=== PATIENT | male | born 1930 | race Caucasian/White ===

== ENCOUNTER 2018-12-05 09:44 | Day surgery (SDC) | payer OTHER, MEDICARE ==
--- NOTE | 2018-12-04 12:56 | RAD REPORT ---
EXAM DESCRIPTION: RAD - Chest Pa And Lat (2 Views) - 12/04/2018 12:46 pm CLINICAL HISTORY: Preop chest examination, pending right inguinal hernia repair COMPARISON: February 2015 chest exam TECHNIQUE: PA and lateral views of the chest were obtained. FINDINGS: The lungs are fibrotic as a baseline. Interstitial fibrotic pattern is progressive. No per ipheral mass or consolidation. Left costophrenic angle blunting changes are present believed to be pl eural scarring rather than effusion. Cardiomegaly is present increased slightly from comparison. No vascular engorgement or other findings for acute failure or volume overload. Trachea is midline. No pneumothorax. No acute bony finding n oted. No aortic abnormality. IMPRESSION: No focal infiltrate, mass or failure finding. Chronic interstitial lung pattern progressive from 2014. In the absence of acute respiratory symptoms this is favored to be progressive fibrosis rather than interstitial infiltrate.
[2018-12-04 13:13] LABS: Absolute Lymphocytes (CBC) 1.7 K/uL (0.7-4.9); Basophils % 0.3 % (0-1.3); Hematocrit 43.4 % (39.6-49.0); Lymphocytes % 6.7 % (15.3-44.8); MPV 8.2 fL (7.6-11.3); RBC Red Blood Cell Count 5.47 M/uL (4.33-5.43)
[2018-12-04 13:31] LABS: Potassium 4.3 mmol/L (3.5-5.1)
[2018-12-04 14:35] LABS: Anisocytosis 1+; Blood Morphology Comment NOTED (NOT SEEN); Platelet Estimate ADEQ; Platelets, Giant NOTED
--- NOTE | 2018-12-04 16:11 | EKG ---
Test Date: 2018-12-04 Test Time: 12:37:57 Bottled Beverage Inspector: KYLE MEASUREMENT RESULTS: Intervals: Rate: 68 UT: 216 QRSD: 114 QT: 474 QTc: 504 Council: P: 41 UT: 216 QRS: 56 T: 54 INTERPRETIVE STATEMENTS: Sinus rhythm with sinus arrhythmia with 1st degree AV block Incomplete left bundle branch block ST & T wave abnormality, consider lateral ischemia Prolonged QT Abnormal ECG No previous ECG available for comparison Electronically Signed On 12-04-18 16:09:23 CDT by Rene Stevens
--- OUTSIDE RECORDS SUMMARY | 2018-12-05 09:47 | XMS REPORT | Summary of Care ---
:1930 Author Organization [facility] Address [address] [place] [id number] Care Team Providers Name Role Phone Sonido Elizabeth DO Primary Care Provider Reason for Visit Reason Comments Follow-up 2mo Encounter Details Date Type Department Care Team Description 11/12/2018 Office Visit [facility] Mirtha Melgoza MD Coronary artery disease involving [place] coronary artery of [place] heart with angina pectoris (Primary Dx); Cardiology- [address] PAF (paroxysmal atrial fibrillation); [address] [place] [address] DRIVE (HFpEF) heart failure with preserved ejection fraction Drive, [address] [place] [phone] Allergies Active Allergy Reactions Severity Noted Date Comments Hasmukh Other - See comments 05/29/2015 sneezing Naproxen Shortness of Breath, High 06/09/2015 Diaphoresis, dyspnea, Palpitations sob Diaphoresis, dyspnea, sob Tramadol Unknown - See comments 06/09/2015 A-fib Other reaction(s): Other (See Comments) Diaphoresis, SOB, dyspnea Diaphoresis, SOB, dyspnea documented as of this encounter (statuses as of 11/12/2018) Medications Medication Sig Dispensed Refills Start Date End Date Status predniSONE 5 mg Take 5 mg by 0 Active tablet mouth daily. metoprolol tartrate Take 0.5 30 tablet 11 02/22/2018 Active 25 mg tablet tablets by mouth 2 (two) times daily. metOLazone 2.5 mg Take 1 tablet 20 tablet 3 05/01/2018 Active tablet by mouth weekly. Monday AM nitroglycerin 0.[address] 1 25 tablet 1 06/05/2018 Active sublingual tablet under tabletIndications: the tongue Coronary artery every 5 disease involving (five) [place] coronary minutes as artery of [place] needed for heart without angina Chest pain. pectoris potassium chloride Take 2 60 tablet 3 06/05/2018 Active SA (KLOR-CON M15) 15 tablets by mEq mouth daily. tabletIndications: Hypokalemia pantoprazole 20 mg Take 1 tablet 30 tablet 5 07/09/2018 Active EC tablet by mouth daily. furosemide 40 mg Take 1 tablet 60 tablet 3 09/05/2018 Active tabletIndications: by mouth (HFpEF) heart every morning failure with and evening. preserved ejection fraction allopurinol 100 mg Take 1 tablet 30 tablet 2 09/20/2018 Active tabletIndications: by mouth Other secondary daily. 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 Depression, unspecified depression type simvastatin 40 mg Take 1 tablet 30 tablet 11 10/22/2018 Active tablet by mouth at bedtime. clopidogrel 75 mg Take 1 tablet 30 tablet 11 10/22/2018 Active tablet by mouth daily. apixaban 2.5 mg Take 1 tablet 60 tablet 11 10/22/2018 Active tablet by mouth 2 (two) times daily. codeine-guaifenesin Take 10 mL by 4 oz 0 10/19/2018 11/12/2018 Discontinued 10-100 mg/5 mL mouth every 6 solutionIndications: (six) hours Cough as needed for Cough. documented as of this encounter (statuses as of 11/12/2018) Active Problems Problem Noted Date SOB (shortness of breath) 02/19/2018 Nausea & vomiting 02/18/2018 Acute on chronic diastolic congestive heart failure 02/12/2018 PAF (paroxysmal atrial fibrillation) 02/12/2018 Elevated troponin 02/10/2018 Coronary artery disease involving [place] coronary artery of [place] heart 01/20 with angina pectoris OBRIEN (dyspnea on exertion) 01/20/2018 (HFpEF) heart failure with preserved ejection fraction 01/20/2018 Elevated brain natriuretic peptide (BNP) level 01/20/2018 Atypical chest pain 01/18/2018 NSTEMI (non-ST elevated myocardial infarction) 10/11/2017 documented as of this encounter (statuses as of 11/12/2018) Immunizations Name Administration Dates Next Due Influenza Virus Vaccine 01/17/2018 Pneumococcal 13 Conjugate, PCV13 (Prevnar 13) 11/26/2014 Tdap 08/10/2013 documented as of this encounter Social History Tobacco Use Types Packs/Day Years Used Date Former Smoker Cigarettes Quit: 04/17/1970 Smokeless Tobacco: Former User Chew Quit: 04/17/1970 Comments: 20 pack years Alcohol Use Drinks/Week oz/Week Comments Yes a beer every 3-4 months Sex Assigned at Date Recorded Not on file Job Start Date Occupation Industry Not on file Not on file Not on file Travel History Travel Start Travel End No recent travel history available. documented as of this encounter Last Filed Vital Signs Vital Sign Reading Time Taken Comments Blood Pressure 102/57 11/12/2018 10:09 AM CDT Pulse 69 11/12/2018 10:09 AM CDT Temperature - - Respiratory Rate 20 11/12/2018 10:09 AM CDT Oxygen Saturation 94% 11/12/2018 10:09 AM CDT Inhaled Oxygen Concentration - - Weight 81.2 kg (179 lb) 11/12/2018 10:09 AM CDT Height 177.8 cm (5' 10") 11/12/2018 10:09 AM CDT Body Mass Index 25.68 11/12/2018 10:09 AM CDT documented in this encounter Progress Notes Mirtha Melgoza MD - 11/12/2018 1:40 PM CDT [facility] Cardiology Consult Note CHIEF COMPLAINT: Chief Complaint Patient presents with Follow-up 2mo History of Present Illness: Inderjit Tejeda is an 88 years old male patient presents to the office for f/u of HFpEF. Patient underwent invasive coronary angiogram for non-ST elevation RI and underwent stent placement in 10/2017. He was seen for bilateral leg swelling. He was started on lasix. Previous visit he was seen for worsening OBRIEN, orthopnea and leg edema. He was admitted to [facility] for volume overload. Diuresed well. Started on metolazone BIW. He went to [facility] ER in 07/2018 for cellulitis and leg edema. Lasix was increased to 60 mg BID. Leg edema has resolved. Since last visit he has been doing well. No edema. Lasix 40 BID. Metolazone weekly. Stable weight. No orthopnea. Able to walk 1 block. EKG--03/26/2018--Sinus trena, 50 bpm, LBBB PMH of Aflutter (on Eliquis, recently stopped amiodarone on 09/25) Moderate aortic stenosis CAD ([facility] 2014 without stents placed) Pulmonary eosinophilia MDS Previous Cardiac Studies: IMAGING - I personally reviewed, pertinent results as below: NSTEMI s/p Successful PCI mid calcified LAD with BENJI Echo 09/2017 Interpretation Summary A complete two-dimensional transthoracic echocardiogram was performed (2D, M- mode, Doppler and colorflow Doppler). The study was technically difficult. There is no comparison study available. -Left ventricular systolic function is normal. Ejection Fraction=55-60%. -Moderate valvular aortic stenosis. - Mild pulmonary hypertension PAST MEDICAL HISTORY Past Medical History: Diagnosis Date Aortic stenosis, mild CAD (coronary artery disease) CHF (congestive heart failure) Hypertension Paroxysmal A-fib Pulmonary eosinophilia Past Surgical History: Procedure Laterality Date STENT PLACEMENT (SHX) Family History Problem Relation Age of Onset RI (myocardial infarction) Father Prostate Cancer Brother Stroke Brother Bladder Cancer Brother Aneurysm Son SOCIAL HISTORY Social History Socioeconomic History Marital status: Spouse name: Not on file Number of children: 3 Years of education: Not on file Highest education level: Not on file Occupational History Not on file Social Needs Financial resource strain: Not on file Food insecurity: Worry: Not on file Inability: Not on file Transportation needs: Medical: Not on file Non-medical: Not on file Tobacco Use Smoking status: Former Smoker Types: Cigarettes Last attempt to quit: 04/17/1970 Years since quittin.6 Smokeless tobacco: Former User Types: Chew Quit date: 04/17/1970 Tobacco comment: 20 pack years Substance and Sexual Activity Alcohol use: Yes Comment: a beer every 3-4 months Drug use: No Sexual activity: Not on file Lifestyle Physical activity: Days per week: Not on file Minutes per session: Not on file Stress: Not on file Relationships Social connections: Talks on phone: Not on file Gets together: Not on file Attends druze service: Not on file Active member of club or organization: Not on file Attends meetings of clubs or organizations: Not on file Relationship status: Not on file Intimate partner violence: Fear of current or ex partner: Not on file Emotionally abused: Not on file Physically abused: Not on file Forced sexual activity: Not on file Other Topics Concern Not on file Social History Narrative Not on file ALLERGIES Allergies Allergen Reactions Naprosyn [Naproxen] Shortness of Breath and Palpitations Diaphoresis, dyspnea, sob Diaphoresis, dyspnea, sob [place] Other - See comments sneezing Tramadol Unknown - See comments A-fib Other reaction(s): Other (See Comments) Diaphoresis, SOB, dyspnea Diaphoresis, SOB, dyspnea MEDICATIONS Patient's Medications START taking these medications No medications on file CONTINUE taking these medications which have NOT CHANGED ALLOPURINOL 100 MG TABLET Take 1 tablet by mouth daily. APIXABAN 2.5 MG TABLET Take 1 tablet by mouth 2 (two) times daily. CLOPIDOGREL 75 MG TABLET Take 1 tablet by mouth daily. FUROSEMIDE 40 MG TABLET Take 1 tablet by mouth every morning and evening. METOLAZONE 2.5 MG TABLET Take 1 tablet by mouth weekly. Monday METOPROLOL TARTRATE 25 MG TABLET Take 0.5 tablets by mouth 2 (two) times daily. NITROGLYCERIN 0.[address] 1 tablet under the tongue every 5 (five) minutes as needed for Chest pain. PANTOPRAZOLE 20 MG EC TABLET Take 1 tablet by mouth daily. POTASSIUM CHLORIDE SA (KLOR-CON M15) 15 MEQ TABLET Take 2 tablets by mouth daily. PREDNISONE 5 MG TABLET Take 5 mg by mouth daily. SERTRALINE (ZOLOFT) 25 MG TABLET Take 1 tablet by mouth daily. SIMVASTATIN 40 MG TABLET Take 1 tablet by mouth at bedtime. START taking Modified Medications as Prescribed No medications on file STOP taking these medications CODEINE-GUAIFENESIN 10-100 MG/5 ML SOLUTION Take 10 mL by mouth every 6 (six ) hours as needed for Cough. There are no exam notes on file for this visit. I have reviewed the nursing notes obtained by my nurse and concur as detailed above. REVIEW OF SYSTEMS: Comprehensive 10-system review was conducted and were negative except for what' s noted in the HPI. The following systems were reviewed: Constitutional, cardiovascular, respiratory, gastrointestinal, genitourinary, musculoskeletal, neurologic, psychiatric, endocrinological, and hematological. PHYSICAL EXAMINATION: Vitals: 11/12/18 1009 BP: 102/57 BP Location: Left arm Patient Position: Sitting BP CUFF SIZE: Adult Large Pulse: 69 Resp: 20 SpO2: 94% Weight: 179 lb (81.2 kg) Height: 5' 10" (1.778 m) General: no apparent distress HEENT: normocephalic atraumatic Neck: supple, no lymphadenopathy, no bruits, no JVD Lungs: clear to auscultation bilaterally. No wheezes or rhonchi. No increased work of breathing. Cardio: Regular rate and rhythm, S1&S2 normal, no murmurs, rubs or gallops Abdomen: soft; non-tender; non-distended; normoactive bowel sounds. : not examined Rectal: not examined Extremities: no clubbing, cyanosis, - edema. Skin: no rashes, no visible lesions. Neuro: no gross focal deficits LABS - Reviewed pertinent labs as below: CBC BMP PT/INR WBC (10*3/L) Date Value 10/19/2018 26.37 (H) NA (mmol/L) Date Value 10/19/2018 139 No results found for: PT PLT (10*3/L) Date Value 10/19/2018 318 K (mmol/L) Date Value 10/19/2018 3.9 INR (no units) Date Value 08/12/2018 1.2 HGB (g/dL) Date Value 10/19/2018 13.6 BUN (mg/dL) Date Value 10/19/2018 57 (H) HCT (%) Date Value 10/19/2018 43.8 CREATININE (mg/dL) Date Value 10/19/2018 1.44 (H) LIPID PROFILE GLUCOSE (mg/dL) Date Value 10/19/2018 119 (H) CHOL (mg/dL) Date Value 06/25/2018 101 (L) TSH LDL CHOL (mg/dL) Date Value 06/25/2018 60 TSH (mIU/L) Date Value 10/10/2017 2.12 CARDIAC ENZYMES HDL (mg/dL) Date Value 06/25/2018 29 (L) No results found for: CK TRIG (mg/dL) Date Value 06/25/2018 61 LFTs No results found for: CKMB AST(SGOT) (U/L) Date Value 08/12/2018 29 TROPONIN I (ng/mL) Date Value 08/12/2018 0.072 (H) ALT(SGPT) (U/L) Date Value 08/12/2018 26 No results found for: BNP LDL CHOL (mg/dL) Date Value 06/25/2018 60 Recent Labs 08/12/18 1545 TROPNI 0.072* Recent Labs 06/25/18 1124 TRIG 61 ASSESSMENT/PLAN 1. Coronary artery disease involving [place] coronary artery of [place] heart with angina pectoris 2. PAF (paroxysmal atrial fibrillation) 3. (HFpEF) heart failure with preserved ejection fraction HFpEF--Current volume status is good. Will continue lasix at 40 mg BID and metolazone weekly. Off spironolactone. Will continue compression stockings. Discussed weight monitoring and lasix adjustment. BMP next visit. CAD--NSTEMI s/p PCI of mid LAD. No angina. On plavix/simvastatin. On metoprolol. Doing cardiac rehab. Off ASA since it has been 3 months since PCI and he is on Eliquis/plavix. LDL 60. PAfib--Currently in NSR. Will continue Eliquis. No bleeding. HTN--BP is normal now. PAD--GLENYS and duplex showed mild PAD. On medical therapy. No claudication. RTC 4 months Mirtha Melgoza MD, FAC, GI[employer]AR[employer] Wrestling Coach, Division of Cardiology [facility] documented in this encounter Plan of Treatment Date Type Specialty Care Team Description 03/12/2019 Office Visit Internal Medicine Sonido Elizabeth, [address] [place] [id number] 03/18/2019 Office Visit Cardiology Mirtha Melgoza MD [address] [place] [address] [place] [id number] Health Maintenance Due Date Last Done Comments Zoster Recombinant Vaccine (SHINGRIX) (1 of 2) 10/26/1981 Medicare Wellness Visit 10/26/1996 PNEUMOCOCCAL VACCINES 65+ (2 of 2 - PPSV23) 11/27/2015 11/26/2014 INFLUENZA VACCINE 12/16/2018 01/17/2018 DTaP,Tdap,and Td Vaccines (2 - Td) 08/11/2023 08/10/2013 documented as of this encounter Implants Implanted Type Area Company Accountant Device Identifier Shelf Expiration Model / Serial Date / Lot Stent documented as of this encounter Results Not on filedocumented in this encounter Visit Diagnoses Diagnosis Coronary artery disease involving [place] coronary artery of [place] heart with angina pectoris - Primary PAF (paroxysmal atrial fibrillation) Atrial fibrillation (HFpEF) heart failure with preserved ejection fraction documented in this encounter Insurance Payer Benefit Plan / Subscriber ID Effective Phone Address Type Group Dates MEDICARE MEDICARE PART xxxxxxxxxxx 1996-Pre [phone] [address] Medicare A & B sent [phone] JOSHUA DAVIS [phone] [facility] [id number] 2002-Pre [address] Medicare HEALTHCARE HEALTHCARE sent [id number] Supplement MEDICARE [place] SUPPLEMENT JOSHUA CASTRO [id number] (Home) [place] [address] documented as of this encounter Advance Directives Name Relationship Healthcare Agent Communication Relationship Kaity Tejeda Spouse [facility] [phone] agent (Home) [phone] Leny Calzada Child [facility] agent
--- OUTSIDE RECORDS SUMMARY | 2018-12-05 09:47 | XMS REPORT | Clinical Summary ---
:1930 Author Organization [facility] Address [address] [place] [address] Care Team Providers Name Role Phone Светлана Berrios MD Primary Care Provider Allergies Active Allergy Reactions Severity Noted Date Comments Hasmukh Other (See Comments) 11/10/2015 sneezing Naproxen Shortness Of Breath High 11/10/2015 Diaphoresis, dyspnea, sob Tramadol 11/10/2015 A-fib Medications Medication Sig Dispensed Refills Start Date End Date Status simvastatin (ZOCOR) Take 40 mg 0 10/17/2017 Active 40 MG tablet by mouth. hydroxyurea Take 1,000 0 Active (HYDREA) 500 mg mg by mouth capsule daily. aspirin 81 mg Chew 81 mg. 0 10/18/2017 Active chewable tablet clopidogrel Take 75 mg 0 10/18/2017 Active (PLAVIX) 75 mg by mouth. tablet nitroglycerin Place 0.4 mg 0 10/17/2017 Active (NITROSTAT) 0.4 MG under the SL tablet tongue. pantoprazole Take 40 mg 0 Active (PROTONIX) 20 MG EC by mouth. tablet predniSONE Take 5 mg by 0 Active (DELTASONE) 5 mg mouth. tablet apixaban (ELIQUIS) Take 5 mg by 0 Active 5 mg tablet mouth 2 (two) times a day. losartan (COZAAR) Take 1 90 tablet 0 03/23/2018 Active 25 MG tablet tablet (25 mg total) by mouth daily. losartan (COZAAR) Take 25 mg 0 10/18/2017 Discontinued 25 MG tablet by mouth. 8 (Reorder) Active Problems Problem Noted Date NSTEMI (non-ST elevated myocardial infarction) 10/11/2017 Atrial flutter by electrocardiography 07/05/2017 AVD (aortic valve disease) 09/27/2016 Nonrheumatic aortic valve stenosis 04/05/2016 Coronary artery disease involving [place] coronary artery of [place] heart 04/05 without angina pectoris Coronary arteriosclerosis 01/22/2016 Heart murmur 01/22/2016 Chest pain 01/22/2016 Essential hypertension 11/10/2015 Hyperlipidemia 11/10/2015 Pulmonary eosinophilia 11/10/2015 Encounters Date Type Specialty Care Team Description 03/23/2018 Telephone Cardiology Sanchez oGod MA Med Refill 02/07/2018 Telephone Internal Medicine Светлана Berrios MD 02/06/2018 Telephone Internal Medicine Светлана Berrios MD after 12/04/2017 Immunizations Name Administration Dates Next Due Pneumococcal Conjugate 13-Valent 11/26/2014 Tdap 08/10/2013 Family History Medical History Relation Name Comments Cancer Brother prostate Cancer Brother prostate/bladder Heart disease Father Heart attack No Known Problems Mother Coronary artery disease Other Relation Name Status Comments Brother Brother Father Mother Other Social History Tobacco Use Types Packs/Day Years Used Date Former Smoker Smokeless Tobacco: Former User Alcohol Use Drinks/Week oz/Week Comments Yes rare beer Sex Assigned at Date Recorded Not on file Job Start Date Occupation Industry Not on file Not on file Not on file Travel History Travel Start Travel End No recent travel history available. 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
--- OUTSIDE RECORDS SUMMARY | 2018-12-05 09:47 | XMS REPORT ---
:1930 Author [facility] Address [address] [place] [address] Dr. Combs [address] [place] [address] Care Team Providers Name Role Phone Unavailable Unavailable Unavailable Problems This patient has no known problems. Allergies, Adverse Reactions, Alerts This patient has no known allergies or adverse reactions. Medications This patient has no known medications.
--- OUTSIDE RECORDS SUMMARY | 2018-12-05 09:48 | XMS REPORT | Summary of Care ---
:[address] [facility] - [facility] Address [address] [place] [address] Care Team Providers Name Role Phone Sonido Elizabeth Primary Care Provider Reason for Visit Reason Comments Pre-op Clearance open repair of right inguinal hernia with mesh Encounter Details Date Type Department Care Team Description 11/21/[address] [facility] Mirtha Melgoza MD Pre-op Clearance (open Cardiology- [address] repair of right [address], DRIVE inguinal hernia with [address] mesh) [place] [phone] Allergies Active Allergy Reactions Severity Noted Date Comments Hasmukh Other - See comments 05/29/2015 sneezing Naproxen Shortness of Breath, High 06/09/2015 Diaphoresis, dyspnea, Palpitations sob Diaphoresis, dyspnea, sob Tramadol Unknown - See comments 06/09/2015 A-fib Other reaction(s): Other (See Comments) Diaphoresis, SOB, dyspnea Diaphoresis, SOB, dyspnea documented as of this encounter (statuses as of 11/21/2018) Medications Medication Sig Dispensed Refills Start Date End Date Status predniSONE 5 mg tablet Take 5 mg by 0 Active mouth daily. metoprolol tartrate 25 Take 0.5 tablets 30 tablet 11 02/22/2018 Active mg tablet by mouth 2 (two) times daily. metOLazone 2.5 mg Take 1 tablet by 20 tablet 3 05/01/2018 Active tablet mouth weekly. Monday AM nitroglycerin 0.[address] 1 tablet 25 tablet 1 06/05/2018 Active sublingual under the tongue tabletIndications: every 5 (five) Coronary artery disease minutes as needed involving [place] for Chest pain. coronary artery of [place] heart without angina pectoris potassium chloride SA Take 2 tablets by 60 tablet 3 06/05/2018 Active (KLOR-CON M15) 15 mEq mouth daily. tabletIndications: Hypokalemia pantoprazole 20 mg EC Take 1 tablet by 30 tablet 5 07/09/2018 Active tablet mouth daily. furosemide 40 mg Take 1 tablet by 60 tablet 3 09/05/2018 Active tabletIndications: mouth every (HFpEF) heart failure morning and with preserved ejection evening. fraction allopurinol 100 mg Take 1 tablet by 30 tablet 2 09/20/2018 Active tabletIndications: mouth daily. 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 Depression, unspecified depression type simvastatin 40 mg Take 1 tablet by 30 tablet 11 10/22/2018 Active tablet mouth at bedtime. clopidogrel 75 mg Take 1 tablet by 30 tablet 11 10/22/2018 Active tablet mouth daily. apixaban 2.5 mg tablet Take 1 tablet by 60 tablet 11 10/22/2018 Active mouth 2 (two) times daily. 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 OBRIEN (dyspnea on exertion) 01/20/2018 (HFpEF) heart failure with preserved ejection fraction 01/20/2018 Elevated brain natriuretic peptide (BNP) level 01/20/2018 Atypical chest pain 01/18/2018 NSTEMI (non-ST elevated myocardial infarction) 10/11/2017 documented as of this encounter (statuses as of 11/21/2018) Immunizations Name Administration Dates Next Due Influenza [...] of this encounter Last Filed Vital Signs Not on filedocumented in this encounter Plan of Treatment Date Type Specialty Care Team Description 03/12/2019 Office Visit Internal Medicine Sonido Elizabeth, [address] [place] [address]. [place] [phone] 03/18/2019 Office Visit Cardiology Mirtha Melgoza MD [address] [place] [address] [place] [address] 769285 Health Maintenance Due Date Last Done Comments Zoster Recombinant Vaccine (SHINGRIX) (1 of 2) 10/26/1981 Medicare Wellness Visit 10/26/1996 PNEUMOCOCCAL VACCINES 65+ (2 of 2 - PPSV23) 11/27/2015 11/26/2014 INFLUENZA VACCINE 12/16/2018 01/17/2018 DTaP,Tdap,and Td Vaccines (2 - Td) 08/11/2023 08/10/2013 documented as of this encounter Implants Implanted Type Area Roller Coaster Engineer Device Identifier Shelf Expiration Model / Serial Date / Lot Stent documented as of this encounter Results Not on filedocumented in this encounter Insurance Payer Benefit Plan / Subscriber ID Effective Phone Address Type Group Dates MEDICARE MEDICARE PART xxxxxxxxxxx 1996-Pre [phone] [address] Medicare A & B sent [id number] JOSHUA DAVIS [address] [facility] [id number] 2002-Pre [address] Medicare HEALTHCARE HEALTHCARE sent [id number] Supplement MEDICARE [place] SUPPLEMENT JOSHUA CASTRO [id number] documented as of this encounter Advance Directives Name Relationship Healthcare Agent Communication Relationship Kaity Tejeda Spouse First [facility] [phone] agent (Home) [phone] Leny Calzada Child Second formerly [facility] agent
--- OUTSIDE RECORDS SUMMARY | 2018-12-05 09:48 | XMS REPORT | Summary of Care ---
:1930 Author Organization [facility] Address [address] [place] [address] Care Team Providers Name Role Phone Sonido Elizabeth DO Primary Care Provider Reason for Visit Reason Comments Follow-up 2mo Encounter Details Date Type Department Care Team Description 11/12/2018 Office Visit [facility] Mirtha Melgoza MD Coronary artery disease involving [place] coronary artery of [place] heart with angina pectoris (Primary Dx); Cardiology- [address] PAF (paroxysmal atrial fibrillation); [address] [place] [address] DRIVE (HFpEF) heart failure with preserved ejection fraction Drive, [address] [place] [phone] Allergies Active Allergy Reactions Severity Noted Date [...] Coronary artery every 5 disease involving (five) [place] coronary minutes as artery of [place] needed for heart without angina Chest pain. 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 Patient underwent invasive coronary angiogram for non-ST elevation [place] and underwent stent placement in 10/2017. He was seen for bilateral leg swelling. He was started on lasix. Previous visit he was seen for worsening OBRIEN, orthopnea and leg edema. He was admitted to [facility] for volume overload. Diuresed well. Started on metolazone BIW. He went to [facility] ER in 07/2018 for cellulitis and leg edema. Lasix was increased to 60 mg BID. Leg edema has resolved. Since last visit he has been doing well. No edema. Lasix 40 BID. Metolazone weekly. Stable weight. No orthopnea. Able to walk 1 block. EKG--03/26/2018--Sinus trena, 50 bpm, LBBB PMH of Aflutter (on Eliquis, recently stopped amiodarone on 09/25) Moderate aortic stenosis CAD ([facility] 2014 without stents placed) Pulmonary eosinophilia MDS [...] Family History Problem Relation Age of Onset [place] (myocardial infarction) Father Prostate Cancer Brother Stroke [...] file Gets together: Not on file Attends anglican service: Not on file Active member of [...] 62 ASSESSMENT/PLAN 1. Coronary artery disease involving [place] coronary artery of [place] heart with angina pectoris 2. PAF (paroxysmal [...] 4 months Mirtha Melgoza MD, FAC, GIANCARLO Embedded Systems Developer, Division of Cardiology [facility] documented in this encounter Plan of Treatment Date Type Specialty Care Team Description 03/12/2019 Office Visit Internal Medicine Sonido Elizabeth, [address] [place] [phone] 03/18/2019 Office Visit Cardiology Mirtha Melgoza MD [address] [place] [address] [place] [address] Health Maintenance Due Date Last Done Comments Zoster Recombinant Vaccine (SHINGRIX) (1 of 2) 10/26/1981 Medicare Wellness Visit 10/26/1996 PNEUMOCOCCAL VACCINES 65+ (2 of 2 - PPSV23) 11/27/2015 11/26/2014 INFLUENZA VACCINE 12/16/2018 01/17/2018 DTaP,Tdap,and Td Vaccines (2 - Td) 08/11/2023 08/10/2013 documented as of this encounter Implants Implanted Type Area Terminal Gauger Supervisor Device Identifier Shelf Expiration Model / Serial Date / Lot Stent documented as of this encounter Results Not on filedocumented in this encounter Visit Diagnoses Diagnosis Coronary artery disease involving [place] coronary artery of [place] heart with angina pectoris - Primary PAF (paroxysmal atrial fibrillation) Atrial fibrillation (HFpEF) heart failure with preserved ejection fraction documented in this encounter Insurance Payer Benefit Plan / Subscriber ID Effective Phone Address Type Group Dates MEDICARE MEDICARE PART xxxxxxxxxxx 1996-Pre [phone] [address] Medicare A & B sent [id number] JOSHUA DAVIS [phone] [facility] [id number] 2002-Pre [address] Medicare HEALTHCARE HEALTHCARE sent [id number] Supplement MEDICARE [place] SUPPLEMENT JOSHUA CASTRO [id number] (Home) [place] [address] documented as of this encounter Advance Directives Name Relationship Healthcare Agent Communication Relationship Kaity Tejeda Spouse [facility] [phone] agent (Home) [phone] Leny Calzada Child [facility] agent
--- OUTSIDE RECORDS SUMMARY | 2018-12-05 09:48 | XMS REPORT | Summary of Care ---
:1930 Author Organization [facility] Address [address] [place] [address] Care Team Providers Name Role Phone Sonido Elizabeth DO Primary Care Provider Reason for Visit Reason Comments Follow-up 2mo Encounter Details Date Type Department Care Team Description 11/12/2018 Office Visit [facility] Mirtha Melgoza MD Coronary artery disease involving [place] coronary artery of [place] heart with angina pectoris (Primary Dx); Cardiology- [address] PAF (paroxysmal atrial fibrillation); [address] [place] [address] DRIVE (HFpEF) heart failure with preserved ejection fraction Drive, [address] [place] [phone] Allergies Active Allergy Reactions Severity Noted Date Comments Hasmukh Other - See comments 05/29/2015 sneezing Naproxen Shortness of Breath, High 06/09/2015 Diaphoresis, dyspnea, Palpitations sob Diaphoresis, dyspnea, sob Tramadol Unknown - See comments 06/09/2015 A-fib Other reaction(s): Other (See Comments) Diaphoresis, SOB, dyspnea Diaphoresis, SOB, dyspnea documented as of this encounter (statuses as of 11/25/2018) Medications Medication Sig Dispensed Refills Start Date [...] Coronary artery every 5 disease involving (five) [place] coronary minutes as artery of [place] needed for heart without angina Chest pain. 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 OBRIEN (dyspnea on exertion) 01/20/2018 (HFpEF) heart failure with preserved ejection fraction 01/20/2018 Elevated brain natriuretic peptide (BNP) level 01/20/2018 Atypical chest pain 01/18/2018 NSTEMI (non-ST elevated myocardial infarction) 10/11/2017 documented as of this encounter (statuses as of 11/25/2018) Immunizations Name Administration Dates Next Due Influenza [...] MD - 11/12/2018 1:40 PM CDT [facility] Cardiology Consult Note CHIEF COMPLAINT: Chief Complaint Patient presents with Follow-up 2mo History of Present Illness: Inderjit Tejeda is an 88 years old male patient presents to the office for f/u of HFpEF. Patient underwent invasive coronary angiogram for non-ST elevation [place] and underwent stent placement in 10/2017. He was seen for bilateral leg swelling. He was started on lasix. Previous visit he was seen for worsening OBRIEN, orthopnea and leg edema. He was admitted to [facility] for volume overload. Diuresed well. Started on metolazone BIW. He went to [facility] ER in 07/2018 for cellulitis and leg edema. Lasix was increased to 60 mg BID. Leg edema has resolved. Since last visit he has been doing well. No edema. Lasix 40 BID. Metolazone weekly. Stable weight. No orthopnea. Able to walk 1 block. EKG--03/26/2018--Sinus trena, 50 bpm, LBBB PMH of Aflutter (on Eliquis, recently stopped amiodarone on 09/25) Moderate aortic stenosis CAD ([facility] 2014 without stents placed) Pulmonary eosinophilia MDS [...] Family History Problem Relation Age of Onset [place] (myocardial infarction) Father Prostate Cancer Brother Stroke [...] file Gets together: Not on file Attends hoahaoism service: Not on file Active member of [...] 62 ASSESSMENT/PLAN 1. Coronary artery disease involving [place] coronary artery of [place] heart with angina pectoris 2. PAF (paroxysmal [...] medical therapy. No claudication. RTC 4 months Addendum---11/25/2018---Moderate cardiac risk. OK to hold Eliquis 2-3 days before surgery. OK to holdplavix 5 days before surgery. Restart these medications MOMO postop. Mirtha Melgoza MD, FACC, GIANCARLO Bank Consultant, Division of Cardiology [facility] documented in this encounter Plan of Treatment Date Type Specialty Care Team Description 03/12/2019 Office Visit Internal Medicine Sonido Elizabeth DO [address] [place] [address]. [place] [phone] 03/18/2019 Office Visit Cardiology Mirtha Melgoza MD [address] [place] [address] [address] [place] [address] [phone] Health Maintenance Due Date Last Done Comments Zoster Recombinant Vaccine (SHINGRIX) (1 of 2) 10/26/1981 Medicare Wellness Visit 10/26/1996 PNEUMOCOCCAL VACCINES 65+ (2 of 2 - PPSV23) 11/27/2015 11/26/2014 INFLUENZA VACCINE 12/16/2018 01/17/2018 DTaP,Tdap,and Td Vaccines (2 - Td) 08/11/2023 08/10/2013 documented as of this encounter Implants Implanted Type Area Correctional Officer Lieutenant Device Identifier Shelf Expiration Model / Serial Date / Lot Stent documented as of this encounter Results Not on filedocumented in this encounter Visit Diagnoses Diagnosis Coronary artery disease involving [place] coronary artery of [place] heart with angina pectoris - Primary PAF (paroxysmal atrial fibrillation) Atrial fibrillation (HFpEF) heart failure with preserved ejection fraction documented in this encounter Insurance Payer Benefit Plan / Subscriber ID Effective Phone Address Type Group Dates MEDICARE MEDICARE PART xxxxxxxxxxx 1996-Pre [phone] [address] Medicare A & B sent [id number] JOSHUA DAVIS [address] [facility] [id number] 2002-Pre [address] Medicare HEALTHCARE HEALTHCARE sent [id number] Supplement MEDICARE [place] SUPPLEMENT JOSHUA CASTRO [address] (Home) [place] [address] documented as of this encounter Advance Directives Name Relationship Healthcare Agent Communication Relationship Kaity Tejeda Spouse [facility] [phone] agent (Home) [phone] Leny Calzada Child [facility] agent
--- OUTSIDE RECORDS SUMMARY | 2018-12-05 09:49 | XMS REPORT | Summary of Care ---
:1930 Author Organization [facility] Address [address] [place] [address] Care Team Providers Name Role Phone Sonido Elizabeth Primary Care Provider Reason for Visit Reason Comments Pre-op Clearance open repair of right inguinal hernia with mesh Encounter Details Date Type Department Care Team Description 11/21/2018 Telephone [facility] Mirtha Melgoza MD Pre-op Clearance (open Cardiology- [address] repair of right [address], DRIVE inguinal hernia with [address] mesh) [place] [phone] Allergies Active Allergy Reactions Severity Noted Date Comments Hasmukh Other - See comments 05/29/2015 sneezing Naproxen Shortness of Breath, High 06/09/2015 Diaphoresis, dyspnea, Palpitations sob Diaphoresis, dyspnea, sob Tramadol Unknown - See comments 06/09/2015 A-fib Other reaction(s): Other (See Comments) Diaphoresis, SOB, dyspnea Diaphoresis, SOB, dyspnea documented as of this encounter (statuses as of 11/27/2018) Medications Medication Sig Dispensed Refills Start Date [...] Coronary artery disease minutes as needed involving [place] for Chest pain. 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 [place] [phone] 03/18/2019 Office Visit Cardiology Mirtha Melgoza MD [address] [place] [address] [place] [address] [phone] Health Maintenance Due Date Last Done Comments Zoster Recombinant Vaccine (SHINGRIX) (1 of 2) 10/26/1981 Medicare Wellness Visit 10/26/1996 PNEUMOCOCCAL VACCINES 65+ (2 of 2 - PPSV23) 11/27/2015 11/26/2014 INFLUENZA VACCINE 12/16/2018 01/17/2018 DTaP,Tdap,and Td Vaccines (2 - Td) 08/11/2023 08/10/2013 documented as of this encounter Implants Implanted Type Area Overhauler Helper Device Identifier Shelf Expiration Model / Serial Date / Lot Stent documented as of this encounter Results Not on filedocumented in this encounter Insurance Payer Benefit Plan / Subscriber ID Effective Phone Address Type Group Dates MEDICARE MEDICARE PART xxxxxxxxxxx 1996-Pre [phone] [address] Medicare A & B sent [id number] JOSHUA DAVIS [id number] [facility] [id number] 2002-Pre [address] Medicare HEALTHCARE HEALTHCARE sent [id number] Supplement MEDICARE [place] SUPPLEMENT JOSHUA CASTRO [id number] documented as of this encounter Advance Directives Name Relationship Healthcare Agent Communication Relationship Kaity Tejeda Spouse First [facility] [phone] agent (Home) [phone] Leny Calzada Child Second [facility] agent
--- OUTSIDE RECORDS SUMMARY | 2018-12-05 09:49 | XMS REPORT | Summary of Care ---
:1930 Author Organization [facility] Address [address] [place] [address] Care Team Providers Name Role Phone Sonido Elizabeth DO Primary Care Provider Encounter Details Date Type Department Care Team Description 11/29/2018 Patient Secure [facility] Internal Sonido Elizabeth DO [address] Primary Care [address] [place], [phone] [place] [address] [place] [phone] Allergies Active Allergy Reactions Severity Noted Date Comments Hasmukh Other - See comments 05/29/2015 sneezing Naproxen Shortness of Breath, High 06/09/2015 Diaphoresis, dyspnea, Palpitations sob Diaphoresis, dyspnea, sob Tramadol Unknown - See comments 06/09/2015 A-fib Other reaction(s): Other (See Comments) Diaphoresis, SOB, dyspnea Diaphoresis, SOB, dyspnea documented as of this encounter (statuses as of 12/03/2018) Medications Medication Sig Dispensed Refills Start Date [...] Coronary artery disease minutes as needed involving [place] for Chest pain. 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 [place] [phone] 03/18/2019 Office Visit Cardiology Mirtha Melgoza MD [address] [place] [address] [address] [place] [address] Health Maintenance Due Date Last Done Comments Zoster Recombinant Vaccine (SHINGRIX) (1 of 2) 10/26/1981 Medicare Wellness Visit 10/26/1996 PNEUMOCOCCAL VACCINES 65+ (2 of 2 - PPSV23) 11/27/2015 11/26/2014 INFLUENZA VACCINE (#1) 2018 01/17/2018 DTaP,Tdap,and Td Vaccines (2 - Td) 08/11/2023 08/10/2013 documented as of this encounter Implants Implanted Type Area Chalk Cutter Device Identifier Shelf Expiration Model / Serial Date / Lot Stent documented as of this encounter Results Not on filedocumented in this encounter Insurance Payer Benefit Plan / Subscriber ID Effective Phone Address Type Group Dates MEDICARE MEDICARE PART xxxxxxxxxxx 1996-Pre [phone] [address] Medicare A & B sent [id number] [place]HUA DAV[place] [phone] [facility] [id number] 2002-Pre [address] Medicare HEALTHCARE HEALTHCARE sent [id number] Supplement MEDICARE [place] SUPPLEMENT JOSHUA CASTRO [id number] documented as of this encounter Advance Directives Name Relationship Healthcare Agent Communication Relationship Kaity Tejeda Spouse [facility] [phone] agent (Home) [phone] Leny Calzada Child [facility] agent
[2018-12-05] MEDS ORDERED: Ringers Lactate 1,000 ML IV ONE ×2 (09:52→14:06)
[2018-12-05] MEDS ORDERED: CEFAZOLIN/SWI 1gm 1 GM/10 ML SYR ONE (10:51)
[2018-12-05] MEDS ORDERED: PROPOFOL 200 MG/20 ML VIAL IV ONE (11:08)
[2018-12-05] MEDS ORDERED: FENTANYL CITR 100 MCG/2 ML ONE (11:08)
[2018-12-05] MEDS ORDERED: LIDOCAINE 2% MPF 5 ML VIAL ONE (11:08)
[2018-12-05] MEDS ORDERED: EPHEDRINE SULF 50 MG/ML VIAL ONE (11:51)
[2018-12-05] MEDS ORDERED: ROCURONIUM 50 MG/5 ML VIAL IV ONE (11:54)
[2018-12-05] MEDS ORDERED: GLYCOPYRROLATE 0.2 MG/ML SYR ONE ×2 (12:18)
[2018-12-05] MEDS ORDERED: NEOSTIGMINE 1 MG/ML -10 ML VIAL ONE (12:18)
--- NOTE | 2018-12-05 12:29 | P.BOP ---
Preoperative diagnosis: tender right inguinal hernia Postoperative diagnosis: same Primary procedure: Open repair of right inguinal hernia with mesh Film Splicer: Janie Naylor (Corrine) Estimated blood loss: <10cc Specimen: hernia sac, lipoma of cord Findings: RI Anesthesia: General Complications: None Drain(s): Other (medium plug and sheet mesh) Transferred to: Recovery Room Condition: Good
[2018-12-05] MEDS ORDERED: CODEINE 30MG/APAP 300MG TAB ONE (14:06)
--- NOTE | 2018-12-05 22:47 | OP ---
Date of Procedure: 12/05/2018 Surgeon: Nas Arnett MD Radar Operator: Janie Naylor. Preoperative Diagnosis: Tender right inguinal hernia. Postoperative Diagnosis: Tender right inguinal hernia. Procedure: Open repair of right inguinal hernia with mesh. Estimated Blood Loss: Less than 10 cc. Findings: Right inguinal hernia. Specimens: Hernia sac and lipoma of the cord. Implants: Medium mesh plug and sheath. Indications: This is the case of a male who comes to us with a tender right inguinal hernia. The be nefits and risks of repair with the use of mesh were explained to the patient, which included but wer e not limited to infection, bleeding, damage to adjacent structures, anesthesia complication, recurre nce, chronic pain, chronic tenderness, RI, even . He also understands this may not relieve the symptoms. He might need more than 1 surgical intervention. He understood, signed a consent. Description Of Procedure: Patient was brought to the operating room, placed in supine position. Ane sthesia was done without complication. Abdominal area was prepped and draped in sterile fashion. A time-out was called. The incision was made in the right inguinal region. Incision was carried down to Tamara fascia, which was opened until we found external oblique aponeurosis and opened it in the d irection of the fibers to connect to the superficial inguinal ring. Ilioinguinal nerve and iliohypog astric nerve were protected behind external oblique aponeurosis. Jonelle was placed around the sperm atic cord. Lipoma of the cord and hernia sac were identified coming from the deep inguinal ring, iso lated from the spermatic cord structures. Hernia sac was opened. Omentum was reduced, suture ligate d with Prolene after twist, making sure the bowel was not involved. A mesh plug was placed in that a valeriy, secured in place with VersaTack, making sure we protected the vas deferens and the rest of the s permatic cord structures. After that, a mesh sheath was placed in the floor of the canal, securing t hat to the pubic tubercle, shelving edge of the inguinal ligament, transversalis fascia, and the tail was around the spermatic cord without strangulation. The area was irrigated. No bleeding. At that moment, I proceeded to place the ilioinguinal nerve and iliohypogastric nerve back into the inguinal canal. I reconstructed superficial inguinal ring and closed the external oblique aponeurosis withou t pinching the nerves. Tamara fascia was closed with 3-0 chromic and then the skin with lorena. Sp onge count and instrument count were correct. Patient tolerated the procedure well. Patient was sen t to Recovery in stable condition. CHIQUITA/CHELSEA Voice ID: [id number] Report ID: [id number]
--- NOTE | 2018-12-05 22:53 | DS ---
Date of Discharge: 12/05/2018 Diagnosis: Tender right inguinal hernia. Procedures: Open repair of tender right inguinal hernia with mesh. Disposition: Home. Activity: As tolerated. No heavy lifting. Followup: Follow up in my office in 1 week. Call for appointment at [phone]. Discharge Instructions: Keep the area dry for 48 hours, then may shower. Cold compress in the right inguinal region daily. CHIQUITA/CHELSEA Voice ID: [id number] Report ID: [id number]
== END 2018-12-05 14:58 | disposition home or self-care (01) ==
LOC: OR 09:44
PROVIDERS: ATTEND Surgery
PROC: 0YU50JZ Supplement Right Inguinal Region with Synthetic Substitute, Open Approach (ICD-10-PCS; principal; 2018-12-05 12:15)
DX: K40.90 Unilateral inguinal hernia, without obstruction or gangrene, not specified as recurrent (principal); I10 Essential (primary) hypertension; I25.10 Atherosclerotic heart disease of native coronary artery without angina pectoris; E78.00 Pure hypercholesterolemia, unspecified; Z79.01 Long term (current) use of anticoagulants; Z79.02 Long term (current) use of antithrombotics/antiplatelets; Z88.6 Allergy status to analgesic agent; Z95.5 Presence of coronary angioplasty implant and graft; Z82.49 Family history of ischemic heart disease and other diseases of the circulatory system; Z80.52 Family history of malignant neoplasm of bladder
CPT/HCPCS: 93005; 85025; 80048; 36415; 88302; 71046; 49505; J2704; J2710; J3010; J0690

== ENCOUNTER 2019-04-10 12:16 | Emergency (ER) | payer OTHER, MEDICARE ==
--- OUTSIDE RECORDS SUMMARY | 2019-04-10 12:18 | XMS REPORT ---
:1930 [facility] Organization [facility] Address [address] [place] [address] Dr. Rizzo[address] [place] [address] Care Team Providers Name Role Phone Unavailable Unavailable Unavailable Problems This patient has no known problems. Allergies, Adverse Reactions, Alerts This patient has no known allergies or adverse reactions. Medications This patient has no known medications.
--- OUTSIDE RECORDS SUMMARY | 2019-04-10 12:19 | XMS REPORT | Summary of Care ---
:1930 Author Organization [facility] Address [address] [place] [address] Care Team Providers Name Role Phone Sonido Elizabeth DO Primary Care Provider Encounter Details Date Type Department Care Team Description 12/06/2018 Patient Secure [facility] Internal Doctor Unassigned, [facility] [address] [place] [address] [address] , [place] [address] [place] [phone] Allergies Active Allergy Reactions Severity Noted Date Comments Hasmukh Other - See comments 05/29/2015 sneezing Naproxen Shortness of Breath, High 06/09/2015 Diaphoresis, dyspnea, Palpitations sob Diaphoresis, dyspnea, sob Tramadol Unknown - See comments 06/09/2015 A-fib Other reaction(s): Other (See Comments) Diaphoresis, SOB, dyspnea Diaphoresis, SOB, dyspnea documented as of this encounter (statuses as of 12/07/2018) Medications Medication Sig Dispensed Refills Start Date [...] Coronary artery disease minutes as needed involving [place] for Chest pain. 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 [place] [address] 03/18/2019 Office Visit Cardiology Mirtha Melgoza MD [address] [place] [address] [address] [place] [address] Health Maintenance Due Date Last Done Comments Zoster Recombinant Vaccine (SHINGRIX) (1 of 2) 10/26/1981 Medicare Wellness Visit 10/26/1996 PNEUMOCOCCAL VACCINES 65+ (2 of 2 - PPSV23) 11/27/2015 11/26/2014 INFLUENZA VACCINE (#1) 2018 01/17/2018 DTaP,Tdap,and Td Vaccines (2 - Td) 08/11/2023 08/10/2013 documented as of this encounter Implants Implanted Type Area Vapor Coater Device Identifier Shelf Expiration Model / Serial Date / Lot Stent documented as of this encounter Results Not on filedocumented in this encounter Insurance Payer Benefit Plan / Subscriber ID Effective Phone Address Type Group Dates MEDICARE MEDICARE PART xxxxxxxxxxx 1996-Pre [phone] [address] Medicare A & B sent [id number] J[place] [phone] [facility] [id number] 2002-Pre [address] Medicare HEALTHCARE HEALTHCARE sent [id number] Supplement MEDICARE [place] SUPPLEMENT J[place]HUA CASTRO [id number] documented as of this encounter Advance Directives Name Relationship Healthcare Agent Communication Relationship Kaity Tejeda Spouse First [facility] healthcare [phone] agent (Home) [phone] [facility] agent
--- OUTSIDE RECORDS SUMMARY | 2019-04-10 12:19 | XMS REPORT | Summary of Care ---
:1930 Author Organization [facility] Address [address] [place] [address] Care Team Providers Name Role Phone Sonido Elizabeth Primary Care Provider Reason for Visit Reason Comments Edema R foot Redness Auth/Cert Status Reason Specialty Diagnoses / Referred By Referred To Procedures Contact Contact Emergency Medicine Diagnoses [facility] [address] [place] [address] [place] [address] Encounter Details Date Type Department Care Team Description 12/12/2018 Emergency [facility]-Emergency Department David, K Lia, Urticaria (Primary Dx) [address] [facility] [address] [facility] [place] [address] [facility] [phone] [address] [place] [address] Allergies Active Allergy Reactions Severity Noted Date Comments Hasmukh Other - See comments 05/29/2015 sneezing Naproxen Shortness of Breath, High 06/09/2015 Diaphoresis, dyspnea, Palpitations sob Diaphoresis, dyspnea, sob Tramadol Unknown - See comments 06/09/2015 A-fib Other reaction(s): Other (See Comments) Diaphoresis, SOB, dyspnea Diaphoresis, SOB, dyspnea documented as of this encounter (statuses as of 12/12/2018) Medications Medication Sig Dispensed Refills Start Date [...] 5 (five) Coronary artery disease minutes as involving hughes needed for Chest coronary artery of pain. [place]hes heart without angina pectoris potassium chloride SA Take 2 tablets 60 tablet 3 06/05/2018 Active (KLOR-CON M15) 15 mEq by mouth daily. tabletIndications: Hypokalemia pantoprazole 20 mg [...] 10/22/2018 Active mouth 2 (two) times daily. hydrOXYzine (VISTARIL) Take 1 capsule 30 capsule 0 12/12/2018 Active 50 mg by mouth 3 capsuleIndications: (three) times Urticaria daily as needed for Itching. Hydrocortisone 2 % Apply to 1 Bottle 0 12/12/2018 Active LotnIndications: area(s) 2 (two) Urticaria times daily as needed for Itching. documented as of this encounter (statuses as of 12/12/2018) Active Problems Problem Noted Date SOB (shortness of breath) 02/19/2018 Nausea & vomiting 02/18/2018 Acute on chronic diastolic congestive heart failure 02/12/2018 PAF (paroxysmal atrial fibrillation) 02/12/2018 Elevated troponin 02/10/2018 Coronary artery disease involving hughes coronary artery of [place]hes heart 01/20 with angina pectoris OBRIEN (dyspnea on exertion) 01/20/2018 (HFpEF) heart failure with preserved ejection fraction 01/20/2018 Elevated brain natriuretic peptide (BNP) level 01/20/2018 Atypical chest pain 01/18/2018 NSTEMI (non-ST elevated myocardial infarction) 10/11/2017 documented as of this encounter (statuses as of 12/12/2018) Immunizations Name Administration Dates Next Due Influenza [...] Sign Reading Time Taken Comments Blood Pressure 109/56 12/12/2018 6:22 PM CDT Pulse 72 12/12/2018 6:22 PM CDT Temperature 35.9 C (96.7 F) 12/12/2018 6:22 PM CDT Respiratory Rate 18 12/12/2018 6:22 PM CDT Oxygen Saturation 95% 12/12/2018 6:22 PM CDT Inhaled Oxygen Concentration - - Weight 83.9 kg (185 lb) 12/12/2018 6:22 PM CDT Height 180.3 cm (5' 11") 12/12/2018 6:22 PM CDT Body Mass Index 25.8 12/12/2018 6:22 PM CDT documented in this encounter Discharge Instructions AttachmentsThe following attachments cannot be sent through Care Everywhere.Hives (Urticaria) Understanding (Thai)documented in this encounter Plan of Treatment Date Type Specialty Care Team Description 03/12/2019 Office Visit Internal Medicine Sonido Elizabeth [address] [place] [address] 03/18/2019 Office Visit Cardiology Mirtha Melgoza MD [address] [place] [address] [address] [place] [address] Health Maintenance Due Date Last Done Comments Zoster Recombinant Vaccine (SHINGRIX) (1 of 2) 10/26/1981 Medicare Wellness Visit 10/26/1996 PNEUMOCOCCAL VACCINES 65+ (2 of 2 - PPSV23) 11/27/2015 11/26/2014 INFLUENZA VACCINE (#1) 2018 01/17/2018 DTaP,Tdap,and Td Vaccines (2 - Td) 08/11/2023 08/10/2013 documented as of this encounter Implants Implanted Type Area Appeals Analyst Device Identifier Shelf Expiration Model / Serial Date / Lot Stent documented as of this encounter Procedures Procedure Name Priority Date/Time Associated Diagnosis Comments CONSENT/REFUSAL FOR Routine 12/12/2018 6:11 PM CDT DIAGNOSIS AND TREATMENT documented in this encounter Results Not on filedocumented in this encounter Visit Diagnoses Diagnosis Urticaria - Primary Urticaria, unspecified documented in this encounter Administered Medications Medication Order MAR Action Action Date Dose Rate Site diphenhydrAMINE (BENADRYL) tablet Given 12/12/2018 7:23 PM CDT 50 mg 50 mg 50 mg, Oral, ONCE, 1 dose, Mon12/12/18 at 2015, MOMO documented in this encounter Insurance Payer Benefit Plan / Subscriber ID Effective Phone Address Type Group Dates MEDICARE MEDICARE PART xxxxxxxxxxx 1996-Pre [phone] [address] Medicare A & B sent [id number] J[place]UA DAV[place] [phone] [facility] [id number] 2002-Pre [address] Medicare HEALTHCARE HEALTHCARE sent [id number] Supplement MEDICARE [place] SUPPLEMENT J[place]HUA CASTRO [id number] documented as of this encounter Advance Directives Name Relationship Healthcare Agent Communication Relationship Kaity Tejeda Spouse First [facility] healthcare [phone] agent (Home) [phone] [facility] agent
--- OUTSIDE RECORDS SUMMARY | 2019-04-10 12:19 | XMS REPORT | Summary of Care ---
:1930 Author Organization [facility] Address [address] [place] [address] Care Team Providers Name Role Phone Yunidimas Sonido BHAKTA Primary Care Provider Reason for Referral (Routine) Status Reason Specialty Diagnoses / Referred By Referred To Procedures Contact Contact New Request Location Physical Diagnoses Adhesive capsulitis of right shoulder Chronic pain of both shoulders Primary osteoarthritis of right shoulder Nicolás Shah Preference Therapy Procedures CONSULT/REFERRAL PHYSICAL THERAPY S, PAC [address] [place] [address] [place] [address] Radiology Services (Routine) Status Reason Specialty Diagnoses / Referred By Referred To Procedures Contact Contact New Request Diagnostic Diagnoses Adhesive capsulitis of right shoulder Chronic pain of both shoulders Nicolás Shah, Radiology Procedures XR SHOULDER <2 VW RIGHT PAC [address] [place] [address] [place] [address] [place] [address] Reason for Visit Reason Comments New Patient Bilateral Shoulder Pain Encounter Details Date Type Department Care Team Description 12/20/2018 Office Visit [facility] Nicolás Shah, Adhesive capsulitis of right shoulder (Primary Dx); Orthopaedic Surgery- PAC Chronic pain of both shoulders; Pit[facility] [address] Primary osteoarthritis of right shoulder [address] [place] [address] [phone] Allergies Active Allergy Reactions Severity Noted Date Comments Hasmukh Other - See comments 05/29/2015 sneezing Naproxen Shortness of Breath, High 06/09/2015 Diaphoresis, dyspnea, Palpitations sob Diaphoresis, dyspnea, sob Tramadol Unknown - See comments 06/09/2015 A-fib Other reaction(s): Other (See Comments) Diaphoresis, SOB, dyspnea Diaphoresis, SOB, dyspnea documented as of this encounter (statuses as of 12/20/2018) Medications Medication Sig Dispensed Refills Start Date [...] (five) Coronary artery disease minutes as involving [place] needed for Chest coronary artery of pain. 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 OBRIEN (dyspnea on exertion) 01/20/2018 (HFpEF) heart failure with preserved ejection fraction 01/20/2018 Elevated brain natriuretic peptide (BNP) level 01/20/2018 Atypical chest pain 01/18/2018 NSTEMI (non-ST elevated myocardial infarction) 10/11/2017 documented as of this encounter (statuses as of 12/20/2018) Immunizations Name Administration Dates Next Due Influenza [...] Sign Reading Time Taken Comments Blood Pressure 119/57 12/20/2018 1:16 PM CDT Pulse 68 12/20/2018 1:16 PM CDT Temperature - - Respiratory Rate - - Oxygen Saturation - - Inhaled Oxygen Concentration - - Weight 83.9 kg (185 lb) 12/20/2018 1:16 PM CDT Height 180.3 cm (5' 11") 12/20/2018 1:16 PM CDT Body Mass Index 25.8 12/20/2018 1:16 PM CDT documented in this encounter Progress Notes Nicolás Shah S, PAC - 12/20/2018 1:15 PM CDT Cc: Chief Complaint Patient presents with New Patient Bilateral Shoulder 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 Denies injury. Pain progressively getting worse. Limited ROM. No recent films. Miracle Khan 12/20/2018 1:26 PM Inderjit Tejeda is a 88 year old male. He has upper arm pain of both arms in the proximal humerus area was no specific injury the pain has been progressively worsening. He has had limited abduction of his right arm for about 2-3 weeks actively he can abduct his left arm He has been fairly inactive for the last year since he had a myocardial infarction 2017 He was not able to do the hand crank in cardio rehabilitation. Allergies Inderjit is allergic to naprosyn [naproxen]; cedarwood; and tramadol. Medications Outpatient Medications Prior to Visit Medication Sig Dispense Refill Hydrocortisone 2 % Lotn Apply to area(s) 2 (two) times daily as needed for Itching. 1 Bottle 0 hydrOXYzine (VISTARIL) 50 mg capsule Take 1 capsule by mouth 3 (three) times daily as needed forItching. 30 capsule 0 apixaban 2.5 mg tablet Take 1 tablet by mouth 2 (two) times daily. 60 tablet 11 clopidogrel 75 mg tablet Take 1 tablet by mouth daily. 30 tablet 11 simvastatin 40 mg tablet Take 1 tablet by mouth at bedtime. 30 tablet 11 SERTraline (ZOLOFT) 25 mg tablet Take 1 tablet by mouth daily. 30 tablet 3 allopurinol 100 mg tablet Take 1 tablet by mouth daily. 30 tablet 2 furosemide 40 mg tablet Take 1 tablet by mouth every morning and evening. 60 tablet 3 pantoprazole 20 mg EC tablet Take 1 tablet by mouth daily. 30 tablet 5 nitroglycerin 0.[address] 1 tablet under the tongue every 5 (five) minutes as needed for Chest pain. 25 tablet 1 potassium chloride SA (KLOR-CON M15) 15 mEq tablet Take 2 tablets by mouth daily. 60 tablet 3 metOLazone 2.5 mg tablet Take 1 tablet by mouth weekly. Lidia AM 20 tablet 3 metoprolol tartrate 25 mg tablet Take 0.5 tablets by mouth 2 (two) times daily. 30 tablet 11 predniSONE 5 mg tablet Take 5 mg by mouth daily. No facility-administered medications prior to visit. Histories Past Medical History: Diagnosis Date Aortic stenosis, mild CAD (coronary artery disease) CHF (congestive heart failure) Hypertension Paroxysmal A-fib Pulmonary eosinophilia Past Surgical History: Procedure Laterality Date STENT PLACEMENT (SHX) Social History Socioeconomic History Marital status: Spouse [...] Last attempt to quit: 04/17/1970 Years since quittin.7 Smokeless tobacco: Former User Types: Chew Quit [...] file Gets together: Not on file Attends episcopal service: Not on file Active member of [...] file Social History Narrative Not on file Family History Problem Relation Age of Onset CA (myocardial infarction) Father Prostate Cancer Brother Stroke Brother Bladder Cancer Brother Aneurysm Son Review of Systems Constitutional: Positive for activity change. HENT: Negative. Eyes: Negative. Respiratory: Negative. Cardiovascular: Negative. Gastrointestinal: Negative. Genitourinary: Negative. Musculoskeletal: Positive for back pain. Skin: Negative. Neurological: Negative. Psychiatric/Behavioral: Negative. Vital Signs BP 119/57 | Pulse 68 | Ht 71" (180.3 cm) | Wt 83.9 kg (185 lb) | BMI 25.80 kg/m Physical Exam Musculoskeletal: Arms: Physical Exam Constitutional: oriented to person, place, and time. appears well-developed and well-nourished. HENT: Head: Normocephalic and atraumatic. Right Ear: External ear normal. Left Ear: External ear normal. Eyes: Conjunctivae are normal. Neck: Normal range of motion. No strabismus Neck supple. Cardiovascular: Normal rate and regular rhythm. Pulmonary/Chest: Normal respiratory rate equal chest rise and fall in no apparent distress Abdominal: Abdomen nondistended nontender Neurological: alert and oriented to person, place, and time. No asymmetry Skin: Skin is warm and dry. Psychiatric: normal mood and affect. behavior is normal. Judgment and thought content normal. Nursing note and vitals reviewed. Actively he cannot abduct past 90 passively we were able to get him to 110 with a firm endpoint on abduction external rotation is limited in both upper extremities at approximately 5 he is weak to external rotation and to supraspinatus testing Assessment/Plan 1. Adhesive capsulitis of left shoulder 2. Chronic pain of both shoulders He has end-stage osteoarthritis in his right shoulder will be happy to give him a cortisone injection today Also give him a prescription for physical therapy for both shoulders. Patient received an ultrasound guided injection of 1cc kenalog and 4cc lidocaine to the right shoulder. The patient was examined with ultrasound machine and the posterior injection portal was localized and the skin was indented with a needle. The coracoid was identified anteriorly. The skin was prepped with Betadine and then with alcohol. Ethyl chloride spray was used to provide local anesthesia. The needle was advanced under ultrasound guidance just below the posterior corner of the acromion directed toward the coracoid. 1 cc of Kenalog and 4 cc of 1% lidocaine without epinephrine were injected into the subacromial space. The puncture wound was cleansed with alcohol dried with a sterile 4 x 4 and a sterile Band-Aid was applied. Patient tolerated procedure well. No reactions noted.Electronically signed by Nicolás Shah PAC at 2018 2:01 PM CDTdocumented in this encounter Plan of Treatment Date Type Specialty Care Team Description 12/21/2018 Office Visit Internal Medicine Evan Rivera MD [address] [place] [address]. [place] [address] 01/01/2019 Office Visit Internal Medicine Sonido Elizabeth, DO [address] [facility] [place] [address] 03/12/2019 Office Visit Internal Medicine Sonido Elizabeth, DO [address] [place] [phone] 03/18/2019 Office Visit Cardiology Mirtha Melgoza MD [address] [place] [address] [address] [place] [address] [phone] Health Maintenance Due Date Last Done Comments Zoster Recombinant Vaccine (SHINGRIX) (1 of 2) 10/26/1981 Medicare Wellness Visit 10/26/1996 PNEUMOCOCCAL VACCINES 65+ (2 of 2 - PPSV23) 11/27/2015 11/26/2014 INFLUENZA VACCINE (#1) 2018 01/17/2018 DTaP,Tdap,and Td Vaccines (2 - Td) 08/11/2023 08/10/2013 documented as of this encounter Implants Implanted Type Area Carbonizer Tester Device Identifier Shelf Expiration Model / Serial Date / Lot Stent documented as of this encounter Results XR SHOULDER <2 VW RIGHT (12/20/2018 1:41 PM CDT) Specimen Narrative Performed At There is [id number] osteoarthritis of the glenohumeral joint with no PACS joint space remaining. Performing Organization Address City/State/Zipcode Phone Number PACS documented in this encounter Visit Diagnoses Diagnosis Adhesive capsulitis of right shoulder - Primary Adhesive capsulitis of shoulder Chronic pain of both shoulders Pain in joint, shoulder region Primary osteoarthritis of right shoulder Primary localized osteoarthrosis, shoulder region documented in this encounter Insurance Payer Benefit Plan / Subscriber ID Effective Phone Address Type Group Dates MEDICARE MEDICARE PART xxxxxxxxxxx 1996-Pre [phone] [address] Medicare A & B sent [id number] [place] [phone] [facility] [id number] 2002-Pre [address] Medicare HEALTHCARE HEALTHCARE sent [id number] Supplement MEDICARE [place] SUPPLEMENT JOSHUA CASTRO [id number] documented as of this encounter Advance Directives Name Relationship Healthcare Agent Communication Relationship Kaity Tejeda Spouse [facility] [phone] agent (Home) [phone] Leny Calzada [facility] agent
--- OUTSIDE RECORDS SUMMARY | 2019-04-10 12:20 | XMS REPORT | Summary of Care ---
:1930 Author Organization [facility] Address [address] [place] [address] Care Team Providers Name Role Phone Yunidimas Sonido BHAKTA Primary Care Provider Reason for Referral (Routine) Status Reason Specialty Diagnoses / Referred By Referred To Procedures Contact Contact New Request Location Physical Diagnoses Adhesive capsulitis of right shoulder Chronic pain of both shoulders Primary osteoarthritis of right shoulder Nicolás Shah Preference Therapy Procedures CONSULT/REFERRAL PHYSICAL THERAPY S, PAC [address] [place] [address] [place] [address] Radiology Services (Routine) Status Reason Specialty Diagnoses / Referred By Referred To Procedures Contact Contact New Request Diagnostic Diagnoses Adhesive capsulitis of right shoulder Chronic pain of both shoulders Nicolás Shah, Radiology Procedures XR SHOULDER <2 VW RIGHT PAC [address] [place] [address] [place] [address] Reason for Visit Reason Comments New Patient Bilateral Shoulder Pain Encounter Details Date Type Department Care Team Description 12/20/2018 Office Visit [facility] Nicolás Shah, Adhesive capsulitis of right shoulder (Primary Dx); Orthopaedic Surgery- PAC Chronic pain of both shoulders; [place] [address] Primary osteoarthritis of right shoulder [address], [address] [place] [address] [phone] Allergies Active Allergy Reactions Severity Noted Date [...] (five) Coronary artery disease minutes as involving [place] needed for Chest coronary artery of pain. 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 [place] [address] 01/01/2019 Office Visit Internal Medicine Sonido Elizabeth, DO [address] [facility] [place] [address] 03/12/2019 Office Visit Internal Medicine Sonido Elizabeth, DO [address] [place] [phone] 03/18/2019 Office Visit Cardiology Mirtha Melgoza MD [address] [place] [address] [address] [place] [address] [phone] Health Maintenance Due Date Last Done Comments Zoster Recombinant Vaccine (SHINGRIX) (1 of 2) 10/26/1981 Medicare Wellness Visit 10/26/1996 PNEUMOCOCCAL VACCINES 65+ (2 of 2 - PPSV23) 11/27/2015 11/26/2014 INFLUENZA VACCINE (#1) 2018 01/17/2018 DTaP,Tdap,and Td Vaccines (2 - Td) 08/11/2023 08/10/2013 documented as of this encounter Implants Implanted Type Area Medical Aides Teacher Device Identifier Shelf Expiration Model / Serial Date / Lot Stent documented as of this encounter Results XR SHOULDER <2 VW RIGHT (12/20/2018 1:41 PM CDT) Specimen Narrative Performed At There is hgnj-tl-kaay osteoarthritis of the glenohumeral joint with no [...] Group Dates MEDICARE MEDICARE PART xxxxxxxxxxx 1996-Pre [phone] [address] O[address] Medicare A & B sent [id number] JOSHUA DAVIS [id number] [facility] [id number] 2002-Pre [address] Medicare HEALTHCARE HEALTHCARE sent [id number] Supplement MEDICARE [place] SUPPLEMENT JOSHUA CASTRO [id number] documented as of this encounter Advance Directives Name Relationship Healthcare Agent Communication Relationship Kaity Tejeda Spouse [facility] [phone] agent (Home) [phone] Leny Calzada Child [facility] agent
--- OUTSIDE RECORDS SUMMARY | 2019-04-10 12:20 | XMS REPORT | Summary of Care ---
:1930 Author Organization [facility] Address [address] [place] [address] Care Team Providers Name Role Phone Yunidimas Sonido BHAKTA Primary Care Provider Reason for Visit Radiology Services (Routine) Status Reason Specialty Diagnoses / Referred By Referred To Procedures Contact Contact New Request Diagnostic Diagnoses Adhesive capsulitis of right shoulder Chronic pain of both shoulders Nicolás Shah, Radiology Procedures XR SHOULDER <2 VW RIGHT PAC [address] [place] [address] Encounter Details Date Type Department Care Team Description 12/20/2018 Hospital Encounter [facility] Nicolás Shah, [facility] Orthopedics - PAC Radiology [address] [facility] [place] [address] [place] [phone] Allergies Active Allergy Reactions Severity Noted Date Comments Hasmukh Other - See comments 05/29/2015 sneezing Naproxen Shortness of Breath, High 06/09/2015 Diaphoresis, dyspnea, Palpitations sob Diaphoresis, dyspnea, sob Tramadol Unknown - See comments 06/09/2015 A-fib Other reaction(s): Other (See Comments) Diaphoresis, SOB, dyspnea Diaphoresis, SOB, dyspnea documented as of this encounter (statuses as of 12/21/2018) Medications Medication Sig Dispensed Refills Start Date End Date Status predniSONE 5 mg tablet Take 5 mg by 0 Active mouth daily. metoprolol tartrate 25 Take 0.5 tablets 30 tablet 11 02/22/2018 Active mg tablet by mouth 2 (two) times daily. metOLazone 2.5 mg Take 1 tablet by 20 tablet 3 05/01/2018 Active tablet mouth weekly. Monday nitroglycerin 0.[address] 1 tablet 25 tablet 1 06/05/2018 Active sublingual under the tongue tabletIndications: every 5 (five) Coronary artery disease minutes as involving [place] needed for Chest coronary artery of pain. 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 OBRIEN (dyspnea on exertion) 01/20/2018 (HFpEF) heart failure with preserved ejection fraction 01/20/2018 Elevated brain natriuretic peptide (BNP) level 01/20/2018 Atypical chest pain 01/18/2018 NSTEMI (non-ST elevated myocardial infarction) 10/11/2017 documented as of this encounter (statuses as of 12/21/2018) Immunizations Name Administration Dates Next Due Influenza [...] Team Description 12/21/2018 Office Visit Internal Medicine Unknown, Attending Evan Rivera MD [address] [place] [phone] 01/01/2019 Office Visit Internal Medicine Sonido Elizabeth DO [address] [place] [phone] 03/12/2019 Office Visit Internal Medicine Sonido Elizabeth DO [address] [place] [phone] 03/18/2019 Office Visit Cardiology Mirtha Melgoza MD [address] [place] [address] [place] [address] [phone] Health Maintenance Due Date Last Done Comments Zoster Recombinant Vaccine (SHINGRIX) (1 of 2) 10/26/1981 Medicare Wellness Visit 10/26/1996 PNEUMOCOCCAL VACCINES 65+ (2 of 2 - PPSV23) 11/27/2015 11/26/2014 INFLUENZA VACCINE (#1) 2018 01/17/2018 DTaP,Tdap,and Td Vaccines (2 - Td) 08/11/2023 08/10/2013 documented as of this encounter Implants Implanted Type Area Greeting Card Writer Device Identifier Shelf Expiration Model / Serial Date / Lot Stent documented as of this encounter Procedures Procedure Name Priority Date/Time Associated Diagnosis Comments XR SHOULDER <2 VW Routine 12/20/2018 1:41 PM Adhesive capsulitis Results for this RIGHT CDT of left shoulder procedure are in Chronic pain of both the results shoulders section. documented in this encounter Results XR SHOULDER <2 VW RIGHT (12/20/2018 1:41 PM CDT) Specimen Narrative Performed At There is ppkf-vq-naeo osteoarthritis of the glenohumeral joint with no PACS joint space remaining. Performing Organization Address City/State/Zipcode Phone Number PACS documented in this encounter Visit Diagnoses Diagnosis Adhesive capsulitis of left shoulder Adhesive capsulitis of shoulder Chronic pain of both shoulders Pain in joint, shoulder region documented in this encounter Insurance Payer Benefit Plan / Subscriber ID Effective Phone Address Type Group Dates MEDICARE MEDICARE PART xxxxxxxxxxx 1996-Pre [phone] [address] Medicare A & B sent [id number] JOSHUA DAVIS [phone] [facility] [id number] 2002-Pre [address] Medicare HEALTHCARE HEALTHCARE sent [id number] Supplement MEDICARE [place] SUPPLEMENT JOSHUA CASTRO [id number] documented as of this encounter Advance Directives Name Relationship Healthcare Agent Communication Relationship Kaity Tejeda Spouse [facility] healthcare [phone] agent (Home) [phone] [facility] agent
--- OUTSIDE RECORDS SUMMARY | 2019-04-10 12:20 | XMS REPORT | Summary of Care ---
:1930 Author Organization [facility] Address [address] [place] [address] Care Team Providers Name Role Phone Clara Sonido BHAKTA Primary Care Provider Reason for Referral (Routine) Status Reason Specialty Diagnoses / Referred By Referred To Procedures Contact Contact Closed Location Physical Diagnoses Adhesive capsulitis of right shoulder Chronic pain of both shoulders Primary osteoarthritis of right shoulder Nicolás Shah Unknown, Preference Therapy Procedures CONSULT/REFERRAL PHYSICAL THERAPY S, PAC Attending [address] [place] [address] [place] [address] Radiology Services (Routine) Status Reason Specialty Diagnoses / Referred By Referred To Procedures Contact Contact New Request Diagnostic Diagnoses Adhesive capsulitis of right shoulder Chronic pain of both shoulders Nicolás Shah S, Radiology Procedures XR SHOULDER <2 VW RIGHT PAC [address] [place] [address] [place] [address] Reason for Visit Reason Comments New Patient Bilateral Shoulder Pain Encounter Details Date Type Department Care Team Description 12/20/2018 Office Visit [facility] Nicolsá Shah S, Adhesive capsulitis of right shoulder (Primary Dx); Orthopaedic Surgery- PAC Chronic pain of both shoulders; [place] [address] Primary osteoarthritis of right shoulder [address] [facility] [address] [place] [phone] Allergies Active Allergy Reactions Severity Noted Date [...] (five) Coronary artery disease minutes as involving [place] needed for Chest coronary artery of pain. [place] heart without angina pectoris potassium chloride [...] Urticaria times daily as needed for Itching. 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 Monday AM 20 tablet 3 metoprolol tartrate 25 [...] Family History Problem Relation Age of Onset MD (myocardial infarction) Father Prostate Cancer Brother Stroke [...] Office Visit Internal Medicine Evan Rivera MD [address] [facility] [place] [phone] 01/01/2019 Office Visit Internal Medicine Sonido Elizabeth DO [address] [facility] [place] [phone] 03/12/2019 Office Visit Internal Medicine Sonido Elizabeth DO [address] [facility] [place] [phone] 03/18/2019 Office Visit Cardiology Mirtha Melgoza MD [address] [place] [address] [address] [place] [address] Health Maintenance Due Date Last Done Comments Zoster Recombinant Vaccine (SHINGRIX) (1 of 2) 10/26/1981 Medicare Wellness Visit 10/26/1996 PNEUMOCOCCAL VACCINES 65+ (2 of 2 - PPSV23) 11/27/2015 11/26/2014 INFLUENZA VACCINE (#1) 2018 01/17/2018 DTaP,Tdap,and Td Vaccines (2 - Td) 08/11/2023 08/10/2013 documented as of this encounter Implants Implanted Type Area Cigarette Filter Inspector Device Identifier Shelf Expiration Model / Serial Date / Lot Stent documented as of this encounter Results XR SHOULDER <2 VW RIGHT (12/20/2018 1:41 PM CDT) Specimen Narrative Performed At There is mxgr-si-jgvv osteoarthritis of the glenohumeral joint with no PACS joint space remaining. Performing Organization Address City/State/Zipcode Phone Number PACS documented in this encounter Visit Diagnoses Diagnosis Adhesive capsulitis of right shoulder - Primary Adhesive capsulitis of shoulder Chronic pain of both shoulders Pain in joint, shoulder region Primary osteoarthritis of right shoulder Primary localized osteoarthrosis, shoulder region documented in this encounter Administered Medications Medication Order MAR Action Action Date Dose Rate Site triamcinolone acetonide Given 12/20/2018 2:10 PM 40 mg Right Shoulder (KENALOG) injection 40 mg CDT 40 mg, Intra-articular, ONCE, 1 dose, Debi 12/20/18 at 1515, Routine documented in this encounter Insurance Payer Benefit Plan / Subscriber ID Effective Phone Address Type Group Dates MEDICARE MEDICARE PART xxxxxxxxxxx 1996-Pre [phone] [address] Medicare A & B sent [id number] JOSHUA DAVIS [address] [facility] [id number] 2002-Pre [address] Medicare HEALTHCARE HEALTHCARE sent [id number] Supplement MEDICARE [place] SUPPLEMENT JOSHUA CASTOR [id number] Guarantor Name Account Type Relation to Date of Phone Billing Patient Address Inderjit Tejeda Personal/Family Self 1930 [address] [facility] [facility] (Home) [place] [address] documented as of this encounter Advance Directives Name Relationship Healthcare Agent Communication Relationship Kaity Tejeda Spouse [facility] [phone] agent (Home) [phone] Leny Calzada Child Second formerly [facility] agent
--- OUTSIDE RECORDS SUMMARY | 2019-04-10 12:20 | XMS REPORT | Summary of Care ---
:1930 Author Organization [facility] Address [address] [place] [address] Care Team Providers Name Role Phone Clara [...] PAC Attending [address] [place] [address] [place] [address] Radiology Services (Routine) Status Reason Specialty Diagnoses / Referred By Referred To Procedures Contact Contact New Request Diagnostic Diagnoses Adhesive capsulitis of right shoulder Chronic pain of both shoulders Nicolás Shah S, Radiology Procedures XR SHOULDER <2 VW RIGHT PAC [address] [place] [place] [address] Reason for Visit Reason Comments New Patient Bilateral Shoulder Pain Encounter Details Date Type Department Care Team Description 12/20/2018 Office Visit [facility] Nicolás Shah S, Adhesive capsulitis of right shoulder (Primary Dx); Orthopaedic Surgery- PAC Chronic pain of both shoulders; [place] [address] Primary osteoarthritis of right shoulder [address] [facility] [address] [place] [phone] Allergies Active Allergy Reactions Severity Noted Date [...] (five) Coronary artery disease minutes as involving [place] needed for Chest coronary artery of pain. 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 [phone] 01/01/2019 Office Visit Internal Medicine Sonido Elizabeth DO [address] [facility] [place] [phone] 03/12/2019 Office Visit Internal Medicine Sonido Elizabeth DO [address] [facility] [place] [phone] 03/18/2019 Office Visit Cardiology Mirtha Melgoza MD [address] [place] [address] [address] [place] [address] Health Maintenance Due Date Last Done Comments Zoster Recombinant Vaccine (SHINGRIX) (1 of 2) 10/26/1981 Medicare Wellness Visit 10/26/1996 PNEUMOCOCCAL VACCINES 65+ (2 of 2 - PPSV23) 11/27/2015 11/26/2014 INFLUENZA VACCINE (#1) 2018 01/17/2018 DTaP,Tdap,and Td Vaccines (2 - Td) 08/11/2023 08/10/2013 documented as of this encounter Implants Implanted Type Area Head Mixer Device Identifier Shelf Expiration Model / Serial Date / Lot Stent documented as of this encounter Results XR SHOULDER <2 VW RIGHT (12/20/2018 1:41 PM CDT) Specimen Narrative Performed At There is gfbi-qy-ehws osteoarthritis of the glenohumeral joint with no [...] Group Dates MEDICARE MEDICARE PART xxxxxxxxxxx 1996-Pre [phone] [address] O[address] Medicare A & B sent [id number] JOSHUA DAVIS [id number] [facility] [id number] 2002-Pre [address] Medicare HEALTHCARE HEALTHCARE sent [id number] Supplement MEDICARE [place] SUPPLEMENT JOSHUA CASTRO [id number] documented as of this encounter Advance Directives Name Relationship Healthcare Agent Communication Relationship Kaity Tejeda Spouse [facility] [phone] agent (Home) [phone] Leny Calzada Child Second [facility] agent
--- OUTSIDE RECORDS SUMMARY | 2019-04-10 12:21 | XMS REPORT | Summary of Care ---
:1930 Author Organization [facility] Address [address] [place] [id number] Care Team Providers Name Role Phone Sonido Elizabeth DO Primary Care Provider Reason for Referral MRI/CAT Scan (MOMO) Status Reason Specialty Diagnoses / Referred By Referred To Procedures Contact Contact New Request Diagnostic Diagnoses Dizziness Elton Harvey Radiology Procedures CT HEAD WO CONTRAST III, PA [address] [place] [address] Radiology Services (STAT) Status Reason Specialty Diagnoses / Referred By Referred To Procedures Contact Contact New Request Diagnostic Diagnoses Dizziness Elton Harvey Radiology Procedures XR CHEST 1 VW III, PA [address] [place] [address] MRI/CAT Scan (MOMO) Status Reason Specialty Diagnoses / Referred By Referred To Procedures Contact Contact New Request Diagnostic Diagnoses Dizziness Elton Harvey Radiology Procedures CT HEAD WO CONTRAST III, PA [address] [place] [address] Radiology Services (STAT) Status Reason Specialty Diagnoses / Referred By Referred To Procedures Contact Contact New Request Diagnostic Diagnoses Dizziness Elton Harvey Radiology Procedures XR CHEST 1 VW III, PA [address] [place] [address] Reason for Visit Reason Comments Dizziness Auth/Cert Status Reason Specialty Diagnoses / Referred By Referred To Procedures Contact Contact [facility] [address] [place] [address] [place] [address] Encounter Details Date Type Department Care Team Description 12/27/2018 Emergency [facility]-Emergency Elton Harvey Dizziness (Primary Dx); Department III, PA Vomiting, intractability of vomiting not specified, presence of nausea not specified, unspecified vomiting type [address] [place] [address] [place] [address] [place], [place] [id number] Allergies Active Allergy Reactions Severity Noted Date Comments Hasmukh Other - See comments 05/29/2015 sneezing Naproxen Shortness of Breath, High 06/09/2015 Diaphoresis, dyspnea, Palpitations sob Diaphoresis, dyspnea, sob Tramadol Unknown - See comments 06/09/2015 A-fib Other reaction(s): Other (See Comments) Diaphoresis, SOB, dyspnea Diaphoresis, SOB, dyspnea documented as of this encounter (statuses as of 12/27/2018) Medications Medication Sig Dispensed Refills Start Date End Date Status metoprolol tartrate Take 0.5 30 tablet 11 02/22/2018 Active 25 mg tablet tablets by mouth 2 (two) times daily. metOLazone 2.5 mg Take 1 tablet 20 tablet 3 05/01/2018 Active tablet by mouth weekly. 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 clopidogrel 75 mg Take 1 tablet 30 tablet 11 10/22/2018 Active tablet by mouth daily. apixaban 2.5 mg Take 1 tablet 60 tablet 11 10/22/2018 Active tablet by mouth 2 (two) times daily. predniSONE 5 mg Take 5 mg by 0 Discontinued tablet mouth daily. [address] 1 25 tablet 1 06/05/2018 Discontinued sublingual tablet under 9 tabletIndications: the tongue Coronary artery every 5 disease involving (five) [place] coronary minutes as artery of [place] needed for heart without angina Chest pain. pectoris SERTraline (ZOLOFT) Take 1 tablet 30 tablet 3 10/09/2018 Discontinued 25 mg by mouth 9 tabletIndications: daily. Depression, unspecified depression type hydrOXYzine Take 1 30 capsule 0 12/12/2018 Discontinued (VISTARIL) 50 mg capsule by 9 capsuleIndications: mouth 3 Urticaria (three) times daily as needed for Itching. Hydrocortisone 2 % Apply to 1 Bottle 0 12/12/2018 Discontinued LotnIndications: area(s) 2 9 Urticaria (two) times daily as needed for Itching. 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 OBRIEN (dyspnea on exertion) 01/20/2018 (HFpEF) heart failure with preserved ejection fraction 01/20/2018 Elevated brain natriuretic peptide (BNP) level 01/20/2018 Atypical chest pain 01/18/2018 NSTEMI (non-ST elevated myocardial infarction) 10/11/2017 documented as of this encounter (statuses as of 12/27/2018) Immunizations Name Administration Dates Next Due Influenza [...] Sign Reading Time Taken Comments Blood Pressure 121/59 12/27/2018 11:43 PM CDT Pulse 70 12/27/2018 11:43 PM CDT Temperature 35.6 C (96 F) 12/27/2018 10:00 PM CDT Respiratory Rate 23 12/27/2018 11:43 PM CDT Oxygen Saturation 97% 12/27/2018 11:43 PM CDT Inhaled Oxygen Concentration - - Weight 83.5 kg (184 lb) 12/27/2018 10:00 PM CDT Height - - Body Mass Index 25.66 12/21/2018 8:37 AM CDT documented in this encounter Discharge Instructions Elton Hernandez III, PA - 12/27/2018 @@@@@@@@@@@@@@@@@@@@@@@@@@@@@@@@@@@@@@@@@@@@@@@@@@@@@ [facility] RETURN TO WORK / SCHOOL EXCUSE Inderjit Tejeda WAS SEEN IN THE ER AND DISCHARGED 12/27/2018 TODAY, 11:41 PM & May return to Work / School / Incarceration on 12/28/18 with No limitations unless indicated below. ___The following limitations apply until pt is seen by Physician and cleared to return to normal activity. ___ Light duty ___ No Sports ___ No work ___ Do not return until fever free for 24 hours. ___ No school [facility] [address] [place] [address] [address] [address] If you are unprepared to return to work tomorrow due to pain please give this note to your employer and make a follow up appointment with your MD for further evaluation and limitations. ### The patient may have been given Narcotic pain medications during their stay in the ED that may show up on a Drug Screen. The hospital discharge paper work will identify these medications. @@@@@@@@@@@@@@@@@@@@@@@@@@@@@@@@@@@@@@@@@@@@@@@@@@@@@ Thank you for trusting us with your care. The emergency room is the first stop in the medical management of your complaint . Our primary pupose is to identify life threatening emergancies and to rapidly address those issues. We are releasing you today after evaluation for emergency or life threatening problems related to your complaint. At this time we are comfortable that your condition is stable enough to go home, take oral medications and follow up for further care. If you can't afford a doctor OR MEDICATIONS consider [facility], [address] [place] [address]; [phone] Medications [facility] WILL SHOW YOU WHERE YOU CAN GET YOUR MEDICATIONS CHEAPEST. 1. Call your doctor and let them know you were seen for ICD-10-CM ICD-9-CM 1. Dizziness R42 780.4 2. Vomiting, intractability of vomiting not specified, presence of nausea not specified, unspecifiedvomiting type R11.10 787.03 2. Schedule a follow up within 3 days of your ER visit. 3. Take your prescriptions to the pharmacy and get them filled today. 4. Take the medications as prescribed and until completed. 5. You have been referred for further care 6. You may need additional tests Your doctors will help you figure out what you need and how to get them done. 7. Please read all paperwork provided to you. Additional instructions See Attached documented in this encounter Plan of Treatment Date Type Specialty Care Team Description 12/31/2018 Office Visit Family Medicine Naima Adams MD [address] [place] [address] [place] [address] 03/12/2019 Office Visit Internal Medicine Sonido Elizabeth, [address] [place] [phone] 03/18/2019 Office Visit Cardiology Mirtha Melgoza MD [address] [facility] [address] [place], [place] [address] Name Type Priority Associated Diagnoses Date/Time XR CHEST 1 VW IMAGING STAT Dizziness 12/27/2018 11:[address] HEAD WO CONTRAST IMAGING MOMO Dizziness 12/27/2018 11:13 PM CDT BLOOD CULTURE SCREEN LAB STAT Dizziness 12/27/2018 11:19 PM CDT BLOOD CULTURE SCREEN LAB STAT Dizziness 12/27/2018 11:19 PM CDT URINE CULTURE LAB STAT Dizziness 12/27/2018 11:19 PM CDT D-DIMER LAB STAT Dizziness 12/27/2018 11:19 PM CDT Name Type Priority Associated Diagnoses Order Schedule BLOOD CULTURE SCREEN LAB Routine Dizziness ONCE for 1 Occurrences starting 12/27/2018 until 12/27/2018 BLOOD CULTURE SCREEN LAB Routine Dizziness ONCE for 1 Occurrences starting 12/27/2018 until 12/27/2018 Lactic Acid Whole Blood LAB Routine Dizziness STAT for 1 Occurrences starting 12/27/2018 URINE CULTURE LAB Routine Dizziness ONCE for 1 Occurrences starting 12/27/2018 until 12/27/2018 D-DIMER LAB Routine Dizziness ONCE for 1 Occurrences starting 12/27/2018 until 12/27/2018 Health Maintenance Due Date Last Done Comments Zoster Recombinant Vaccine (SHINGRIX) (1 of 2) 10/26/1981 Medicare Wellness Visit 10/26/1996 PNEUMOCOCCAL VACCINES 65+ (2 of 2 - PPSV23) 11/27/2015 11/26/2014 INFLUENZA VACCINE (#1) 2018 01/17/2018 DTaP,Tdap,and Td Vaccines (2 - Td) 08/11/2023 08/10/2013 documented as of this encounter Implants Implanted Type Area Media Monitor Device Identifier Shelf Expiration Model / Serial Date / Lot Stent documented as of this encounter Procedures Procedure Name Priority Date/Time Associated Diagnosis Comments LACTIC ACID WHOLE STAT 12/27/2018 11:18 PM Dizziness Results for this BLOOD CDT procedure are in the results section. XR CHEST 1 VW STAT 12/27/2018 11:14 PM Dizziness CDT Procedure Note - [facility], Radiant Results Inft User - 12/27/2018 11:29 PM CDT * * * * * * * * ORIGINAL REPORT * * * * * * * * XR CHEST 1 VW HISTORY: dizziness COMPARISON: 10/19/2018 FINDINGS: Streaky opacities in the lung bases likely represents subsegmental atelectasis and areas of scarring, and are unchanged. Bibasilar pleural plaques are also noted. No focal consolidations, pleural effusion or pneumothorax is identified. The cardiomediastinal silhouette is mildly enlarged, unchanged. Calcifications of the aortic knob. No acute osseous abnormality. IMPRESSION Bibasilar subsegmental atelectasis and/or scarring, unchanged. Stable mild cardiomegaly. The 1.5 cm right apical nodule seen on prior chest CT in 2016 is not identified on this study. CT HEAD WO CONTRAST MOMO 12/27/2018 11:13 PM CDT Dizziness Procedure Note - [facility], Radiant Results Inft User - 12/27/2018 11:[address] HEAD WO CONTRAST HISTORY: Dizziness, non-specific COMPARISON: None TECHNIQUE: Noncontrast CT of the brain was obtained with coronal and sagittal reconstructions. FINDINGS: The ventricles and cerebral sulci are prominent with a normal configuration suggesting mild cerebral volume loss. No hydrocephalus, midline shift or pathological extra-axial fluid collection is present. The basal cisterns are unremarkable. There is no acute intracranial hemorrhage or significant mass effect. Scattered nonspecific periventricular and deep white matter hypodensities are demonstrated, possibly representing chronic small vessel ischemic changes. The alcaraz-white matter differentiation is preserved. The mastoid air cells and paranasal air sinuses are clear. The calvarium and central skull base are unremarkable. IMPRESSION No acute intracranial abnormality. URINALYSIS STAT 12/27/2018 10:44 PM Dizziness Results for this CDT procedure are in the results section. CBC WITH DIFFERENTIAL STAT 12/27/2018 10:21 PM Dizziness Results for this CDT procedure are in the results section. N-TERMINAL PRO-BNP STAT Add-On 12/27/2018 10:21 PM Dizziness Results for this CDT procedure are in the results section. CBC WITH DIFF Routine 12/27/2018 10:21 PM Dizziness Results for this CDT procedure are in the results section. COMP. METABOLIC PANEL STAT 12/27/2018 10:21 PM Dizziness Results for this (09547) CDT procedure are in the results section. TROPONIN I STAT 12/27/2018 10:21 PM Dizziness Results for this CDT procedure are in the results section. EKG-12 LEAD STAT 12/27/2018 10:19 PM CDT documented in this encounter Results Lactic Acid Whole Blood (12/27/2018 11:18 PM CDT) LACTIC ACID 1.77 0.50 - 2.20 mmol/L [facility] Specimen Blood - VENOUS Performing Organization Address City/[facility]/Zipcode Phone Number [facility] CLIA: [id number], [address] [place] [address] URINALYSIS (12/27/2018 10:44 PM CDT) APPEARANCE Clear Clear [facility] COLOR Yellow Yellow [facility] PH 6.0 4.8 - 8.0 [facility] SP GRAVITY 1.010 1.003 - 1.030 [facility] GLU U QUAL Negative Negative [facility] BLOOD Negative Negative [facility] KETONES Negative Negative [facility] PROTEIN Negative Negative [facility] UROBILIN 0.2 mg/dL 0-1.0 mg/dL [facility] BILIRUBIN Negative Negative [facility] NITRITE Negative Negative [facility] LEUK CISCO Negative Negative [facility] RBC/HPF 0 0 - 3 HPF [facility] WBC/HPF 0 0 - 5 HPF [facility] BACTERIA Negative Negative [facility] Specimen Urine - URINE, CLEAN CATCH Performing Organization Address [facility] Phone Number [facility] CLIA: [id number], [address] [place] [address] N-TERMINAL PRO-BNP (12/27/2018 10:21 PM CDT) NT-proBNP 3,350 (H) <=450 pg/mL [facility] Specimen Blood - VENOUS Narrative Performed At Biotin has been reported to cause a negative [facility] bias, interpret results relative to patient's use of biotin. Performing Organization Address City/[facility] Phone Number [facility] CLIA: [id number], [address] [place] [address] CBC WITH DIFFERENTIAL (12/27/2018 10:21 PM CDT) WBC 31.29 (H) 4.20 - 10.70 [facility] 10*3/L [facility]OS[facility] RBC 5.59 (H) 4.26 - 5.52 [facility] 10*6/L [facility] HGB 14.2 12.2 - 16.4 g/dL [facility] HCT 44.9 38.4 - 49.3 % [facility] MCV 80.3 (L) 81.7 - 95.6 fL [facility] MCH 25.4 (L) 26.1 - 32.7 pg [facility] MCHC 31.6 31.2 - 35.0 g/dL [facility] RDW-SD 57.4 (H) 38.5 - 51.6 fL [facility] RDW-CV 21.1 (H) 12.1 - 15.4 % [facility] PLT 354 (H) 150 - 328 10*3/L [facility] MPV 10.2 9.8 - 13.0 fL [facility] NRBC/100 WBC 0.0 0.0 - 10.0 /100 [facility] WBCs [facility] NRBC x10^3 <0.01 10*3/L [facility] SEG % 37 33 - 76 % [facility] BAND % 4 (H) 0 - 1 % [facility] LYMPH % 2 (L) 14 - 54 % [facility] MONO % 10 (H) 0 - 4 % [facility] EOS % 47 (H) 0 - 3 % [facility] ANC 12.83 (H) 1.99 - 6.95 [facility] 10*3/uL HOSPITAL [facility] PLT ESTIMATE Normal Normal [facility] Specimen Blood - VENOUS Performing Organization Address City/State/Zipcode Phone Number [facility] CLIA: [id number], [address] [place] [address] TROPONIN I (12/27/2018 10:21 PM CDT) TROPONIN I 0.096 (H) <=0.034 ng/mL [facility] Specimen Blood - VENOUS Narrative Performed At Equal or Less than 0.034 ng/ml---Normal [facility] Note: Cardiac troponin begins to rise 3-4 hours after the onset of ischemia. Repeat in 4-6 hours if the sample was drawn within 3-4 hours of the onset of the symptom and found normal. Between 0.035 and 0.120 ng/mL--- Borderline. Questionable myocardial injury or necrosis Note: Serial measurement may be necessary to confirm or exclude the diagnosis of myocardial injury or necrosis; Clinical correlation (symptoms, EKGs, imaging studies, and others) required; Repeat in 4-6 hours if clinically indicated. Equal or Higher than 0.121 ng/mL---Abnormal. Myocardial Injury or Necrosis Likely Biotin has been reported to cause a negative bias, interpret results relative to patient's use of biotin. Performing Organization Address City/State/Zipcode Phone Number [facility] CLIA: [id number], [address] [place] [address] COMP. METABOLIC PANEL (86264) (12/27/2018 10:21 PM CDT) NA 142 135 - 145 [facility] mmol/L [facility] K 3.7 3.5 - 5.0 [facility] mmol/L [facility] CL 101 98 - 108 mmol/L [facility] CO2 TOTAL 31 23 - 31 mmol/L [facility] AGAP 10 2 - 16 [facility] BUN 49 (H) 7 - 23 mg/dL [facility] GLUCOSE 142 (H) 70 - 110 mg/dL [facility] CREATININE 1.60 (H) 0.60 - 1.25 [facility] mg/dL [facility] TOTAL BILI 0.4 0.1 - 1.1 mg/dL [facility] CALCIUM 8.6 8.6 - 10.6 [facility] mg/dL [facility] T PROTEIN 7.5 6.3 - 8.2 g/dL [facility] ALBUMIN 4.3 3.5 - 5.0 g/dL [facility] ALK PHOS 147 (H) 34 - 122 U/L [facility] ALT(SGPT) 16 9 - 51 U/L [facility] AST(SGOT) 44 (H) 13 - 40 U/L [facility] eGFR Calculation 41.1 mL/min/1.73m2 [facility] ([facility] Guyanese) eGFR Calculation 49.8 mL/min/1.73m2 [facility] () [facility] Specimen Blood - VENOUS Narrative Performed At Association of Glomerular Filtration Rate (GFR) [facility] and Staging of Kidney Disease* + + +- + | GFR (mL/min/1.73 m2)| With Kidney Damage|Without Kidney Damage + + +- + |>90| Stage one| Normal + + +- + |60-89|S tage two| Decreased GFR + + +- + |30-59|S tage three| Stage three + + +- + |15-29|S tage four | Stage four + + +- + |<15 (or dialysis)|Stage five | Stage five + + +- + *Each stage assumes the associated GFR level has been in effect for at least three months.Stages 1 to 5, with or without kidney disease, indicate chronic kidney disease. Notes: Determination of stages one and two (with eGFR >59mL/min/1.73 m2) requires estimation of kidney damage for at least three months as defined by structural or functional abnormalities of the kidney, manifested by either: Pathological abnormalities or Markers of kidney damage (including abnormalities in the composition of the blood or urine or abnormalities in imaging tests). Performing Organization Address City/State/Zipcode Phone Number [facility] CLIA: [id number], [address] [place] [address] documented in this encounter Visit Diagnoses Diagnosis Dizziness - Primary Dizziness and giddiness Vomiting, intractability of vomiting not specified, presence of nausea not specified, unspecified vomiting type documented in this encounter Administered Medications Medication Order MAR Action Action Date Dose Rate Site NaCl 0.9% (NS) bolus New Bag 12/27/2018 10:27 PM CDT 500 mL 999 mL/hr infusion 500 mL at 999 mL/hr, 500 mL, IV Infusion, ONCE, 1 dose, [facility] 12/27/18 at 2230, STAT documented in this encounter Insurance Payer Benefit Plan / Subscriber ID Effective Phone Address Type Group Dates MEDICARE MEDICARE PART xxxxxxxxxxx 1996-Pre [phone] [address] Medicare A & B sent [phone] JOSHUA DAVIS [phone] [facility] [id number] 2002-Pre [address] Medicare HEALTHCARE HEALTHCARE sent [phone] Supplement MEDICARE [place] SUPPLEMENT JOSHUA CASTRO [id number] documented as of this encounter Advance Directives Name Relationship Healthcare Agent Communication Relationship Kaity Nikhil Spouse [facility] [phone] agent (Home) [phone] Leny [place] Child [facility] agent"
--- OUTSIDE RECORDS SUMMARY | 2019-04-10 12:21 | XMS REPORT | Summary of Care ---
:1930 Author Organization [facility] Address [address] [place] [address] Care Team Providers Name Role Phone Sonido Elizabeth DO Primary Care Provider Reason for Visit Reason Comments Follow-up Hives Encounter Details Date Type Department Care Team Description 12/21/2018 Office Visit [facility] Internal Unknown, Attending Urticaria ( Primary Medicine- Marshall Tran MD [address] [place] [address] Dx) Primary Care Evan Rivera MD [address] [place] [address]. [place] [address] [place] [address] Allergies Active Allergy Reactions Severity Noted Date Comments [place] Other - See comments 05/29/2015 sneezing Naproxen [...] (five) Coronary artery disease minutes as involving [place] needed for Chest coronary artery of pain. [place] heart without angina pectoris potassium chloride SA [...] Elevated troponin 02/10/2018 Coronary artery disease involving [place] coronary artery of [place] heart 01/20 with angina pectoris OBRIEN (dyspnea [...] Sign Reading Time Taken Comments Blood Pressure 104/59 12/21/2018 8:37 AM CDT Pulse 67 12/21/2018 8:37 AM CDT Temperature 36.4 C (97.5 F) 12/21/2018 8:37 AM CDT Respiratory Rate 18 12/21/2018 8:37 AM CDT Oxygen Saturation 96% 12/21/2018 8:37 AM CDT Inhaled Oxygen Concentration - - Weight 83.5 kg (184 lb) 12/21/2018 8:37 AM CDT Height 180.3 cm (5' 11") 12/21/2018 8:37 AM CDT Body Mass Index 25.66 12/21/2018 8:37 AM CDT documented in this encounter Patient Instructions Patient InstructionsEvan Rivera MD - 12/21/2018 8:40 AM CDTYou were seen in internal medicine clinic today 12/21/2018 -Please continue using cream on affected areas for 5 days, return to clinic if no improvement or if fever/chills/blisters start to develop -Follow up as scheduled with Dr. Elizabeth on Jan 01 documented in this encounter Progress Notes Evan Rivera MD - 12/21/2018 8:40 AM CDT Internal Medicine Clinic Note Resident's Addendum I personally examined the patient on 12/21/2018 and have verified Stephy Gutierrez's documentation and/or findings, including the history, physical exam, and medical decision making. Additionally, I have personally performed or re-performed the physical exam and medical decision making activities of this patient's evaluation and management. Additional details are Italicized. Evan Rivera MD Internal Medicine PGY-2 Pager #: [phone] Chief Complaint: follow up for hives HPI Mr. Inderjit Tejeda is an 88 y/o M with PMH of HTN, Aortic stenosis, HFpEF and aflutter on Eliquis who presented to the clinic to follow up on the rash on his R foot. Patient was seen in the [facility] ED on 12/12/18 for the rash that he noticed on his right foot earlier that day. Patient states that the rash was initially very itchy, swollen and red. He denies any recent cuts on his foot or walking barefoot outside. Denies no changes to his daily routine including: new laundry detergent, socks, food, pets, sick contacts or travels. Family member denies of any similar rash. Patient was given benadryl in the ED, dx with urticaria and discharged home with hydrocortisone cream and vistaril rx. The patient states that he has only used the cream 3 times since "it stopped itching." He admits that the rash has improved. It is now less red, swollen and the itching has gone away. He denies any fever, chills, bleeding/drainage from site or SOB at this time. Denies any recent black/bloody stools or hematuria. The patient is asymptomatic and has no other complaints at this time. Past Medical History: Diagnosis Date Aortic stenosis, mild CAD (coronary artery disease) CHF (congestive heart failure) Hypertension Paroxysmal A-fib Pulmonary eosinophilia Past Surgical History: Procedure Laterality Date STENT PLACEMENT (SHX) Family History Problem Relation Age of Onset ID (myocardial infarction) Father Prostate Cancer Brother Stroke Brother Bladder Cancer Brother Aneurysm Son Social History Socioeconomic History Marital status: Spouse name: Not on file Number of children: 3 Tobacco Use Smoking status: Former Smoker Types: Cigarettes Last attempt to quit: 04/17/1970 Years since quittin.7 Smokeless tobacco: Former User Types: Chew Quit date: 04/17/1970 Tobacco comment: 20 pack years Substance and Sexual Activity Alcohol use: Yes Comment: a beer every 3-4 months Drug use: No Allergies Allergen Reactions Naprosyn [Naproxen] Shortness of Breath and Palpitations Diaphoresis, dyspnea, sob Diaphoresis, dyspnea, sob [place] Other - See comments sneezing Tramadol Unknown - See comments A-fib Other reaction(s): Other (See Comments) Diaphoresis, SOB, dyspnea Diaphoresis, SOB, dyspnea Meds: Sig: Hydrocortisone 2 % Lotn Apply to area(s) 2 (two) times daily as needed for Itching. hydrOXYzine (VISTARIL) 50 mg capsule Take 1 capsule by mouth 3 (three) times daily as needed forItching. apixaban 2.5 mg tablet Take 1 tablet by mouth 2 (two) times daily. clopidogrel 75 mg tablet Take 1 tablet by mouth daily. simvastatin 40 mg tablet Take 1 tablet by mouth at bedtime. SERTraline (ZOLOFT) 25 mg tablet Take 1 tablet by mouth daily. allopurinol 100 mg tablet Take 1 tablet by mouth daily. furosemide 40 mg tablet Take 1 tablet by mouth every morning and evening. pantoprazole 20 mg EC tablet Take 1 tablet by mouth daily. nitroglycerin 0.[address] 1 tablet under the tongue every 5 (five) minutes as needed for Chest pain. potassium chloride SA (KLOR-CON M15) 15 mEq tablet Take 2 tablets by mouth daily. metOLazone 2.5 mg tablet Take 1 tablet by mouth weekly. Monday metoprolol tartrate 25 mg tablet Take 0.5 tablets by mouth 2 (two) times daily. predniSONE 5 mg tablet Take 5 mg by mouth daily. REVIEW OF SYSTEMS General: - fever, - chills, - weight change, - dizziness, - fatigue, - change in appetite Skin: + rash on R foot, - lesion HEENT: - headache, - change in hearing, - change in vision, - nasal discharge, - sore throat Resp: - cough, - shortness of breath, - dyspnea on exertion Cardio: - chest pain, - palpitations, - syncope GI: - abdominal pain, - nausea, - vomiting, - diarrhea, - constipation, - melena , - hematochezia, - hematemesis : - dysuria, - hematuria, - increased frequency, - difficulty urinating, - difficulty initiating Neuro: - dizziness, - weakness Musculoskeletal: - back pain, -joint pain Vitals: 12/21/18 0837 BP: 104/59 Pulse: 67 Resp: 18 Temp: 36.4 C (97.5 F) TempSrc: Oral SpO2: 96% Weight: 184 lb (83.5 kg) Height: 5' 11" (1.803 m) PHYSICAL EXAM Appearance: patient alert and in no acute distress Head: normocephalic and atraumatic, Eye: EOMI Cardiovascular: regular rate and rhythm, no murmurs, rubs or gallops Respiratory: clear to auscultation bilaterally, unlabored. Abdomen: soft, non-tender, non-distended, normoactive bowel sounds Extremities: +trace pitting edema bilaterally Skin: +mild erythematous rash noted on the R foot with blanching lesions noted. No warmth, tenderness or swelling noted. +Multiple tattoos noted in the R lower leg and bilateral forearms. I was present for student doctor Brenda's physical exam and performed my own exam independently with thefindings documented below - Evan Rivera MD Gen: NAD, AOx4 HEENT: EOMI, MMM, NC/AT P: CTAB, not in respiratory distress on RA, no increased wob CV: RRR, no MRG MSK: All extremities moving spontaneously, normal gait Neuro: CN2-12 grossly intact, peripheral sensation intact Skin: Trace pitting edema BLE, R foot - mild erythematous rash on dorsal surface with blanching lesion, also present on lower ankle, no warmth, bleeding/ drainage, non-tenderness to palpation, tattoo (50 years old) noted on mid RLE colon Assessment / Plan: Inderijt Tejeda is a 88 year old male presents to clinic today for: Urticaria Comment: Patient was seen in the [facility] ED on 12/12/18 for the rash that he noticed on his right foot. Denies no changes to his daily routine including: new laundry detergent, socks, food, pets or travels. Patient was given benadryl in the ED, dx with urticaria and discharged home with hydrocortisone cream and vistaril rx. The patient states that he has only used the cream 3 times since "it stopped itching." Upon exam, mild erythematous rash with blanching lesions noted on the R foot but no signsof warmth, tenderness or swelling noted. No new blisters. Patient is asymptomatic at this time and denies any systemic signs of infection like fevers or chills. Plan: -C/w hydrocortisone cream daily x 5 days - Please keep PCP appointment as scheduled -Return to clinic/ED precautions given - if worsening symptoms, fever, chills develop Patient was checked out to faculty: Dr. Lux Follow-up: PCP appointment with Dr Elizabeth on 01/01/19 Stephy Gutierrez MS3 Evan Rivera MD Internal Medicine PGY-2 Pager #: [phone] documented in this encounter Plan of Treatment Date Type Specialty Care Team Description 01/01/2019 Office Visit Internal Medicine Sonido Elizabeth DO [address] [place] [phone] 03/12/2019 Office Visit Internal Medicine Sonido Elizabeth DO [address] [place] [phone] 03/18/2019 Office Visit Cardiology Mitrha Melgoza MD [address] [place] [address] [place] [address] Health Maintenance Due Date Last Done Comments Zoster Recombinant Vaccine (SHINGRIX) (1 of 2) 10/26/1981 Medicare Wellness Visit 10/26/1996 PNEUMOCOCCAL VACCINES 65+ (2 of 2 - PPSV23) 11/27/2015 11/26/2014 INFLUENZA VACCINE (#1) 2018 01/17/2018 DTaP,Tdap,and Td Vaccines (2 - Td) 08/11/2023 08/10/2013 documented as of this encounter Implants Implanted Type Area Monogram Machine Operator Device Identifier Shelf Expiration Model / Serial Date / Lot Stent documented as of this encounter Results Not on filedocumented in this encounter Visit Diagnoses Diagnosis Urticaria - Primary Urticaria, unspecified documented in this encounter Insurance Payer Benefit Plan / Subscriber ID Effective Phone Address Type Group Dates MEDICARE MEDICARE PART xxxxxxxxxxx 1996-Pre [phone] [address] Medicare A & B sent [phone] [id number] [place] [address] [facility] [id number] 2002-Pre [address] Medicare HEALTHCARE HEALTHCARE sent [id number] Supplement MEDICARE [place] SUPPLEMENT [place] [id number] documented as of this encounter Advance Directives Name Relationship Healthcare Agent Communication Relationship Kaity Tejeda Spouse First [facility] [phone] agent (Home) [phone] Leny Calzada Child Second [facility] agent
--- OUTSIDE RECORDS SUMMARY | 2019-04-10 12:21 | XMS REPORT | Summary of Care ---
:1930 Author Organization [facility] Address [address] [place] [address] Care Team Providers Name Role Phone Sonido Elizabeth DO Primary Care Provider Reason for Visit Reason Comments Follow-up Hives Encounter Details Date Type Department Care Team Description 12/21/2018 Office Visit [facility] Internal Unknown, Attending Urticaria ( Primary Medicine- Marshall Tran MD [address] [place] [address] Dx) Primary Care Evan Rivera MD [address] [place] [address]. [place] [address], [address] [place] [address] Allergies Active Allergy Reactions Severity [...] (five) Coronary artery disease minutes as involving [place] needed for Chest coronary artery of pain. [place] heart without angina pectoris potassium chloride SA [...] Elevated troponin 02/10/2018 Coronary artery disease involving [place] coronary artery of [place] heart 01/20 with angina pectoris OBRIEN (dyspnea [...] Rivera MD Internal Medicine PGY-2 Pager #: [phone] Chief Complaint: follow up for hives HPI Mr. Inderjit Tejeda is an 88 y/o M with PMH of HTN, Aortic stenosis, HFpEF and aflutter on Eliquis who presented to the clinic to follow up on the rash on his R foot. Patient was seen in the [facility] ED on 12/12/18 for the [...] on mid RLE colon Assessment / Plan: Inderjit Tejeda is a 88 year old male presents to clinic today for: Urticaria Comment: Patient was seen in the [facility] ED on 12/12/18 for the [...] Rivera MD Internal Medicine PGY-2 Pager #: [phone] documented in this encounter Plan of Treatment Date Type Specialty Care Team Description 01/01/2019 Office Visit Internal Medicine Sonido Elizabeth DO [address] [place] [phone] 03/12/2019 Office Visit Internal Medicine Sonido Elizabeth DO [address] [place] [phone] 03/18/2019 Office Visit Cardiology Mirtha Melgoza MD [address] [place] [address] [place] [address] Health Maintenance Due Date Last Done Comments Zoster Recombinant Vaccine (SHINGRIX) (1 of 2) 10/26/1981 Medicare Wellness Visit 10/26/1996 PNEUMOCOCCAL VACCINES 65+ (2 of 2 - PPSV23) 11/27/2015 11/26/2014 INFLUENZA VACCINE (#1) 2018 01/17/2018 DTaP,Tdap,and Td Vaccines (2 - Td) 08/11/2023 08/10/2013 documented as of this encounter Implants Implanted Type Area Account Receivable Clerk Device Identifier Shelf Expiration Model / Serial Date / Lot Stent documented as of this encounter Results Not on filedocumented in this encounter Visit Diagnoses Diagnosis Urticaria - Primary Urticaria, unspecified documented in this encounter Insurance Payer Benefit Plan / Subscriber ID Effective Phone Address Type Group Dates MEDICARE MEDICARE PART xxxxxxxxxxx 1996-Pre [phone] [address] Medicare A & B sent [phone] [id number] [place] [phone] [facility] [id number] 2002-Pre [address] Medicare HEALTHCARE HEALTHCARE sent [id number] Supplement MEDICARE [place] SUPPLEMENT [place] CASTR[place] [id number] documented as of this encounter Advance Directives Name Relationship Healthcare Agent Communication Relationship Kaity Tejeda Spouse First [facility] [phone] agent (Home) [phone] Leny Calzada Child Second [facility] agent
--- OUTSIDE RECORDS SUMMARY | 2019-04-10 12:22 | XMS REPORT | Summary of Care ---
:1930 Author Organization [facility] Address [address] [place] [address] Care Team Providers Name Role Phone Sonido Elizabeth DO Primary Care Provider Reason for Visit Reason Comments Refill Request Encounter Details Date Type Department Care Team Description 01/02/2019 Refill [facility] Internal Marshall Avalos MD Refill Request [address] [place] [address] [facility] [address], [address] [place] [address] [phone] Allergies Active Allergy Reactions Severity Noted Date Comments [place] Other - See comments 05/29/2015 sneezing Naproxen Shortness of Breath, High 06/09/2015 Diaphoresis, dyspnea, Palpitations sob Diaphoresis, dyspnea, sob Tramadol Unknown - See comments 06/09/2015 A-fib Other reaction(s): Other (See Comments) Diaphoresis, SOB, dyspnea Diaphoresis, SOB, dyspnea documented as of this encounter (statuses as of 01/02/2019) Medications Medication Sig Dispensed Refills Start Date End Date Status metoprolol tartrate Take 0.5 30 tablet 11 02/22/2018 Active 25 mg tablet tablets by mouth 2 (two) times daily. metOLazone 2.5 mg Take 1 tablet 20 tablet 3 05/01/2018 Active tablet by mouth weekly. Monday AM potassium chloride Take 2 tablets 60 tablet 3 06/05/2018 Active SA (KLOR-CON M15) by mouth 15 mEq daily. tabletIndications: Hypokalemia furosemide 40 mg Take 1 tablet 60 tablet 3 09/05/2018 Active tabletIndications: by mouth every (HFpEF) heart morning and failure with evening. preserved ejection fraction simvastatin 40 mg Take 1 tablet 30 tablet 11 10/22/2018 Active tablet by mouth at bedtime. clopidogrel 75 mg Take 1 tablet 30 tablet 11 10/22/2018 Active tablet by mouth daily. apixaban 2.5 mg Take 1 tablet 60 tablet 11 10/22/2018 Active tablet by mouth 2 (two) times daily. allopurinol 100 mg Take 1 tablet 90 tablet 3 12/31/2018 Active tabletIndications: by mouth Other secondary daily. 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 PANTOPRAZOLE 20 mg TAKE ONE 30 tablet 4 01/02/2019 Active EC tablet TABLET BY MOUTH DAILY pantoprazole 20 mg Take 1 tablet 30 tablet 5 07/09/2018 01/02/2019 Discontinued EC tablet by mouth daily. documented as of this encounter (statuses as of 01/02/2019) Active Problems Problem Noted Date SOB (shortness of breath) 02/19/2018 Nausea & vomiting 02/18/2018 Acute on chronic diastolic congestive heart failure 02/12/2018 PAF (paroxysmal atrial fibrillation) 02/12/2018 Elevated troponin 02/10/2018 Coronary artery disease involving [place] coronary artery of [place] heart 01/20 with angina pectoris OBRIEN (dyspnea on exertion) 01/20/2018 (HFpEF) heart failure with preserved ejection fraction 01/20/2018 Elevated brain natriuretic peptide (BNP) level 01/20/2018 Atypical chest pain 01/18/2018 NSTEMI (non-ST elevated myocardial infarction) 10/11/2017 Hypertension documented as of this encounter (statuses as of 01/02/2019) Immunizations Name Administration Dates Next Due Influenza [...] Office Visit Internal Medicine Sonido Elizabeth, [address] [place] [phone] 03/18/2019 Office Visit Cardiology Mirtha Melgoza MD [address] [place] [address] [address] [place] [address] 07/02/2019 Office Visit Family Medicine Naima Adams MD [address] [place] [address] Health Maintenance Due Date Last Done Comments Zoster Recombinant Vaccine (SHINGRIX) (1 of 2) 10/26/1981 Medicare Wellness Visit 10/26/1996 PNEUMOCOCCAL VACCINES 65+ (2 of 2 - PPSV23) 11/27/2015 11/26/2014 INFLUENZA VACCINE (#1) 2018 01/17/2018 DTaP,Tdap,and Td Vaccines (2 - Td) 08/11/2023 08/10/2013 documented as of this encounter Implants Implanted Type Area Inspector Final Assembly Electrical Device Identifier Shelf Expiration Model / Serial Date / Lot Stent documented as of this encounter Results Not on filedocumented in this encounter Insurance Payer Benefit Plan / Subscriber ID Effective Phone Address Type Group Dates MEDICARE MEDICARE PART xxxxxxxxxxx 1996-Pre [phone] [address] Medicare A & B sent [id number] [place] [phone] [facility] [id number] 2002-Pre [address] Medicare HEALTHCARE HEALTHCARE sent [id number] Supplement MEDICARE [place] SUPPLEMENT [place]STR[place] [id number] documented as of this encounter Advance Directives Name Relationship Healthcare Agent Communication Relationship Kaity Tejeda Spouse First [facility] [phone] agent (Home) [phone] Leny [facility] agent
--- OUTSIDE RECORDS SUMMARY | 2019-04-10 12:22 | XMS REPORT | Summary of Care ---
:[address] [facility] Address [address] [place] [id number] Care Team Providers Name Role Phone Sonido Elizabeth DO Primary Care Provider Reason for Visit Reason Comments New Patient establish care Encounter Details Date Type Department Care Team Description 12/31/2018 Office Visit [facility] Family Naima Adams Essential hypertension (Primary Dx); Medicine - Antoine Ware MD Hypercholesterolemia; [address] [place] [address] [address] [place] [address] History of gout; [place], [place] Chronic diastolic heart failure; [id number] PAF (paroxysmal atrial fibrillation); [phone] 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; Diabetes mellitus screening; Abnormal finding of blood chemistry ; 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 tabletIndications: Hypokalemia pantoprazole 20 mg Take [...] MELATONIN ORAL Take by 0 Active mouth. allopurinol 100 mg Take 1 tablet 30 tablet 2 09/20/2018 12/31/2018 Discontinued tabletIndications: by mouth Other secondary daily. 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 documented as of this encounter (statuses as of 12/31/2018) Active Problems Problem Noted Date SOB (shortness of breath) 02/19/2018 Nausea & vomiting 02/18/2018 Acute on chronic diastolic congestive heart failure 02/12/2018 PAF (paroxysmal atrial fibrillation) 02/12/2018 Elevated troponin 02/10/2018 Coronary artery disease involving wrangell coronary artery of wrangell heart 01/20 with angina pectoris OBRIEN (dyspnea on exertion) 01/20/2018 (HFpEF) heart failure with preserved ejection fraction 01/20/2018 Elevated brain natriuretic peptide (BNP) level 01/20/2018 Atypical chest pain 01/18/2018 NSTEMI (non-ST elevated myocardial infarction) 10/11/2017 Hypertension documented as of this encounter (statuses as of 12/31/2018) Immunizations Name Administration Dates Next Due Influenza [...] Sign Reading Time Taken Comments Blood Pressure 90/47 12/31/2018 1:48 PM CDT Pulse 76 12/31/2018 1:48 PM CDT Temperature 36 C (96.8 F) 12/31/2018 1:48 PM CDT Respiratory Rate - - Oxygen Saturation - - Inhaled Oxygen Concentration - - Weight 83.9 kg (185 lb) 12/31/2018 1:48 PM CDT Height 177.8 cm (5' 10") 12/31/2018 1:48 PM CDT Body Mass Index 26.54 12/31/2018 1:48 PM CDT documented in this encounter Patient Instructions Patient InstructionsCoNaima gonzalez MD - 12/31/2018 1:30 PM CDT Prevention Guidelines, Men Ages 65 and Older Screening tests and vaccines are an important part of managing your health.A screening test is done to find possible disorders or diseases in people who don' t have any symptoms. The goal is to find a disease early so lifestyle changes can be made and you can be watched more closely to reduce the risk of disease, or to detect it early enough to treat it most effectively. Screening tests are not considered diagnostic, but are used to determine if more testing is needed. Health counseling is essential, too. Below are guidelines for these, for men ages 65 and older. Talk with your healthcare providerto make sure youre up-to -date on what you need. Screening Who needs it How often Abdominal aortic aneurysm Men ages 65 to 75 who have ever smoked 1 ultrasound Alcohol misuse All men in this age group At routine exams Blood pressure All men in this age group Yearly checkup if your blood pressure is normal Normal blood pressure is less than 120/80 mm Hg If your blood pressure reading is higher than normal, follow the advice of your healthcare provider Colorectal cancer All men in this age group Flexible sigmoidoscopy every 5 years , or colonoscopy every 10 years, or double-contrast barium enema every 5 years; yearly fecal occult blood test or fecal immunochemical test; or a stool DNA test as often as your healthcare provider advises; talk with your healthcare provider about which tests are best for you and when you no longer need colonoscopies (generally after age 75) Depression All men in this age group At routine exams Type 2 diabetes or prediabetes All men beginning at age 45 and men without symptoms at any age who are overweight or obese and have 1 or more other risk factors for diabetes At least every 3 years (yearly if your blood sugar has already begun to rise) Type 2 diabetes All men with prediabetes Every year Hepatitis C Men at increased risk for infection talk with your healthcare provider At routine exams High cholesterol or triglycerides All men in this age group At least every 5 years HIV Men at increased risk for infection talk with your healthcare provider At routine exams Lung cancer Adults ages 55 to 80 who have smoked Yearly screening in smokers with 30 pack-year history of smoking or who quit within 15 years Obesity All men in this age group At routine exams Prostate cancer All men in this age group, talk to healthcare provider about risks and benefits of digital rectal exam (RENETTA) and prostate-specific antigen ( PSA) screening1 At routine exams Syphilis Men at increased risk for infection talk with your healthcare provider At routine exams Tuberculosis Men at increased risk for infection talk with your healthcare provider Ask your healthcare provider Vision All men in this age group Every 1 to 2 years; if you have a chronic health condition, ask your healthcare provider if you needs exams more often Vaccine Who needs it How often Chickenpox (varicella) All men in this age group who have no record of this infection or vaccine 2 doses; second dose should be given at least 4 weeks after the first dose Hepatitis A Men at increased risk for infection talk with your healthcare provider 2 doses givenat least 6 months apart Hepatitis B Men at increased risk for infection talk with your healthcare provider 3 doses over 6 months; second dose should be given 1 month after the first dose; the third dose should be given atleast 2 months after the second dose and at least 4 months after the first dose Haemophilus influenzae Type B (HIB) Men at increased risk for infection talk with your healthcare provider 1 to 3 doses Influenza (flu) All men in this age group Once a year Meningococcal Men at increased risk for infection talk with your healthcare provider 1 or more doses Pneumococcalconjugate vaccine (PCV13)and pneumococcal polysaccharide vaccine (PPSV23) All men in this age group 1 dose of each vaccine Tetanus/diphtheria/ pertussis (Td/Tdap) booster All men in this age group Td every 10 years, or Tdap if you will have contact with a child younger than 12 months old Zoster All men in this age group 1 dose Counseling Who needs it How often Diet and exercise Menwho are overweight or obese When diagnosed, and then at routine exams Fall prevention (exercise, vitamin D supplements) All men in this age group At routine exams Sexually transmitted infection Men at increased risk for infection talk with your healthcare provider At routine exams Use of daily aspirin Men ages 45 to 79 at risk for cardiovascular health problems At routine exams Use of tobacco and the health effects it can cause All men in this age group Every visit [address] [place] [address] Cancer Network Date Last Reviewed: 05/18/201619997937-2764 [employer] [address] [place] [address]. All rights reserved. This information is not intended as a substitute for professional medical care. Always follow your healthcare professional's instructions. documented in this encounter Progress Notes Naima Adams MD - 12/31/2018 1:30 PM CDT Cc: Chief Complaint Patient presents with New Patient establish care HPI Inderjit Tejeda is a 88 year old male who presents as a new patient to establish care and for HTN, HLD, and Gout. This patient's other significant chronic medical conditions include A-fib, chronicanticoagulation, valvular heart disease. The patient's specialists: Dr. Melgoza- Cardiology. He is accompanied by his . HTN, HLD follow-up: Medication compliance: Good. Denies adverse medication side effects. Dietary compliance: Good. Exercise frequency: [facility]. Blood pressure readings: Doesn't self-monitor. Associated symptoms: None. Denies cp, SOB, palpitations, edema, orthopnea, PND , syncope, claudication, dizziness, headaches, visual changes, or focal weakness. Cardiovascular screening (ex. EKG, stress test) in the past 3 years?: Yes. He is followed by his Electronic Scale Subassembler Dr. Melgoza at regular intervals. Gout He denies any recent gout flare-ups and takes allopurinol for gout prophylaxis. He follows a low purine diet to help with gout prevention. Allergies Inderjit is allergic to naprosyn [naproxen]; cedarwood; and tramadol. Medications Outpatient Medications Prior to Visit Medication Sig Dispense Refill MELATONIN ORAL Take by mouth. apixaban 2.5 mg tablet Take 1 tablet by mouth 2 (two) times daily. 60 tablet 11 clopidogrel 75 mg tablet Take 1 tablet by mouth daily. 30 tablet 11 simvastatin 40 mg tablet Take 1 tablet by mouth at bedtime. 30 tablet 11 allopurinol 100 mg tablet Take 1 tablet by mouth daily. 30 tablet 2 furosemide 40 mg tablet Take 1 tablet by mouth every morning and evening. 60 tablet 3 pantoprazole 20 mg EC tablet Take 1 tablet by mouth daily. 30 tablet 5 potassium chloride SA (KLOR-CON M15) 15 mEq tablet Take 2 tablets by mouth daily. 60 tablet 3 metOLazone 2.5 mg tablet Take 1 tablet by mouth weekly. Monday AM 20 tablet 3 metoprolol tartrate 25 mg tablet Take 0.5 tablets by mouth 2 (two) times daily. 30 tablet 11 No facility-administered medications prior to visit. Histories [...] file Gets together: Not on file Attends sikhism service: Not on file Active member of [...] Family History Problem Relation Age of Onset [place] (myocardial infarction) Father Prostate Cancer Brother Stroke Brother Bladder Cancer Brother Aneurysm Son Review of Systems Constitutional: Negative. HENT: Negative. Eyes: Negative. Respiratory: Negative. Cardiovascular: Negative. Gastrointestinal: Negative. Genitourinary: Negative. Musculoskeletal: Positive for arthralgias. Skin: Negative. Neurological: Negative. Psychiatric/Behavioral: Negative. Endocrine: Endocrine negative Vital Signs BP 90/47 (BP Location: Left arm, Patient Position: Sitting, BP CUFF SIZE: Adult Small) | Pulse 76 | Temp 36 C (96.8 F) (Tympanic) | Ht 5' 10" (1.778 m) | Wt 185 lb (83.9 kg) | BMI 26.54 kg/m Physical Exam Constitutional: He is oriented to person, place, and time. He appears well- developed and well-nourished. No distress. HENT: Head: Normocephalic. Mouth/Throat: Mucous membranes are normal. Eyes: Pupils are equal, round, and reactive to light. Conjunctivae are normal. No scleral icterus. Neck: Neck supple. No thyromegaly present. Cardiovascular: Normal rate and intact distal pulses. An irregularly irregular rhythm present. Exam reveals no gallop and no friction rub. Murmur heard. Systolic murmur is present with a grade of 3/6. Pulmonary/Chest: Effort normal and breath sounds normal. He has no wheezes. He has no rales. Abdominal: Soft. Bowel sounds are normal. He exhibits no distension and no mass. There is no tenderness. Musculoskeletal: He exhibits edema (ankle R>L). Lymphadenopathy: He has no cervical adenopathy. Neurological: He is alert and oriented to person, place, and time. Skin: Skin is warm and dry. No rash noted. No pallor. Psychiatric: He has a normal mood and affect. His behavior is normal. Nursing note and vitals reviewed. Labs Admission on 12/27/2018, Discharged on 12/27/2018 Component Date Value NA 12/27/2018 142 K 12/27/2018 3.7 CL 12/27/2018 101 CO2 TOTAL 12/27/2018 31 AGAP 12/27/2018 10 BUN 12/27/2018 49* GLUCOSE 12/27/2018 142* CREATININE 12/27/2018 1.60* TOTAL BILI 12/27/2018 0.4 CALCIUM 12/27/2018 8.6 T PROTEIN 12/27/2018 7.5 ALBUMIN 12/27/2018 4.3 ALK PHOS 12/27/2018 147* ALT(SGPT) 12/27/2018 16 AST(SGOT) 12/27/2018 44* eGFR Calculation (Non-Af* 12/27/2018 41.1 eGFR Calculation (Padmini* 12/27/2018 49.8 APPEARANCE 12/27/2018 Clear COLOR 12/27/2018 Yellow PH 12/27/2018 6.0 SP GRAVITY 12/27/2018 1.010 GLU U QUAL 12/27/2018 Negative BLOOD 12/27/2018 Negative KETONES 12/27/2018 Negative PROTEIN 12/27/2018 Negative UROBILIN 12/27/2018 0.2 mg/dL BILIRUBIN 12/27/2018 Negative NITRITE 12/27/2018 Negative LEUK CISCO 12/27/2018 Negative RBC/HPF 12/27/2018 0 WBC/HPF 12/27/2018 0 BACTERIA 12/27/2018 Negative TROPONIN I 12/27/2018 0.096* WBC 12/27/2018 31.29* RBC 12/27/2018 5.59* HGB 12/27/2018 14.2 HCT 12/27/2018 44.9 MCV 12/27/2018 80.3* MCH 12/27/2018 25.4* MCHC 12/27/2018 31.6 RDW-SD 12/27/2018 57.4* RDW-CV 12/27/2018 21.1* PLT 12/27/2018 354* MPV 12/27/2018 10.2 NRBC/100 WBC 12/27/2018 0.0 NRBC x10^3 12/27/2018 <0.01 SEG % 12/27/2018 37 BAND % 12/27/2018 4* LYMPH % 12/27/2018 2* MONO % 12/27/2018 10* EOS % 12/27/2018 47* ANC 12/27/2018 12.83* PLT ESTIMATE 12/27/2018 Normal Blood Culture-Aerobic 12/27/2018 No growth at 72 hours Blood Culture-Anaerobic 12/27/2018 No growth at 72 hours Blood Culture-Aerobic 12/27/2018 No growth at 72 hours Blood Culture-Anaerobic 12/27/2018 No growth at 72 hours LACTIC ACID 12/27/2018 1.77 URINE CULTURE 12/27/2018 < 10,000 CFU/mL mixed aerobic organisms - suggests endogenous microbial contamination NT-proBNP 12/27/2018 3,350* D-DIMER 12/27/2018 0.78* HGB A1C 12/27/2018 5.8 TSH 12/27/2018 2.63 Admission on 10/19/2018, Discharged on 10/19/2018 Component Date Value NT-proBNP 10/19/2018 3,600* NA 10/19/2018 139 K 10/19/2018 3.9 CL 10/19/2018 98 CO2 TOTAL 10/19/2018 32* AGAP 10/19/2018 9 BUN 10/19/2018 57* GLUCOSE 10/19/2018 119* CREATININE 10/19/2018 1.44* CALCIUM 10/19/2018 8.8 eGFR Calculation (Non-Af* 10/19/2018 46.5 eGFR Calculation (Padmini* 10/19/2018 56.4 WBC 10/19/2018 26.37* RBC 10/19/2018 5.57* HGB 10/19/2018 13.6 HCT 10/19/2018 43.8 MCV 10/19/2018 78.6* MCH 10/19/2018 24.4* MCHC 10/19/2018 31.1* RDW-SD 10/19/2018 53.1* RDW-CV 10/19/2018 19.7* PLT 10/19/2018 318 MPV 10/19/2018 11.0 NRBC/100 WBC 10/19/2018 0.0 NRBC x10^3 10/19/2018 <0.01 GRAN MAT (NEUT) % 10/19/2018 58.6 IMM GRAN % 10/19/2018 2.00 LYMPH % 10/19/2018 6.0 MONO % 10/19/2018 4.9 EOS % 10/19/2018 27.2 BASO % 10/19/2018 1.3 GRAN MAT x10^3(ANC) 10/19/2018 15.45* IMM GRAN x10^3 10/19/2018 0.52* LYMPH x10^3 10/19/2018 1.59 MONO x10^3 10/19/2018 1.30* EOS x10^3 10/19/2018 7.16* BASO x10^3 10/19/2018 0.35* Assessment/Plan Inderjit was seen today for new patient visit. The available medical records in [facility] were reviewed. Diagnoses and all orders for this visit: Essential hypertension Bp is on the low side but he is asymptomatic. Continue current medication(s). Low sodium diet/DASHdiet. Exercise per Electronic Scale Subassembler's recommendations. The patient was instructed to self monitor his blood pressure once daily varying the times when it is checked and to bring the record of readings toeach office visit. The patient should follow-up sooner if the blood pressure is trending & gt;/=150/90 or <90/<60. - THYROID STIMULATING HORMONE; Standing Hypercholesterolemia His last LDL was at goal and was less than 12 mos ago. Continue current lipid- lowering pharmacotherapy. Low fat, low cholesterol diet was recommended/ reviewed. Exercise per Electronic Scale Subassembler's recommendations. 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 Continue current pharmacotherapy. The patient understands he should follow-up sooner if there is any rebound in his gout symptoms. - allopurinol 100 mg tablet; Take 1 tablet by mouth daily. 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 Follow-up with Cardiology as scheduled/planned. He is overdue for annual thyroid function testing/screening. - THYROID STIMULATING HORMONE; Standing Diabetes mellitus screening - GLYCOSYLATED HEMOGLOBIN (A1C); Standing Health maintenance He declines further colonoscopies or PSA testing. He thinks he has had both pneumococcal vaccines since the age of 66yo. He will discuss the Shingrix vaccine coverage with his pharmacy. He will get a high-dose influenza vaccine once available. Tdap is UTD and a Td isn't due until 07/2023. Plan of care, desired health behaviors, goals, Ddx, and any prescribed medications were discussed with the patient. This visit did not involve counseling and coordination that comprised more than 50% of the visit time. Education resources and self-management tools were provided and reviewed with the AVS. Patient/guardian/family verbalized understanding and agrees to the plan of care. Barriers tocare: None. Ability to manage care: Good. Advanced care planning (living will) information was not given/offered to the patient to review for discussion at a future visit. If applicable, the [facility] database was accessed to review any controlled substance prescription claims data. If the patient is taking prescribed medications, the [employer] prescription claims data in [employer] was reviewed to assess patient compliance with the medication treatment plan. Follow-up: Return in about 6 months (around 07/01/2019) for routine follow-up of chronic conditions and labs. Follow-up sooner if any problems or concerns. documented in this encounter Plan of Treatment Date Type Specialty Care Team Description 03/12/2019 Office Visit Internal Medicine Sonido Elizabeth, DO [address] [place] [address]. [place] [address] 03/18/2019 Office Visit Cardiology Mirtha Melgoza MD [address] [place] [address] [address] [place] [address] Health Maintenance Due Date Last Done Comments Zoster Recombinant Vaccine 10/26/1981 (SHINGRIX) (1 of 2) PNEUMOCOCCAL VACCINES 65+ (2 of 2 11/27/2015 11/26/2014 - PPSV23) INFLUENZA VACCINE (#1) 2018 01/17/2018 Medicare Wellness Visit 12/31/2018 Postponed from 10/26/1996 (Alternative Guidelines) DTaP,Tdap,and Td Vaccines (2 - 08/11/2023 08/10/2013 Td) documented as of this encounter Implants Implanted Type Area Head Cager Device Identifier Shelf Expiration Model / Serial Date / Lot Stent documented as of this encounter Results THYROID STIMULATING HORMONE (12/27/2018 10:21 PM CDT) TSH 2.63Comment: Biotin 0.45 - 4.70 [facility] has been reported [facility] to cause a negative bias, interpret results relative to patient's use of biotin. Specimen Blood - VENOUS Performing Organization Address City/State/Zipcode Phone Number [facility] CLIA: [id number], [address] [place] [address] GLYCOSYLATED HEMOGLOBIN (A1C) (12/27/2018 10:21 PM CDT) HGB A1C 5.8 4.0 - 6.0 % NGSP [facility] Specimen Blood - VENOUS Narrative Performed At %A1C (NGSP) Interpretation (ADA) [facility] 4.8-5.6 Normal or (Non-Diabetic Range) 5.7-6.4 Increased Risk (Pre-Diabetic) >6.5Diabetes Indicated Performing Organization Address City/State/Zipcode Phone Number [facility] CLIA: [id number], [address] [place] [address] documented in this encounter Visit Diagnoses Diagnosis Essential hypertension - Primary Unspecified essential hypertension Hypercholesterolemia Pure hypercholesterolemia History of gout Personal history of other endocrine, metabolic, and immunity disorders Chronic diastolic heart failure PAF (paroxysmal atrial fibrillation) Atrial fibrillation 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 Medicare A & B sent [id number] JOSHUA DAVIS [phone] [facility] [id number] 2002-Pre [address] Medicare HEALTHCARE HEALTHCARE sent [id number] Supplement MEDICARE [place] SUPPLEMENT JOSHUA CASTRO [id number] ([place]) [place] [address] documented as of this encounter Advance Directives Name Relationship Healthcare Agent Communication Relationship Kaity Tejeda Spouse [facility] [phone] agent (Home) [phone] [facility] agent
[2019-04-10] MEDS ORDERED: MORPHINE 4 MG/ML SYR ONE ×2 (12:48→13:45)
[2019-04-10] MEDS ORDERED: ONDANSETRON 4 MG/2 ML VIAL ONE (12:48)
--- NOTE | 2019-04-10 13:30 | ER ---
Nurse's Notes [facility] Name: Inderjit Tejeda Age: 88 yrs Sex: Male : 1930 Arrival Date: 04/10/2019 Time: 12:23 Bed 6 Private MD: Diagnosis: Left hip femoral neck fracture Presentation: 04/10 12:23 Presenting complaint: EMS states: Pt fell out of bed and is c/o left leg pain, did not jl7 hit head, denies LOC. Transition of care: patient was not received from another setting of care. Onset of symptoms was April 10, 2019. Risk Assessment: Do you want to hurt yourself or someone else? Patient reports no desire to harm self or others. Initial Sepsis Screen: Does the patient meet any 2 criteria? No. Patient's initial sepsis screen is negative. Does the patient have a suspected source of infection? No. Patient's initial sepsis screen is negative. Care prior to arrival: IV initiated. 20 GA, in the left forearm, Glucose check: 101. 12:23 Method Of Arrival: EMS: [facility] jl7 12:23 Acuity: CINDY 4 jl7 Triage Assessment: 12:25 General: Appears in no apparent distress. uncomfortable, Behavior is calm, cooperative, jl7 appropriate for age. Pain: Complains of pain in left quadriceps Pain currently is 7 out of 10 on a pain scale. Neuro: Level of Consciousness is awake, alert, obeys commands, Oriented to person, place, time, situation. Cardiovascular: Patient's skin is warm and dry. Respiratory: Airway is patent Respiratory effort is even, unlabored, Respiratory pattern is regular, symmetrical. Musculoskeletal: Tenderness present in left quadriceps. Historical: - Allergies: 12:25 Tramadol HCl; jl7 - PMHx: 13:51 Myocardial infarction; Atrial Fib; CHF; iw - Immunization history:: Adult Immunizations unknown. - Social history:: Smoking status: Patient/guardian denies using tobacco. - Ebola Screening: : No symptoms or risks identified at this time. Screenin:00 Abuse screen: Denies threats or abuse. Denies injuries from another. Nutritional jl7 screening: No deficits noted. Tuberculosis screening: No symptoms or risk factors identified. Fall Risk Fall in past 12 months (25 points). IV access (20 points). Mental Status- Oriented to own ability (0 pts). Total Mckeon Fall Scale indicates High Risk Score (45 or more points). Fall prevention measures have been instituted. Side Rails Up X 2 Placed Close to Nursing Station Frequent Obs/Assessments Occuring Family Present and informed to notify staff if the need to leave the bedside As available patient and family educated on Fall Prevention Program and Strategies. Assessment: 12:30 General: See triage assessment. jl7 13:30 Reassessment: Patient appears in no apparent distress at this time. No changes from jl7 previously documented assessment. Patient and/or family updated on plan of care and expected duration. Pain level reassessed. Patient is alert, oriented x 3, equal unlabored respirations, skin warm/dry/pink. 14:30 Reassessment: Patient appears in no apparent distress at this time. Patient and/or jl7 family updated on plan of care and expected duration. Pain level reassessed. Patient is alert, oriented x 3, equal unlabored respirations, skin warm/dry/pink. Vital Signs: 12:25 BP 118 / 58; Pulse 74; Resp 17; Pulse Ox 100% ; Weight 78.47 kg; Height 5 ft. 11 in. jl7 (180.34 cm); Pain 7/10; 13:30 BP 125 / 72; Pulse 75; Resp 16 S; Pulse Ox 98% on R/A; jl7 14:52 BP 120 / 72; Pulse 78; Resp 16 S; Temp 97.6(TE); Pulse Ox 98% on R/A; jl7 12:25 Body Mass Index 24.13 (78.47 kg, 180.34 cm) jl7 ED Course: 12:23 Patient arrived in ED. jl7 12:24 Triage completed. jl7 12:24 Jose Ford MD is Attending Physician. kdr 12:25 Arm band placed on right wrist. jl7 12:30 Maintain EMS IV. Dressing intact. Good blood return noted. Site clean \T\ dry. Gauge \T\ jl 7 site: 20 left forearm. 12:43 Domenic Shahid RN is Primary Nurse. jl7 13:00 Patient has correct armband on for positive identification. Placed in gown. Bed in low jl7 position. Call light in reach. Side rails up X 1. Pulse ox on. NIBP on. Warm blanket given. 13:34 Pelvis XRAY In Process Unspecified. EDMS 13:34 Hip Left 2 View XRAY In Process Unspecified. EDMS 13:34 Femur Left XRAY In Process Unspecified. EDMS 13:34 Chest Single View In Process Unspecified. EDMS 14:00 He cath inserted, using sterile technique, 16 Fr., by de, balloon inflated, to jl7 gravity drainage, returned clear yellow urine. Patient tolerated well. 15:04 No provider procedures requiring assistance completed. Patient transferred, IV remains jl7 in place. intact, No redness/swelling at site. Administered Medications: 12:50 Drug: Zofran 4 mg Route: IVP; Site: left forearm; jl7 15:02 Follow up: Response: No adverse reaction jl7 12:52 Drug: morphine 4 mg Route: IVP; Site: left forearm; jl7 13:20 Follow up: Response: No adverse reaction; Pain is unchanged, physician notified jl7 13:50 Drug: morphine 4 mg Route: IVP; Site: left forearm; jl7 14:00 Follow up: Response: No adverse reaction; Pain is decreased jl7 14:55 Drug: fentaNYL (PF) 50 mcg Route: IVP; Site: left forearm; aa5 15:02 Follow up: Response: No adverse reaction jl7 Outcome: 13:29 ER care complete, transfer ordered by . kdr 15:04 Transferred by ground EMS to [facility], Transfer form completed. jl7 X-rays sent w/ patient. 15:04 Condition: stable 15:04 Discharge instructions given to patient, family, Instructed on the need for transfer, Demonstrated understanding of instructions. 15:05 Patient left the ED. jl7 Signatures: Dispatcher [employer] Jose Mtz MD MD kdr Williams, Irene, RN RN iw Calderon, Audri, RN RN aa5 Domenic Shahid RN RN jl7 Corrections: (The following items were deleted from the chart) 14:56 14:55 fentaNYL (PF) 50 mcg IVP in left wrist aa5 aa5
--- NOTE | 2019-04-10 13:31 | EDPHYS ---
Physician Documentation [facility] Name: Inderjit Tejeda Age: 88 yrs Sex: Male : 1930 Arrival Date: 04/10/2019 Time: 12:23 Bed 6 Private MD: ED Physician Jose Ford HPI: 04/10 12:38 This 88 yrs old Male presents to ER via EMS with complaints of left hip/femur kdr pain. 12:38 The patient presents with decreased range of motion, an injury, pain, that is acute, kdr tenderness. The complaints affect the left hip, lateral aspect of left thigh and left quadriceps. Context: The problem was sustained at home, resulted from the patient falling, while sitting, Fell out of bed, the patient is not able to bear weight, the patient is not able to ambulate, Problem is a result from a previous injury: No. Onset: The symptoms/episode began/occurred suddenly, just prior to arrival, at 10:30. Modifying factors: The symptoms are alleviated by nothing. remaining still, the symptoms are aggravated by movement, weight bearing. Associated signs and symptoms: The patient has no apparent associated signs or symptoms. Treatment prior to arrival includes: no previous treatment. Severity of symptoms: At their worst the symptoms were. The patient has not experienced similar symptoms in the past. The patient has not recently seen a physician. Historical: - Allergies: 12:25 Tramadol HCl; jl7 - PMHx: 13:51 Myocardial infarction; Atrial Fib; CHF; iw - Immunization history:: Adult Immunizations unknown. - Social history:: Smoking status: Patient/guardian denies using tobacco. - Ebola Screening: : No symptoms or risks identified at this time. ROS: 12:38 Constitutional: Negative for fever, chills, and weight loss, Eyes: Negative for injury, kdr pain, redness, and discharge, ENT: Negative for injury, pain, and discharge, Neck: Negative for injury, pain, and swelling, Cardiovascular: Negative for chest pain, palpitations, and edema, Respiratory: Negative for shortness of breath, cough, wheezing, and pleuritic chest pain, Abdomen/GI: Negative for abdominal pain, nausea, vomiting, diarrhea, and constipation, Back: Negative for injury and pain, : Negative for injury, bleeding, discharge, and swelling, Skin: Negative for injury, rash, and discoloration, Neuro: Negative for headache, weakness, numbness, tingling, and seizure activity. Psych: Negative for depression, anxiety, suicide ideation, homicidal ideation, and hallucinations, Allergy/Immunology: Negative for hives, rash, and allergies, Endocrine: Negative for neck swelling, polydipsia, polyuria, polyphagia, and marked weight changes, Hematologic/Lymphatic: Negative for swollen nodes, abnormal bleeding, and unusual bruising. 12:38 MS/extremity: Positive for injury or acute deformity, decreased range of motion, pain, of the left hip, lateral aspect of left thigh and left quadriceps. Exam: 12:38 Constitutional: This is a well developed, well nourished patient who is awake, alert, kdr and in no acute distress. Head/Face: Normocephalic, atraumatic. Eyes: Pupils equal round and reactive to light, extra-ocular motions intact. Lids and lashes normal. Conjunctiva and sclera are non-icteric and not injected. Cornea within normal limits. Periorbital areas with no swelling, redness, or edema. Neck: Trachea midline, no thyromegaly or masses palpated, and no cervical lymphadenopathy. Supple, full range of motion without nuchal rigidity, or vertebral point tenderness. No Meningismus. Chest/axilla: Normal chest wall appearance and motion. Nontender with no deformity. No lesions are appreciated. Cardiovascular: Regular rate and rhythm with a normal S1 and S2. No gallops, murmurs, or rubs. Normal PMI, no JVD. No pulse deficits. Respiratory: Lungs have equal breath sounds bilaterally, clear to auscultation and percussion. No rales, rhonchi or wheezes noted. No increased work of breathing, no retractions or nasal flaring. 12:38 Musculoskeletal/extremity: Extremities: grossly normal except: noted in the left hip: decreased ROM, pain, tenderness. Vital Signs: 12:25 BP 118 / 58; Pulse 74; Resp 17; Pulse Ox 100% ; Weight 78.47 kg; Height 5 ft. 11 in. jl7 (180.34 cm); Pain 7/10; 13:30 BP 125 / 72; Pulse 75; Resp 16 S; Pulse Ox 98% on R/A; jl7 14:52 BP 120 / 72; Pulse 78; Resp 16 S; Temp 97.6(TE); Pulse Ox 98% on R/A; jl7 12:25 Body Mass Index 24.13 (78.47 kg, 180.34 cm) jl7 MDM: 12:38 Data reviewed: vital signs, nurses notes, radiologic studies. kdr 13:29 Patient medically screened. kdr 13:57 ED course: D/w Dr. Prasad and orthopedics - will accept in transfer. [facility] 04/10 13:51 Order name: CBC with Diff; Complete Time: 14:51 [facility] 04/10 13:51 Order name: Chem 7; Complete Time: 14:51 kdr 04/10 12:37 Order name: Pelvis XRAY; Complete Time: 14:51 [facility] 04/10 13:51 Order name: LFT's; Complete Time: 14:51 [facility] 04/10 13:51 Order name: PT-INR; Complete Time: 14:51 [facility] 04/10 14:43 Order name: Manual Differential; Complete Time: 14:51 EDMS 04/10 12:37 Order name: Hip Left 2 View XRAY [facility] 04/10 12:37 Order name: Femur Left XRAY [facility] 04/10 13:10 Order name: Chest Single View; Complete Time: 14:51 EDMS Administered Medications: 12:50 Drug: Zofran 4 mg Route: IVP; Site: left forearm; jl7 15:02 Follow up: Response: No adverse reaction jl7 12:52 Drug: morphine 4 mg Route: IVP; Site: left forearm; jl7 13:20 Follow up: Response: No adverse reaction; Pain is unchanged, physician notified jl7 13:50 Drug: morphine 4 mg Route: IVP; Site: left forearm; jl7 14:00 Follow up: Response: No adverse reaction; Pain is decreased jl7 14:55 Drug: fentaNYL (PF) 50 mcg Route: IVP; Site: left forearm; aa5 15:02 Follow up: Response: No adverse reaction jl7 Disposition: 04/10/19 13:29 Transfer ordered to [facility]. Diagnosis is Left hip femoral neck fracture. - Reason for transfer: Higher level of care. - Accepting physician is [facility]. - Condition is Fair. - Problem is new. - Symptoms have improved. Signatures: Dispatcher [employer] EDMS Jose Ford MD MD kdr Erin Kirk, RN RN iw Anita Elizabeth, RN RN aa5 Domenic Shahid RN RN jl7 Corrections: (The following items were deleted from the chart) 15:05 13:29 04/10/2019 13:29 Transfer ordered to [facility]. Diagnosis is jl7 Left hip femoral neck fracture. Reason for transfer: Higher level of care. Accepting physician is [facility]. Condition is Fair. Problem is new. Symptoms have improved. kdr
--- NOTE | 2019-04-10 13:51 | RAD REPORT ---
EXAM DESCRIPTION: RAD - Pelvis - 04/10/2019 1:34 pm CLINICAL HISTORY: left hip pain Pain and swelling COMPARISON: None FINDINGS: AP pelvis, left hip and left femur - multiple projections are submitted Subcapital fracture the proximal left femur is seen with varus angulation. No dislocation evident.
--- NOTE | 2019-04-10 13:53 | RAD REPORT ---
EXAM DESCRIPTION: RAD - Chest Single View - 04/10/2019 1:34 pm CLINICAL HISTORY: FALL Chest pain. COMPARISON: Chest Pa And Lat (2 Views) dated 12/04/2018; CHEST PA AND LAT 2 VIEW dated 02/26/2015; CH EST PA AND LAT 2 VIEW dated 07/09/2013 FINDINGS: Portable technique limits examination quality. 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 Area of nodularity in the left apex seen which could be a pulmonary nodule or be related to superimposition of bony structures. The heart is moderately en larged in size. An acute fracture is not identified.
[2019-04-10 14:19] LABS: Absolute Lymphocytes (CBC) 0.7 K/uL (0.7-4.9); Basophils % 1.5 % (0-1.3); Hematocrit 40.7 % (39.6-49.0); Lymphocytes % 3.5 % (15.3-44.8); MPV 8.3 fL (7.6-11.3); RBC Red Blood Cell Count 5.13 M/uL (4.33-5.43)
[2019-04-10 14:20] LABS: Protime INR 1.39
[2019-04-10 14:38] LABS: Albumin 3.6 g/dL (3.4-5.0); Bilirubin Direct 0.4 mg/dL (0-0.2); Bilirubin Total 0.9 mg/dL (0.2-1.0); Potassium 3.6 mmol/L (3.5-5.1)
[2019-04-10 14:43] LABS: Toxic Granulation 1+
[2019-04-10 14:44] LABS: Blood Morphology Comment NOT SEEN (NOT SEEN); Platelet Estimate ADEQ
[2019-04-10] MEDS ORDERED: FENTANYL CITR 100 MCG/2 ML ONE (14:56)
[2019-04-10 15:11] VITALS: O2SAT 98
[2019-04-10 15:12] VITALS: BP 120/72; TEMP 97.6
--- NOTE | 2019-04-11 11:25 | RAD REPORT ---
EXAM DESCRIPTION: RAD - Femur Left - 04/10/2019 1:34 pm CLINICAL HISTORY: Left hip pain Pain and swelling COMPARISON: None FINDINGS: AP pelvis, left hip and left femur - multiple projections are submitted Subcapital fracture the proximal left femur is seen with varus angulation. No dislocation evident.
--- NOTE | 2019-04-11 11:38 | RAD REPORT ---
EXAM DESCRIPTION: RAD - Hip Left 2 View - 04/10/2019 1:34 pm CLINICAL HISTORY: Left hip pain Pain and swelling COMPARISON: None FINDINGS: AP pelvis, left hip and left femur - multiple projections are submitted Subcapital fracture the proximal left femur is seen with varus angulation. No dislocation evident.
== END 2019-04-10 15:05 | disposition short-term general hospital (02) ==
LOC: ER 12:16
DX: S72.002A Fracture of unspecified part of neck of left femur, initial encounter for closed fracture (principal); W06.XXXA Fall from bed, initial encounter; Y93.9 Activity, unspecified; Y92.9 Unspecified place or not applicable
CPT/HCPCS: 85025; 80048; 36415; 85610; 80076; 71045; 72170; 73502; 73552; 51702; 96375; 96374; 99285; J3010; J2405

== ENCOUNTER 2019-04-12 13:15 | Inpatient (IN) | payer OTHER, MEDICARE ==
--- NOTE | 2019-04-12 14:31 | R.PREADM ---
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 REFERRING PHYSICIAN Alyce Choudhury REHAB FACILITY [facility] CLINICAL LIAISON Alva Remy PHYSICIAN REVIEWER Dr. Jhon Maier M.D. MR# [id number] NAME INDERJIT VALIENTE ADDRESS [address] [place] [address] PHONE [facility] [id number] DATE OF 1930 AGE 88 SSN# [id number] GENDER male MARITAL STATUS RACE white ADMIT FROM 02 - [facility] PRE-HOSPITAL LIVING SETTING 01 - Home (private home/apt. board/care, assisted living, senior care, transitional living) HOME TYPE AND DETAILS Type of home: single family house # of levels in the residence: 1 # of steps to enter the residence: 0 # of steps within the residence: 0 PRE-HOSPITAL LIVING WITH Family/Relatives FAMILY SUPPORT Yes PRIMARY FAMILY CONTACT NAME Leny Calzada PRIMARY FAMILY CONTACT PHONE PHONE PRIMARY FAMILY CONTACT ON ADM.? no IS PRIMARY FAMILY CONTACT AUTH. REP.? no 1ST EMERGENCY CONTACT Leny Calzada 1ST CONTACT PHONE PHONE 1ST CONTACT ON ADM. no IS 1ST CONTACT AUTH. REP.? no PHONE 2ND CONTACT ON ADM.? no PATIENT EMPLOYMENT STATUS Retired (for age) PATIENT EMPLOYER No Employer PAYOR INFORMATION: 1ST PAYOR NAME MEDICARE 1ST PAYOR PHONE [phone] 1ST PAYOR INJURY/ILLNESS DUE TO ACCIDENT? No ANOTHER REPUBLICAN RESPONSIBLE? No PRIMARY REHAB/ACUTE DIAGNOSIS: Left Hip Displaced Femoral Neck Fracture ONSET DATE 04/10/2019 REHAB IMPAIRMENT CATEGORY (ARABELLA): 07 Fracture of LE (FracLE) MEETS 60% rule AFFECTED EXTREMITIES: LLE PRIMARY DIAGNOSIS-RELATED SURGERIES: Left Cemented Hip Hemiarthroplasty - performed by Alyce Choudhury on 04/11/2019 COMORBID REHAB/ACUTE DIAGNOSES: - N/A CAD CHRONIC DIASTOLIC CHF ATRIAL FIBRILLATION Alzheimer's MDS Dementia CKD STAGE 3 INTERVENTIONS: - CAD 02 sats Activity management Medications VS - Atrial Fibrillation Anticoagulation Medications VS RISK FOR COMPLICATIONS: - CAD CHF Cardiac Arrest OK Pain - Atrial Fibrillation CVA Heart failure Limb embolus SUMMARY OF ACUTE HOSPITALIZATION: Pt. is a 88 yo Right-handed white male. His impairment category is Orthopaedic Disorders 08 - Unilateral Hip Fracture (11.25). Pre-morbidly, Pt. was independent/mod-I in Locomotion, Safety Awareness, Balance, Social Cognition, T ransfers Control, Sphincter Control, Self-Care, Communication, and Endurance; and he had good Locomot ion, Safety Awareness, Balance, Social Cognition, Transfers Control, Sphincter Control, Self-Care, Co mmunication, and Endurance. Currently, he has deficits of Locomotion, Balance, Safety Awareness, Social Cognition, Transfers Cont rol, Self-Care, and Endurance. Pt. is now referred to [facility] for acute in-patient rehabilitation in order to maximize patient's functional independence in activities of daily living, strength, ROM, and mobi lity. Patient has realistic goal of being discharged at assistance level 6-Pinky to reside at Home with Fam steven/Relatives. Inderjit Valiente is an 88 year old male that lives in a single guero home with his . He was independent with all ADLs and self care. On 04/10/2019, patient fell out of bed and had severe pain and was admitted to [facility] and treated. He is now medically stable but in need of 24-hour nursing, doctor supervision and oversite participate in 3hours of therapy a day/15 hours per week and receive care with an intensive interdisciplinary approach. PAST MEDICAL HISTORY ATRIAL FIBRILLATION Alzheimer's CAD CHRONIC DIASTOLIC CHF CKD STAGE 3 Dementia MDS PAST SURGICAL HISTORY: PCI MEDICATION ALLERGIES: No Known Drug Allergies (NKDA) ENVIRONMENTAL ALLERGIES: None Known - Substance Allergies None Known - Other Allergies None Known CODE STATUS: Full code WEIGHT/HEIGHT/BMI: WEIGHT 180 lbs HEIGHT 5' 11" BMI 25.1 DIET: - Diet Type Regular - Diet - Solid Texture Regular - Diet - Liquid Texture Regular - Tube Feed N/A SKIN DIAGRAM: Incision on Left upper leg; extent - small; stage - NS(Not Stageable). Treatment - Per Physician's Or ders. REVIEW OF SYSTEMS: - Gen Alert and awake Lying in bed No apparent distress Oriented to: person, time, and place - Vital Signs Temperature: 97.2 F SBP/DBP: 109/54 Pulse: 89 Resp: 19 Vital signs stable, afebrile - CVS RRR VITAL SIGNS Temperature: 97.2 F SBP/DBP: 109/54 Pulse: 89 Resp: 19 Vital signs stable, afebrile MEDICATIONS/TREATMENT: Other- See attached MAR (Medication Administration Record). CURRENT SPHINCTER CONTROL: Pre-hospital bladder status: continent # of bladder accidents in the last 7 days prior to screenin Pre-hospital bowel status: continent # of bowel accidents in the last 7 days prior to screenin Last Bowel Movement Date: CURRENT LOCOMOTION STATUS: distance walked 5 feet DETAILED CURRENT FUNCTIONAL STATUS: - Bladder accident frequency: Ind - No accidents in the past 7 days - Bowel accident frequency: Ind - No accidents in the past 7 days - Walking score based on distance walked: 0(N/A) score based on distance walked: 1(<=50ft) - Wheelchair score based on distance traveled: 0(N/A) QI SCORES: - Self-Care A. Eating 05-Setup or clean-up assistance B. Oral hygiene 05-Setup or clean-up assistance C. Toileting hygiene 03-Partial/moderate assistance E. Shower/bathe self 03-Partial/moderate assistance F. Upper body dressing 03-Partial/moderate assistance G. Lower body dressing 02-Substantial/maximal assistance H. Putting on/taking off footwear 02-Substantial/maximal assistance - Mobility A. Roll left and right 03-Partial/moderate assistance B. Sit to lying 02-Substantial/maximal assistance C. Lying to sitting on side of bed 03-Partial/moderate assistance D. Sit to stand 03-Partial/moderate assistance E. Chair/zqk-xm-jkuup transfer 03-Partial/moderate assistance F. Toilet transfer 03-Partial/moderate assistance G. Car transfer 88-Not attempted due to medical condition or safety concerns I. Walk 10 feet 02-Substantial/maximal assistance J. Walk 50 feet with two turns 88-Not attempted due to medical condition or safety concerns K. Walk 150 feet 88-Not attempted due to medical condition or safety concerns L. Walking 10 feet on uneven surfaces 88-Not attempted due to medical condition or safety concerns M. 1 step (curb) 88-Not attempted due to medical condition or safety concerns N. 4 steps 88-Not attempted due to medical condition or safety concerns O. 12 steps 88-Not attempted due to medical condition or safety concerns P. Picking up object 88-Not attempted due to medical condition or safety concerns R. Wheel 50 feet with two turns 88-Not attempted due to medical condition or safety concerns S. Wheel 150 feet 88-Not attempted due to medical condition or safety concerns - Bladder and Bowel Bladder continence 0-Always continent Bowel continence 0-Always continent - Endurance Fair - Balance Fair - Safety Awareness Fair CURRENT FUNC. DEFICITS: Self-Care, Mobility, Endurance, Balance, and Safety Awareness CURRENT / PREVIOUS ASSISTIVE DEVICES: [facility] Bed Rolling Walker Shower Chair Tub Bench Wheelchair CURRENT USE ASSISTIVE DEVICES: SCDs HISTORY OF FALLS. HAS THE PATIENT HAD TWO OR MORE FALLS IN THE PAST YEAR OR ANY FALL WITH INJURY IN T HE PAST YEAR?: No PRIOR SURGERY. DID THE PATIENT HAVE MAJOR SURGERY DURING THE 100 DAYS PRIOR TO ADMISSION?: No THERAPY NOTES FROM ACUTE CARE: Attached. SPECIAL NEEDS: - Safety Concerns Skin breakdown precautions needed due to skin breakdown risk PRECAUTIONS: - Posterior Hip Precaution No adduction across midline No external rotation No hip flexion >90 degrees No internal rotation No wheel chair propulsion - Weight Bearing Precaution WBAT left LE PATIENT NEEDS ACTIVE AND ONGOING THERAPEUTIC INTERVENTION OF MULTIPLE THERAPY DISCIPLINES, INCLUDING: - Dietary and Nutrition Adequate Nutrition. Nutritional Education. Nutritional Supplements. PATIENT NEEDS CLOSE MEDICAL SUPERVISION BY A REHABILITATION PHYSICIAN FOR: Coordination of Treatment Team Medical and Co-Morbidity Management Wound Care PATIENT REQUIRES 24X7 REHAB NURSING FOR MEDICAL AND FUNCTIONAL MGT. OF THE FOLLOWING DEFICITS: Disease Management Medication Management Patient/Family Education Providing Safe Environment Skin Integrity PATIENT REQUIRES INTENSIVE, COORDINATED INTERDISCIPLINARY APPROACH TO REHAB: Arranging Home Equipment/Services Discharge Planning Family Intervention/Training [employer]/Case Management PATIENT REHAB POTENTIAL: Iraida VALIENTE is able and expected to receive 3 hours of individualized therapy daily on at least 5 of ever y 7 days Iraida VALIETNE's prognosis for significant practical improvement within a reasonable period of time appears Good Expected level of measurable improvement will be of a practical value to Iraida VALIENTE's functional capacit y or adaptations to impairments Has a viable Discharge Plan Medically appropriate; condition is sufficiently stable to participate in intensive rehab program DISCHARGE PLAN: - Estimated Length of Stay (days) 14. - Consensus on plan Discharge plan has been discussed with primary caregiver. Patient/Family is in agreement with the jordyn n. Primary caregiver is in agreement with the plan. - Patient/Family Goals Return home with assistance. - Planned Living Setting Upon Discharge Home, to live with Family/Relatives. Transitional Living. RECOMMENDED CARE LEVEL: IRF RECOMMENDATION DETAILS: Recommended Admission to Comprehensive Rehabilitation Program to Increase Functional Cook SCREENER'S COMPLETENESS CONFIRMATION: - Screening Confirmation The patient data collection on this preadmission screening form is finished PHYSICIANS REVIEW AND ADMISSION DETERMINATION Admit - Based on my review of the Pre-Admission Screening results, in my medical judgment and experie nce, I concur with the findings and recommend admission to [facility], as this patient requires an IRF level of care. SIGNATURE PANEL: Clinical Liaison - [electronically] signed by Alva Remy on 04/12/2019 at 14:07 (FISHING LINE WINDING MACHINE OPERATOR) Physician Reviewer - [electronically] signed by Dr. Jhon Maier M.D. on 04/12/2019 at 14:31 (FISHING LINE WINDING MACHINE OPERATOR )
--- OUTSIDE RECORDS SUMMARY | 2019-04-14 11:03 | XMS REPORT ---
:1930 Author Organization [facility] Address [address] [place] [address] [address] [place] [address] Care Team Providers Name Role Phone ERICKSON ROY Unavailable Unavailable Problems This patient has no known problems. Allergies, Adverse Reactions, Alerts This patient has no known allergies or adverse reactions. Medications This patient has no known medications. Results Test Description Test Time Test Comments Text Results Atomic Results Result Comments CBC W/PLT COUNT & AUTO DIFFERENTIAL 2019-04-14 10:18:00 Test Item Value Reference Range Comments WHITE BLOOD CELL COUNT (BEAKER) (test doai=988) 23.7 K/ L 3.5-10.5 RED BLOOD CELL COUNT (BEAKER) (test kzhs=510) 4.12 M/ L 4.63-6.08 HEMOGLOBIN (BEAKER) (test adry=505) 10.0 GM/DL 13.7-17.5 HEMATOCRIT (BEAKER) (test wxgs=029) 33.2 % 40.1-51.0 MEAN CORPUSCULAR VOLUME (BEAKER) (test ffnp=768) 80.6 fL 79.0-92.2 MEAN CORPUSCULAR HEMOGLOBIN (BEAKER) (test hhmf=624) 24.3 pg 25.7-32.2 MEAN CORPUSCULAR HEMOGLOBIN CONC (BEAKER) (test ubny=619) 30.1 GM/DL 32.3- 36.5 RED CELL DISTRIBUTION WIDTH (BEAKER) (test zboy=716) 18.2 % 11.6-14.4 PLATELET COUNT (BEAKER) (test ngjn=006) 196 K/CU MM 150-450 MEAN PLATELET VOLUME (BEAKER) (test wqay=582) 10.8 fL 9.4-12.4 NUCLEATED RED BLOOD CELLS (BEAKER) (test sggy=484) 0 /100 WBC 0-0 (MANUAL DIFFERENTIAL)2019-04-14 10:18:00 Test Item Value Reference Range Comments NEUTROPHILS - REL (DIFF) (BEAKER) (test 48 % dchp=3448) LYMPHOCYTES - REL (DIFF) (BEAKER) (test 6 % vqcj=3816) MONOCYTES - REL (DIFF) (BEAKER) (test boma=8660) 3 % EOSINOPHILS - REL (DIFF) (BEAKER) (test 38 % tygu=1964) BASOPHILS - REL (DIFF) (BEAKER) (test dbfg=8108) 1 % MYELOCYTES-REL (DIFF) (BEAKER) (test awmx=1801) 2 % 0-0 BANDS - REL (DIFF) (BEAKER) (test bagn=0545) 2 % 0-10 NEUTROPHILS - ABS (DIFF) (BEAKER) (test 11.38 K/ L 1.80-8.00 sytu=3110) LYMPHOCYTES - ABS (DIFF) (BEAKER) (test 1.42 K/ L 1.48-4.50 fgag=5755) MONOCYTES - ABS (DIFF) (BEAKER) (test orpg=6897) 0.71 K/ L 0.00-1.30 EOSINOPHILS - ABS (DIFF) (BEAKER) (test 9.01 K/ L 0.00-0.50 dvsb=5905) BASOPHILS - ABS (DIFF) (BEAKER) (test ejym=6501) 0.24 K/ L 0.00-0.20 BANDS-ABS (DIFF) (BEAKER) (test stzy=7095) 0.5 K/ L 0.0-0.8 MYELOCYTES-ABS (DIFF) (BEAKER) (test ebge=6746) 0.47 K/ L 0.00-0.00 TOTAL COUNTED (BEAKER) (test dyjj=9000) 100 BANDS + SEGMENTED NEUTROPHILS (BEAKER) (test 11.85 jthg=4916) WBC MORPHOLOGY (BEAKER) (test oxqj=838) Normal PLT MORPHOLOGY (BEAKER) (test ttqe=668) Normal SCHISTOCYTES (BEAKER) (test nuhp=801) 1+ few ANISOCYTOSIS (BEAKER) (test kggm=096) 2+ moderate ELLIPTOCYTES (BEAKER) (test wnud=546) 2+ moderate POIKILOCYTES (BEAKER) (test glxl=427) 2+ moderate TEAR DROP CELLS (BEAKER) (test sntd=646) 1+ few BASIC METABOLIC [id number] 08:31:00 Test Item Value Reference Range Comments SODIUM (BEAKER) (test 134 meq/L 136-145 jndy=036) POTASSIUM (BEAKER) (test 3.6 meq/L 3.5-5.1 xnvb=281) CHLORIDE (BEAKER) (test 99 meq/L 98-107 dljt=763) CO2 (BEAKER) (test 26 meq/L 22-29 wupv=796) BLOOD UREA NITROGEN 60 mg/dL 7-21 (BEAKER) (test fcro=062) CREATININE (BEAKER) (test 1.97 mg/dL 0.57-1.25 yxvw=116) GLUCOSE RANDOM (BEAKER) 116 mg/dL 70-105 (test hrrg=811) CALCIUM (BEAKER) (test 8.2 mg/dL 8.4-10.2 jazf=487) EGFR (BEAKER) (test 32 mL/min/1.73 sq m ESTIMATED GFR IS NOT okyj=5851) ACCURATE CREATININE CLEARANCE IN PREDICTING GLOMERULAR FILTRATION RATE. ESTIMATED GFR IS NOT APPLICABLE FOR DIALYSIS PATIENTS. CBC W/PLT COUNT & AUTO [id number] 07:38:00 Test Item Value Reference Range Comments WHITE BLOOD CELL COUNT (BEAKER) (test yfkv=787) 28.0 K/ L 3.5-10.5 RED BLOOD CELL COUNT (BEAKER) (test stvg=596) 4.61 M/ L 4.63-6.08 HEMOGLOBIN (BEAKER) (test rbcs=559) 11.2 GM/DL 13.7-17.5 HEMATOCRIT (BEAKER) (test dbki=247) 37.2 % 40.1-51.0 MEAN CORPUSCULAR VOLUME (BEAKER) (test ztqr=602) 80.7 fL 79.0-92.2 MEAN CORPUSCULAR HEMOGLOBIN (BEAKER) (test 24.3 pg 25.7-32.2 okip=741) MEAN CORPUSCULAR HEMOGLOBIN CONC (BEAKER) (test 30.1 GM/DL 32.3-36.5 arjb=337) RED CELL DISTRIBUTION WIDTH (BEAKER) (test 18.5 % 11.6-14.4 vedk=998) PLATELET COUNT (BEAKER) (test tgvx=014) 219 K/CU MM 150-450 MEAN PLATELET VOLUME (BEAKER) (test seww=909) 11.1 fL 9.4-12.4 NUCLEATED RED BLOOD CELLS (BEAKER) (test 0 /100 WBC 0-0 qkbl=192) (CELLAVISION MANUAL DIFF)2019-04-13 07:38:00 Test Item Value Reference Range Comments NEUTROPHILS - REL (CELLAVISION)(BEAKER) (test 50 % wsbo=9587) LYMPHOCYTES - REL (CELLAVISION)(BEAKER) (test 6 % kpms=8009) MONOCYTES - REL (CELLAVISION)(BEAKER) (test 5 % vjsg=2388) EOSINOPHILS - REL (CELLAVISION)(BEAKER) (test 31 % wtiv=9951) BASOPHILS - REL (CELLAVISION)(BEAKER) (test 4 % sood=3449) BANDS - REL (CELLAVISION)(BEAKER) (test 4 % 0-10 njnw=4928) NEUTROPHILS - ABS (CELLAVISION)(BEAKER) (test 14.00 K/ul 1.78-5.38 lnbj=6871) LYMPHOCYTES - ABS (CELLAVISION)(BEAKER) (test 1.68 K/ul 1.32-3.57 oehb=8252) MONOCYTES - ABS (CELLAVISION)(BEAKER) (test 1.40 K/uL 0.30-0.82 srpn=4709) EOSINOPHILS - ABS (CELLAVISION)(BEAKER) (test 8.68 K/uL 0.04-0.54 jfvl=9801) BASOPHILS - ABS (CELLAVISION)(BEAKER) (test 1.12 K/uL 0.01-0.08 czwl=5510) BANDS - ABS (CELLAVISION)(BEAKER) (test 1.12 K/uL 0.00-0.80 xlnb=0596) TOTAL COUNTED (BEAKER) (test pwcr=7880) 100 WBC MORPHOLOGY (BEAKER) (test lgqw=356) Normal GIANT PLATELETS (BEAKER) (test fpie=137) Present LARGE PLT(BEAKER) (test rgsd=7665) Present POLYCHROMATOPHILLIC RBCS(BEAKER) (test fbxr=792) 1+ few HYPOCHROMIA (BEAKER) (test neiy=696) 1+ few ANISOCYTOSIS (BEAKER) (test qpkb=302) 2+ moderate MICROCYTES (BEAKER) (test xrlv=793) 1+ few MACROCYTES (BEAKER) (test itzs=340) 2+ moderate POIKILOCYTES (BEAKER) (test yeks=037) 2+ moderate TARGET CELLS (BEAKER) (test izbo=194) 1+ few SCHISTOCYTES (BEAKER) (test yohc=462) 1+ few ELLIPTOCYTES (BEAKER) (test xecc=630) 1+ few OVALOCYTES (BEAKER) (test wcuf=014) 1+ few TEAR DROP CELLS (BEAKER) (test akzb=998) 1+ few ZAC CELLS (BEAKER) (test jhwq=963) 2+ moderate ARTIFACT (CELLAVISION)(BEAKER) (test okqa=5627) Present PLATELET CONCENTRATION (CELLAVISION)(BEAKER) Adequate (test mnbw=0074) Received comment: User comments: Slide comments:BASIC METABOLIC [id number] 03:15:00 Test Item Value Reference Range Comments SODIUM (BEAKER) (test 136 meq/L 136-145 cndv=567) POTASSIUM (BEAKER) (test 3.7 meq/L 3.5-5.1 vmae=968) CHLORIDE (BEAKER) (test 99 meq/L 98-107 kdpv=770) CO2 (BEAKER) (test 26 meq/L 22-29 btjc=823) BLOOD UREA NITROGEN 59 mg/dL 7-21 (BEAKER) (test zonx=020) CREATININE (BEAKER) (test 2.46 mg/dL 0.57-1.25 icno=230) GLUCOSE RANDOM (BEAKER) 111 mg/dL 70-105 (test bgla=247) CALCIUM (BEAKER) (test 8.4 mg/dL 8.4-10.2 syft=492) EGFR (BEAKER) (test 25 mL/min/1.73 sq m ESTIMATED GFR IS NOT qvyr=2499) ACCURATE CREATININE CLEARANCE IN PREDICTING GLOMERULAR FILTRATION RATE. ESTIMATED GFR IS NOT APPLICABLE FOR DIALYSIS PATIENTS. [id number] 03:14:00 Test Item Value Reference Range Comments PHOSPHORUS (BEAKER) (test xzxo=969) 4.5 mg/dL 2.3-4.7 [id number] 03:14:00 Test Item Value Reference Range Comments MAGNESIUM (BEAKER) (test zijo=186) 2.2 mg/dL 1.6-2.6 SODIUM, RANDOM [id number] 11:22:00 Test Item Value Reference Range Comments SODIUM URINE (BEAKER) (test keih=051) < meq/L Reference Range: No NormalsCREATININE, RANDOM [id number] 11:15:00 Test Item Value Reference Range Comments CREATININE URINE (BEAKER) (test nvaw=915) 145.6 mg/dL Reference Range: No NormalsPROTEIN, RANDOM [id number] 11:15:00 Test Item Value Reference Range Comments PROTEIN, URINE (BEAKER) (test lykp=5431) 55 mg/dL 0-14 URINALYSIS W/ [id number] 11:13:00 Test Item Value Reference Range Comments COLOR (BEAKER) (test thdl=036) Yellow CLARITY (BEAKER) (test duda=154) Hazy SPECIFIC GRAVITY UA (BEAKER) (test xbvv=147) 1.021 1.001-1.035 PH UA (BEAKER) (test zkra=903) 5.0 5.0-8.0 PROTEIN UA (BEAKER) (test tmag=969) 50 mg/dL Negative GLUCOSE UA (BEAKER) (test uxzq=188) Negative Negative KETONES UA (BEAKER) (test cxdt=526) Negative Negative BILIRUBIN UA (BEAKER) (test grtz=890) Negative Negative BLOOD UA (BEAKER) (test wqey=375) Trace Negative NITRITE UA (BEAKER) (test sknm=721) Negative Negative LEUKOCYTE ESTERASE UA (BEAKER) (test hiuf=498) Large Negative UROBILINOGEN UA (BEAKER) (test cuur=567) 3.0 mg/dL 0.2-1.0 RBC UA (BEAKER) (test xjhs=871) 11 /HPF WBC UA (BEAKER) (test jmxo=455) 19 /HPF BACTERIA (BEAKER) (test urqv=266) Rare MUCUS (BEAKER) (test nqxk=6003) Rare SQUAMOUS EPITHELIAL (BEAKER) (test gpjd=787) 1 /HPF HYALINE CASTS (BEAKER) (test abmk=203) 76 /LPF AMORPHOUS CRYSTALS (BEAKER) (test dtqh=5870) Occasional SOURCE(BEAKER) (test dfxz=1944) CBC W/PLT COUNT & AUTO [id number] 07:38:00 Test Item Value Reference Range Comments WHITE BLOOD CELL COUNT (BEAKER) (test rumk=271) 23.3 K/ L 3.5-10.5 RED BLOOD CELL COUNT (BEAKER) (test iaqf=804) 4.45 M/ L 4.63-6.08 HEMOGLOBIN (BEAKER) (test hfnm=554) 10.8 GM/DL 13.7-17.5 HEMATOCRIT (BEAKER) (test nztv=350) 36.5 % 40.1-51.0 MEAN CORPUSCULAR VOLUME (BEAKER) (test jqlj=505) 82.0 fL 79.0-92.2 MEAN CORPUSCULAR HEMOGLOBIN (BEAKER) (test 24.3 pg 25.7-32.2 ahwm=276) MEAN CORPUSCULAR HEMOGLOBIN CONC (BEAKER) (test 29.6 GM/DL 32.3-36.5 jupl=607) RED CELL DISTRIBUTION WIDTH (BEAKER) (test 18.3 % 11.6-14.4 rfxk=657) PLATELET COUNT (BEAKER) (test xhlr=832) 203 K/CU MM 150-450 MEAN PLATELET VOLUME (BEAKER) (test xdez=875) 11.1 fL 9.4-12.4 NUCLEATED RED BLOOD CELLS (BEAKER) (test 0 /100 WBC 0-0 mqzq=505) (CELLAVISION MANUAL DIFF)2019-04-12 07:38:00 Test Item Value Reference Range Comments NEUTROPHILS - REL (CELLAVISION)(BEAKER) (test 69 % otld=4867) LYMPHOCYTES - REL (CELLAVISION)(BEAKER) (test 4 % hhzv=8940) EOSINOPHILS - REL (CELLAVISION)(BEAKER) (test 19 % wovu=6099) BASOPHILS - REL (CELLAVISION)(BEAKER) (test 1 % stqa=3996) BANDS - REL (CELLAVISION)(BEAKER) (test 5 % 0-10 igvg=3920) ATYPICAL LYMPHOCYTES - REL (CELLAVISION)(BEAKER) 1 % 0-0 (test udta=3073) NEUTROPHILS - ABS (CELLAVISION)(BEAKER) (test 16.08 K/ul 1.78-5.38 ggeq=9935) LYMPHOCYTES - ABS (CELLAVISION)(BEAKER) (test 0.93 K/ul 1.32-3.57 laya=4851) EOSINOPHILS - ABS (CELLAVISION)(BEAKER) (test 4.43 K/uL 0.04-0.54 rtun=4352) BASOPHILS - ABS (CELLAVISION)(BEAKER) (test 0.23 K/uL 0.01-0.08 yuvg=7275) BANDS - ABS (CELLAVISION)(BEAKER) (test 1.17 K/uL 0.00-0.80 kxrk=4949) ATYPICAL LYMPHOCYTES - ABS (CELLAVISION)(BEAKER) 0.23 K/uL 0.00-0.00 (test tzrf=0426) TOTAL COUNTED (BEAKER) (test gyuo=6186) 100 WBC MORPHOLOGY (BEAKER) (test xpty=950) Normal PLT MORPHOLOGY (BEAKER) (test hbfu=204) Normal POLYCHROMATOPHILLIC RBCS(BEAKER) (test pzma=531) 1+ few HYPOCHROMIA (BEAKER) (test bcmk=889) 2+ moderate ZAC CELLS (BEAKER) (test zreu=092) 2+ moderate ARTIFACT (CELLAVISION)(BEAKER) (test mwcr=6692) Present PLATELET CONCENTRATION (CELLAVISION)(BEAKER) Adequate (test ycrl=6117) Received comment: User comments: Slide comments:[id number] 04:29:00 Test Item Value Reference Range Comments PHOSPHORUS (BEAKER) (test hajz=211) 4.5 mg/dL 2.3-4.7 [id number] 04:29:00 Test Item Value Reference Range Comments MAGNESIUM (BEAKER) (test evxp=034) 2.1 mg/dL 1.6-2.6 BASIC METABOLIC [id number] 04:29:00 Test Item Value Reference Range Comments SODIUM (BEAKER) (test 136 meq/L 136-145 peyi=712) POTASSIUM (BEAKER) (test 3.9 meq/L 3.5-5.1 gsah=462) CHLORIDE (BEAKER) (test 102 meq/L 98-107 udlx=797) CO2 (BEAKER) (test 22 meq/L 22-29 xmdq=266) BLOOD UREA NITROGEN 45 mg/dL 7-21 (BEAKER) (test qysv=059) CREATININE (BEAKER) (test 2.03 mg/dL 0.57-1.25 fggu=309) GLUCOSE RANDOM (BEAKER) 132 mg/dL 70-105 (test ttxb=952) CALCIUM (BEAKER) (test 8.1 mg/dL 8.4-10.2 nksv=367) EGFR (BEAKER) (test 31 mL/min/1.73 sq m ESTIMATED GFR IS NOT gutt=3514) ACCURATE CREATININE CLEARANCE IN PREDICTING GLOMERULAR FILTRATION RATE. ESTIMATED GFR IS NOT APPLICABLE FOR DIALYSIS PATIENTS. POCT-GLUCOSE [id number] 17:28:00 Test Item Value Reference Range Comments POC-GLUCOSE METER (BEAKER) 122 mg/dL 70-110 : TESTED AT [facility] [address] (test lxph=8972) [facility], [id number]: Conveyor Worker/Respiratory Services Manager [phone]=[id number] for Keri Quinonez, PELVIS, 1 OR 2 [id number] 16:18:00Reason for exam:->Postop in PACUFINAL REPORT INDICATION:Status post left hip surgery. COMPARISON: April 10. TECHNIQUE: Pelvis radiograph two views, Charles view and bilateral frog-leg view. FINDINGS / IMPRESSION:Patient is status post left hip replacement for previously demonstrated femoral neck fracture. No new fracture is identified. Air in the soft tissues is in keeping with immediate postoperative state.Signed: Layla Christiansen MDReport Verified Date/Time: 04/11 16:18:24 Reading Location: [facility] Mammo Reading Room CBC W/PLT COUNT & AUTO [id number] 09:09:00 Test Item Value Reference Range Comments WHITE BLOOD CELL COUNT (BEAKER) (test hxfa=923) 24.4 K/ L 3.5-10.5 RED BLOOD CELL COUNT (BEAKER) (test jowd=401) 5.28 M/ L 4.63-6.08 HEMOGLOBIN (BEAKER) (test kqtt=087) 12.5 GM/DL 13.7-17.5 HEMATOCRIT (BEAKER) (test jpsg=615) 42.9 % 40.1-51.0 MEAN CORPUSCULAR VOLUME (BEAKER) (test yylj=283) 81.3 fL 79.0-92.2 MEAN CORPUSCULAR HEMOGLOBIN (BEAKER) (test 23.7 pg 25.7-32.2 uayi=571) MEAN CORPUSCULAR HEMOGLOBIN CONC (BEAKER) (test 29.1 GM/DL 32.3-36.5 cypq=163) RED CELL DISTRIBUTION WIDTH (BEAKER) (test 19.0 % 11.6-14.4 zaky=392) PLATELET COUNT (BEAKER) (test sqku=397) 206 K/CU MM 150-450 MEAN PLATELET VOLUME (BEAKER) (test xbnb=528) 11.5 fL 9.4-12.4 NUCLEATED RED BLOOD CELLS (BEAKER) (test 0 /100 WBC 0-0 zzpx=523) (CELLAVISION MANUAL DIFF)2019-04-11 09:09:00 Test Item Value Reference Range Comments NEUTROPHILS - REL (CELLAVISION)(BEAKER) (test 65 % urnc=1782) LYMPHOCYTES - REL (CELLAVISION)(BEAKER) (test 6 % jqvf=6693) MONOCYTES - REL (CELLAVISION)(BEAKER) (test 1 % rjjj=6643) EOSINOPHILS - REL (CELLAVISION)(BEAKER) (test 26 % lfcv=6002) BASOPHILS - REL (CELLAVISION)(BEAKER) (test 2 % srwo=1660) NEUTROPHILS - ABS (CELLAVISION)(BEAKER) (test 15.86 K/ul 1.78-5.38 kvvy=9109) LYMPHOCYTES - ABS (CELLAVISION)(BEAKER) (test 1.46 K/ul 1.32-3.57 rbpf=6219) MONOCYTES - ABS (CELLAVISION)(BEAKER) (test 0.24 K/uL 0.30-0.82 oqke=0162) EOSINOPHILS - ABS (CELLAVISION)(BEAKER) (test 6.34 K/uL 0.04-0.54 uesn=3032) BASOPHILS - ABS (CELLAVISION)(BEAKER) (test 0.49 K/uL 0.01-0.08 arem=2276) TOTAL COUNTED (BEAKER) (test dgzv=2763) 100 SMUDGE CELLS (BEAKER) (test adle=9584) Present GIANT PLATELETS (BEAKER) (test apqs=391) Present ANISOCYTOSIS (BEAKER) (test obsp=808) 1+ few POIKILOCYTES (BEAKER) (test hqux=996) 2+ moderate OVALOCYTES (BEAKER) (test iplu=049) 2+ moderate PLATELET CONCENTRATION (CELLAVISION)(BEAKER) Adequate (test yxxv=4748) Received comment: User comments: Slide comments:[id number] 06:48:00 Test Item Value Reference Range Comments MAGNESIUM (BEAKER) (test 2.1 mg/dL 1.6-2.6 Specimen slightly hemolyzed vgdo=933) [id number] 06:48:00 Test Item Value Reference Range Comments PHOSPHORUS (BEAKER) (test 4.4 mg/dL 2.3-4.7 Specimen slightly hemolyzed blbi=249) BASIC METABOLIC [id number] 06:48:00 Test Item Value Reference Range Comments SODIUM (BEAKER) (test 136 meq/L 136-145 jcwm=688) POTASSIUM (BEAKER) (test 3.4 meq/L 3.5-5.1 Specimen slightly qmls=636) hemolyzed CHLORIDE (BEAKER) (test 99 meq/L 98-107 bdww=850) CO2 (BEAKER) (test 26 meq/L 22-29 beep=378) BLOOD UREA NITROGEN 39 mg/dL 7-21 (BEAKER) (test jrio=311) CREATININE (BEAKER) (test 1.68 mg/dL 0.57-1.25 Specimen slightly eswp=489) hemolyzed GLUCOSE RANDOM (BEAKER) 114 mg/dL 70-105 (test jutk=214) CALCIUM (BEAKER) (test 8.6 mg/dL 8.4-10.2 azof=956) EGFR (BEAKER) (test 39 mL/min/1.73 sq m ESTIMATED GFR IS NOT rfko=5665) ACCURATE CREATININE CLEARANCE IN PREDICTING GLOMERULAR FILTRATION RATE. ESTIMATED GFR IS NOT APPLICABLE FOR DIALYSIS PATIENTS. [id number] 06:05:00 Test Item Value Reference Range Comments PROTIME (BEAKER) (test gtcb=488) 16.3 seconds 11.9-14.2 INR (BEAKER) (test lnyz=066) 1.4 <=5.9 PARTIAL THROMBOPLASTIN TIME (BEAKER) (test 39.5 seconds 22.5-36.0 rkrk=339) Effective 09/12/2018: PT Reference Range ChangeNew: 11.9-14.2 Previous: 11.7- 14.7RECOMMENDED COUMADIN/WARFARIN INR THERAPY RANGESSTANDARD DOSE: 2.0-3.0 Includes: PROPHYLAXIS for venous thrombosis, systemic embolization; TREATMENT for venous thrombosis and/or pulmonary embolus.HIGH RISK: Target INR is2.5-3.5 for patients wiht mechanical heart valves.PROTHROMBIN TIME/[id number] 06:04: 00 Test Item Value Reference Range Comments PROTIME (BEAKER) (test wcmm=576) 16.3 seconds 11.9-14.2 INR (BEAKER) (test nekd=181) 1.4 <=5.9 Effective 09/12/2018: PT Reference Range ChangeNew: 11.9-14.2 Previous: 11.7- 14.7RECOMMENDED COUMADIN/WARFARIN INR THERAPY RANGESSTANDARD DOSE: 2.0-3.0 Includes: PROPHYLAXIS for venous thrombosis, systemic embolization; TREATMENT for venous thrombosis and/or pulmonary embolus.HIGH RISK: Target INR is2.5-3.5 for patients wiht mechanical heart valves.POCT-GLUCOSE [id number] 05:22:00 Test Item Value Reference Range Comments POC-GLUCOSE METER (BEAKER) 111 mg/dL 70-110 : TESTED AT [address] (test igwt=3865) [facility], [address]: Conveyor Worker/Respiratory Services Manager [id number] for WOODROW MOSQUERA POCT-GLUCOSE [id number] 00:06:00 Test Item Value Reference Range Comments POC-GLUCOSE METER (BEAKER) 139 mg/dL 70-110 : TESTED AT [address] (test alxy=4889) [facility], [address]: Conveyor Worker/Respiratory Services Manager [phone] for WOODROW MOSQUERA CBC W/PLT COUNT & AUTO [id number] 22:03:00 Test Item Value Reference Range Comments WHITE BLOOD CELL COUNT (BEAKER) (test fswh=472) 23.5 K/ L 3.5-10.5 RED BLOOD CELL COUNT (BEAKER) (test huby=352) 5.35 M/ L 4.63-6.08 HEMOGLOBIN (BEAKER) (test sdhm=324) 12.8 GM/DL 13.7-17.5 HEMATOCRIT (BEAKER) (test woqg=609) 43.3 % 40.1-51.0 MEAN CORPUSCULAR VOLUME (BEAKER) (test reoa=815) 80.9 fL 79.0-92.2 MEAN CORPUSCULAR HEMOGLOBIN (BEAKER) (test 23.9 pg 25.7-32.2 xbbs=082) MEAN CORPUSCULAR HEMOGLOBIN CONC (BEAKER) (test 29.6 GM/DL 32.3-36.5 rlkv=215) RED CELL DISTRIBUTION WIDTH (BEAKER) (test 19.2 % 11.6-14.4 mons=269) PLATELET COUNT (BEAKER) (test hwpt=061) 220 K/CU MM 150-450 MEAN PLATELET VOLUME (BEAKER) (test cnfb=930) 10.5 fL 9.4-12.4 NUCLEATED RED BLOOD CELLS (BEAKER) (test 0 /100 WBC 0-0 unnr=822) (CELLAVISION MANUAL DIFF)2019-04-10 22:03:00 Test Item Value Reference Range Comments NEUTROPHILS - REL (CELLAVISION)(BEAKER) (test 67 % bhny=5357) LYMPHOCYTES - REL (CELLAVISION)(BEAKER) (test 3 % tdoo=2488) MONOCYTES - REL (CELLAVISION)(BEAKER) (test 7 % rtow=6597) EOSINOPHILS - REL (CELLAVISION)(BEAKER) (test 16 % zcxj=3079) BASOPHILS - REL (CELLAVISION)(BEAKER) (test 1 % htao=7947) METAMYELOCYTES - REL (CELLAVISION)(BEAKER) (test 1 % 0-0 vaun=5397) BANDS - REL (CELLAVISION)(BEAKER) (test 4 % 0-10 wuzw=0933) NEUTROPHILS - ABS (CELLAVISION)(BEAKER) (test 15.75 K/ul 1.78-5.38 hfvw=2243) LYMPHOCYTES - ABS (CELLAVISION)(BEAKER) (test 0.71 K/ul 1.32-3.57 jcen=9479) MONOCYTES - ABS (CELLAVISION)(BEAKER) (test 1.65 K/uL 0.30-0.82 iqcf=7925) EOSINOPHILS - ABS (CELLAVISION)(BEAKER) (test 3.76 K/uL 0.04-0.54 yxbz=7435) BASOPHILS - ABS (CELLAVISION)(BEAKER) (test 0.24 K/uL 0.01-0.08 flpt=1159) METAMYELOCYTES - ABS (CELLAVISION)(BEAKER) (test 0.24 K/uL 0.00-0.00 vydz=2253) BANDS - ABS (CELLAVISION)(BEAKER) (test 0.94 K/uL 0.00-0.80 jdlu=2365) TOTAL COUNTED (BEAKER) (test ttbk=2688) 100 PLT MORPHOLOGY (BEAKER) (test btyt=485) Normal TOXIC GRANULATION (BEAKER) (test nrmq=291) Present VACUOLATED NEUTROPHILS (BEAKER) (test dhix=661) Present POIKILOCYTES (BEAKER) (test vigw=962) 1+ few TEAR DROP CELLS (BEAKER) (test pfrf=136) 1+ few ARTIFACT (CELLAVISION)(BEAKER) (test qbuu=2994) Present PLATELET CONCENTRATION (CELLAVISION)(BEAKER) Adequate (test oici=6785) Received comment: User comments: Slide comments:BASIC METABOLIC [id number] 21:47:00 Test Item Value Reference Range Comments SODIUM (BEAKER) (test 140 meq/L 136-145 tmfb=299) POTASSIUM (BEAKER) (test 3.9 meq/L 3.5-5.1 kgou=539) CHLORIDE (BEAKER) (test 101 meq/L 98-107 mgwz=227) CO2 (BEAKER) (test 26 meq/L 22-29 cfqr=017) BLOOD UREA NITROGEN 38 mg/dL 7-21 (BEAKER) (test ojfa=806) CREATININE (BEAKER) (test 1.72 mg/dL 0.57-1.25 doom=920) GLUCOSE RANDOM (BEAKER) 156 mg/dL 70-105 (test zdty=100) CALCIUM (BEAKER) (test 9.2 mg/dL 8.4-10.2 njmo=728) EGFR (BEAKER) (test 38 mL/min/1.73 sq m ESTIMATED GFR IS NOT hxdf=9756) ACCURATE CREATININE CLEARANCE IN PREDICTING GLOMERULAR FILTRATION RATE. ESTIMATED GFR IS NOT APPLICABLE FOR DIALYSIS PATIENTS. PT/[id number] 21:42:00 Test Item Value Reference Range Comments PROTIME (BEAKER) (test eqgz=473) 16.1 seconds 11.9-14.2 INR (BEAKER) (test ephk=028) 1.4 <=5.9 PARTIAL THROMBOPLASTIN TIME (BEAKER) (test 39.9 seconds 22.5-36.0 krsh=159) Effective 09/12/2018: PT Reference Range ChangeNew: 11.9-14.2 Previous: 11.7- 14.7RECOMMENDED COUMADIN/WARFARIN INR THERAPY RANGESSTANDARD DOSE: 2.0-3.0 Includes: PROPHYLAXIS for venous thrombosis, systemic embolization; TREATMENT for venous thrombosis and/or pulmonary embolus.HIGH RISK: Target INR is2.5-3.5 for patients wiht mechanical heart valves.PROTHROMBIN [id number] 21:41: 00 Test Item Value Reference Range Comments PROTIME (BEAKER) (test ubpi=548) 16.1 seconds 11.9-14.2 INR (BEAKER) (test avdo=079) 1.4 <=5.9 Effective 09/12/2018: PT Reference Range ChangeNew: 11.9-14.2 Previous: 11.7- 14.7RECOMMENDED COUMADIN/WARFARIN INR THERAPY RANGESSTANDARD DOSE: 2.0-3.0 Includes: PROPHYLAXIS for venous thrombosis, systemic embolization; TREATMENT for venous thrombosis and/or pulmonary embolus.HIGH RISK: Target INR is2.5-3.5 for patients wiht mechanical heart valves.RAD, PELVIS, 1 OR 2 [id number] 19 :25:00Reason for exam:->left hip fxFINAL REPORT CLINICAL HISTORY: Trauma and pain COMPARISON: None. FINDINGS: Afrontal view of the pelvis and 2 views of the left hip are submitted. There is a transverse fractureof the proximal to mid left femoral neck with mild elevation of the left femoral shaft. The hip joints are intact. No pelvic fracture is identified. Postsurgical changes overlie the right inguinal region. The visualized abdominal bowel gas pattern is unremarkable. IMPRESSION: Left femoral neck fracture. Signed: Carlos Yiort Verified Date/Time: 04/10 19:25:36 Electronically signed by: CARLOS YI M.D. on 2018 07:25 PMRAD, HIP, 2 VIEWS, [id number] 19:25:00Reason for exam:-> left hip fratureFINAL REPORT CLINICAL HISTORY: Trauma and pain COMPARISON: None. FINDINGS: Afrontal view of the pelvis and 2 views of the left hip are submitted. There is a transverse fractureof the proximal to mid left femoral neck with mild elevation of the left femoral shaft. The hip joints are intact. No pelvic fracture is identified. Postsurgical changes overlie the right inguinal region. The visualized abdominal bowel gas pattern is unremarkable. IMPRESSION: Left femoral neck fracture. Signed: Carlos Yi MDReport Verified Date/Time: 04/10/2019 19:25:36
[2019-04-14] MEDS ORDERED: METOLAZONE 2.5 MG TABLET PO SCH (13:00)
[2019-04-14 13:04] LABS: Urine Appearance CLEAR; Urine Bacteria <20 /HPF (NONE SEEN); Urine Bilirubin 1+ (NEG); Urine Blood NEGATIVE (NEG); Urine Color DK YELLOW; Urine Culture Reflex Order NOT NEEDED; Urine Glucose NEGATIVE (NEG); Urine Mucus LIGHT /HPF (NONE SEEN); Urine Protein TRACE (NEG); Urine RBC <5 /HPF (NONE SEEN)
[2019-04-14] MEDS: HYDROCODONE/APAP 5/325 MG TAB PO PRN ×2 (13:58→19:01)
[2019-04-14] MEDS: POLYETHYL GLY 3350 17 GM/DOSE PO PRN (15:20)
[2019-04-14] MEDS: DOCUSATE NA/SENNA CONC 1 TAB PO PRN (19:00)
[2019-04-14] MEDS: RIVASTIGMINE 9.5 MG/24 HR PATCH TD SCH (19:00)
[2019-04-14] MEDS: MIRTAZAPINE 15 MG TAB PO SCH (19:01)
[2019-04-14] MEDS: ASPIRIN 81 MG CHEWABLE TABLET PO SCH (19:01)
[2019-04-14] MEDS: ATORVASTATIN 40 MG TAB PO SCH (19:02)
[2019-04-14] MEDS: hydrOXYzine HCL 25 MG TAB PO PRN (19:07)
[2019-04-14] MEDS ORDERED: APIXABAN 2.5 MG TABLET PO SCH (20:00)
[2019-04-14] MEDS ORDERED: MELATONIN 3 MG TABLET PO SCH (21:00)
[2019-04-15] MEDS: HYDROCODONE/APAP 5/325 MG TAB PO PRN ×4 (01:57→20:55)
[2019-04-15] MEDS: hydrOXYzine HCL 25 MG TAB PO PRN ×2 (03:01→20:59)
[2019-04-15] MEDS: PANTOPRAZOLE 40MG TABLET PO SCH (06:31)
[2019-04-15 06:41] LABS: Basophils % 0.3 % (0-1.3); Lymphocytes % 5.2 % (15.3-44.8); MPV 9.4 fL (7.6-11.3); RBC Red Blood Cell Count 3.87 M/uL (4.33-5.43)
[2019-04-15 07:11] LABS: Albumin 2.7 g/dL (3.4-5.0); Magnesium 2.5 mg/dL (1.8-2.4); Potassium 3.5 mmol/L (3.5-5.1); Prealbumin 8.9 mg/dL (20-40)
[2019-04-15] MEDS ORDERED: METOLAZONE 2.5 MG TABLET PO SCH (08:00)
[2019-04-15] MEDS ORDERED: POTASSIUM CL SA 10 MEQ TAB PO SCH (08:00)
[2019-04-15] MEDS: allopurinoL 100 MG TAB PO SCH (08:00)
[2019-04-15] MEDS: CRANBERRY FRUIT EXTRACT 200 MG CAP PO SCH (08:24)
[2019-04-15] MEDS: POTASSIUM CL SA 10 MEQ TAB PO SCH (08:25)
[2019-04-15] MEDS: FE SULF/FA/VIT B COMP & C TAB PO SCH (08:26)
[2019-04-15] MEDS: POLYETHYL GLY 3350 17 GM/DOSE PO PRN (08:26)
[2019-04-15] MEDS: SERTRALINE HCL 50 MG TAB PO SCH (08:27)
[2019-04-15] MEDS: ASPIRIN 81 MG CHEWABLE TABLET PO SCH ×2 (08:27→20:55)
[2019-04-15] MEDS: FERROUS SULFATE 325 MG TAB PO SCH (08:27)
[2019-04-15] MEDS: CLOPIDOGREL 75 MG TABLET PO SCH (08:27)
[2019-04-15] MEDS: TAMSULOSIN 0.4 MG SR CAP PO SCH (08:27)
[2019-04-15] MEDS: FUROSEMIDE 20 MG TABLET PO SCH (08:29)
--- NOTE | 2019-04-15 09:10 | RAD REPORT ---
EXAM DESCRIPTION: RAD - Chest Single View - 04/15/2019 8:51 am CLINICAL HISTORY: Sepsis exam, abnormal white blood cell count, pneumonia COMPARISON: April 10 TECHNIQUE: AP portable chest image was obtained 0846 hour . FINDINGS: Baseline fibrotic lung pattern is present. Low lung volumes are noted. An acute change to the right lung field is not identified. There is some increased interstitial and alveolar opacificati on in the left base. This is in part due to shallow inspiration. Left lung base pneumonia should be c onsidered as well. Heart and vasculature are normal. No measurable pleural effusion and no pneumothor ax. No acute bony abnormality seen. No acute aortic findings suspected. IMPRESSION: Chronic interstitial lung disease is present accentuated by shallow inspiration. Left base findings are questionable for developing pneumonia. Follow-up chest film or follow-up CT im aging could be performed.
[2019-04-15 09:44] LABS: Anisocytosis 1+; Blood Morphology Comment NOTED (NOT SEEN); Elliptocytes 1+; Platelet Estimate ADEQ
[2019-04-15] MEDS: LIDOCAINE 4% PATCH TOP SCH (12:42)
[2019-04-15] MEDS ORDERED: BISACODYL 10 MG RECTAL SUPP PR PRN (14:27)
[2019-04-15] MEDS ORDERED: FLEET ENEMA ADULT PR PRN (14:27)
[2019-04-15] MEDS ORDERED: ROCURONIUM 50 MG/5 ML VIAL IV ONE (16:32)
--- NOTE | 2019-04-15 17:47 | R.HP ---
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 board/care, assisted living, usp, transitional living) PRE-HOSPITAL LIVING WITH Family/Relatives ENCOUNTER PHYSICIAN: Dr. Jhon Maier M.D. 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 is a 88 yo Right-handed white male. His impairment category is Orthopaedic Disorders 08 - Unilateral Hip Fracture (08.11). Pre-morbidly, Pt. was independent/mod-I in Locomotion, Safety Awareness, Balance, Social Cognition, T ransfers Control, Sphincter Control, Self-Care, Communication, and Endurance; and he had good Locomot ion, Safety Awareness, Balance, Social Cognition, Transfers Control, Sphincter Control, Self-Care, Co mmunication, and Endurance. Currently, he has deficits of Locomotion, Balance, Safety Awareness, Social Cognition, Transfers Cont rol, Self-Care, and Endurance. Pt. is now referred to [facility] for acute in-patient rehabilitation in order to maximize patient's functional independence in activities of daily living, strength, ROM, and mobi lity. Patient has realistic goal of being discharged at assistance level 6-Pinky to reside at Home with Fam steven/Relatives. Inderjit Tejeda is an 88 year old male that lives in a single guero home with his . He was independent with all ADLs and self care. On 04/10/2019, patient fell out of bed and had severe pain and was admitted to [facility] and treated. He is now medically stable but in need of 24-hour nursing, doctor supervision and oversite participate in 3hours of therapy a day/15 hours per week and receive care with an intensive interdisciplinary approach. MEDICATION ALLERGIES: No Known Drug Allergies (NKDA) ENVIRONMENTAL ALLERGIES: None Known - Substance Allergies None Known - Other Allergies None Known PAST MEDICAL HISTORY: ATRIAL FIBRILLATION Alzheimer's CAD CHRONIC DIASTOLIC CHF CKD STAGE 3 Dementia MDS PAST SURGICAL HISTORY: PCI FAMILY HISTORY: Family history is not contributory. SOCIAL HISTORY: - Home Living Family/Relatives REVIEW OF SYSTEMS: - Gen No Chills No Fatigue No Fever - Eyes No Double Vision No itchiness - ENMT No Difficulty Swallowing - CVS No Chest Discomfort No Chest Pain Fatigue No Weight Gain - Resp No Cough No Shortness of Breath - GI Continent No Abdominal Pain Constipation No Diarrhea - Continent No Kidney Pain No Painful Urination No Urinary Urgency - MSK Joint Pain Muscle Cramps Stiffness - Skin No Itching No Rash No Suspicious Lesions - Neuro Coordination Difficulty No Difficulty with Concentration Memory Loss No Seizures Weakness - Psych No Anxiety No Depression No HIV Exposure No Persistent Infections No Seasonal Allergies - Endo No Cold/Heat Intolerance No Excessive Hunger No Excessive Thirst No Excessive Urination PHYSICAL EXAM - Gen Alert and awake Lying in bed No apparent distress Oriented to: person, time, and place - Skin No skin breakdown. Atraumatic - Eyes No abnormalities - ENMT No abnormalities - Neck No abnormalities - CVS RRR - Chest No abnormalities - Resp Clear to auscultation - Abd +bowel sounds - GI Non distended Deferred - No abnormalities - Ext Mild left lower extremity edema. - MSK 4+/5 weakness in left lower extremity - Neuro 4/5 strength left lower extremities. - Psych No abnormalities VITAL SIGNS Temperature: 97.3 F SBP/DBP: 110/59 Pulse: 93 Resp: 18 NURSING: - Shower allowing shower - Skin care per protocol PRECAUTIONS: - Posterior Hip Precaution No adduction across midline No external rotation No hip flexion >90 degrees No internal rotation No wheel chair propulsion - Weight Bearing Precaution WBAT left LE ACTIVITIES OOB only with supervision QI SCORES: - Self-Care A. Eating 05-Setup or clean-up assistance B. Oral hygiene 05-Setup or clean-up assistance C. Toileting hygiene 03-Partial/moderate assistance E. Shower/bathe self 03-Partial/moderate assistance F. Upper body dressing 03-Partial/moderate assistance G. Lower body dressing 02-Substantial/maximal assistance H. Putting on/taking off footwear 02-Substantial/maximal assistance - Mobility A. Roll left and right 03-Partial/moderate assistance B. Sit to lying 02-Substantial/maximal assistance C. Lying to sitting on side of bed 03-Partial/moderate assistance D. Sit to stand 03-Partial/moderate assistance E. Chair/ohv-gc-pybqe transfer 03-Partial/moderate assistance F. Toilet transfer 03-Partial/moderate assistance G. Car transfer 88-Not attempted due to medical condition or safety concerns I. Walk 10 feet 02-Substantial/maximal assistance J. Walk 50 feet with two turns 88-Not attempted due to medical condition or safety concerns K. Walk 150 feet 88-Not attempted due to medical condition or safety concerns L. Walking 10 feet on uneven surfaces 88-Not attempted due to medical condition or safety concerns M. 1 step (curb) 88-Not attempted due to medical condition or safety concerns N. 4 steps 88-Not attempted due to medical condition or safety concerns O. 12 steps 88-Not attempted due to medical condition or safety concerns P. Picking up object 88-Not attempted due to medical condition or safety concerns R. Wheel 50 feet with two turns 88-Not attempted due to medical condition or safety concerns S. Wheel 150 feet 88-Not attempted due to medical condition or safety concerns - Bladder and Bowel Bladder continence 0-Always continent Bowel continence 0-Always continent - Endurance Fair - Balance Fair - Safety Awareness Fair CURRENT FUNC. DEFICITS: Self-Care, Mobility, Endurance, Balance, and Safety Awareness MEDICATIONS: - Other See attached MAR (Medication Administration Record) ASSESSMENT: Pt. is a 88 yo Right-handed white male.His impairment category is Orthopaedic Disorders 08 - Unilate ral Hip Fracture (11.25).Pre-morbidly, Pt. was independent/mod-I in Locomotion, Safety Awareness, Bal ance, Social Cognition, Transfers Control, Sphincter Control, Self-Care, Communication, and Endurance ; and he had good Locomotion, Safety Awareness, Balance, Social Cognition, Transfers Control, Sphinct er Control, Self-Care, Communication, and Endurance.Currently, he has deficits of Locomotion, Balance , Safety Awareness, Social Cognition, Transfers Control, Self-Care, and Endurance.Pt. is now referred to [facility] for acute in-patient rehabilitation in order to maximize patien t's functional independence in activities of daily living, strength, ROM, and mobility.- Rehab Goal Patient has realistic goal of being discharged at assistance level 6-Pinky to reside at Home with Fam steven/Relatives. Inderjit Tejeda is an 88 year old male that lives in a single guero home with his . He was independent with all ADLs and self care. On 04/10/2019, patient fell out of bed and had severe pain and was admitted to [facility] and treated. He is now medically stable but in need of 24-hour nursing, doctor supervision and oversite participate in 3hours of therapy a day/15 hours per week and receive care with an intensive interdisciplinary approach.REHAB PLAN: - Physical Therapy Decreased range of motion - to improve, our physical therapists will perform initial evaluation of pt 's status upon admission and devise an individualized program for increasing patient's Range of Motio n. Gait dysfunction - to improve, our physical therapists will perform initial evaluation of pt's status upon admission and devise an individualized program for Gait Training, and Wheel Chair mobility Inability to transfer - to improve, our physical therapists will perform initial evaluation of pt's s tatus upon admission and devise an individualized program for Bed mobility Need for home safety evaluation - to improve, our physical therapists will perform initial evaluation of pt's status upon admission and devise an individualized program for Home Evaluation Need in caregiver upon discharge - to improve, our physical therapists will perform initial evaluatio n of pt's status upon admission and devise an individualized program for Caregiver Training New precaution - to improve, our physical therapists will perform initial evaluation of pt's status u blair admission and devise an individualized program for Patient precaution education Edema - to improve, our physical therapists will perform initial evaluation of pt's status upon admi ssion and devise an individualized program for Elevation Training, and Lymphedema Therapy Poor balance - to improve, our physical therapists will perform initial evaluation of pt's status upo n admission and devise an individualized program for Balance Training Poor endurance - to improve, our physical therapists will perform initial evaluation of pt's status u blair admission and devise an individualized program for Endurance Training Weakness - to improve, our physical therapists will perform initial evaluation of pt's status upon ad mission and devise an individualized program for Aquatic Therapy, Neuromuscular Reeducation, and Stre ngthening Achieving independence - to improve, our physical therapists will perform initial evaluation of pt's status upon admission and devise an individualized program for Community Reintegration Activities - Occupational Therapy ADL deficits - to improve, our occupation therapists will perform initial evaluation of pt's status u blair admission and devise an individualized program for Bathing, Bed mobility, Community Reintegration , Cooking, Dressing, Eating, Fine Motor Skills, Grooming, Homemaking, Kitchen Mobility, Laundry, Allison ent Education, Safety Awareness, Splinting - Positioning, Transfers(Toilet, Tub, Shower), and Wheel C hair Management Cognitive deficits - to improve, our occupation therapists will perform initial evaluation of pt's st atus upon admission and devise an individualized program for Cognition - orientation Need for pediatric care coordinator - to improve, our occupation therapists will perform initial evaluation of pt's s tatus upon admission and devise an individualized program for Caregiver Training Weakness - to improve, our occupation therapists will perform initial evaluation of pt's status upon admission and devise an individualized program for Aquatic Therapy, Balance, Endurance, UE ROM, and U E strengthening MEDICAL PLAN: - Anterior Hip Precaution No abduction No active extension No adduction across midline No external rotation No hip flexion >90 degrees No internal rotation - Diet - Liquid Texture Start Regular - Tube Feed Start N/A - Diet Type Start Regular - Posterior Hip Precaution No adduction across midline No external rotation No hip flexion >90 degrees No internal rotation No wheel chair propulsion - Weight Bearing Precaution WBAT left LE - Skin care per protocol - Other See attached MAR (Medication Administration Record) - Diet - Solid Texture Regular - Shower shower DISCHARGE PLAN: - Estimated Length of Stay (days) 14. - Consensus on plan Discharge plan has been discussed with primary caregiver. Patient/Family is in agreement with the jordyn n. Primary caregiver is in agreement with the plan. - Patient/Family Goals Return home with assistance. - Planned Living Setting Upon Discharge Home, to live with Family/Relatives. Transitional Living. 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
--- NOTE | 2019-04-15 17:48 | PAPE ---
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 Jhon Maier M.D. ADMISSION DIAGNOSIS: Left Hip Displaced Femoral Neck Fracture ONSET DATE 04/10/2019 SECONDARY/COMORBID DIAGNOSES TIERED: - N/A CAD CHRONIC DIASTOLIC CHF ATRIAL FIBRILLATION Alzheimer's MDS Dementia CKD STAGE 3 POST-ADMISSION FUNCTIONAL/MEDICAL STATUS: - Bladder Same accident frequency: Ind - No accidents in the past 7 days - Bowel Same accident frequency: Ind - No accidents in the past 7 days - Walking Same score based on distance walked: 0(N/A) Same score based on distance walked: 1(<=50ft) - Wheelchair Same score based on distance traveled: 0(N/A) STATUS CHANGE EVALUATION: No change in Functional or Medical Status is identified compared with Pre-Admission screening. PATIENT NEEDS CLOSE MEDICAL SUPERVISION BY A REHABILITATION PHYSICIAN FOR: Coordination of Treatment Team Medical and Co-Morbidity Management Wound Care PATIENT REQUIRES 24X7 REHAB NURSING FOR MEDICAL AND FUNCTIONAL MGT. OF THE FOLLOWING DEFICITS: Disease Management Medication Management Patient/Family Education Providing Safe Environment Skin Integrity PATIENT REQUIRES INTENSIVE, COORDINATED INTERDISCIPLINARY APPROACH TO REHAB: Arranging Home Equipment/Services Discharge Planning Family Intervention/Training Tool Filer Hand/Case Management LIST OF IDENTIFIED AND POTENTIAL PROBLEMS: Alteration in leisure activities Bladder, Incontinence Bowel, Incontinence Fluid volume overload related to Congestive Heart Failure (CHF) Infection, Actual or Potential Mobility Impaired Pain, Alteration in Comfort Self Care Deficit Skin Integrity, Actual or Potential Urinary Tract Infection (UTI), Actual or Potential RISK FOR COMPLICATIONS - CAD CHF. Cardiac Arrest. KS. Pain. - Atrial Fibrillation CVA. Heart failure. Limb embolus. INTERVENTIONS - CAD 02 sats. Activity management. Medications. VS. - Atrial Fibrillation Anticoagulation. Medications. VS. PATIENT COULD BE AT RISK FOR COMPLICATIONS FROM ADVERSE MEDICAL CONDITIONS DUE TO HIS/HER COMORBIDITI ES AND THE RIGORS OF THE INTENSIVE REHABILLITATION PROGRAM. METHODS OR INTERVENTIONS TO AVOID COMPLIC ATIONS INCLUDE: - Bleeding Assess lab values and manage abnormalities. Nursing to teach precautions for anti-coagulation therapy . Wound to be assessed every shift. - Infection Clinical staff to assess and manage the signs and symptoms of infection including fever, redness, war mth, etc. - Urinary Tract Infection - Falls Patient will be evaluated for Fall Precautions and will be placed on Fall Precautions as indicated pe r protocol. - Skin Breakdown Nursing will assess skin daily using assessment tool and will place on Skin Breakdown Precautions as indicated per protocol. - Pain Clinical staff may employ non-medication methods such as massage, distraction, decrease stimulus, etc . as needed. Clinical staff will assess patient's pain level every shift per protocol to assess and e nsure pain management effectiveness. Medications will be given and the pain level re-assessed. PRELIMINARY PLAN OF CARE: - Physical Therapy Patient needs Physical Therapy for a daily minimum of 1.5 hours at least 5 out of 7 days, to improve: Mobility, Strengthening, Transfers, Stretching, ROM, Endurance, Ability to manage stairs, Gait, and Balance. - Speech Therapy Patient needs Speech Therapy for a daily minimum of 0.5 hours at least 5 out of 7 days, to improve: S wallowing, Cognition, Language Skills, and Compensatory Strategies. - Rehabilitation Nursing Patient requires 24x7 Rehabilitation Nursing for: Pain Issues, Identifying and preventing risk factor s, Monitoring and reporting current medical conditions, Assisting with ambulation and transfer, Ruddy ting with all ADL-s, Teaching patients about disease process and medications, Family teaching, Provid ing safe environment, Bowel and Bladder Issues, Skin Integrity, and Medication Management. Patient needs Tool Filer Hand and/or Case Management for: Discharge Planning, Arranging Home Equipmen t or Services, and Family Interventions. - Dietary and Nutrition Services Patient needs Dietary and Nutrition Services for: Adequate Nutrition, Nutritional Supplements, and Nu tritional Education. - Occupational Therapy Patient needs Occupational Therapy for a daily minimum of 1.5 hours at least 5 out of 7 days, to impr ove Activities of Daily Living, including: Eating, Grooming, Bathing, Dressing, Toileting, Toilet Tra nsfers, Community Reintegration, Higher functional activities, Adaptive Equipment, Splinting, Househo ld Tasks, and Other activities as determined. QI SCORES: - Self-Care A. Eating 05-Setup or clean-up assistance B. Oral hygiene 05-Setup or clean-up assistance C. Toileting hygiene 03-Partial/moderate assistance E. Shower/bathe self 03-Partial/moderate assistance F. Upper body dressing 03-Partial/moderate assistance G. Lower body dressing 02-Substantial/maximal assistance H. Putting on/taking off footwear 02-Substantial/maximal assistance - Mobility A. Roll left and right 03-Partial/moderate assistance B. Sit to lying 02-Substantial/maximal assistance C. Lying to sitting on side of bed 03-Partial/moderate assistance D. Sit to stand 03-Partial/moderate assistance E. Chair/wre-wg-hleyz transfer 03-Partial/moderate assistance F. Toilet transfer 03-Partial/moderate assistance G. Car transfer 88-Not attempted due to medical condition or safety concerns I. Walk 10 feet 02-Substantial/maximal assistance J. Walk 50 feet with two turns 88-Not attempted due to medical condition or safety concerns K. Walk 150 feet 88-Not attempted due to medical condition or safety concerns L. Walking 10 feet on uneven surfaces 88-Not attempted due to medical condition or safety concerns M. 1 step (curb) 88-Not attempted due to medical condition or safety concerns N. 4 steps 88-Not attempted due to medical condition or safety concerns O. 12 steps 88-Not attempted due to medical condition or safety concerns P. Picking up object 88-Not attempted due to medical condition or safety concerns R. Wheel 50 feet with two turns 88-Not attempted due to medical condition or safety concerns S. Wheel 150 feet 88-Not attempted due to medical condition or safety concerns - Bladder and Bowel Bladder continence 0-Always continent Bowel continence 0-Always continent - Endurance Fair - Balance Fair - Safety Awareness Fair POTENTIAL FUNCTIONAL GOALS FOR PATIENT TO ACHIEVE BY DISCHARGE: - Safety Precaution Patient will remain free from falls or injury at time of discharge. - Bed Mobility Patient will perform bed mobility at 4-Kamryn level of assistance. - Transfers Patient will complete transfers from bed to chair at 4-[place] level of assistance. - Mobility Patient will ambulate 150 ft with 4-Kamryn level of assistance with RW. PATIENT REHAB POTENTIAL ChazTami VALIENTE is able and expected to receive 3 hours of individualized therapy daily on at least 5 of ever y 7 days ATami VALIENTE's prognosis for significant practical improvement within a reasonable period of time appears Good Expected level of measurable improvement will be of a practical value to Iraida VALIENTE's functional capacit y or adaptations to impairments Has a viable Discharge Plan Medically appropriate; condition is sufficiently stable to participate in intensive rehab program DISCHARGE PLAN: - Estimated Length of Stay (days) 14. - Consensus on plan Discharge plan has been discussed with primary caregiver. Patient/Family is in agreement with the jordyn n. Primary caregiver is in agreement with the plan. - Patient/Family Goals Return home with assistance. - Planned Living Setting Upon Discharge Home, to live with Family/Relatives. Transitional Living. CONCLUSION ON REHABILITATION NECESSITY: I have evaluated patient's pre-admission functional status and, comparing it to the patient's post-ad mission functional status now, I conclude that the pre-admission assessment was accurate. Patient's c ondition on admission supports the medical necessity of admission to [facility]. It is safe to proceed with patient's therapy program. 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
[2019-04-15] MEDS: DOCUSATE NA/SENNA CONC 1 TAB PO PRN (20:54)
[2019-04-15] MEDS: MIRTAZAPINE 15 MG TAB PO SCH (20:55)
[2019-04-15] MEDS: RIVASTIGMINE 9.5 MG/24 HR PATCH TD SCH (20:56)
[2019-04-15] MEDS: ATORVASTATIN 40 MG TAB PO SCH (20:57)
[2019-04-16] MEDS: HYDROCODONE/APAP 5/325 MG TAB PO PRN ×4 (00:51→14:43)
[2019-04-16] MEDS: PANTOPRAZOLE 40MG TABLET PO SCH (06:38)
[2019-04-16] MEDS: LIDOCAINE 4% PATCH TOP SCH (07:48)
[2019-04-16] MEDS ORDERED: METOLAZONE 2.5 MG TABLET PO SCH ×2 (08:00→14:00)
[2019-04-16] MEDS: FE SULF/FA/VIT B COMP & C TAB PO SCH (08:09)
[2019-04-16] MEDS: FUROSEMIDE 20 MG TABLET PO SCH (08:09)
[2019-04-16] MEDS: TAMSULOSIN 0.4 MG SR CAP PO SCH (08:09)
[2019-04-16] MEDS: POTASSIUM CL SA 10 MEQ TAB PO SCH (08:10)
[2019-04-16] MEDS: CRANBERRY FRUIT EXTRACT 200 MG CAP PO SCH (08:10)
[2019-04-16] MEDS: allopurinoL 100 MG TAB PO SCH (08:10)
[2019-04-16] MEDS: SERTRALINE HCL 50 MG TAB PO SCH (08:10)
[2019-04-16] MEDS: ASPIRIN 81 MG CHEWABLE TABLET PO SCH ×2 (08:11→20:06)
[2019-04-16] MEDS: FERROUS SULFATE 325 MG TAB PO SCH (08:11)
[2019-04-16] MEDS: CLOPIDOGREL 75 MG TABLET PO SCH (08:11)
--- NOTE | 2019-04-16 10:14 | FAST ---
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 Jhon Maier M.D. ADMISSION DIAGNOSIS: - Orthopaedic Disorders 08 - Unilateral Hip Fracture (08.11) Left Hip Displaced Femoral Neck Fracture. EATING: EATING - STEP 1: Does the patient complete the activity by him/herself with no assistance (physical, verbal/nonverbal cueing, setup/clean-up)? No. EATING - STEP 2: Does the patient need only setup/clean-up assistance from one helper? No. EATING - STEP 3: Does the patient need only verbal/nonverbal cueing or touching/steadying/contact guard assistance fro m one helper? Yes. 1. [id number] ADMISSION PERFORMANCE: Supervision or touching assistance CODE: 04 ORAL HYGIENE: ORAL HYGIENE - STEP 1: Does the patient complete the activity by him/herself with no assistance (physical, verbal/nonverbal cueing, setup/clean-up)? No. ORAL HYGIENE - STEP 2: Does the patient need only setup/clean-up assistance from one helper? No. ORAL HYGIENE - STEP 3: Does the patient need only verbal/nonverbal cueing or touching/steadying/contact guard assistance fro m one helper? Yes. 1. [id number] ADMISSION PERFORMANCE: Supervision or touching assistance CODE: 04 TOILETING HYGIENE: TOILETING HYGIENE - STEP 1: Does the patient complete the activity by him/herself with no assistance (physical, verbal/nonverbal cueing, setup/clean-up)? No. TOILETING HYGIENE - STEP 2: Does the patient need only setup/clean-up assistance from one helper? No. TOILETING HYGIENE - STEP 3: Does the patient need only verbal/nonverbal cueing or touching/steadying/contact guard assistance fro m one helper? No. TOILETING HYGIENE - STEP 4: Does the patient need physical assistance - for example lifting or trunk support from one helper - wi th the helper providing less than half of the effort? Yes. 1. [id number] ADMISSION PERFORMANCE: Partial/moderate assistance CODE: 03 BATHING: Not assessed/no information CODE: - DRESSING - UPPER BODY: Not assessed/no information CODE: - DRESSING - LOWER BODY: Not assessed/no information CODE: - PUTTING ON/TAKING OFF FOOTWEAR: Not assessed/no information CODE: - ROLL LEFT AND RIGHT: ROLL LEFT AND RIGHT - STEP 1: Does the patient complete the activity by him/herself with no assistance (physical, verbal/nonverbal cueing, setup/clean-up)? No. ROLL LEFT AND RIGHT - STEP 2: Does the patient need only setup/clean-up assistance from one helper? No. ROLL LEFT AND RIGHT - STEP 3: Does the patient need only verbal/nonverbal cueing or touching/steadying/contact guard assistance fro m one helper? No. ROLL LEFT AND RIGHT - STEP 4: Does the patient need physical assistance - for example lifting or trunk support from one helper - wi th the helper providing less than half of the effort? Yes. 1. [id number] ADMISSION PERFORMANCE: Partial/moderate assistance CODE: 03 SIT TO LYING: SIT TO LYING - STEP 1: Does the patient complete the activity by him/herself with no assistance (physical, verbal/nonverbal cueing, setup/clean-up)? No. SIT TO LYING - STEP 2: Does the patient need only setup/clean-up assistance from one helper? No. SIT TO LYING - STEP 3: Does the patient need only verbal/nonverbal cueing or touching/steadying/contact guard assistance fro m one helper? No. SIT TO LYING - STEP 4: Does the patient need physical assistance - for example lifting or trunk support from one helper - wi th the helper providing less than half of the effort? Yes. 1. [id number] ADMISSION PERFORMANCE: Partial/moderate assistance CODE: 03 LYING TO SITTING: LYING TO SITTING ON SIDE OF BED - STEP 1: Does the patient complete the activity by him/herself with no assistance (physical, verbal/nonverbal cueing, setup/clean-up)? No. LYING TO SITTING ON SIDE OF BED - STEP 2: Does the patient need only setup/clean-up assistance from one helper? No. LYING TO SITTING ON SIDE OF BED - STEP 3: Does the patient need only verbal/nonverbal cueing or touching/steadying/contact guard assistance fro m one helper? Yes. 1. [id number] ADMISSION PERFORMANCE: Supervision or touching assistance CODE: 04 SIT TO STAND: SIT TO STAND - STEP 1: Does the patient complete the activity by him/herself with no assistance (physical, verbal/nonverbal cueing, setup/clean-up)? No. SIT TO STAND - STEP 2: Does the patient need only setup/clean-up assistance from one helper? No. SIT TO STAND - STEP 3: Does the patient need only verbal/nonverbal cueing or touching/steadying/contact guard assistance fro m one helper? Yes. 1. [id number] ADMISSION PERFORMANCE: Supervision or touching assistance CODE: 04 TRANSFERS: BED, CHAIR: CHAIR/[id number]-[id number] TRANSFER - STEP 1: Does the patient complete the activity by him/herself with no assistance (physical, verbal/nonverbal cueing, setup/clean-up)? No. CHAIR/TOZ-LF-BABID TRANSFER - STEP 2: Does the patient need only setup/clean-up assistance from one helper? No. CHAIR/[id number] TRANSFER - STEP 3: Does the patient need only verbal/nonverbal cueing or touching/steadying/contact guard assistance fro m one helper? No. CHAIR/XYH-NM-JEVAY TRANSFER - STEP 4: Does the patient need physical assistance - for example lifting or trunk support from one helper - wi th the helper providing less than half of the effort? Yes. 1. [id number] ADMISSION PERFORMANCE: Partial/moderate assistance CODE: 03 TRANSFER TOILET: TOILET TRANSFER - STEP 1: Does the patient complete the activity by him/herself with no assistance (physical, verbal/nonverbal cueing, setup/clean-up)? No. TOILET TRANSFER - STEP 2: Does the patient need only setup/clean-up assistance from one helper? No. TOILET TRANSFER - STEP 3: Does the patient need only verbal/nonverbal cueing or touching/steadying/contact guard assistance fro m one helper? No. TOILET TRANSFER - STEP 4: Does the patient need physical assistance - for example lifting or trunk support from one helper - wi th the helper providing less than half of the effort? Yes. 1. [id number] ADMISSION PERFORMANCE: Partial/moderate assistance CODE: 03 TRANSFERS: CAR: Not assessed/no information CODE: - WALK 10 FEET: Not assessed/no information CODE: - 1 STEP (CURB): Not assessed/no information CODE: - PICKING UP OBJECT: Not assessed/no information CODE: - DOES THE PATIENT USE A WHEELCHAIR/SCOOTER? CODE: EXPR WHEEL 50 FEET WITH TWO TURNS: Not assessed/no information CODE: - INDICATE THE TYPE OF WHEELCHAIR/SCOOTER USED: CODE: EXPR WHEEL 150 FEET: Not assessed/no information CODE: - INDICATE THE TYPE OF WHEELCHAIR/SCOOTER USED: CODE: EXPR BLADDER AND BOWEL: H350. BLADDER CONTINENCE (3-DAY ASSESSMENT PERIOD): Always continent (no documented incontinence) CODE: 0 H400. BOWEL CONTINENCE (3-DAY ASSESSMENT PERIOD): Always continent CODE: 0 SIGNATURE PANEL: The following modified sections: 1. [id number] Admission Performance, 1. [id number] Admission Performance, 1. [id number] Admission Performance, 1. [id number] Admission Performance, 1. [id number] Admission Performance, 1. [id number] Admission Performance, 1. [id number] Admission Performance, 1. [id number] Admission Performance , 1. [id number] Admission Performance, Code, H350. Bladder Continence (3-day assessment period), H400. B owel Continence (3-day assessment period) were [electronically] signed by Mateo Blue on MonApr 16 10:13:33 GMT-0600 (Central Standard Time)
--- NOTE | 2019-04-16 10:37 | FAST ---
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 Jhon Maier M.D. ADMISSION DIAGNOSIS: - Orthopaedic Disorders 08 - Unilateral Hip Fracture (08.11) Left Hip Displaced Femoral Neck Fracture. EATING: EATING - STEP 1: Does the patient complete the activity by him/herself with no assistance (physical, verbal/nonverbal cueing, setup/clean-up)? No. EATING - STEP 2: Does the patient need only setup/clean-up assistance from one helper? Yes. 1. [id number] ADMISSION PERFORMANCE: Setup or clean-up assistance CODE: 05 ORAL HYGIENE: Not assessed/no information CODE: - TOILETING HYGIENE: TOILETING HYGIENE - STEP 1: Does the patient complete the activity by him/herself with no assistance (physical, verbal/nonverbal cueing, setup/clean-up)? No. TOILETING HYGIENE - STEP 2: Does the patient need only setup/clean-up assistance from one helper? No. TOILETING HYGIENE - STEP 3: Does the patient need only verbal/nonverbal cueing or touching/steadying/contact guard assistance fro m one helper? Yes. 1. [id number] ADMISSION PERFORMANCE: Supervision or touching assistance CODE: 04 BATHING: Not assessed/no information CODE: - DRESSING - UPPER BODY: Not assessed/no information CODE: - DRESSING - LOWER BODY: Not assessed/no information CODE: - PUTTING ON/TAKING OFF FOOTWEAR: Not assessed/no information CODE: - ROLL LEFT AND RIGHT: ROLL LEFT AND RIGHT - STEP 1: Does the patient complete the activity by him/herself with no assistance (physical, verbal/nonverbal cueing, setup/clean-up)? No. ROLL LEFT AND RIGHT - STEP 2: Does the patient need only setup/clean-up assistance from one helper? No. ROLL LEFT AND RIGHT - STEP 3: Does the patient need only verbal/nonverbal cueing or touching/steadying/contact guard assistance fro m one helper? Yes. 1. [id number] ADMISSION PERFORMANCE: Supervision or touching assistance CODE: 04 SIT TO LYING: SIT TO LYING - STEP 1: Does the patient complete the activity by him/herself with no assistance (physical, verbal/nonverbal cueing, setup/clean-up)? No. SIT TO LYING - STEP 2: Does the patient need only setup/clean-up assistance from one helper? No. SIT TO LYING - STEP 3: Does the patient need only verbal/nonverbal cueing or touching/steadying/contact guard assistance fro m one helper? Yes. 1. [id number] ADMISSION PERFORMANCE: Supervision or touching assistance CODE: 04 LYING TO SITTING: LYING TO SITTING ON SIDE OF BED - STEP 1: Does the patient complete the activity by him/herself with no assistance (physical, verbal/nonverbal cueing, setup/clean-up)? No. LYING TO SITTING ON SIDE OF BED - STEP 2: Does the patient need only setup/clean-up assistance from one helper? No. LYING TO SITTING ON SIDE OF BED - STEP 3: Does the patient need only verbal/nonverbal cueing or touching/steadying/contact guard assistance fro m one helper? Yes. 1. [id number] ADMISSION PERFORMANCE: Supervision or touching assistance CODE: 04 SIT TO STAND: SIT TO STAND - STEP 1: Does the patient complete the activity by him/herself with no assistance (physical, verbal/nonverbal cueing, setup/clean-up)? No. SIT TO STAND - STEP 2: Does the patient need only setup/clean-up assistance from one helper? No. SIT TO STAND - STEP 3: Does the patient need only verbal/nonverbal cueing or touching/steadying/contact guard assistance fro m one helper? Yes. 1. [id number] ADMISSION PERFORMANCE: Supervision or touching assistance CODE: 04 TRANSFERS: BED, CHAIR: CHAIR/EPN-HO-EGIPA TRANSFER - STEP 1: Does the patient complete the activity by him/herself with no assistance (physical, verbal/nonverbal cueing, setup/clean-up)? No. CHAIR/SHM-UI-EXLOX TRANSFER - STEP 2: Does the patient need only setup/clean-up assistance from one helper? No. CHAIR/CDI-XR-RCQET TRANSFER - STEP 3: Does the patient need only verbal/nonverbal cueing or touching/steadying/contact guard assistance fro m one helper? Yes. 1. [id number] ADMISSION PERFORMANCE: Supervision or touching assistance CODE: 04 TRANSFER TOILET: TOILET TRANSFER - STEP 1: Does the patient complete the activity by him/herself with no assistance (physical, verbal/nonverbal cueing, setup/clean-up)? No. TOILET TRANSFER - STEP 2: Does the patient need only setup/clean-up assistance from one helper? No. TOILET TRANSFER - STEP 3: Does the patient need only verbal/nonverbal cueing or touching/steadying/contact guard assistance fro m one helper? Yes. 1. [id number] ADMISSION PERFORMANCE: Supervision or touching assistance CODE: 04 TRANSFERS: CAR: Not assessed/no information CODE: - WALK 10 FEET: Not assessed/no information CODE: - 1 STEP (CURB): Not assessed/no information CODE: - PICKING UP OBJECT: Not assessed/no information CODE: - DOES THE PATIENT USE A WHEELCHAIR/SCOOTER? CODE: EXPR WHEEL 50 FEET WITH TWO TURNS: Not assessed/no information CODE: - INDICATE THE TYPE OF WHEELCHAIR/SCOOTER USED: CODE: EXPR WHEEL 150 FEET: Not assessed/no information CODE: - INDICATE THE TYPE OF WHEELCHAIR/SCOOTER USED: CODE: EXPR BLADDER AND BOWEL: H350. BLADDER CONTINENCE (3-DAY ASSESSMENT PERIOD): Always continent (no documented incontinence) CODE: 0 H400. BOWEL CONTINENCE (3-DAY ASSESSMENT PERIOD): Always continent CODE: 0 SIGNATURE PANEL: The following modified sections: 1. [id number] Admission Performance, 1. ND8835Q Admission Performance, 1. [id number] Admission Performance, 1. GK6349Q Admission Performance, 1. [id number] Admission Performance, 1. [id number] Admission Performance, 1. WQ1894G Admission Performance, 1. [id number] Admission Performance , 1. [id number] Admission Performance, 1. [id number] Admission Performance, Code, H350. Bladder Continence (3-day assessment period), H400. Bowel Continence (3-day assessment period), 1. ZT4278H Admission Per formance, 1. [id number] Admission Performance, 1. HA6055S Admission Performance, 1. [id number] Admission Pe rformance, 1. KO1685G Admission Performance, 1. TZ6134U Admission Performance, 1. DK8825G Admission P erformance, 1. [id number] Admission Performance were [electronically] signed by Mateo Blue on MonApr 16 2019 10:37:13 GMT-0600 (Central Standard Time)
[2019-04-16] MEDS: POLYETHYL GLY 3350 17 GM/DOSE PO PRN (12:44)
[2019-04-16] MEDS: LACTULOSE 20 GM/30 ML UCUP PO SCH ×2 (16:02→21:28)
--- NOTE | 2019-04-16 17:31 | RAD REPORT ---
EXAM DESCRIPTION: RAD - Abdomen 1 View (KUB) - 04/16/2019 5:24 pm CLINICAL HISTORY: R/O Abd obstruction Abdominal pain COMPARISON: No comparisons FINDINGS: Air is present in the nondilated stomach. Stool is present filling but not dilating the co chayo. No small bowel dilatation. . No free air, pneumatosis or other findings of obstruction. No suspi cious calcifications. No acute bone finding. IMPRESSION: No small bowel obstruction or other emergent finding. Stool is present filling but not dilating the entirety of the colon.
[2019-04-16] MEDS: MIRTAZAPINE 15 MG TAB PO SCH (20:08)
[2019-04-16] MEDS: RIVASTIGMINE 9.5 MG/24 HR PATCH TD SCH (20:10)
[2019-04-16] MEDS: ATORVASTATIN 40 MG TAB PO SCH (20:13)
[2019-04-16] MEDS: BACLOFEN 10 MG TAB PO SCH (20:15)
[2019-04-16] MEDS: DOCUSATE NA/SENNA CONC 1 TAB PO PRN (20:20)
--- NOTE | 2019-04-16 21:29 | R.PN ---
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 Pt denied any Shortness of Breath. Ambulated 37' with moderate assistance using a rolling walker. VITAL SIGNS Temperature: 97.6 F SBP/DBP: 115/59 Pulse: 91 Resp: 15 MEDICATION ALLERGIES: No Known Drug Allergies (NKDA) ENVIRONMENTAL ALLERGIES: None Known - Substance Allergies None Known - Other Allergies None Known NURSING: - Shower allowing shower - Skin care per protocol PRECAUTIONS: - Posterior Hip Precaution No adduction across midline No external rotation No hip flexion >90 degrees No internal rotation No wheel chair propulsion - Weight Bearing Precaution WBAT left LE ACTIVITIES OOB only with supervision THERAPIES: - Dietary and Nutrition Adequate Nutrition. Nutritional Education. Nutritional Supplements. PHYSICAL EXAM - Gen Alert and awake Lying in bed No apparent distress Oriented to: person, time, and place - Skin No skin breakdown. Atraumatic - Eyes No abnormalities - ENMT No abnormalities - Neck No abnormalities - CVS RRR - Chest No abnormalities - Resp Decreased breath sounds in both lower lobes - Abd +bowel sounds - GI Non distended Deferred - No abnormalities - Ext Mild left lower extremity edema. - MSK 4+/5 weakness in left lower extremity - Neuro 4/5 strength left lower extremities. - Psych No abnormalities ASSESSMENT: Pt. is a 88 yo Right-handed white male.His impairment category is Orthopaedic Disorders 08 - Unilate ral Hip Fracture (08.11).Pre-morbidly, Pt. was independent/mod-I in Locomotion, Safety Awareness, Bal ance, Social Cognition, Transfers Control, Sphincter Control, Self-Care, Communication, and Endurance ; and he had good Locomotion, Safety Awareness, Balance, Social Cognition, Transfers Control, Sphinct er Control, Self-Care, Communication, and Endurance.Currently, he has deficits of Locomotion, Balance , Safety Awareness, Social Cognition, Transfers Control, Self-Care, and Endurance.Pt. is now referred to [facility] for acute in-patient rehabilitation in order to maximize patien t's functional independence in activities of daily living, strength, ROM, and mobility.- Rehab Goal Patient has realistic goal of being discharged at assistance level 6-Pinky to reside at Home with Fam steven/Relatives. MDM/PLAN: - Physical Therapy Decreased range of motion - to improve, our physical therapists will perform initial evaluation of p t's status upon admission and devise an individualized program for increasing patient's Range of Leroy on. Gait dysfunction - to improve, our physical therapists will perform initial evaluation of pt's statu s upon admission and devise an individualized program for Gait Training, and Wheel Chair mobility Inability to transfer - to improve, our physical therapists will perform initial evaluation of pt's status upon admission and devise an individualized program for Bed mobility Need for home safety evaluation - to improve, our physical therapists will perform initial evaluatio n of pt's status upon admission and devise an individualized program for Home Evaluation Need in caregiver upon discharge - to improve, our physical therapists will perform initial evaluati on of pt's status upon admission and devise an individualized program for Caregiver Training Edema - to improve, our physical therapists will perform initial evaluation of pt's status upon admis maggi and devise an individualized program for Elevation Training, and Lymphedema Therapy New precaution - to improve, our physical therapists will perform initial evaluation of pt's status upon admission and devise an individualized program for Patient precaution education Poor balance - to improve, our physical therapists will perform initial evaluation of pt's status up on admission and devise an individualized program for Balance Training Poor endurance - to improve, our physical therapists will perform initial evaluation of pt's status upon admission and devise an individualized program for Endurance Training Weakness - to improve, our physical therapists will perform initial evaluation of pt's status upon a dmission and devise an individualized program for Aquatic Therapy, Neuromuscular Reeducation, and Str engthening Achieving independence - to improve, our physical therapists will perform initial evaluation of pt's status upon admission and devise an individualized program for Community Reintegration Activities - Occupational Therapy ADL deficits - to improve, our occupation therapists will perform initial evaluation of pt's status upon admission and devise an individualized program for Bathing, Bed mobility, Community Reintegratio n, Cooking, Dressing, Eating, Fine Motor Skills, Grooming, Homemaking, Kitchen Mobility, Laundry, Pat ient Education, Safety Awareness, Splinting - Positioning, Transfers(Toilet, Tub, Shower), and Wheel Chair Management Cognitive deficits - to improve, our occupation therapists will perform initial evaluation of pt's s tatus upon admission and devise an individualized program for Cognition - orientation Need for resident care supervisor - to improve, our occupation therapists will perform initial evaluation of pt's status upon admission and devise an individualized program for Caregiver Training Weakness - to improve, our occupation therapists will perform initial evaluation of pt's status upon admission and devise an individualized program for Aquatic Therapy, Balance, Endurance, UE ROM, and UE strengthening - Other See attached MAR (Medication Administration Record) - Anterior Hip Precaution No abduction No active extension No adduction across midline No external rotation No hip flexion >90 degrees No internal rotation - Diet - Liquid Texture Continue Regular - Tube Feed Continue N/A - Diet Type Continue Regular - Posterior Hip Precaution No adduction across midline No external rotation No hip flexion >90 degrees No internal rotation No wheel chair propulsion - Weight Bearing Precaution WBAT left LE - Skin care per protocol - Diet - Solid Texture Continue Regular - Shower allowing shower FUNCTIONAL STATUS: UPDATED AT WEEKLY TEAM CONFERENCE - Bladder Same accident frequency: 7-Ind - No accidents in the past 7 days - Bowel Same accident frequency: 7-Ind - No accidents in the past 7 days - Walking Same score based on distance walked: 0(N/A) Same score based on distance walked: 1(<=50ft) - Wheelchair Same score based on distance traveled: 0(N/A) FUNCTIONAL STATUS: - Self-Care A. Eating Pinky B. Grooming Kamryn C. Bathing modA D. Dressing - Upper Kamryn E. Dressing - Lower modA F. Toileting modA - Sphincter Control G. Bladder control sup H. Bowel control sup - Transfers Control I. Bed/Chair/Wheelchair modA J. Toilet modA K. Tub/Shower modA - Locomotion L. Walk/Wheelchair (B) modA M. Stairs ADNO - Communication N. Comprehension (B) modA O. Expression (B) modA - Social Cognition P. Social Interaction Kamryn Q. Problem Solving modA R. Memory modA - Endurance Fair - Balance Fair - Safety Awareness Poor QI SCORES: - Self-Care A. Eating 05-Setup or clean-up assistance B. Oral hygiene 05-Setup or clean-up assistance C. Toileting hygiene 03-Partial/moderate assistance E. Shower/bathe self 03-Partial/moderate assistance F. Upper body dressing 03-Partial/moderate assistance G. Lower body dressing 02-Substantial/maximal assistance H. Putting on/taking off footwear 02-Substantial/maximal assistance - Mobility A. Roll left and right 03-Partial/moderate assistance B. Sit to lying 02-Substantial/maximal assistance C. Lying to sitting on side of bed 03-Partial/moderate assistance D. Sit to stand 03-Partial/moderate assistance E. Chair/hlt-dj-rypbe transfer 03-Partial/moderate assistance F. Toilet transfer 03-Partial/moderate assistance G. Car transfer 88-Not attempted due to medical condition or safety concerns I. Walk 10 feet 02-Substantial/maximal assistance J. Walk 50 feet with two turns 88-Not attempted due to medical condition or safety concerns K. Walk 150 feet 88-Not attempted due to medical condition or safety concerns L. Walking 10 feet on uneven surfaces 88-Not attempted due to medical condition or safety concerns M. 1 step (curb) 88-Not attempted due to medical condition or safety concerns N. 4 steps 88-Not attempted due to medical condition or safety concerns O. 12 steps 88-Not attempted due to medical condition or safety concerns P. Picking up object 88-Not attempted due to medical condition or safety concerns R. Wheel 50 feet with two turns 88-Not attempted due to medical condition or safety concerns S. Wheel 150 feet 88-Not attempted due to medical condition or safety concerns - Bladder and Bowel Bladder continence 0-Always continent Bowel continence 0-Always continent - Endurance Fair - Balance Fair - Safety Awareness Fair CURRENT FUNC. DEFICITS: Self-Care, Mobility, Endurance, Balance, and Safety Awareness SIGNATURE PANEL: (DIE SETTER)
[2019-04-16] MEDS: TRAZODONE 50 MG TABLET PO PRN (23:11)
[2019-04-16] MEDS: hydrOXYzine HCL 25 MG TAB PO PRN (23:11)
[2019-04-17] MEDS: HYDROCODONE/APAP 5/325 MG TAB PO PRN ×4 (01:30→19:35)
[2019-04-17] MEDS: LACTULOSE 20 GM/30 ML UCUP PO SCH ×2 (03:32→09:47)
[2019-04-17] MEDS: PANTOPRAZOLE 40MG TABLET PO SCH (06:34)
[2019-04-17 06:46] LABS: Absolute Lymphocytes (CBC) 1.4 K/uL (0.7-4.9); Hematocrit 32.8 % (39.6-49.0); Lymphocytes % 5.9 % (15.3-44.8); MPV 9.2 fL (7.6-11.3); RBC Red Blood Cell Count 4.23 M/uL (4.33-5.43)
[2019-04-17] MEDS ORDERED: MAGNESIUM CITRATE 300 ML BOT PO SCH (07:00)
[2019-04-17] MEDS: CRANBERRY FRUIT EXTRACT 200 MG CAP PO SCH (08:09)
[2019-04-17] MEDS: TAMSULOSIN 0.4 MG SR CAP PO SCH (08:09)
[2019-04-17] MEDS: allopurinoL 100 MG TAB PO SCH (08:09)
[2019-04-17] MEDS: FUROSEMIDE 20 MG TABLET PO SCH (08:09)
[2019-04-17] MEDS: CLOPIDOGREL 75 MG TABLET PO SCH (08:09)
[2019-04-17] MEDS: FE SULF/FA/VIT B COMP & C TAB PO SCH (08:09)
[2019-04-17] MEDS: BACLOFEN 10 MG TAB PO SCH ×2 (08:10→19:41)
[2019-04-17] MEDS: APIXABAN 2.5 MG TABLET PO SCH ×2 (08:10→19:40)
[2019-04-17] MEDS: SERTRALINE HCL 50 MG TAB PO SCH (08:10)
[2019-04-17] MEDS: POTASSIUM CL SA 10 MEQ TAB PO SCH (08:10)
[2019-04-17] MEDS: FERROUS SULFATE 325 MG TAB PO SCH (08:11)
[2019-04-17 09:00] LABS: Anisocytosis 1+; Blood Morphology Comment NOTED (NOT SEEN); Elliptocytes 1+; Hypochromasia 1+; Macrocytosis SLIGHT; Platelet Estimate DECR
[2019-04-17] MEDS: LIDOCAINE 4% PATCH TOP SCH (10:08)
--- NOTE | 2019-04-17 12:36 | FAST ---
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 Jhon Maier M.D. ADMISSION DIAGNOSIS: - Orthopaedic Disorders 08 - Unilateral Hip Fracture (08.11) Left Hip Displaced Femoral Neck Fracture. EATING: Not assessed/no information CODE: - ORAL HYGIENE: ORAL HYGIENE - STEP 1: Does the patient complete the activity by him/herself with no assistance (physical, verbal/nonverbal cueing, setup/clean-up)? No. ORAL HYGIENE - STEP 2: Does the patient need only setup/clean-up assistance from one helper? Yes. 1. [id number] ADMISSION PERFORMANCE: Setup or clean-up assistance CODE: 05 TOILETING HYGIENE: TOILETING HYGIENE - STEP 1: Does the patient complete the activity by him/herself with no assistance (physical, verbal/nonverbal cueing, setup/clean-up)? No. TOILETING HYGIENE - STEP 2: Does the patient need only setup/clean-up assistance from one helper? No. TOILETING HYGIENE - STEP 3: Does the patient need only verbal/nonverbal cueing or touching/steadying/contact guard assistance fro m one helper? No. TOILETING HYGIENE - STEP 4: Does the patient need physical assistance - for example lifting or trunk support from one helper - wi th the helper providing less than half of the effort? Yes. 1. [id number] ADMISSION PERFORMANCE: Partial/moderate assistance CODE: 03 BATHING: SHOWER/BATHE SELF - STEP 1: Does the patient complete the activity by him/herself with no assistance (physical, verbal/nonverbal cueing, setup/clean-up)? No. SHOWER/BATHE SELF - STEP 2: Does the patient need only setup/clean-up assistance from one helper? No. SHOWER/BATHE SELF - STEP 3: Does the patient need only verbal/nonverbal cueing or touching/steadying/contact guard assistance fro m one helper? No. SHOWER/BATHE SELF - STEP 4: Does the patient need physical assistance - for example lifting or trunk support from one helper - wi th the helper providing less than half of the effort? Yes. 1. [id number] ADMISSION PERFORMANCE: Partial/moderate assistance CODE: 03 DRESSING - UPPER BODY: DRESSING - UPPER BODY - STEP 1: Does the patient complete the activity by him/herself with no assistance (physical, verbal/nonverbal cueing, setup/clean-up)? No. DRESSING - UPPER BODY - STEP 2: Does the patient need only setup/clean-up assistance from one helper? No. DRESSING - UPPER BODY - STEP 3: Does the patient need only verbal/nonverbal cueing or touching/steadying/contact guard assistance fro m one helper? No. DRESSING - UPPER BODY - STEP 4: Does the patient need physical assistance - for example lifting or trunk support from one helper - wi th the helper providing less than half of the effort? Yes. 1. [id number] ADMISSION PERFORMANCE: Partial/moderate assistance CODE: 03 DRESSING - LOWER BODY: DRESSING - LOWER BODY - STEP 1: Does the patient complete the activity by him/herself with no assistance (physical, verbal/nonverbal cueing, setup/clean-up)? No. DRESSING - LOWER BODY - STEP 2: Does the patient need only setup/clean-up assistance from one helper? No. DRESSING - LOWER BODY - STEP 3: Does the patient need only verbal/nonverbal cueing or touching/steadying/contact guard assistance fro m one helper? No. DRESSING - LOWER BODY - STEP 4: Does the patient need physical assistance - for example lifting or trunk support from one helper - wi th the helper providing less than half of the effort? No. DRESSING - LOWER BODY - STEP 5: Does the patient need physical assistance - for example lifting or trunk support from one helper - wi th the helper providing more than half of the effort? Yes. 1. [id number] ADMISSION PERFORMANCE: Substantial/maximal assistance CODE: 02 PUTTING ON/TAKING OFF FOOTWEAR: FOOTWEAR - STEP 1: Does the patient complete the activity by him/herself with no assistance (physical, verbal/nonverbal cueing, setup/clean-up)? No. FOOTWEAR - STEP 2: Does the patient need only setup/clean-up assistance from one helper? No. FOOTWEAR - STEP 3: Does the patient need only verbal/nonverbal cueing or touching/steadying/contact guard assistance fro m one helper? No. FOOTWEAR - STEP 4: Does the patient need physical assistance - for example lifting or trunk support from one helper - wi th the helper providing less than half of the effort? No. FOOTWEAR - STEP 5: Does the patient need physical assistance - for example lifting or trunk support from one helper - wi th the helper providing more than half of the effort? Yes. 1. [id number] ADMISSION PERFORMANCE: Substantial/maximal assistance CODE: 02 DOES THE PATIENT USE A WHEELCHAIR/SCOOTER? CODE: EXPR INDICATE THE TYPE OF WHEELCHAIR/SCOOTER USED: CODE: EXPR INDICATE THE TYPE OF WHEELCHAIR/SCOOTER USED: CODE: EXPR BLADDER AND BOWEL: CODE: EXPR CODE: EXPR SIGNATURE PANEL: The following modified sections: 1. [id number] Admission Performance, 1. [id number] Admission Performance, 1. [id number] Admission Performance, 1. [id number] Admission Performance, 1. [id number] Admission Performance, 1. [id number] Admission Performance, 1. [id number] Admission Performance, 1. [id number] Admission Performance were [electronically] signed by ADA Bowers on MonApr 17 2019 12:35:26 GMT-0600 ([facility] Standard [place])
[2019-04-17] MEDS: RIVASTIGMINE 9.5 MG/24 HR PATCH TD SCH (19:39)
[2019-04-17] MEDS: hydrOXYzine HCL 25 MG TAB PO PRN (19:40)
[2019-04-17] MEDS: TRAZODONE 50 MG TABLET PO PRN (19:40)
[2019-04-17] MEDS: MIRTAZAPINE 15 MG TAB PO SCH (19:41)
[2019-04-17] MEDS: PROMOD 30 ML DOSE PO SCH (19:42)
[2019-04-17] MEDS: ATORVASTATIN 40 MG TAB PO SCH (19:44)
[2019-04-18 06:04] LABS: Absolute Lymphocytes (CBC) 0.9 K/uL (0.7-4.9); Basophils % 0.8 % (0-1.3); Hematocrit 32.4 % (39.6-49.0); Lymphocytes % 3.8 % (15.3-44.8); MPV 9.1 fL (7.6-11.3); RBC Red Blood Cell Count 4.14 M/uL (4.33-5.43)
[2019-04-18 06:23] LABS: Albumin 2.8 g/dL (3.4-5.0); Magnesium 3.3 mg/dL (1.8-2.4); Potassium 4.5 mmol/L (3.5-5.1); Prealbumin 9.8 mg/dL (20-40)
[2019-04-18] MEDS: PANTOPRAZOLE 40MG TABLET PO SCH (07:24)
[2019-04-18] MEDS: PROMOD 30 ML DOSE PO SCH ×2 (08:00→19:07)
[2019-04-18] MEDS: LIDOCAINE 4% PATCH TOP SCH (08:31)
[2019-04-18] MEDS: FUROSEMIDE 20 MG TABLET PO SCH (08:32)
[2019-04-18] MEDS: TAMSULOSIN 0.4 MG SR CAP PO SCH (08:32)
[2019-04-18] MEDS: FE SULF/FA/VIT B COMP & C TAB PO SCH (08:32)
[2019-04-18] MEDS: FERROUS SULFATE 325 MG TAB PO SCH (08:32)
[2019-04-18] MEDS: POTASSIUM CL SA 10 MEQ TAB PO SCH (08:32)
[2019-04-18] MEDS: CRANBERRY FRUIT EXTRACT 200 MG CAP PO SCH (08:32)
[2019-04-18] MEDS: APIXABAN 2.5 MG TABLET PO SCH ×2 (08:33→19:08)
[2019-04-18] MEDS: SERTRALINE HCL 50 MG TAB PO SCH (08:34)
[2019-04-18] MEDS: allopurinoL 100 MG TAB PO SCH (08:34)
[2019-04-18] MEDS: CLOPIDOGREL 75 MG TABLET PO SCH (08:34)
[2019-04-18] MEDS: BACLOFEN 10 MG TAB PO SCH (08:34)
[2019-04-18] MEDS: HYDROCODONE/APAP 5/325 MG TAB PO PRN ×2 (09:19→19:08)
[2019-04-18] MEDS: ACETAMINOPHEN 500 MG TAB PO PRN (12:33)
--- NOTE | 2019-04-18 17:24 | FAST ---
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 Jhon Maier M.D. ADMISSION DIAGNOSIS: - Orthopaedic Disorders 08 - Unilateral Hip Fracture (08.11) Left Hip Displaced Femoral Neck Fracture. ROLL LEFT AND RIGHT: ROLL LEFT AND RIGHT - STEP 1: Does the patient complete the activity by him/herself with no assistance (physical, verbal/nonverbal cueing, setup/clean-up)? No. ROLL LEFT AND RIGHT - STEP 2: Does the patient need only setup/clean-up assistance from one helper? No. ROLL LEFT AND RIGHT - STEP 3: Does the patient need only verbal/nonverbal cueing or touching/steadying/contact guard assistance fro m one helper? No. ROLL LEFT AND RIGHT - STEP 4: Does the patient need physical assistance - for example lifting or trunk support from one helper - wi th the helper providing less than half of the effort? Yes. 1. [id number] ADMISSION PERFORMANCE: Partial/moderate assistance CODE: 03 SIT TO LYING: SIT TO LYING - STEP 1: Does the patient complete the activity by him/herself with no assistance (physical, verbal/nonverbal cueing, setup/clean-up)? No. SIT TO LYING - STEP 2: Does the patient need only setup/clean-up assistance from one helper? No. SIT TO LYING - STEP 3: Does the patient need only verbal/nonverbal cueing or touching/steadying/contact guard assistance fro m one helper? No. SIT TO LYING - STEP 4: Does the patient need physical assistance - for example lifting or trunk support from one helper - wi th the helper providing less than half of the effort? Yes. 1. [id number] ADMISSION PERFORMANCE: Partial/moderate assistance CODE: 03 LYING TO SITTING: LYING TO SITTING ON SIDE OF BED - STEP 1: Does the patient complete the activity by him/herself with no assistance (physical, verbal/nonverbal cueing, setup/clean-up)? No. LYING TO SITTING ON SIDE OF BED - STEP 2: Does the patient need only setup/clean-up assistance from one helper? No. LYING TO SITTING ON SIDE OF BED - STEP 3: Does the patient need only verbal/nonverbal cueing or touching/steadying/contact guard assistance fro m one helper? No. LYING TO SITTING ON SIDE OF BED - STEP 4: Does the patient need physical assistance - for example lifting or trunk support from one helper - wi th the helper providing less than half of the effort? Yes. 1. [id number] ADMISSION PERFORMANCE: Partial/moderate assistance CODE: 03 SIT TO STAND: SIT TO STAND - STEP 1: Does the patient complete the activity by him/herself with no assistance (physical, verbal/nonverbal cueing, setup/clean-up)? No. SIT TO STAND - STEP 2: Does the patient need only setup/clean-up assistance from one helper? No. SIT TO STAND - STEP 3: Does the patient need only verbal/nonverbal cueing or touching/steadying/contact guard assistance fro m one helper? No. SIT TO STAND - STEP 4: Does the patient need physical assistance - for example lifting or trunk support from one helper - wi th the helper providing less than half of the effort? Yes. 1. [id number] ADMISSION PERFORMANCE: Partial/moderate assistance CODE: 03 TRANSFERS: BED, CHAIR: CHAIR/[id number] TRANSFER - STEP 1: Does the patient complete the activity by him/herself with no assistance (physical, verbal/nonverbal cueing, setup/clean-up)? No. CHAIR/[id number] TRANSFER - STEP 2: Does the patient need only setup/clean-up assistance from one helper? No. CHAIR/[id number] TRANSFER - STEP 3: Does the patient need only verbal/nonverbal cueing or touching/steadying/contact guard assistance fro m one helper? No. CHAIR/XTN-[id number] TRANSFER - STEP 4: Does the patient need physical assistance - for example lifting or trunk support from one helper - wi th the helper providing less than half of the effort? Yes. 1. [id number] ADMISSION PERFORMANCE: Partial/moderate assistance CODE: 03 TRANSFER TOILET: TOILET TRANSFER - STEP 1: Does the patient complete the activity by him/herself with no assistance (physical, verbal/nonverbal cueing, setup/clean-up)? No. TOILET TRANSFER - STEP 2: Does the patient need only setup/clean-up assistance from one helper? No. TOILET TRANSFER - STEP 3: Does the patient need only verbal/nonverbal cueing or touching/steadying/contact guard assistance fro m one helper? No. TOILET TRANSFER - STEP 4: Does the patient need physical assistance - for example lifting or trunk support from one helper - wi th the helper providing less than half of the effort? Yes. 1. [id number] ADMISSION PERFORMANCE: Partial/moderate assistance CODE: 03 TRANSFERS: CAR: Not attempted due to medical condition or safety concerns CODE: 88 WALK 10 FEET: WALK 10 FEET - STEP 1: Does the patient complete the activity by him/herself with no assistance (physical, verbal/nonverbal cueing, setup/clean-up)? No. WALK 10 FEET - STEP 2: Does the patient need only setup/clean-up assistance from one helper? No. WALK 10 FEET - STEP 3: Does the patient need only verbal/nonverbal cueing or touching/steadying/contact guard assistance fro m one helper? Yes. 1. [id number] ADMISSION PERFORMANCE: Supervision or touching assistance CODE: 04 WALK 50 FEET: Not attempted due to medical condition or safety concerns CODE: 88 WALK 150 FEET: Not attempted due to medical condition or safety concerns CODE: 88 WALK 10 FEET UNEVEN: Not attempted due to medical condition or safety concerns CODE: 88 1 STEP (CURB): Not attempted due to medical condition or safety concerns CODE: 88 PICKING UP OBJECT: Not attempted due to medical condition or safety concerns CODE: 88 DOES THE PATIENT USE A WHEELCHAIR/SCOOTER? Q1. DOES THE PATIENT USE A WHEELCHAIR/SCOOTER?: Yes CODE: 1 WHEEL 50 FEET WITH TWO TURNS: WHEEL 50 FEET WITH TWO TURNS - STEP 1: Does the patient complete the activity by him/herself with no assistance (physical, verbal/nonverbal cueing, setup/clean-up)? No. WHEEL 50 FEET WITH TWO TURNS - STEP 2: Does the patient need only setup/clean-up assistance from one helper? No. WHEEL 50 FEET WITH TWO TURNS - STEP 3: Does the patient need only verbal/nonverbal cueing or touching/steadying/contact guard assistance fro m one helper? No. WHEEL 50 FEET WITH TWO TURNS - STEP 4: Does the patient need physical assistance - for example lifting or trunk support from one helper - wi th the helper providing less than half of the effort? Yes. 1. [id number] ADMISSION PERFORMANCE: Partial/moderate assistance CODE: 03 INDICATE THE TYPE OF WHEELCHAIR/SCOOTER USED: RR1. INDICATE THE TYPE OF WHEELCHAIR/SCOOTER USED.: Manual CODE: 1 WHEEL 150 FEET: WHEEL 150 FEET - STEP 1: Does the patient complete the activity by him/herself with no assistance (physical, verbal/nonverbal cueing, setup/clean-up)? No. WHEEL 150 FEET - STEP 2: Does the patient need only setup/clean-up assistance from one helper? No. WHEEL 150 FEET - STEP 3: Does the patient need only verbal/nonverbal cueing or touching/steadying/contact guard assistance fro m one helper? No. WHEEL 150 FEET - STEP 4: Does the patient need physical assistance - for example lifting or trunk support from one helper - wi th the helper providing less than half of the effort? Yes. 1. [id number] ADMISSION PERFORMANCE: Partial/moderate assistance CODE: 03 INDICATE THE TYPE OF WHEELCHAIR/SCOOTER USED: SS1. INDICATE THE TYPE OF WHEELCHAIR/SCOOTER USED.: Manual CODE: 1 BLADDER AND BOWEL: CODE: EXPR CODE: EXPR SIGNATURE PANEL: The following modified sections: 1. [id number] Admission Performance, 1. [id number] Admission Performance, 1. [id number] Admission Performance, 1. [id number] Admission Performance, 1. [id number] Admission Performance, 1. [id number] Admission Performance, 1. [id number] Admission Performance, Q1. Does the patient use a wheel chair/scooter?, 1. [id number] Admission Performance, RR1. Indicate the type of wheelchair/scooter used., 1. [id number] Admission Performance, Code, SS1. Indicate the type of wheelchair/scooter used. were [jimmie ctronically] signed by Marshall Gan PT on MonApr 18 2019 17:24:06 GMT-0600 ([place] Standard [place])
--- NOTE | 2019-04-18 18:58 | R.PN ---
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 Pt denied any Shortness of Breath. Ambulated 60' with contact guard assistance using a rolling walker. 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 VITAL SIGNS Temperature: 97.0 F SBP/DBP: 119/59 Pulse: 91 Resp: 16 MEDICATION ALLERGIES: No Known Drug Allergies (NKDA) ENVIRONMENTAL ALLERGIES: None Known - Substance Allergies None Known - Other Allergies None Known NURSING: - Shower allowing shower - Skin care per protocol PRECAUTIONS: - Posterior Hip Precaution No adduction across midline No external rotation No hip flexion >90 degrees No internal rotation No wheel chair propulsion - Weight Bearing Precaution WBAT left LE ACTIVITIES OOB only with supervision THERAPIES: - Dietary and Nutrition Adequate Nutrition. Nutritional Education. Nutritional Supplements. PHYSICAL EXAM - Gen Alert and awake Lying in bed No apparent distress Oriented to: person, time, and place - Skin No skin breakdown. Atraumatic - Eyes No abnormalities - ENMT No abnormalities - Neck No abnormalities - CVS RRR - Chest No abnormalities - Resp Decreased breath sounds in both lower lobes - Abd +bowel sounds - GI Non distended Deferred - No abnormalities - Ext Mild left lower extremity edema. - MSK 4+/5 weakness in left lower extremity - Neuro 4/5 strength left lower extremities. - Psych No abnormalities ASSESSMENT: Pt. is a 88 yo Right-handed white male.His impairment category is Orthopaedic Disorders 08 - Unilate ral Hip Fracture (11.25).Pre-morbidly, Pt. was independent/mod-I in Locomotion, Safety Awareness, Bal ance, Social Cognition, Transfers Control, Sphincter Control, Self-Care, Communication, and Endurance ; and he had good Locomotion, Safety Awareness, Balance, Social Cognition, Transfers Control, Sphinct er Control, Self-Care, Communication, and Endurance.Currently, he has deficits of Locomotion, Balance , Safety Awareness, Social Cognition, Transfers Control, Self-Care, and Endurance.Pt. is now referred to [facility] for acute in-patient rehabilitation in order to maximize patien t's functional independence in activities of daily living, strength, ROM, and mobility.- Rehab Goal Patient has realistic goal of being discharged at assistance level 6-Pinky to reside at Home with Fam steven/Relatives. MDM/PLAN: - Physical Therapy Decreased range of motion - to improve, our physical therapists will perform initial evaluation of p t's status upon admission and devise an individualized program for increasing patient's Range of Leroy on. Gait dysfunction - to improve, our physical therapists will perform initial evaluation of pt's statu s upon admission and devise an individualized program for Gait Training, and Wheel Chair mobility Inability to transfer - to improve, our physical therapists will perform initial evaluation of pt's status upon admission and devise an individualized program for Bed mobility Need for home safety evaluation - to improve, our physical therapists will perform initial evaluatio n of pt's status upon admission and devise an individualized program for Home Evaluation Need in caregiver upon discharge - to improve, our physical therapists will perform initial evaluati on of pt's status upon admission and devise an individualized program for Caregiver Training Edema - to improve, our physical therapists will perform initial evaluation of pt's status upon admi ssion and devise an individualized program for Elevation Training, and Lymphedema Therapy New precaution - to improve, our physical therapists will perform initial evaluation of pt's status upon admission and devise an individualized program for Patient precaution education Poor balance - to improve, our physical therapists will perform initial evaluation of pt's status up on admission and devise an individualized program for Balance Training Poor endurance - to improve, our physical therapists will perform initial evaluation of pt's status upon admission and devise an individualized program for Endurance Training Weakness - to improve, our physical therapists will perform initial evaluation of pt's status upon a dmission and devise an individualized program for Aquatic Therapy, Neuromuscular Reeducation, and Str engthening Achieving independence - to improve, our physical therapists will perform initial evaluation of pt's status upon admission and devise an individualized program for Community Reintegration Activities - Occupational Therapy ADL deficits - to improve, our occupation therapists will perform initial evaluation of pt's status upon admission and devise an individualized program for Bathing, Bed mobility, Community Reintegratio n, Cooking, Dressing, Eating, Fine Motor Skills, Grooming, Homemaking, Kitchen Mobility, Laundry, Pat ient Education, Safety Awareness, Splinting - Positioning, Transfers(Toilet, Tub, Shower), and Wheel Chair Management Cognitive deficits - to improve, our occupation therapists will perform initial evaluation of pt's s tatus upon admission and devise an individualized program for Cognition - orientation Need for child care centre manager - to improve, our occupation therapists will perform initial evaluation of pt's status upon admission and devise an individualized program for Caregiver Training Weakness - to improve, our occupation therapists will perform initial evaluation of pt's status upon admission and devise an individualized program for Aquatic Therapy, Balance, Endurance, UE ROM, and UE strengthening - Other See attached MAR (Medication Administration Record) - Anterior Hip Precaution No abduction No active extension No adduction across midline No external rotation No hip flexion >90 degrees No internal rotation - Diet - Liquid Texture Continue Regular - Tube Feed Continue N/A - Diet Type Continue Regular - Posterior Hip Precaution No adduction across midline No external rotation No hip flexion >90 degrees No internal rotation No wheel chair propulsion - Weight Bearing Precaution WBAT left LE - Skin care per protocol - Diet - Solid Texture Continue Regular - Shower allowing shower FUNCTIONAL STATUS: UPDATED AT WEEKLY TEAM CONFERENCE - Bladder Same accident frequency: 7-Ind - No accidents in the past 7 days - Bowel Same accident frequency: 7-Ind - No accidents in the past 7 days - Walking Same score based on distance walked: 0(N/A) Same score based on distance walked: 1(<=50ft) - Wheelchair Same score based on distance traveled: 0(N/A) FUNCTIONAL STATUS: - Self-Care A. Eating Pinky B. Grooming Kamryn C. Bathing modA D. Dressing - Upper Kamryn E. Dressing - Lower modA F. Toileting modA - Sphincter Control G. Bladder control sup H. Bowel control sup - Transfers Control I. Bed/Chair/Wheelchair modA J. Toilet modA K. Tub/Shower modA - Locomotion L. Walk/Wheelchair (B) modA M. Stairs ADNO - Communication N. Comprehension (B) modA O. Expression (B) modA - Social Cognition P. Social Interaction Kamryn Q. Problem Solving modA R. Memory modA - Endurance Fair - Balance Fair - Safety Awareness Poor QI SCORES: - Self-Care A. Eating 05-Setup or clean-up assistance B. Oral hygiene 05-Setup or clean-up assistance C. Toileting hygiene 03-Partial/moderate assistance E. Shower/bathe self 03-Partial/moderate assistance F. Upper body dressing 03-Partial/moderate assistance G. Lower body dressing 02-Substantial/maximal assistance H. Putting on/taking off footwear 02-Substantial/maximal assistance - Mobility A. Roll left and right 03-Partial/moderate assistance B. Sit to lying 02-Substantial/maximal assistance C. Lying to sitting on side of bed 03-Partial/moderate assistance D. Sit to stand 03-Partial/moderate assistance E. Chair/sry-lp-bueks transfer 03-Partial/moderate assistance F. Toilet transfer 03-Partial/moderate assistance G. Car transfer 88-Not attempted due to medical condition or safety concerns I. Walk 10 feet 02-Substantial/maximal assistance J. Walk 50 feet with two turns 88-Not attempted due to medical condition or safety concerns K. Walk 150 feet 88-Not attempted due to medical condition or safety concerns L. Walking 10 feet on uneven surfaces 88-Not attempted due to medical condition or safety concerns M. 1 step (curb) 88-Not attempted due to medical condition or safety concerns N. 4 steps 88-Not attempted due to medical condition or safety concerns O. 12 steps 88-Not attempted due to medical condition or safety concerns P. Picking up object 88-Not attempted due to medical condition or safety concerns R. Wheel 50 feet with two turns 88-Not attempted due to medical condition or safety concerns S. Wheel 150 feet 88-Not attempted due to medical condition or safety concerns - Bladder and Bowel Bladder continence 0-Always continent Bowel continence 0-Always continent - Endurance Fair - Balance Fair - Safety Awareness Fair CURRENT FUNC. DEFICITS: Self-Care, Mobility, Endurance, Balance, and Safety Awareness SIGNATURE PANEL: (SPORTS INTERNSHIP)
[2019-04-18] MEDS: TRAZODONE 50 MG TABLET PO PRN (19:08)
[2019-04-18] MEDS: RIVASTIGMINE 9.5 MG/24 HR PATCH TD SCH (20:18)
[2019-04-18] MEDS: MIRTAZAPINE 15 MG TAB PO SCH (20:18)
[2019-04-18] MEDS: ATORVASTATIN 40 MG TAB PO SCH (20:18)
[2019-04-19] MEDS: hydrOXYzine HCL 25 MG TAB PO PRN ×2 (00:14→23:14)
[2019-04-19] MEDS: HYDROCODONE/APAP 5/325 MG TAB PO PRN ×4 (00:14→23:15)
[2019-04-19] MEDS: PANTOPRAZOLE 40MG TABLET PO SCH (06:18)
[2019-04-19] MEDS: LIDOCAINE 4% PATCH TOP SCH (08:33)
[2019-04-19] MEDS: SERTRALINE HCL 50 MG TAB PO SCH (08:34)
[2019-04-19] MEDS: FE SULF/FA/VIT B COMP & C TAB PO SCH (08:34)
[2019-04-19] MEDS: CRANBERRY FRUIT EXTRACT 200 MG CAP PO SCH (08:34)
[2019-04-19] MEDS: FERROUS SULFATE 325 MG TAB PO SCH (08:34)
[2019-04-19] MEDS: POTASSIUM CL SA 10 MEQ TAB PO SCH (08:34)
[2019-04-19] MEDS: APIXABAN 2.5 MG TABLET PO SCH ×2 (08:35→20:48)
[2019-04-19] MEDS: CLOPIDOGREL 75 MG TABLET PO SCH (08:35)
[2019-04-19] MEDS: TAMSULOSIN 0.4 MG SR CAP PO SCH (08:35)
[2019-04-19] MEDS: PROMOD 30 ML DOSE PO SCH ×2 (08:36→20:49)
[2019-04-19] MEDS: allopurinoL 100 MG TAB PO SCH (08:36)
--- NOTE | 2019-04-19 09:49 | P.RH.PN ---
Estimated Length of Stay: 17 Expected Discharge Date: 04/30/19 Discharge Disposition Plan: Home Family Support: Yes [facility] Goal: Mobility, Transfers, Self Care Vital Signs: Last Vital Signs Temp 98.6 F 04/19/19 06:49 Pulse 74 04/19/19 06:49 Resp 16 04/19/19 06:49 BP 98/59 L 04/19/19 06:49 Pulse Ox 98 04/19/19 06:49 Laboratory: Laboratory Last Values WBC 24.2 K/uL (4.3-10.9) H* 04/18/19 05:44 RBC 4.14 M/uL (4.33-5.43) L 04/18/19 05:44 Hgb 9.9 g/dL (13.6-17.9) L 04/18/19 05:44 Hct 32.4 % (39.6-49.0) L 04/18/19 05:44 MCV 78.1 fL (80-100) L 04/18/19 05:44 MCH 24.0 pg (27.0-35.0) L 04/18/19 05:44 MCHC 30.7 g/dL (32.0-36.0) L 04/18/19 05:44 RDW 18.2 % (12.1-15.2) H 04/18/19 05:44 Plt Count 226 K/uL (152-406) 04/18/19 05:44 MPV 9.1 fL (7.6-11.3) 04/18/19 05:44 Neutrophils % 62.9 % (41.7-73.7) 04/18/19 05:44 Lymphocytes % 3.8 % (15.3-44.8) L 04/18/19 05:44 Monocytes % 2.7 % (3.3-12.3) L 04/18/19 05:44 Eosinophils % 29.8 % (0-4.4) H 04/18/19 05:44 Basophils % 0.8 % (0-1.3) 04/18/19 05:44 Absolute Neutrophils 15.2 K/uL (1.8-8.0) H 04/18/19 05:44 Segmented Neutrophils 47 % (40-80) 04/17/19 06:10 Band Neutrophils 4 % (0-1) H 04/15/19 06:09 Absolute Lymphocytes 0.9 K/uL (0.7-4.9) 04/18/19 05:44 Lymphocytes 5 % (15-42) L 04/17/19 06:10 Monocytes 1 % (0-10) 04/17/19 06:10 Absolute Monocytes 0.6 K/uL (0.1-1.3) 04/18/19 05:44 Eosinophils 45 % (0-3) H 04/17/19 06:10 Absolute Eosinophils 7.2 K/uL (0-0.5) H 04/18/19 05:44 Absolute Basophils 0.2 K/uL (0-0.5) 04/18/19 05:44 Metamyelocytes 2 % (0-0) H 04/17/19 06:10 Nucleated RBCs 1 /100WBC 04/17/19 06:10 Hypochromasia 1+ 04/17/19 06:10 Anisocytosis 1+ 04/17/19 06:10 Microcytosis 1+ 04/17/19 06:10 Macrocytosis Slight 04/17/19 06:10 Elliptocytes 1+ 04/17/19 06:10 Morphology Comment Noted (NOT SEEN) 04/17/19 06:10 Sodium 140 mmol/L (136-145) 04/18/19 05:44 Potassium 4.5 mmol/L (3.5-5.1) 04/18/19 05:44 Chloride 104 mmol/L (98-107) 04/18/19 05:44 Carbon Dioxide 30 mmol/L (21-32) 04/18/19 05:44 BUN 58 mg/dL (7-18) H 04/18/19 05:44 Creatinine 1.75 mg/dL (0.55-1.3) H 04/18/19 05:44 Estimated GFR 37 mL/min (=/>90) L 04/18/19 05:44 Glucose 118 mg/dL (74-106) H 04/18/19 05:44 Lactic Acid 1.4 mmol/L (0.4-2.0) 04/15/19 08:32 Calcium 8.3 mg/dL (8.5-10.1) L 04/18/19 05:44 Magnesium 3.3 mg/dL (1.8-2.4) H D 04/18/19 05:44 Albumin 2.8 g/dL (3.4-5.0) L 04/18/19 05:44 Prealbumin 9.8 mg/dL (20-40) L 04/18/19 05:44 Procalcitonin 0.25 ng/mL (<0.50) 04/15/19 09:32 Urine Color Dk yellow 04/14/19 11:30 Urine Appearance Clear 04/14/19 11:30 Urine pH 5.0 (5.0-7.0) 04/14/19 11:30 Ur Specific [place] 1.020 (1.005-1.030) 04/14/19 11:30 Urine Ketones Negative (NEG) 04/14/19 11:30 Urine Blood Negative (NEG) 04/14/19 11:30 Urine Nitrite Negative (NEG) 04/14/19 11:30 Urine Bilirubin 1+ (NEG) H 04/14/19 11:30 Urine Urobilinogen 1.0 mg/dL (0.2-1.0) 04/14/19 11:30 Ur Leukocyte Esterase Negative (NEG) 04/14/19 11:30 Urine RBC <5 /HPF (NONE SEEN) 04/14/19 11:30 Urine WBC 5-10 /HPF (<5) H 04/14/19 11:30 Ur Squamous Epith Cells <5 /HPF (NONE SEEN) 04/14/19 11:30 Urine Bacteria <20 /HPF (NONE SEEN) 04/14/19 11:30 Urine Mucus Light /HPF (NONE SEEN) 04/14/19 11:30 Urine Culture Reflexed Not needed 04/14/19 11:30 Urine Glucose Negative (NEG) 04/14/19 11:30 Urine Total Protein Trace (NEG) 04/14/19 11:30 Weight: 186 lb 9.6 oz Wound Present: Yes Closed Surgical Incision Present: Yes Negative Pressure Wound Therapy Present: No Physician Update: He is moderate assistance for transfers. Walked 35' with moderate assistance. He is mildly sleepy during the day. His narco frequency will be decreaased to daily and start Tramadol 50 mg q 4 hours as needed. Medical Issues: Patient is incontinent daily with bladder and always continent with bowel Functional Improvement: pt has demonstrated progress throughout the week with functional mobility. pt demonstrates good motivation. Skilled PT services continue to be necessary to further enahnce functional mobility and ensure safety upon return home with his elderly . Speech Therapy Update: Patient cont. to present with moderate cognitive linguistic impairments which can fluctuate to severe when he is drowsy or in a lot of pain. Patient exhibited difficulty sustaining alertness during therapy sessions due to drowsiness from pain medications. However, he is cooperative and really tries his best. Patient obtained a 16/30 on the MMSE indicating moderate cognitive-linguistic impairments characterized by reduced auditory comprehension, reduced attention, working memory, STM, and problem solving skills Summary: Patient's care plan and group home goals have been reviewed and revised as necessary. Please see the Rehabilitation Signature page for all necessary signatures.
[2019-04-19] MEDS: FUROSEMIDE 20 MG TABLET PO SCH (10:04)
[2019-04-19] MEDS: ACETAMINOPHEN 500 MG TAB PO PRN (10:05)
[2019-04-19] MEDS: FUROSEMIDE 40 MG/4 ML VIAL IV SCH (17:47)
--- NOTE | 2019-04-19 19:09 | CON ---
Date of Consultation: 04/19/2019 Reason For Consult: Acute on chronic renal insufficiency. History Of Present Illness: Mr. 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 He underwent left hemiarthroplasty and he has been transferred to [facility] for further management for physical therapy and occupational therapy. The patient was noted to have creatinine of 1.7 and hence Nephrology is be ing consulted for further evaluation. He also has severe lower extremity edema and is complaining of some dysuria and burning with urination. Past Medical History: Significant for history of chronic diastolic heart failure. Coronary artery d isease status post PCI over a year ago. History of dementia and MDS and is being followed by Oncolog y. Social History: The patient lives at home, was living at home prior to this episode with his family. No history of smoking or alcohol use reported. Family History: Noncontributory. Review of Systems: Positive for some dysuria with burning and discomfort on urination. All other review of systems are negative. Physical Examination: Vital Signs: At this time are showing temperature of 98.6, pulse rate of 80, blood pressure of 114/6 8, previously was 98/59. General: He appears in no acute distress. HEENT: Atraumatic head. Chest: Auscultation of the lungs revealed bilateral equal air entry with diminished breath sounds at the bases. Auscultation of the heart reveals irregular rate and rhythm. Abdomen: Soft and nontender. Extremities: Showed 3+ pitting edema in bilateral lower extremities. Current Medications: Include Tylenol as needed for pain, allopurinol 100 mg a day, Eliquis 2.5 mg b. i.d., atorvastatin, Plavix, iron tablets, Fleet enema p.r.n., Lasix 40 mg once a day, hydroxyzine, me tolazone 2.5 mg once a week, lidocaine patch, Remeron, pantoprazole, potassium 30 mEq a day, rivastig mine patch, tamsulosin, and trazodone 50 mg at bedtime. Laboratory Data: Showing sodium of 140, potassium of 4.5, chloride of 104, BUN of 58 and creatinine of 1.75. His previous creatinine was noted to be 1.9 at the time of discharge from [facility]. The patient was noted to have baseline CKD with creatinine baseline around 1.5 or so. Urinalysi s done at the time of admission showed 1+ bilirubin and no evidence of any urinary tract infection. He has had a chest x-ray and a KUB done after he got here. Chest x-ray is showing chronic interstiti al lung disease and possibility of developing pneumonia. KUB x-ray done on the is showing no sm all bowel obstruction or other emergent finding, but constipation was noted. Impression: 1.Acute on chronic renal insufficiency. Patient's renal function seems to be actually slightly bett er than when he was in the hospital. However, he probably sustained an acute kidney injury intraoper atively because of relative hypotension. At this time, the patient is not receiving any nephrotoxic medications; however, we are concerned about significant volume overload with lower extremity edema a nd worsening volume status. At this time given his history of congestive heart failure, we will go a head and switch him to IV Lasix 40 mg b.i.d. for 3 days and monitor him closely. We will also discon tinue the metolazone. 2.Dysuria. We will request another urinalysis with culture to further evaluate. 3.Left hip fracture, status post hemiarthroplasty, undergoing physical therapy. 4.Atrial fibrillation, rate controlled. The patient is on Eliquis for anticoagulation. 5.Debility and weakness, improving. 6.Constipation. The patient is on a bowel regimen. 7.History of BPH. Remains on tamsulosin. 8.History of dementia, on Exelon patch. Plan: Overall, the patient is doing okay at this time. We will request a urinalysis for further soo luation. Also, we will follow up on his volume status closely with IV Lasix. Avoid further hypotens ion and nephrotoxins. May need a bladder scan if he continues to have the discomfort with urination. We will follow up closely. Thank you very much for this consultation. Please do not hesitate to call us with any questions or c oncerns. BHARAT/CHELSEA Voice ID: [id number] Report ID: [id number]
[2019-04-19] MEDS: ATORVASTATIN 40 MG TAB PO SCH (20:48)
[2019-04-19] MEDS: TRAZODONE 50 MG TABLET PO SCH (20:49)
[2019-04-19] MEDS: RIVASTIGMINE 9.5 MG/24 HR PATCH TD SCH (20:52)
[2019-04-19] MEDS: MIRTAZAPINE 15 MG TAB PO SCH (20:52)
[2019-04-19] MEDS: DOCUSATE NA/SENNA CONC 1 TAB PO PRN (23:17)
--- NOTE | 2019-04-20 02:35 | FAST ---
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 Jhon Maier M.D. ADMISSION DIAGNOSIS: - Orthopaedic Disorders 08 - Unilateral Hip Fracture (08.11) Left Hip Displaced Femoral Neck Fracture. EATING: Not assessed/no information CODE: - ORAL HYGIENE: Not assessed/no information CODE: - TOILETING HYGIENE: TOILETING HYGIENE - STEP 1: Does the patient complete the activity by him/herself with no assistance (physical, verbal/nonverbal cueing, setup/clean-up)? No. TOILETING HYGIENE - STEP 2: Does the patient need only setup/clean-up assistance from one helper? No. TOILETING HYGIENE - STEP 3: Does the patient need only verbal/nonverbal cueing or touching/steadying/contact guard assistance fro m one helper? No. TOILETING HYGIENE - STEP 4: Does the patient need physical assistance - for example lifting or trunk support from one helper - wi th the helper providing less than half of the effort? Yes. 1. [id number] ADMISSION PERFORMANCE: Partial/moderate assistance CODE: 03 BATHING: Not assessed/no information CODE: - DRESSING - UPPER BODY: Not assessed/no information CODE: - DRESSING - LOWER BODY: Not assessed/no information CODE: - PUTTING ON/TAKING OFF FOOTWEAR: Not assessed/no information CODE: - ROLL LEFT AND RIGHT: ROLL LEFT AND RIGHT - STEP 1: Does the patient complete the activity by him/herself with no assistance (physical, verbal/nonverbal cueing, setup/clean-up)? No. ROLL LEFT AND RIGHT - STEP 2: Does the patient need only setup/clean-up assistance from one helper? No. ROLL LEFT AND RIGHT - STEP 3: Does the patient need only verbal/nonverbal cueing or touching/steadying/contact guard assistance fro m one helper? No. ROLL LEFT AND RIGHT - STEP 4: Does the patient need physical assistance - for example lifting or trunk support from one helper - wi th the helper providing less than half of the effort? Yes. 1. [id number] ADMISSION PERFORMANCE: Partial/moderate assistance CODE: 03 SIT TO LYING: SIT TO LYING - STEP 1: Does the patient complete the activity by him/herself with no assistance (physical, verbal/nonverbal cueing, setup/clean-up)? No. SIT TO LYING - STEP 2: Does the patient need only setup/clean-up assistance from one helper? No. SIT TO LYING - STEP 3: Does the patient need only verbal/nonverbal cueing or touching/steadying/contact guard assistance fro m one helper? No. SIT TO LYING - STEP 4: Does the patient need physical assistance - for example lifting or trunk support from one helper - wi th the helper providing less than half of the effort? Yes. 1. [id number] ADMISSION PERFORMANCE: Partial/moderate assistance CODE: 03 LYING TO SITTING: LYING TO SITTING ON SIDE OF BED - STEP 1: Does the patient complete the activity by him/herself with no assistance (physical, verbal/nonverbal cueing, setup/clean-up)? No. LYING TO SITTING ON SIDE OF BED - STEP 2: Does the patient need only setup/clean-up assistance from one helper? No. LYING TO SITTING ON SIDE OF BED - STEP 3: Does the patient need only verbal/nonverbal cueing or touching/steadying/contact guard assistance fro m one helper? No. LYING TO SITTING ON SIDE OF BED - STEP 4: Does the patient need physical assistance - for example lifting or trunk support from one helper - wi th the helper providing less than half of the effort? Yes. 1. [id number] ADMISSION PERFORMANCE: Partial/moderate assistance CODE: 03 SIT TO STAND: SIT TO STAND - STEP 1: Does the patient complete the activity by him/herself with no assistance (physical, verbal/nonverbal cueing, setup/clean-up)? No. SIT TO STAND - STEP 2: Does the patient need only setup/clean-up assistance from one helper? No. SIT TO STAND - STEP 3: Does the patient need only verbal/nonverbal cueing or touching/steadying/contact guard assistance fro m one helper? No. SIT TO STAND - STEP 4: Does the patient need physical assistance - for example lifting or trunk support from one helper - wi th the helper providing less than half of the effort? Yes. 1. [id number] ADMISSION PERFORMANCE: Partial/moderate assistance CODE: 03 TRANSFERS: BED, CHAIR: CHAIR/[id number] TRANSFER - STEP 1: Does the patient complete the activity by him/herself with no assistance (physical, verbal/nonverbal cueing, setup/clean-up)? No. CHAIR/[id number] TRANSFER - STEP 2: Does the patient need only setup/clean-up assistance from one helper? No. CHAIR/[id number] TRANSFER - STEP 3: Does the patient need only verbal/nonverbal cueing or touching/steadying/contact guard assistance fro m one helper? No. CHAIR/[id number] TRANSFER - STEP 4: Does the patient need physical assistance - for example lifting or trunk support from one helper - wi th the helper providing less than half of the effort? Yes. 1. [id number] ADMISSION PERFORMANCE: Partial/moderate assistance CODE: 03 TRANSFER TOILET: TOILET TRANSFER - STEP 1: Does the patient complete the activity by him/herself with no assistance (physical, verbal/nonverbal cueing, setup/clean-up)? No. TOILET TRANSFER - STEP 2: Does the patient need only setup/clean-up assistance from one helper? No. TOILET TRANSFER - STEP 3: Does the patient need only verbal/nonverbal cueing or touching/steadying/contact guard assistance fro m one helper? No. TOILET TRANSFER - STEP 4: Does the patient need physical assistance - for example lifting or trunk support from one helper - wi th the helper providing less than half of the effort? Yes. 1. [id number] ADMISSION PERFORMANCE: Partial/moderate assistance CODE: 03 TRANSFERS: CAR: Not assessed/no information CODE: - WALK 10 FEET: Not assessed/no information CODE: - 1 STEP (CURB): Not assessed/no information CODE: - PICKING UP OBJECT: Not assessed/no information CODE: - DOES THE PATIENT USE A WHEELCHAIR/SCOOTER? CODE: EXPR WHEEL 50 FEET WITH TWO TURNS: Not assessed/no information CODE: - INDICATE THE TYPE OF WHEELCHAIR/SCOOTER USED: CODE: EXPR WHEEL 150 FEET: Not assessed/no information CODE: - INDICATE THE TYPE OF WHEELCHAIR/SCOOTER USED: CODE: EXPR BLADDER AND BOWEL: H350. BLADDER CONTINENCE (3-DAY ASSESSMENT PERIOD): Always continent (no documented incontinence) CODE: 0 H400. BOWEL CONTINENCE (3-DAY ASSESSMENT PERIOD): Always continent CODE: 0
[2019-04-20] MEDS: PANTOPRAZOLE 40MG TABLET PO SCH (06:30)
[2019-04-20 07:00] LABS: Potassium 3.6 mmol/L (3.5-5.1)
[2019-04-20] MEDS: LIDOCAINE 4% PATCH TOP SCH (08:28)
[2019-04-20] MEDS: CRANBERRY FRUIT EXTRACT 200 MG CAP PO SCH (08:29)
[2019-04-20] MEDS: POTASSIUM CL SA 10 MEQ TAB PO SCH (08:29)
[2019-04-20] MEDS: TAMSULOSIN 0.4 MG SR CAP PO SCH (08:29)
[2019-04-20] MEDS: FE SULF/FA/VIT B COMP & C TAB PO SCH (08:29)
[2019-04-20] MEDS: CLOPIDOGREL 75 MG TABLET PO SCH (08:29)
[2019-04-20] MEDS: VITAMIN D 5,000 UNIT CAP PO SCH (08:29)
[2019-04-20] MEDS: APIXABAN 2.5 MG TABLET PO SCH ×2 (08:30→20:03)
[2019-04-20] MEDS: HYDROCODONE/APAP 5/325 MG TAB PO PRN ×3 (08:30→16:24)
[2019-04-20] MEDS: allopurinoL 100 MG TAB PO SCH (08:30)
[2019-04-20] MEDS: FERROUS SULFATE 325 MG TAB PO SCH (08:30)
[2019-04-20] MEDS: PROMOD 30 ML DOSE PO SCH ×2 (08:31→20:05)
[2019-04-20] MEDS: FUROSEMIDE 40 MG/4 ML VIAL IV SCH ×2 (09:09→16:48)
[2019-04-20 10:29] LABS: Urine Appearance CLEAR; Urine Bilirubin NEGATIVE (NEG); Urine Blood NEGATIVE (NEG); Urine Color YELLOW; Urine Glucose NEGATIVE (NEG); Urine Protein NEGATIVE (NEG); Urine Specific Gravity 1.015 (1.005-1.030); Urine pH 5.5 (5.0-7.0)
[2019-04-20 11:01] LABS: Urine Bacteria <20 /HPF (NONE SEEN); Urine Culture Reflex Order NOT NEEDED; Urine RBC NONE SEEN /HPF (NONE SEEN)
--- NOTE | 2019-04-20 14:06 | RAD REPORT ---
EXAM DESCRIPTION: RAD - Chest Single View - 04/20/2019 1:36 pm CLINICAL HISTORY: SOB on exertion COMPARISON: Chest 04/15/2019. TECHNIQUE: AP portable chest image was obtained 04/20/2019 1:36 pm . FINDINGS: Prominent baseline interstitial fibrotic pattern is present. Focal airspace opacification is present in the right midlung field. New right apex opacification is present. This could be infiltr ate or pleural effusion. A mass would not develop over the short interval since April 15. Cardiomegaly is present. Vasculature is only mildly prominent. Left costophrenic angle blunting pers ists. No pneumothorax. No acute bony abnormality seen. No acute aortic findings suspected. IMPRESSION: Right midlung field pneumonia changes are present. New right apex opacification could be pleural effusion or infiltrate. Left pleural effusion persists. Cardiomegaly. Failure/volume overload in a mild form may be present as well.
[2019-04-20] MEDS: ALPRAZOLAM 0.25 MG TABLET PO PRN (14:51)
--- NOTE | 2019-04-20 19:59 | RAD REPORT ---
EXAM DESCRIPTION: RAD - Hip Left 2 View - 04/20/2019 5:00 pm CLINICAL HISTORY: Left hip fracture, prosthesis placement March 2019, increasing pain COMPARISON: Preoperative April 10 imaging FINDINGS: AP and slightly oblique view of the left hip obtained. Bipolar prosthesis in place. Implan t is well positioned. There is no dislocation. No fracture of the proximal femur. No left bony pelvic fracture identifiable. SI joint degenerative changes are present and mild. No periarticular mass or hematoma suspected. IMPRESSION: Left bipolar prosthesis shows no suspicious or unexpected finding. No acute bone finding.
[2019-04-20] MEDS: HYDROCODONE/APAP 5/325 MG TAB PO SCH (20:03)
[2019-04-20] MEDS: TRAZODONE 50 MG TABLET PO SCH (20:04)
[2019-04-20] MEDS: ATORVASTATIN 40 MG TAB PO SCH (20:04)
[2019-04-20] MEDS: MIRTAZAPINE 15 MG TAB PO SCH (20:04)
[2019-04-20] MEDS: hydrOXYzine HCL 25 MG TAB PO PRN (20:04)
[2019-04-20] MEDS: DOCUSATE NA/SENNA CONC 1 TAB PO PRN (20:05)
[2019-04-20] MEDS: RIVASTIGMINE 9.5 MG/24 HR PATCH TD SCH (20:06)
[2019-04-20] MEDS ORDERED: levoFLOXacin 500 MG TAB PO ONE (21:00)
[2019-04-21] MEDS: ALPRAZOLAM 0.25 MG TABLET PO PRN ×2 (03:05→10:41)
[2019-04-21] MEDS: PANTOPRAZOLE 40MG TABLET PO SCH (05:34)
[2019-04-21] MEDS: ACETAMINOPHEN 500 MG TAB PO PRN ×2 (05:35→14:09)
[2019-04-21] MEDS: LIDOCAINE 4% PATCH TOP SCH (07:10)
[2019-04-21] MEDS: HYDROCODONE/APAP 5/325 MG TAB PO PRN ×3 (07:10→16:34)
[2019-04-21] MEDS: LACTULOSE 20 GM/30 ML UCUP PO PRN (07:12)
[2019-04-21] MEDS: FUROSEMIDE 40 MG/4 ML VIAL IV SCH ×2 (07:13→16:37)
[2019-04-21] MEDS: CRANBERRY FRUIT EXTRACT 200 MG CAP PO SCH (08:04)
[2019-04-21] MEDS: APIXABAN 2.5 MG TABLET PO SCH ×2 (08:04→20:50)
[2019-04-21] MEDS: POTASSIUM CL SA 10 MEQ TAB PO SCH (08:05)
[2019-04-21] MEDS: VITAMIN D 5,000 UNIT CAP PO SCH (08:05)
[2019-04-21] MEDS: allopurinoL 100 MG TAB PO SCH (08:05)
[2019-04-21] MEDS: FERROUS SULFATE 325 MG TAB PO SCH (08:05)
[2019-04-21] MEDS: CLOPIDOGREL 75 MG TABLET PO SCH (08:05)
[2019-04-21] MEDS: FE SULF/FA/VIT B COMP & C TAB PO SCH (08:05)
[2019-04-21] MEDS: PROMOD 30 ML DOSE PO SCH ×2 (08:05→20:50)
[2019-04-21] MEDS: TAMSULOSIN 0.4 MG SR CAP PO SCH (08:05)
[2019-04-21] MEDS: NYSTATIN 500,000 UNIT/5 ML UDC PO SCH ×2 (14:10→20:56)
[2019-04-21] MEDS: MIRTAZAPINE 15 MG TAB PO SCH (20:51)
[2019-04-21] MEDS: HYDROCODONE/APAP 5/325 MG TAB PO SCH (20:51)
[2019-04-21] MEDS: ATORVASTATIN 40 MG TAB PO SCH (20:52)
[2019-04-21] MEDS: TRAZODONE 50 MG TABLET PO SCH (20:52)
[2019-04-21] MEDS: hydrOXYzine HCL 25 MG TAB PO PRN (20:52)
[2019-04-21] MEDS: levoFLOXacin 250 MG TAB PO SCH (20:52)
[2019-04-21] MEDS: RIVASTIGMINE 9.5 MG/24 HR PATCH TD SCH (20:53)
[2019-04-22] MEDS: ACETAMINOPHEN 500 MG TAB PO PRN (00:36)
[2019-04-22] MEDS: ALPRAZOLAM 0.25 MG TABLET PO PRN ×3 (00:37→21:26)
[2019-04-22] MEDS: PANTOPRAZOLE 40MG TABLET PO SCH (06:22)
[2019-04-22] MEDS: NYSTATIN 500,000 UNIT/5 ML UDC PO SCH ×4 (08:42→19:48)
[2019-04-22] MEDS: TAMSULOSIN 0.4 MG SR CAP PO SCH ×2 (08:43→19:50)
[2019-04-22] MEDS: CRANBERRY FRUIT EXTRACT 200 MG CAP PO SCH (08:43)
[2019-04-22] MEDS: allopurinoL 100 MG TAB PO SCH (08:43)
[2019-04-22] MEDS: FUROSEMIDE 40 MG/4 ML VIAL IV SCH ×2 (08:43→16:55)
[2019-04-22] MEDS: POTASSIUM CL SA 10 MEQ TAB PO SCH (08:44)
[2019-04-22] MEDS: CLOPIDOGREL 75 MG TABLET PO SCH (08:44)
[2019-04-22] MEDS: APIXABAN 2.5 MG TABLET PO SCH ×2 (08:44→19:50)
[2019-04-22] MEDS: VITAMIN D 5,000 UNIT CAP PO SCH (08:44)
[2019-04-22] MEDS: FERROUS SULFATE 325 MG TAB PO SCH (08:44)
[2019-04-22] MEDS: HYDROCODONE/APAP 5/325 MG TAB PO PRN ×2 (08:44→12:14)
[2019-04-22] MEDS: LIDOCAINE 4% PATCH TOP SCH (08:45)
[2019-04-22] MEDS: FE SULF/FA/VIT B COMP & C TAB PO SCH (08:45)
[2019-04-22] MEDS: PROMOD 30 ML DOSE PO SCH ×2 (08:45→19:50)
--- NOTE | 2019-04-22 11:07 | FAST ---
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 Jhon Maier M.D. ADMISSION DIAGNOSIS: - Orthopaedic Disorders 08 - Unilateral Hip Fracture (08.11) Left Hip Displaced Femoral Neck Fracture. EATING: EATING - STEP 1: Does the patient complete the activity by him/herself with no assistance (physical, verbal/nonverbal cueing, setup/clean-up)? No. EATING - STEP 2: Does the patient need only setup/clean-up assistance from one helper? No. EATING - STEP 3: Does the patient need only verbal/nonverbal cueing or touching/steadying/contact guard assistance fro m one helper? No. EATING - STEP 4: Does the patient need physical assistance - for example lifting or trunk support from one helper - wi th the helper providing less than half of the effort? Yes. 1. [id number] ADMISSION PERFORMANCE: Partial/moderate assistance CODE: 03 ORAL HYGIENE: ORAL HYGIENE - STEP 1: Does the patient complete the activity by him/herself with no assistance (physical, verbal/nonverbal cueing, setup/clean-up)? No. ORAL HYGIENE - STEP 2: Does the patient need only setup/clean-up assistance from one helper? No. ORAL HYGIENE - STEP 3: Does the patient need only verbal/nonverbal cueing or touching/steadying/contact guard assistance fro m one helper? Yes. 1. [id number] ADMISSION PERFORMANCE: Supervision or touching assistance CODE: 04 TOILETING HYGIENE: TOILETING HYGIENE - STEP 1: Does the patient complete the activity by him/herself with no assistance (physical, verbal/nonverbal cueing, setup/clean-up)? No. TOILETING HYGIENE - STEP 2: Does the patient need only setup/clean-up assistance from one helper? No. TOILETING HYGIENE - STEP 3: Does the patient need only verbal/nonverbal cueing or touching/steadying/contact guard assistance fro m one helper? No. TOILETING HYGIENE - STEP 4: Does the patient need physical assistance - for example lifting or trunk support from one helper - wi th the helper providing less than half of the effort? Yes. 1. [id number] ADMISSION PERFORMANCE: Partial/moderate assistance CODE: 03 BATHING: Not assessed/no information CODE: - DRESSING - UPPER BODY: Not assessed/no information CODE: - DRESSING - LOWER BODY: Not assessed/no information CODE: - PUTTING ON/TAKING OFF FOOTWEAR: Not assessed/no information CODE: - ROLL LEFT AND RIGHT: ROLL LEFT AND RIGHT - STEP 1: Does the patient complete the activity by him/herself with no assistance (physical, verbal/nonverbal cueing, setup/clean-up)? No. ROLL LEFT AND RIGHT - STEP 2: Does the patient need only setup/clean-up assistance from one helper? No. ROLL LEFT AND RIGHT - STEP 3: Does the patient need only verbal/nonverbal cueing or touching/steadying/contact guard assistance fro m one helper? No. ROLL LEFT AND RIGHT - STEP 4: Does the patient need physical assistance - for example lifting or trunk support from one helper - wi th the helper providing less than half of the effort? Yes. 1. [id number] ADMISSION PERFORMANCE: Partial/moderate assistance CODE: 03 SIT TO LYING: SIT TO LYING - STEP 1: Does the patient complete the activity by him/herself with no assistance (physical, verbal/nonverbal cueing, setup/clean-up)? No. SIT TO LYING - STEP 2: Does the patient need only setup/clean-up assistance from one helper? No. SIT TO LYING - STEP 3: Does the patient need only verbal/nonverbal cueing or touching/steadying/contact guard assistance fro m one helper? No. SIT TO LYING - STEP 4: Does the patient need physical assistance - for example lifting or trunk support from one helper - wi th the helper providing less than half of the effort? Yes. 1. [id number] ADMISSION PERFORMANCE: Partial/moderate assistance CODE: 03 LYING TO SITTING: LYING TO SITTING ON SIDE OF BED - STEP 1: Does the patient complete the activity by him/herself with no assistance (physical, verbal/nonverbal cueing, setup/clean-up)? No. LYING TO SITTING ON SIDE OF BED - STEP 2: Does the patient need only setup/clean-up assistance from one helper? No. LYING TO SITTING ON SIDE OF BED - STEP 3: Does the patient need only verbal/nonverbal cueing or touching/steadying/contact guard assistance fro m one helper? No. LYING TO SITTING ON SIDE OF BED - STEP 4: Does the patient need physical assistance - for example lifting or trunk support from one helper - wi th the helper providing less than half of the effort? Yes. 1. [id number] ADMISSION PERFORMANCE: Partial/moderate assistance CODE: 03 SIT TO STAND: SIT TO STAND - STEP 1: Does the patient complete the activity by him/herself with no assistance (physical, verbal/nonverbal cueing, setup/clean-up)? No. SIT TO STAND - STEP 2: Does the patient need only setup/clean-up assistance from one helper? No. SIT TO STAND - STEP 3: Does the patient need only verbal/nonverbal cueing or touching/steadying/contact guard assistance fro m one helper? No. SIT TO STAND - STEP 4: Does the patient need physical assistance - for example lifting or trunk support from one helper - wi th the helper providing less than half of the effort? Yes. 1. [id number] ADMISSION PERFORMANCE: Partial/moderate assistance CODE: 03 TRANSFERS: BED, CHAIR: CHAIR/[id number] TRANSFER - STEP 1: Does the patient complete the activity by him/herself with no assistance (physical, verbal/nonverbal cueing, setup/clean-up)? No. CHAIR/[id number] TRANSFER - STEP 2: Does the patient need only setup/clean-up assistance from one helper? No. CHAIR/[id number] TRANSFER - STEP 3: Does the patient need only verbal/nonverbal cueing or touching/steadying/contact guard assistance fro m one helper? No. CHAIR/[id number] TRANSFER - STEP 4: Does the patient need physical assistance - for example lifting or trunk support from one helper - wi th the helper providing less than half of the effort? Yes. 1. [id number] ADMISSION PERFORMANCE: Partial/moderate assistance CODE: 03 TRANSFER TOILET: TOILET TRANSFER - STEP 1: Does the patient complete the activity by him/herself with no assistance (physical, verbal/nonverbal cueing, setup/clean-up)? No. TOILET TRANSFER - STEP 2: Does the patient need only setup/clean-up assistance from one helper? No. TOILET TRANSFER - STEP 3: Does the patient need only verbal/nonverbal cueing or touching/steadying/contact guard assistance fro m one helper? No. TOILET TRANSFER - STEP 4: Does the patient need physical assistance - for example lifting or trunk support from one helper - wi th the helper providing less than half of the effort? Yes. 1. [id number] ADMISSION PERFORMANCE: Partial/moderate assistance CODE: 03 TRANSFERS: CAR: Not assessed/no information CODE: - WALK 10 FEET: Not assessed/no information CODE: - 1 STEP (CURB): Not assessed/no information CODE: - PICKING UP OBJECT: Not assessed/no information CODE: - DOES THE PATIENT USE A WHEELCHAIR/SCOOTER? CODE: EXPR WHEEL 50 FEET WITH TWO TURNS: Not assessed/no information CODE: - INDICATE THE TYPE OF WHEELCHAIR/SCOOTER USED: CODE: EXPR WHEEL 150 FEET: Not assessed/no information CODE: - INDICATE THE TYPE OF WHEELCHAIR/SCOOTER USED: CODE: EXPR BLADDER AND BOWEL: H350. BLADDER CONTINENCE (3-DAY ASSESSMENT PERIOD): Always continent (no documented incontinence) CODE: 0 H400. BOWEL CONTINENCE (3-DAY ASSESSMENT PERIOD): Always continent CODE: 0 SIGNATURE PANEL: The following modified sections: 1. [id number] Admission Performance, 1. [id number] Admission Performance, 1. [id number] Admission Performance, 1. [id number] Admission Performance, 1. [id number] Admission Performance, 1. [id number] Admission Performance, 1. [id number] Admission Performance, 1. [id number] Admission Performance , 1. [id number] Admission Performance, 1. [id number] Admission Performance, 1. FY4338Y Admission Performanc e, Code, H350. Bladder Continence (3-day assessment period), H400. Bowel Continence (3-day assessment period) were [electronically] signed by Mateo Blue on MonApr 22 2019 11:06:44 GMT-0600 ([place] Time)
--- NOTE | 2019-04-22 12:19 | FAST ---
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 Jhon Maier M.D. ADMISSION DIAGNOSIS: - Orthopaedic Disorders 08 - Unilateral Hip Fracture (08.11) Left Hip Displaced Femoral Neck Fracture. EATING: Not assessed/no information CODE: - ORAL HYGIENE: ORAL HYGIENE - STEP 1: Does the patient complete the activity by him/herself with no assistance (physical, verbal/nonverbal cueing, setup/clean-up)? No. ORAL HYGIENE - STEP 2: Does the patient need only setup/clean-up assistance from one helper? Yes. 1. [id number] ADMISSION PERFORMANCE: Setup or clean-up assistance CODE: 05 TOILETING HYGIENE: Not assessed/no information CODE: - BATHING: SHOWER/BATHE SELF - STEP 1: Does the patient complete the activity by him/herself with no assistance (physical, verbal/nonverbal cueing, setup/clean-up)? No. SHOWER/BATHE SELF - STEP 2: Does the patient need only setup/clean-up assistance from one helper? No. SHOWER/BATHE SELF - STEP 3: Does the patient need only verbal/nonverbal cueing or touching/steadying/contact guard assistance fro m one helper? Yes. 1. [id number] ADMISSION PERFORMANCE: Supervision or touching assistance CODE: 04 DRESSING - UPPER BODY: DRESSING - UPPER BODY - STEP 1: Does the patient complete the activity by him/herself with no assistance (physical, verbal/nonverbal cueing, setup/clean-up)? No. DRESSING - UPPER BODY - STEP 2: Does the patient need only setup/clean-up assistance from one helper? No. DRESSING - UPPER BODY - STEP 3: Does the patient need only verbal/nonverbal cueing or touching/steadying/contact guard assistance fro m one helper? Yes. 1. [id number] ADMISSION PERFORMANCE: Supervision or touching assistance CODE: 04 DRESSING - LOWER BODY: DRESSING - LOWER BODY - STEP 1: Does the patient complete the activity by him/herself with no assistance (physical, verbal/nonverbal cueing, setup/clean-up)? No. DRESSING - LOWER BODY - STEP 2: Does the patient need only setup/clean-up assistance from one helper? No. DRESSING - LOWER BODY - STEP 3: Does the patient need only verbal/nonverbal cueing or touching/steadying/contact guard assistance fro m one helper? No. DRESSING - LOWER BODY - STEP 4: Does the patient need physical assistance - for example lifting or trunk support from one helper - wi th the helper providing less than half of the effort? No. DRESSING - LOWER BODY - STEP 5: Does the patient need physical assistance - for example lifting or trunk support from one helper - wi th the helper providing more than half of the effort? Yes. 1. [id number] ADMISSION PERFORMANCE: Substantial/maximal assistance CODE: 02 PUTTING ON/TAKING OFF FOOTWEAR: FOOTWEAR - STEP 1: Does the patient complete the activity by him/herself with no assistance (physical, verbal/nonverbal cueing, setup/clean-up)? No. FOOTWEAR - STEP 2: Does the patient need only setup/clean-up assistance from one helper? No. FOOTWEAR - STEP 3: Does the patient need only verbal/nonverbal cueing or touching/steadying/contact guard assistance fro m one helper? No. FOOTWEAR - STEP 4: Does the patient need physical assistance - for example lifting or trunk support from one helper - wi th the helper providing less than half of the effort? No. FOOTWEAR - STEP 5: Does the patient need physical assistance - for example lifting or trunk support from one helper - wi th the helper providing more than half of the effort? Yes. 1. [id number] ADMISSION PERFORMANCE: Substantial/maximal assistance CODE: 02 DOES THE PATIENT USE A WHEELCHAIR/SCOOTER? CODE: EXPR INDICATE THE TYPE OF WHEELCHAIR/SCOOTER USED: CODE: EXPR INDICATE THE TYPE OF WHEELCHAIR/SCOOTER USED: CODE: EXPR BLADDER AND BOWEL: CODE: EXPR CODE: EXPR SIGNATURE PANEL: The following modified sections: 1. [id number] Admission Performance, 1. AE3548c Admission Performance, 1. LU1069e Admission Performance, 1. MM1612c Admission Performance, 1. OF5699f Admission Performance, 1. AJ4979s Admission Performance, 1. WP8549b Admission Performance were [electronically] signed by ADA Crystal on MonApr 22 2019 12:19:07 GMT-0600 (Central Standard Time)
[2019-04-22] MEDS: hydrOXYzine HCL 25 MG TAB PO PRN ×2 (15:47→21:26)
--- NOTE | 2019-04-22 18:33 | R.PN ---
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 Pt denied any Shortness of Breath. Ambulated 60' with contact guard assistance using a rolling walker. 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 Left hip x-ray shows no suspicious findings. Chest x-ray shows right midlung field pneumonia and mild volume overload pattern. Propelled wheelchair 180' with minimum assistance. VITAL SIGNS Temperature: 97.7 F SBP/DBP: 118/77 Pulse: 95 Resp: 16 MEDICATION ALLERGIES: No Known Drug Allergies (NKDA) ENVIRONMENTAL ALLERGIES: None Known - Substance Allergies None Known - Other Allergies None Known NURSING: - Shower allowing shower - Skin care per protocol PRECAUTIONS: - Posterior Hip Precaution No adduction across midline No external rotation No hip flexion >90 degrees No internal rotation No wheel chair propulsion - Weight Bearing Precaution WBAT left LE ACTIVITIES OOB only with supervision THERAPIES: - Dietary and Nutrition Adequate Nutrition. Nutritional Education. Nutritional Supplements. PHYSICAL EXAM - Gen Alert and awake Lying in bed No apparent distress Oriented to: person, time, and place - Skin No skin breakdown. Atraumatic - Eyes No abnormalities - ENMT No abnormalities - Neck No abnormalities - CVS RRR - Chest No abnormalities - Resp Decreased breath sounds in both lower lobes - Abd +bowel sounds - GI Non distended Deferred - No abnormalities - Ext Mild left lower extremity edema. - MSK 4+/5 weakness in left lower extremity - Neuro 4/5 strength left lower extremities. - Psych No abnormalities ASSESSMENT: Pt. is a 88 yo Right-handed white male.His impairment category is Orthopaedic Disorders 08 - Unilate ral Hip Fracture (08.11).Pre-morbidly, Pt. was independent/mod-I in Locomotion, Safety Awareness, Bal ance, Social Cognition, Transfers Control, Sphincter Control, Self-Care, Communication, and Endurance ; and he had good Locomotion, Safety Awareness, Balance, Social Cognition, Transfers Control, Sphinct er Control, Self-Care, Communication, and Endurance.Currently, he has deficits of Locomotion, Balance , Safety Awareness, Social Cognition, Transfers Control, Self-Care, and Endurance.Pt. is now referred to [facility] for acute in-patient rehabilitation in order to maximize patien t's functional independence in activities of daily living, strength, ROM, and mobility.- Rehab Goal Patient has realistic goal of being discharged at assistance level 6-Pinky to reside at Home with Fam steven/Relatives. MDM/PLAN: - Physical Therapy Decreased range of motion - to improve, our physical therapists will perform initial evaluation of p t's status upon admission and devise an individualized program for increasing patient's Range of Leroy on. Gait dysfunction - to improve, our physical therapists will perform initial evaluation of pt's statu s upon admission and devise an individualized program for Gait Training, and Wheel Chair mobility Inability to transfer - to improve, our physical therapists will perform initial evaluation of pt's status upon admission and devise an individualized program for Bed mobility Need for home safety evaluation - to improve, our physical therapists will perform initial evaluatio n of pt's status upon admission and devise an individualized program for Home Evaluation Need in caregiver upon discharge - to improve, our physical therapists will perform initial evaluati on of pt's status upon admission and devise an individualized program for Caregiver Training Edema - to improve, our physical therapists will perform initial evaluation of pt's status upon admi ssion and devise an individualized program for Elevation Training, and Lymphedema Therapy New precaution - to improve, our physical therapists will perform initial evaluation of pt's status upon admission and devise an individualized program for Patient precaution education Poor balance - to improve, our physical therapists will perform initial evaluation of pt's status up on admission and devise an individualized program for Balance Training Poor endurance - to improve, our physical therapists will perform initial evaluation of pt's status upon admission and devise an individualized program for Endurance Training Weakness - to improve, our physical therapists will perform initial evaluation of pt's status upon a dmission and devise an individualized program for Aquatic Therapy, Neuromuscular Reeducation, and Str engthening Achieving independence - to improve, our physical therapists will perform initial evaluation of pt's status upon admission and devise an individualized program for Community Reintegration Activities - Occupational Therapy ADL deficits - to improve, our occupation therapists will perform initial evaluation of pt's status upon admission and devise an individualized program for Bathing, Bed mobility, Community Reintegratio n, Cooking, Dressing, Eating, Fine Motor Skills, Grooming, Homemaking, Kitchen Mobility, Laundry, Pat ient Education, Safety Awareness, Splinting - Positioning, Transfers(Toilet, Tub, Shower), and Wheel Chair Management Cognitive deficits - to improve, our occupation therapists will perform initial evaluation of pt's s tatus upon admission and devise an individualized program for Cognition - orientation Need for career portals teacher - to improve, our occupation therapists will perform initial evaluation of pt's status upon admission and devise an individualized program for Caregiver Training Weakness - to improve, our occupation therapists will perform initial evaluation of pt's status upon admission and devise an individualized program for Aquatic Therapy, Balance, Endurance, UE ROM, and UE strengthening - Other See attached MAR (Medication Administration Record) - Anterior Hip Precaution No abduction No active extension No adduction across midline No external rotation No hip flexion >90 degrees No internal rotation - Diet - Liquid Texture Continue Regular - Tube Feed Continue N/A - Diet Type Continue Regular - Posterior Hip Precaution No adduction across midline No external rotation No hip flexion >90 degrees No internal rotation No wheel chair propulsion - Weight Bearing Precaution WBAT left LE - Skin care per protocol - Diet - Solid Texture Continue Regular - Shower allowing shower FUNCTIONAL STATUS: UPDATED AT WEEKLY TEAM CONFERENCE - Bladder Same accident frequency: 7-Ind - No accidents in the past 7 days - Bowel Same accident frequency: 7-Ind - No accidents in the past 7 days - Walking Same score based on distance walked: 0(N/A) Same score based on distance walked: 1(<=50ft) - Wheelchair Same score based on distance traveled: 0(N/A) FUNCTIONAL STATUS: - Self-Care A. Eating Pinky B. Grooming Kamryn C. Bathing modA D. Dressing - Upper Kamryn E. Dressing - Lower modA F. Toileting modA - Sphincter Control G. Bladder control sup H. Bowel control sup - Transfers Control I. Bed/Chair/Wheelchair modA J. Toilet modA K. Tub/Shower modA - Locomotion L. Walk/Wheelchair (B) modA M. Stairs ADNO - Communication N. Comprehension (B) modA O. Expression (B) modA - Social Cognition P. Social Interaction Kamryn Q. Problem Solving modA R. Memory modA - Endurance Fair - Balance Fair - Safety Awareness Poor QI SCORES: - Self-Care A. Eating 05-Setup or clean-up assistance B. Oral hygiene 05-Setup or clean-up assistance C. Toileting hygiene 03-Partial/moderate assistance E. Shower/bathe self 03-Partial/moderate assistance F. Upper body dressing 03-Partial/moderate assistance G. Lower body dressing 02-Substantial/maximal assistance H. Putting on/taking off footwear 02-Substantial/maximal assistance - Mobility A. Roll left and right 03-Partial/moderate assistance B. Sit to lying 02-Substantial/maximal assistance C. Lying to sitting on side of bed 03-Partial/moderate assistance D. Sit to stand 03-Partial/moderate assistance E. Chair/hip-us-vjxba transfer 03-Partial/moderate assistance F. Toilet transfer 03-Partial/moderate assistance G. Car transfer 88-Not attempted due to medical condition or safety concerns I. Walk 10 feet 02-Substantial/maximal assistance J. Walk 50 feet with two turns 88-Not attempted due to medical condition or safety concerns K. Walk 150 feet 88-Not attempted due to medical condition or safety concerns L. Walking 10 feet on uneven surfaces 88-Not attempted due to medical condition or safety concerns M. 1 step (curb) 88-Not attempted due to medical condition or safety concerns N. 4 steps 88-Not attempted due to medical condition or safety concerns O. 12 steps 88-Not attempted due to medical condition or safety concerns P. Picking up object 88-Not attempted due to medical condition or safety concerns R. Wheel 50 feet with two turns 88-Not attempted due to medical condition or safety concerns S. Wheel 150 feet 88-Not attempted due to medical condition or safety concerns - Bladder and Bowel Bladder continence 0-Always continent Bowel continence 0-Always continent - Endurance Fair - Balance Fair - Safety Awareness Fair CURRENT FUNC. DEFICITS: Self-Care, Mobility, Endurance, Balance, and Safety Awareness SIGNATURE PANEL: (SCENERY BUILDER)
[2019-04-22] MEDS: clonazePAM 0.5 MG TAB PO PRN (19:49)
[2019-04-22] MEDS: levoFLOXacin 250 MG TAB PO SCH (19:49)
[2019-04-22] MEDS: RIVASTIGMINE 9.5 MG/24 HR PATCH TD SCH (19:49)
[2019-04-22] MEDS: MIRTAZAPINE 15 MG TAB PO SCH (19:49)
[2019-04-22] MEDS: TRAZODONE 50 MG TABLET PO SCH (19:50)
[2019-04-22] MEDS: ATORVASTATIN 40 MG TAB PO SCH (19:50)
[2019-04-22] MEDS: HYDROCODONE/APAP 5/325 MG TAB PO SCH (19:51)
--- NOTE | 2019-04-22 22:23 | P.PN ---
Date of Service: 04/22/19 Vital Signs Temp Pulse Resp BP Pulse Ox 97.7 F 95 H 16 118/77 98 04/22/19 08:00 04/22/19 16:57 04/22/19 20:51 04/22/19 16:57 04/22/19 20:51 Medications Acetaminophen (Tylenol -Extra Strength) 500 mg PO Q6H PRN PRN Reason: Pain scale 2-4 (Mild) Stop: 05/18/19 12:28 Last Admin: 04/22/19 00:36 Dose: 500 mg Hydrocodone Bitart/Acetaminophen ([place] 5/325) 0.5 tab PO Q4H PRN PRN Reason: Pain scale 5-7 (Moderate) Stop: 05/14/19 12:44 Last Admin: 04/22/19 12:14 Dose: 0.5 tab Hydrocodone Bitart/Acetaminophen ([place] 5/325) 1 tab PO BEDTIME EARL Stop: 05/20/19 21:01 Last Admin: 04/22/19 19:51 Dose: 1 tab Allopurinol (Zyloprim) 100 mg PO DAILY EAR[facility] Stop: 05/15/19 08:01 Last Admin: 04/22/19 08:43 Dose: 100 mg Alprazolam (Xanax) 0.125 mg PO TID PRN PRN Reason: ANXIETY Stop: 05/20/19 14:27 Last Admin: 04/22/19 21:26 Dose: 0.125 mg Amiloride HCl (Midamor) 10 mg PO DAILY [facility] Stop: 05/23/19 08:01 Apixaban (Eliquis) 2.5 mg PO BID EAR[place] Stop: 05/17/19 08:01 Last Admin: 04/22/19 19:50 Dose: 2.5 mg Atorvastatin Calcium (Lipitor) 40 mg PO BEDTIME EARL Stop: 05/14/19 21:01 Last Admin: 04/22/19 19:50 Dose: 40 mg Bisacodyl (Dulcolax) 10 mg [place] DAILY PRN PRN Reason: CONSTIPATION Stop: 05/15/19 14:28 Last Admin: 04/16/19 11:37 Dose: 10 mg Cholecalciferol (Vitamin D 5,000 Iu Cap) 5,000 unit PO DAILY EAR[facility] Stop: 05/20/19 08:01 Last Admin: 04/22/19 08:44 Dose: 5,000 unit Clonazepam (Klonopin) 0.5 mg PO BEDTIME PRN PRN Reason: INSOMNIA Stop: 05/22/19 13:17 Last Admin: 04/22/19 19:49 Dose: 0.5 mg Clopidogrel Bisulfate (Plavix) 75 mg PO DAILY EARL Stop: 05/15/19 08:01 Last Admin: 04/22/19 08:44 Dose: 75 mg Ferrous Sulfate (Feosol) 325 mg PO DAILY EARL Stop: 05/15/19 08:01 Last Admin: 04/22/19 08:44 Dose: 325 mg Hydroxyzine HCl (Atarax) 12.5 mg PO TID PRN PRN Reason: ITCHING Stop: 05/17/19 14:01 Last Admin: 04/22/19 21:26 Dose: 12.5 mg Lactulose (Cephulac) 20 gm PO DAILY PRN PRN Reason: CONSTIPATION Stop: 05/17/19 09:48 Last Admin: 04/21/19 07:12 Dose: 20 gm Levofloxacin (Levaquin) 250 mg PO DAILY@2100 [facility] Stop: 05/21/19 21:01 Last Admin: 04/22/19 19:49 Dose: 250 mg Lidocaine (Aspercreme 4% Patch) 2 patch TOP DAILY [facility] Stop: 05/16/19 08:01 Last Admin: 04/22/19 08:45 Dose: 2 patch Mirtazapine (Remeron) 15 mg PO BEDTIME [facility] Stop: 05/20/19 21:01 Last Admin: 04/22/19 19:49 Dose: 15 mg Multivitamins/Iron (Hemocyte Plus) 1 tab PO DAILY WITH BREAKFAST [facility] Stop: 05/15/19 08:01 Last Admin: 04/22/19 08:45 Dose: 1 tab Nutritional Formula (Promod Liquid Protein) 30 ml PO BID [facility] Stop: 05/17/19 20:01 Last Admin: 04/22/19 19:50 Dose: 30 ml Nystatin (Mycostatin Susp) 500,000 unit PO QID [facility] Stop: 05/21/19 17:01 Last Admin: 04/22/19 19:48 Dose: 500,000 unit Pantoprazole Sodium (Protonix Tab) 40 mg PO DAILYAC [facility]; Protocol Stop: 05/15/19 06:31 Last Admin: 04/22/19 06:22 Dose: 40 mg Polyethylene Glycol (Glycolax) 17 gm PO DAILY PRN PRN Reason: CONSTIPATION Stop: 05/14/19 15:04 Last Admin: 04/16/19 12:44 Dose: 17 gm Potassium Chloride (Klor-Con 10 Meq Tab) 30 meq PO DAILY [facility] Stop: 05/15/19 08:01 Rivastigmine (Exelon 9.5 Mg Patch) 9.5 mg TD BEDTIME EAR[facility] Stop: 05/14/19 21:01 Last Admin: 04/22/19 19:49 Dose: 9.5 mg Senna/Docusate Sodium (Senokot-S) 2 tab PO BEDTIME PRN PRN Reason: CONSTIPATION Stop: 05/14/19 15:19 Last Admin: 04/20/19 20:05 Dose: 2 tab Sodium Biphosphate/Sodium Phosphate (Fleet Enema Adult) 133 ml [place] DAILY PRN PRN Reason: CONSTIPATION Stop: 05/15/19 14:28 Tamsulosin HCl (Flomax) 0.4 mg PO BID EARL Stop: 05/22/19 20:01 Last Admin: 04/22/19 19:50 Dose: 0.4 mg Microbiology Results 04/15/19 09:45 Blood - Blood Aerobic Blood Culture - Final No growth in 5 days. 04/15/19 09:45 Blood - Blood Anaerobic Blood Culture - Final No growth in 5 days. 04/15/19 09:32 Blood - Blood Aerobic Blood Culture - Final No growth in 5 days. 04/15/19 09:32 Blood - Blood Anaerobic Blood Culture - Final No growth in 5 days. 04/14/19 11:30 Clean Catch Urine [place] Count - Final 04/14/19 11:30 Clean Catch Urine - Final No growth. Assessment/ Plan: Nephrology CPS stable without CP or SOB. No acute events overnight. +Insomnia +Dysuria Vitals, medications, blood work and imaging reviewed in the chart. NAD. MMM. Neck supple. CTA. RRR. Soft Abd. No C/C/E. No rash. AAO. Normal Speech. A/ CKD III. Hypokalemia. Hypocalcemia. Anemia in chronic illness, microcytic. BPH with LUTS. Moderate malnutrition. P/ Continue current POC and Medications. Start Amiloride daily. May need to adjust potassium. Increase Flomax BID. Start Calcitriol. AM labs. Daily weight. No NSAIDs.
[2019-04-23] MEDS: HYDROCODONE/APAP 5/325 MG TAB PO PRN ×2 (01:23→14:50)
[2019-04-23] MEDS: PANTOPRAZOLE 40MG TABLET PO SCH (06:30)
[2019-04-23] MEDS: POTASSIUM CL SA 10 MEQ TAB PO SCH (08:00)
[2019-04-23] MEDS: LIDOCAINE 4% PATCH TOP SCH (08:00)
[2019-04-23] MEDS: FE SULF/FA/VIT B COMP & C TAB PO SCH (08:00)
[2019-04-23] MEDS: FERROUS SULFATE 325 MG TAB PO SCH (08:00)
[2019-04-23] MEDS: VITAMIN D 5,000 UNIT CAP PO SCH (08:00)
[2019-04-23] MEDS: CALCITROL 0.25 MCG CAP PO SCH (08:00)
[2019-04-23] MEDS: PROMOD 30 ML DOSE PO SCH ×2 (08:00→19:08)
[2019-04-23] MEDS: CLOPIDOGREL 75 MG TABLET PO SCH (08:00)
[2019-04-23] MEDS: APIXABAN 2.5 MG TABLET PO SCH ×2 (08:00→19:06)
[2019-04-23] MEDS: allopurinoL 100 MG TAB PO SCH (08:00)
[2019-04-23] MEDS: CRANBERRY FRUIT EXTRACT 200 MG CAP PO SCH (08:00)
[2019-04-23] MEDS: TAMSULOSIN 0.4 MG SR CAP PO SCH ×2 (08:00→19:06)
[2019-04-23] MEDS: NYSTATIN 500,000 UNIT/5 ML UDC PO SCH ×4 (09:00→19:06)
--- NOTE | 2019-04-23 10:09 | FAST ---
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 Jhon Maier M.D. ADMISSION DIAGNOSIS: - Orthopaedic Disorders 08 - Unilateral Hip Fracture (08.11) Left Hip Displaced Femoral Neck Fracture. EATING: EATING - STEP 1: Does the patient complete the activity by him/herself with no assistance (physical, verbal/nonverbal cueing, setup/clean-up)? No. EATING - STEP 2: Does the patient need only setup/clean-up assistance from one helper? No. EATING - STEP 3: Does the patient need only verbal/nonverbal cueing or touching/steadying/contact guard assistance fro m one helper? No. EATING - STEP 4: Does the patient need physical assistance - for example lifting or trunk support from one helper - wi th the helper providing less than half of the effort? Yes. 1. [id number] ADMISSION PERFORMANCE: Partial/moderate assistance CODE: 03 ORAL HYGIENE: ORAL HYGIENE - STEP 1: Does the patient complete the activity by him/herself with no assistance (physical, verbal/nonverbal cueing, setup/clean-up)? No. ORAL HYGIENE - STEP 2: Does the patient need only setup/clean-up assistance from one helper? No. ORAL HYGIENE - STEP 3: Does the patient need only verbal/nonverbal cueing or touching/steadying/contact guard assistance fro m one helper? Yes. 1. [id number] ADMISSION PERFORMANCE: Supervision or touching assistance CODE: 04 TOILETING HYGIENE: TOILETING HYGIENE - STEP 1: Does the patient complete the activity by him/herself with no assistance (physical, verbal/nonverbal cueing, setup/clean-up)? No. TOILETING HYGIENE - STEP 2: Does the patient need only setup/clean-up assistance from one helper? No. TOILETING HYGIENE - STEP 3: Does the patient need only verbal/nonverbal cueing or touching/steadying/contact guard assistance fro m one helper? Yes. 1. [id number] ADMISSION PERFORMANCE: Supervision or touching assistance CODE: 04 BATHING: Not assessed/no information CODE: - DRESSING - UPPER BODY: Not assessed/no information CODE: - DRESSING - LOWER BODY: Not assessed/no information CODE: - PUTTING ON/TAKING OFF FOOTWEAR: Not assessed/no information CODE: - ROLL LEFT AND RIGHT: ROLL LEFT AND RIGHT - STEP 1: Does the patient complete the activity by him/herself with no assistance (physical, verbal/nonverbal cueing, setup/clean-up)? No. ROLL LEFT AND RIGHT - STEP 2: Does the patient need only setup/clean-up assistance from one helper? No. ROLL LEFT AND RIGHT - STEP 3: Does the patient need only verbal/nonverbal cueing or touching/steadying/contact guard assistance fro m one helper? No. ROLL LEFT AND RIGHT - STEP 4: Does the patient need physical assistance - for example lifting or trunk support from one helper - wi th the helper providing less than half of the effort? Yes. 1. [id number] ADMISSION PERFORMANCE: Partial/moderate assistance CODE: 03 SIT TO LYING: Not assessed/no information CODE: - LYING TO SITTING: LYING TO SITTING ON SIDE OF BED - STEP 1: Does the patient complete the activity by him/herself with no assistance (physical, verbal/nonverbal cueing, setup/clean-up)? No. LYING TO SITTING ON SIDE OF BED - STEP 2: Does the patient need only setup/clean-up assistance from one helper? No. LYING TO SITTING ON SIDE OF BED - STEP 3: Does the patient need only verbal/nonverbal cueing or touching/steadying/contact guard assistance fro m one helper? No. LYING TO SITTING ON SIDE OF BED - STEP 4: Does the patient need physical assistance - for example lifting or trunk support from one helper - wi th the helper providing less than half of the effort? Yes. 1. [id number] ADMISSION PERFORMANCE: Partial/moderate assistance CODE: 03 SIT TO STAND: SIT TO STAND - STEP 1: Does the patient complete the activity by him/herself with no assistance (physical, verbal/nonverbal cueing, setup/clean-up)? No. SIT TO STAND - STEP 2: Does the patient need only setup/clean-up assistance from one helper? No. SIT TO STAND - STEP 3: Does the patient need only verbal/nonverbal cueing or touching/steadying/contact guard assistance fro m one helper? No. SIT TO STAND - STEP 4: Does the patient need physical assistance - for example lifting or trunk support from one helper - wi th the helper providing less than half of the effort? Yes. 1. [id number] ADMISSION PERFORMANCE: Partial/moderate assistance CODE: 03 TRANSFERS: BED, CHAIR: CHAIR/[id number] TRANSFER - STEP 1: Does the patient complete the activity by him/herself with no assistance (physical, verbal/nonverbal cueing, setup/clean-up)? No. CHAIR/[id number] TRANSFER - STEP 2: Does the patient need only setup/clean-up assistance from one helper? No. CHAIR/[id number] TRANSFER - STEP 3: Does the patient need only verbal/nonverbal cueing or touching/steadying/contact guard assistance fro m one helper? No. CHAIR/[id number] TRANSFER - STEP 4: Does the patient need physical assistance - for example lifting or trunk support from one helper - wi th the helper providing less than half of the effort? Yes. 1. [id number] ADMISSION PERFORMANCE: Partial/moderate assistance CODE: 03 TRANSFER TOILET: TOILET TRANSFER - STEP 1: Does the patient complete the activity by him/herself with no assistance (physical, verbal/nonverbal cueing, setup/clean-up)? No. TOILET TRANSFER - STEP 2: Does the patient need only setup/clean-up assistance from one helper? No. TOILET TRANSFER - STEP 3: Does the patient need only verbal/nonverbal cueing or touching/steadying/contact guard assistance fro m one helper? No. TOILET TRANSFER - STEP 4: Does the patient need physical assistance - for example lifting or trunk support from one helper - wi th the helper providing less than half of the effort? Yes. 1. [id number] ADMISSION PERFORMANCE: Partial/moderate assistance CODE: 03 TRANSFERS: CAR: Not assessed/no information CODE: - WALK 10 FEET: Not assessed/no information CODE: - 1 STEP (CURB): Not assessed/no information CODE: - PICKING UP OBJECT: Not assessed/no information CODE: - DOES THE PATIENT USE A WHEELCHAIR/SCOOTER? CODE: EXPR WHEEL 50 FEET WITH TWO TURNS: Not assessed/no information CODE: - INDICATE THE TYPE OF WHEELCHAIR/SCOOTER USED: CODE: EXPR WHEEL 150 FEET: Not assessed/no information CODE: - INDICATE THE TYPE OF WHEELCHAIR/SCOOTER USED: CODE: EXPR BLADDER AND BOWEL: H350. BLADDER CONTINENCE (3-DAY ASSESSMENT PERIOD): Always continent (no documented incontinence) CODE: 0 H400. BOWEL CONTINENCE (3-DAY ASSESSMENT PERIOD): Always continent CODE: 0 SIGNATURE PANEL: The following modified sections: 1. [id number] Admission Performance, 1. [id number] Admission Performance, 1. [id number] Admission Performance, 1. [id number] Admission Performance, 1. [id number] Admission Performance, 1. [id number] Admission Performance, 1. [id number] Admission Performance, 1. [id number] Admission Performance , 1. [id number] Admission Performance, Code, H350. Bladder Continence (3-day assessment period), H400. B owel Continence (3-day assessment period) were [electronically] signed by Mateo Blue on MonApr 23 10:08:37 [facility]-0600 (Central Standard Time)
[2019-04-23] MEDS: AMILORIDE HCL 5 MG TABLET PO SCH (10:47)
--- NOTE | 2019-04-23 15:39 | RAD REPORT ---
EXAM DESCRIPTION: RAD - Chest Single View - 04/23/2019 3:30 pm CLINICAL HISTORY: Pneumonia Chest pain. COMPARISON: Chest Single View dated 04/20/2019; Abdomen 1 View (KUB) dated 04/16/2019; Chest Single Vi ew dated 04/15/2019; Chest Single View dated 04/10/2019 FINDINGS: Portable technique limits examination quality. COPD is present with mild linear opacities in both lungs probably representing mild interstitial pulm onary edema. No focal consolidation typical of pneumonia seen. Heart is moderately enlarged in size. No displaced fractures. IMPRESSION: Mild CHF.
--- NOTE | 2019-04-23 17:24 | R.PN ---
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 Pt denied any Shortness of Breath. Ambulated 65' with contact guard assistance using a rolling walker. 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 Left hip x-ray shows no suspicious findings. Chest x-ray 04-20-19 showed right midlung field pneumonia and mild volume overload pattern. Repeat chest x-ray 04-23-19 showed no pneumonia but mild pulmonary ed fer. Propelled wheelchair 180' with minimum assistance. VITAL SIGNS Temperature: 97.7 F SBP/DBP: 121/57 Pulse: 79 Resp: 16 MEDICATION ALLERGIES: No Known Drug Allergies (NKDA) ENVIRONMENTAL ALLERGIES: None Known - Substance Allergies None Known - Other Allergies None Known NURSING: - Shower allowing shower - Skin care per protocol PRECAUTIONS: - Posterior Hip Precaution No adduction across midline No external rotation No hip flexion >90 degrees No internal rotation No wheel chair propulsion - Weight Bearing Precaution WBAT left LE ACTIVITIES OOB only with supervision THERAPIES: - Dietary and Nutrition Adequate Nutrition. Nutritional Education. Nutritional Supplements. PHYSICAL EXAM - Gen Alert and awake Lying in bed No apparent distress Oriented to: person, time, and place - Skin No skin breakdown. Atraumatic - Eyes No abnormalities - ENMT No abnormalities - Neck No abnormalities - CVS RRR - Chest No abnormalities - Resp Decreased breath sounds in both lower lobes - Abd +bowel sounds - GI Non distended Deferred - No abnormalities - Ext Mild left lower extremity edema. - MSK 4+/5 weakness in left lower extremity - Neuro 4/5 strength left lower extremities. - Psych No abnormalities ASSESSMENT: Pt. is a 88 yo Right-handed white male.His impairment category is Orthopaedic Disorders 08 - Unilate ral Hip Fracture (11.25).Pre-morbidly, Pt. was independent/mod-I in Locomotion, Safety Awareness, Bal ance, Social Cognition, Transfers Control, Sphincter Control, Self-Care, Communication, and Endurance ; and he had good Locomotion, Safety Awareness, Balance, Social Cognition, Transfers Control, Sphinct er Control, Self-Care, Communication, and Endurance.Currently, he has deficits of Locomotion, Balance , Safety Awareness, Social Cognition, Transfers Control, Self-Care, and Endurance.Pt. is now referred to [facility] for acute in-patient rehabilitation in order to maximize patien t's functional independence in activities of daily living, strength, ROM, and mobility.- Rehab Goal Patient has realistic goal of being discharged at assistance level 6-Pinky to reside at Home with Fam steven/Relatives. MDM/PLAN: - Physical Therapy Decreased range of motion - to improve, our physical therapists will perform initial evaluation of p t's status upon admission and devise an individualized program for increasing patient's Range of Leroy on. Gait dysfunction - to improve, our physical therapists will perform initial evaluation of pt's statu s upon admission and devise an individualized program for Gait Training, and Wheel Chair mobility Inability to transfer - to improve, our physical therapists will perform initial evaluation of pt's status upon admission and devise an individualized program for Bed mobility Need for home safety evaluation - to improve, our physical therapists will perform initial evaluatio n of pt's status upon admission and devise an individualized program for Home Evaluation Need in caregiver upon discharge - to improve, our physical therapists will perform initial evaluati on of pt's status upon admission and devise an individualized program for Caregiver Training Edema - to improve, our physical therapists will perform initial evaluation of pt's status upon admi ssion and devise an individualized program for Elevation Training, and Lymphedema Therapy New precaution - to improve, our physical therapists will perform initial evaluation of pt's status upon admission and devise an individualized program for Patient precaution education Poor balance - to improve, our physical therapists will perform initial evaluation of pt's status up on admission and devise an individualized program for Balance Training Poor endurance - to improve, our physical therapists will perform initial evaluation of pt's status upon admission and devise an individualized program for Endurance Training Weakness - to improve, our physical therapists will perform initial evaluation of pt's status upon a dmission and devise an individualized program for Aquatic Therapy, Neuromuscular Reeducation, and Str engthening Achieving independence - to improve, our physical therapists will perform initial evaluation of pt's status upon admission and devise an individualized program for Community Reintegration Activities - Occupational Therapy ADL deficits - to improve, our occupation therapists will perform initial evaluation of pt's status upon admission and devise an individualized program for Bathing, Bed mobility, Community Reintegratio n, Cooking, Dressing, Eating, Fine Motor Skills, Grooming, Homemaking, Kitchen Mobility, Laundry, Pat ient Education, Safety Awareness, Splinting - Positioning, Transfers(Toilet, Tub, Shower), and Wheel Chair Management Cognitive deficits - to improve, our occupation therapists will perform initial evaluation of pt's s tatus upon admission and devise an individualized program for Cognition - orientation Need for foster care social worker - to improve, our occupation therapists will perform initial evaluation of pt's status upon admission and devise an individualized program for Caregiver Training Weakness - to improve, our occupation therapists will perform initial evaluation of pt's status upon admission and devise an individualized program for Aquatic Therapy, Balance, Endurance, UE ROM, and UE strengthening - Other See attached MAR (Medication Administration Record) - Anterior Hip Precaution No abduction No active extension No adduction across midline No external rotation No hip flexion >90 degrees No internal rotation - Diet - Liquid Texture Continue Regular - Tube Feed Continue N/A - Diet Type Continue Regular - Posterior Hip Precaution No adduction across midline No external rotation No hip flexion >90 degrees No internal rotation No wheel chair propulsion - Weight Bearing Precaution WBAT left LE - Skin care per protocol - Diet - Solid Texture Continue Regular - Shower allowing shower FUNCTIONAL STATUS: UPDATED AT WEEKLY TEAM CONFERENCE - Bladder Same accident frequency: 7-Ind - No accidents in the past 7 days - Bowel Same accident frequency: 7-Ind - No accidents in the past 7 days - Walking Same score based on distance walked: 0(N/A) Same score based on distance walked: 1(<=50ft) - Wheelchair Same score based on distance traveled: 0(N/A) FUNCTIONAL STATUS: - Self-Care A. Eating Pinky B. Grooming Kamryn C. Bathing modA D. Dressing - Upper Kamryn E. Dressing - Lower modA F. Toileting modA - Sphincter Control G. Bladder control sup H. Bowel control sup - Transfers Control I. Bed/Chair/Wheelchair modA J. Toilet modA K. Tub/Shower modA - Locomotion L. Walk/Wheelchair (B) modA M. Stairs ADNO - Communication N. Comprehension (B) modA O. Expression (B) modA - Social Cognition P. Social Interaction Kamryn Q. Problem Solving modA R. Memory modA - Endurance Fair - Balance Fair - Safety Awareness Poor QI SCORES: - Self-Care A. Eating 05-Setup or clean-up assistance B. Oral hygiene 05-Setup or clean-up assistance C. Toileting hygiene 03-Partial/moderate assistance E. Shower/bathe self 03-Partial/moderate assistance F. Upper body dressing 03-Partial/moderate assistance G. Lower body dressing 02-Substantial/maximal assistance H. Putting on/taking off footwear 02-Substantial/maximal assistance - Mobility A. Roll left and right 03-Partial/moderate assistance B. Sit to lying 02-Substantial/maximal assistance C. Lying to sitting on side of bed 03-Partial/moderate assistance D. Sit to stand 03-Partial/moderate assistance E. Chair/ajq-so-waqio transfer 03-Partial/moderate assistance F. Toilet transfer 03-Partial/moderate assistance G. Car transfer 88-Not attempted due to medical condition or safety concerns I. Walk 10 feet 02-Substantial/maximal assistance J. Walk 50 feet with two turns 88-Not attempted due to medical condition or safety concerns K. Walk 150 feet 88-Not attempted due to medical condition or safety concerns L. Walking 10 feet on uneven surfaces 88-Not attempted due to medical condition or safety concerns M. 1 step (curb) 88-Not attempted due to medical condition or safety concerns N. 4 steps 88-Not attempted due to medical condition or safety concerns O. 12 steps 88-Not attempted due to medical condition or safety concerns P. Picking up object 88-Not attempted due to medical condition or safety concerns R. Wheel 50 feet with two turns 88-Not attempted due to medical condition or safety concerns S. Wheel 150 feet 88-Not attempted due to medical condition or safety concerns - Bladder and Bowel Bladder continence 0-Always continent Bowel continence 0-Always continent - Endurance Fair - Balance Fair - Safety Awareness Fair CURRENT FUNC. DEFICITS: Self-Care, Mobility, Endurance, Balance, and Safety Awareness SIGNATURE PANEL: (GEAR HOBBER)
[2019-04-23] MEDS: RIVASTIGMINE 9.5 MG/24 HR PATCH TD SCH (19:05)
[2019-04-23] MEDS: HYDROCODONE/APAP 5/325 MG TAB PO SCH (19:06)
[2019-04-23] MEDS: TRAZODONE 50 MG TABLET PO SCH (19:07)
[2019-04-23] MEDS: ATORVASTATIN 40 MG TAB PO SCH (19:07)
[2019-04-23] MEDS: levoFLOXacin 250 MG TAB PO SCH (19:07)
[2019-04-23] MEDS: MIRTAZAPINE 15 MG TAB PO SCH (19:07)
--- NOTE | 2019-04-23 20:09 | P.PN ---
Date of Service: 04/23/19 Vital Signs Temp Pulse Resp BP Pulse Ox 97.4 F 79 17 121/57 L 98 04/23/19 07:33 04/23/19 07:33 04/23/19 19:06 04/23/19 07:33 04/23/19 19:06 Medications Acetaminophen (Tylenol -Extra Strength) 500 mg PO Q6H PRN PRN Reason: Pain scale 2-4 (Mild) Stop: 05/18/19 12:28 Last Admin: 04/22/19 00:36 Dose: 500 mg Hydrocodone Bitart/Acetaminophen ([place] 5/325) 0.5 tab PO Q4H PRN PRN Reason: Pain scale 5-7 (Moderate) Stop: 05/14/19 12:44 Last Admin: 04/23/19 14:50 Dose: 0.5 tab Hydrocodone Bitart/Acetaminophen ([place] 5/325) 1 tab PO BEDTIME EAR[facility] Stop: 05/20/19 21:01 Last Admin: 04/23/19 19:06 Dose: 1 tab Allopurinol (Zyloprim) 100 mg PO DAILY EAR[facility] Stop: 05/15/19 08:01 Last Admin: 04/23/19 08:00 Dose: 100 mg Alprazolam (Xanax) 0.125 mg PO TID PRN PRN Reason: ANXIETY Stop: 05/20/19 14:27 Last Admin: 04/22/19 21:26 Dose: 0.125 mg Amiloride HCl (Midamor) 10 mg PO DAILY EARL Stop: 05/23/19 08:01 Last Admin: 04/23/19 10:47 Dose: 10 mg Apixaban (Eliquis) 2.5 mg PO BID EARL Stop: 05/17/19 08:01 Last Admin: 04/23/19 19:06 Dose: 2.5 mg Atorvastatin Calcium (Lipitor) 40 mg PO BEDTIME EARL Stop: 05/14/19 21:01 Last Admin: 04/23/19 19:07 Dose: 40 mg Bisacodyl (Dulcolax) 10 mg SC DAILY PRN PRN Reason: CONSTIPATION Stop: 05/15/19 14:28 Last Admin: 04/16/19 11:37 Dose: 10 mg Calcitriol (Rocaltrol) 0.5 mcg PO DAILY EAR[facility] Stop: 05/23/19 08:01 Last Admin: 04/23/19 08:00 Dose: 0.5 mcg Cholecalciferol (Vitamin D 5,000 Iu Cap) 5,000 unit PO DAILY [facility] Stop: 05/23/19 08:01 Last Admin: 04/23/19 08:00 Dose: 5,000 unit Clonazepam (Klonopin) 0.5 mg PO BEDTIME PRN PRN Reason: INSOMNIA Stop: 05/22/19 13:17 Last Admin: 04/22/19 19:49 Dose: 0.5 mg Clopidogrel Bisulfate (Plavix) 75 mg PO DAILY EARL Stop: 05/15/19 08:01 Last Admin: 04/23/19 08:00 Dose: 75 mg Ferrous Sulfate (Feosol) 325 mg PO DAILY [facility] Stop: 05/15/19 08:01 Last Admin: 04/23/19 08:00 Dose: 325 mg Hydroxyzine HCl (Atarax) 12.5 mg PO TID PRN PRN Reason: ITCHING Stop: 05/17/19 14:01 Last Admin: 04/22/19 21:26 Dose: 12.5 mg Lactulose (Cephulac) 20 gm PO DAILY PRN PRN Reason: CONSTIPATION Stop: 05/17/19 09:48 Last Admin: 04/21/19 07:12 Dose: 20 gm Levofloxacin (Levaquin) 250 mg PO DAILY@2100 [facility] Stop: 05/21/19 21:01 Last Admin: 04/23/19 19:07 Dose: 250 mg Mirtazapine (Remeron) 15 mg PO BEDTIME [facility] Stop: 05/20/19 21:01 Last Admin: 04/23/19 19:07 Dose: 15 mg Multivitamins/Iron (Hemocyte Plus) 1 tab PO DAILY WITH BREAKFAST [facility] Stop: 05/15/19 08:01 Last Admin: 04/23/19 08:00 Dose: 1 tab Nutritional Formula (Promod Liquid Protein) 30 ml PO BID [facility] Stop: 05/17/19 20:01 Last Admin: 04/23/19 19:08 Dose: 30 ml Nystatin (Mycostatin Susp) 500,000 unit PO QID [facility] Stop: 05/21/19 17:01 Last Admin: 04/23/19 19:06 Dose: 500,000 unit Pantoprazole Sodium (Protonix Tab) 40 mg PO DAILYAC [facility]; Protocol Stop: 05/15/19 06:31 Last Admin: 04/23/19 06:30 Dose: 40 mg Polyethylene Glycol (Glycolax) 17 gm PO DAILY PRN PRN Reason: CONSTIPATION Stop: 05/14/19 15:04 Last Admin: 04/16/19 12:44 Dose: 17 gm Potassium Chloride (Klor-Con 10 Meq Tab) 30 meq PO DAILY [facility]AR[facility] Stop: 05/15/19 08:01 Last Admin: 04/23/19 08:00 Dose: 30 meq Rivastigmine (Exelon 9.5 Mg Patch) 9.5 mg TD BEDTIME [facility] Stop: 05/14/19 21:01 Last Admin: 04/23/19 19:05 Dose: 9.5 mg Senna/Docusate Sodium (Senokot-S) 2 tab PO BEDTIME PRN PRN Reason: CONSTIPATION Stop: 05/14/19 15:19 Last Admin: 04/20/19 20:05 Dose: 2 tab Sodium Biphosphate/Sodium Phosphate (Fleet Enema Adult) 133 ml SC DAILY PRN PRN Reason: CONSTIPATION Stop: 05/15/19 14:28 Tamsulosin HCl (Flomax) 0.4 mg PO BID EARL Stop: 05/22/19 20:01 Last Admin: 04/23/19 19:06 Dose: 0.4 mg Trazodone HCl (Desyrel) 100 mg PO BEDTIME EAR[facility] Stop: 05/23/19 21:01 Last Admin: 04/23/19 19:07 Dose: 100 mg Microbiology Results 04/15/19 09:45 Blood - Blood Aerobic Blood Culture - Final No growth in 5 days. 04/15/19 09:45 Blood - Blood Anaerobic Blood Culture - Final No growth in 5 days. 04/15/19 09:32 Blood - Blood Aerobic Blood Culture - Final No growth in 5 days. 04/15/19 09:32 Blood - Blood Anaerobic Blood Culture - Final No growth in 5 days. 04/14/19 11:30 Clean Catch Urine [place] Count - Final 04/14/19 11:30 Clean Catch Urine - Final No growth. Assessment/ Plan: Nephrology CPS stable without CP or SOB. No acute events overnight. Hip pain improving. +Insomnia +Dysuria Vitals, medications, blood work and imaging reviewed in the chart. NAD. MMM. Neck supple. CTA. RRR. Soft Abd. No C/C/E. No rash. AAO. Normal Speech. A/ CKD III. Hypokalemia. Hypocalcemia. Diastolic CHF, chronic. Anemia in chronic illness, microcytic. BPH with LUTS. Moderate malnutrition. P/ Continue current POC and Medications. PT as tolerated. Low sodium diet. AM labs PRN. Daily weight. No NSAIDs.
[2019-04-23] MEDS: clonazePAM 0.5 MG TAB PO PRN (20:23)
[2019-04-23] MEDS: ALPRAZOLAM 0.25 MG TABLET PO PRN (22:36)
[2019-04-23] MEDS: hydrOXYzine HCL 25 MG TAB PO PRN (22:36)
[2019-04-24 06:30] LABS: Absolute Lymphocytes (CBC) 1.1 K/uL (0.7-4.9); Hematocrit 33.2 % (39.6-49.0); MPV 8.9 fL (7.6-11.3); RBC Red Blood Cell Count 4.26 M/uL (4.33-5.43)
[2019-04-24 06:48] LABS: Phosphorus 3.1 mg/dL (2.5-4.9); Potassium 3.8 mmol/L (3.5-5.1); Uric Acid 8.1 mg/dL (3.5-7.2)
[2019-04-24] MEDS: PROMOD 30 ML DOSE PO SCH ×2 (08:00→20:08)
[2019-04-24] MEDS: allopurinoL 100 MG TAB PO SCH (08:00)
[2019-04-24] MEDS: FE SULF/FA/VIT B COMP & C TAB PO SCH (08:00)
[2019-04-24] MEDS: NYSTATIN 500,000 UNIT/5 ML UDC PO SCH ×4 (09:00→20:07)
[2019-04-24] MEDS: HYDROCODONE/APAP 5/325 MG TAB PO PRN ×2 (09:00→13:09)
[2019-04-24] MEDS: LACTULOSE 20 GM/30 ML UCUP PO PRN (09:30)
[2019-04-24] MEDS: AMILORIDE HCL 5 MG TABLET PO SCH (09:30)
[2019-04-24] MEDS: APIXABAN 2.5 MG TABLET PO SCH ×2 (09:31→20:06)
[2019-04-24] MEDS: VITAMIN D 5,000 UNIT CAP PO SCH (09:31)
[2019-04-24] MEDS: CRANBERRY FRUIT EXTRACT 200 MG CAP PO SCH (09:31)
[2019-04-24] MEDS: CALCITROL 0.25 MCG CAP PO SCH (09:32)
[2019-04-24] MEDS: POTASSIUM CL SA 10 MEQ TAB PO SCH (09:32)
[2019-04-24] MEDS: TAMSULOSIN 0.4 MG SR CAP PO SCH ×2 (09:34→20:07)
[2019-04-24] MEDS: FERROUS SULFATE 325 MG TAB PO SCH (09:34)
[2019-04-24] MEDS: CLOPIDOGREL 75 MG TABLET PO SCH (09:34)
[2019-04-24] MEDS: PANTOPRAZOLE 40MG TABLET PO SCH (09:36)
--- NOTE | 2019-04-24 15:32 | FAST ---
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 Jhon Maier M.D. ADMISSION DIAGNOSIS: - Orthopaedic Disorders 08 - Unilateral Hip Fracture (08.11) Left Hip Displaced Femoral Neck Fracture. EATING: Not assessed/no information CODE: - ORAL HYGIENE: ORAL HYGIENE - STEP 1: Does the patient complete the activity by him/herself with no assistance (physical, verbal/nonverbal cueing, setup/clean-up)? No. ORAL HYGIENE - STEP 2: Does the patient need only setup/clean-up assistance from one helper? No. ORAL HYGIENE - STEP 3: Does the patient need only verbal/nonverbal cueing or touching/steadying/contact guard assistance fro m one helper? Yes. 1. [id number] ADMISSION PERFORMANCE: Supervision or touching assistance CODE: 04 TOILETING HYGIENE: TOILETING HYGIENE - STEP 1: Does the patient complete the activity by him/herself with no assistance (physical, verbal/nonverbal cueing, setup/clean-up)? No. TOILETING HYGIENE - STEP 2: Does the patient need only setup/clean-up assistance from one helper? No. TOILETING HYGIENE - STEP 3: Does the patient need only verbal/nonverbal cueing or touching/steadying/contact guard assistance fro m one helper? No. TOILETING HYGIENE - STEP 4: Does the patient need physical assistance - for example lifting or trunk support from one helper - wi th the helper providing less than half of the effort? Yes. 1. [id number] ADMISSION PERFORMANCE: Partial/moderate assistance CODE: 03 BATHING: SHOWER/BATHE SELF - STEP 1: Does the patient complete the activity by him/herself with no assistance (physical, verbal/nonverbal cueing, setup/clean-up)? No. SHOWER/BATHE SELF - STEP 2: Does the patient need only setup/clean-up assistance from one helper? No. SHOWER/BATHE SELF - STEP 3: Does the patient need only verbal/nonverbal cueing or touching/steadying/contact guard assistance fro m one helper? Yes. 1. [id number] ADMISSION PERFORMANCE: Supervision or touching assistance CODE: 04 DRESSING - UPPER BODY: DRESSING - UPPER BODY - STEP 1: Does the patient complete the activity by him/herself with no assistance (physical, verbal/nonverbal cueing, setup/clean-up)? No. DRESSING - UPPER BODY - STEP 2: Does the patient need only setup/clean-up assistance from one helper? No. DRESSING - UPPER BODY - STEP 3: Does the patient need only verbal/nonverbal cueing or touching/steadying/contact guard assistance fro m one helper? Yes. 1. [id number] ADMISSION PERFORMANCE: Supervision or touching assistance CODE: 04 DRESSING - LOWER BODY: DRESSING - LOWER BODY - STEP 1: Does the patient complete the activity by him/herself with no assistance (physical, verbal/nonverbal cueing, setup/clean-up)? No. DRESSING - LOWER BODY - STEP 2: Does the patient need only setup/clean-up assistance from one helper? No. DRESSING - LOWER BODY - STEP 3: Does the patient need only verbal/nonverbal cueing or touching/steadying/contact guard assistance fro m one helper? No. DRESSING - LOWER BODY - STEP 4: Does the patient need physical assistance - for example lifting or trunk support from one helper - wi th the helper providing less than half of the effort? No. DRESSING - LOWER BODY - STEP 5: Does the patient need physical assistance - for example lifting or trunk support from one helper - wi th the helper providing more than half of the effort? Yes. 1. [id number] ADMISSION PERFORMANCE: Substantial/maximal assistance CODE: 02 PUTTING ON/TAKING OFF FOOTWEAR: FOOTWEAR - STEP 1: Does the patient complete the activity by him/herself with no assistance (physical, verbal/nonverbal cueing, setup/clean-up)? No. FOOTWEAR - STEP 2: Does the patient need only setup/clean-up assistance from one helper? No. FOOTWEAR - STEP 3: Does the patient need only verbal/nonverbal cueing or touching/steadying/contact guard assistance fro m one helper? No. FOOTWEAR - STEP 4: Does the patient need physical assistance - for example lifting or trunk support from one helper - wi th the helper providing less than half of the effort? No. FOOTWEAR - STEP 5: Does the patient need physical assistance - for example lifting or trunk support from one helper - wi th the helper providing more than half of the effort? Yes. 1. [id number] ADMISSION PERFORMANCE: Substantial/maximal assistance CODE: 02 DOES THE PATIENT USE A WHEELCHAIR/SCOOTER? CODE: EXPR INDICATE THE TYPE OF WHEELCHAIR/SCOOTER USED: CODE: EXPR INDICATE THE TYPE OF WHEELCHAIR/SCOOTER USED: CODE: EXPR BLADDER AND BOWEL: CODE: EXPR CODE: EXPR SIGNATURE PANEL: The following modified sections: 1. [id number] Admission Performance, 1. [id number] Admission Performance, 1. [id number] Admission Performance, 1. [id number] Admission Performance, 1. [id number] Admission Performance, 1. [id number] Admission Performance were [electronically] signed by ADA Bowers on MonApr 24 2019 15:31:07 GMT-0600 (Central Standard Time)
--- NOTE | 2019-04-24 17:18 | R.PN ---
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 Pt denied any Shortness of Breath. Ambulated 135' with contact guard assistance using a rolling walker. 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 Left hip x-ray shows no suspicious findings. Chest x-ray 04-20-19 showed right midlung field pneumonia and mild volume overload pattern. Repeat chest x-ray 04-23-19 showed no pneumonia but mild pulmonary ed fer. Propelled wheelchair 250' with standby assistance. VITAL SIGNS Temperature: 97.8 F SBP/DBP: 128/58 Pulse: 80 Resp: 16 MEDICATION ALLERGIES: No Known Drug Allergies (NKDA) ENVIRONMENTAL ALLERGIES: None Known - Substance Allergies None Known - Other Allergies None Known NURSING: - Shower allowing shower - Skin care per protocol PRECAUTIONS: - Posterior Hip Precaution No adduction across midline No external rotation No hip flexion >90 degrees No internal rotation No wheel chair propulsion - Weight Bearing Precaution WBAT left LE ACTIVITIES OOB only with supervision THERAPIES: - Dietary and Nutrition Adequate Nutrition. Nutritional Education. Nutritional Supplements. PHYSICAL EXAM - Gen Alert and awake Lying in bed No apparent distress Oriented to: person, time, and place - Skin No skin breakdown. Atraumatic - Eyes No abnormalities - ENMT No abnormalities - Neck No abnormalities - CVS RRR - Chest No abnormalities - Resp Decreased breath sounds in both lower lobes - Abd +bowel sounds - GI Non distended Deferred - No abnormalities - Ext Mild left lower extremity edema. - MSK 4+/5 weakness in left lower extremity - Neuro 4/5 strength left lower extremities. - Psych No abnormalities ASSESSMENT: Pt. is a 88 yo Right-handed white male.His impairment category is Orthopaedic Disorders 08 - Unilate ral Hip Fracture (11.25).Pre-morbidly, Pt. was independent/mod-I in Locomotion, Safety Awareness, Bal ance, Social Cognition, Transfers Control, Sphincter Control, Self-Care, Communication, and Endurance ; and he had good Locomotion, Safety Awareness, Balance, Social Cognition, Transfers Control, Sphinct er Control, Self-Care, Communication, and Endurance.Currently, he has deficits of Locomotion, Balance , Safety Awareness, Social Cognition, Transfers Control, Self-Care, and Endurance.Pt. is now referred to [facility] for acute in-patient rehabilitation in order to maximize patien t's functional independence in activities of daily living, strength, ROM, and mobility.- Rehab Goal Patient has realistic goal of being discharged at assistance level 6-Pinky to reside at Home with Fam steven/Relatives. MDM/PLAN: - Physical Therapy Decreased range of motion - to improve, our physical therapists will perform initial evaluation of p t's status upon admission and devise an individualized program for increasing patient's Range of Leroy on. Gait dysfunction - to improve, our physical therapists will perform initial evaluation of pt's statu s upon admission and devise an individualized program for Gait Training, and Wheel Chair mobility Inability to transfer - to improve, our physical therapists will perform initial evaluation of pt's status upon admission and devise an individualized program for Bed mobility Need for home safety evaluation - to improve, our physical therapists will perform initial evaluatio n of pt's status upon admission and devise an individualized program for Home Evaluation Need in caregiver upon discharge - to improve, our physical therapists will perform initial evaluati on of pt's status upon admission and devise an individualized program for Caregiver Training Edema - to improve, our physical therapists will perform initial evaluation of pt's status upon admi ssion and devise an individualized program for Elevation Training, and Lymphedema Therapy New precaution - to improve, our physical therapists will perform initial evaluation of pt's status upon admission and devise an individualized program for Patient precaution education Poor balance - to improve, our physical therapists will perform initial evaluation of pt's status up on admission and devise an individualized program for Balance Training Poor endurance - to improve, our physical therapists will perform initial evaluation of pt's status upon admission and devise an individualized program for Endurance Training Weakness - to improve, our physical therapists will perform initial evaluation of pt's status upon a dmission and devise an individualized program for Aquatic Therapy, Neuromuscular Reeducation, and Str engthening Achieving independence - to improve, our physical therapists will perform initial evaluation of pt's status upon admission and devise an individualized program for Community Reintegration Activities - Occupational Therapy ADL deficits - to improve, our occupation therapists will perform initial evaluation of pt's status upon admission and devise an individualized program for Bathing, Bed mobility, Community Reintegratio n, Cooking, Dressing, Eating, Fine Motor Skills, Grooming, Homemaking, Kitchen Mobility, Laundry, Pat ient Education, Safety Awareness, Splinting - Positioning, Transfers(Toilet, Tub, Shower), and Wheel Chair Management Cognitive deficits - to improve, our occupation therapists will perform initial evaluation of pt's s tatus upon admission and devise an individualized program for Cognition - orientation Need for nurse behavioral health care - to improve, our occupation therapists will perform initial evaluation of pt's status upon admission and devise an individualized program for Caregiver Training Weakness - to improve, our occupation therapists will perform initial evaluation of pt's status upon admission and devise an individualized program for Aquatic Therapy, Balance, Endurance, UE ROM, and UE strengthening - Other See attached MAR (Medication Administration Record) - Anterior Hip Precaution No abduction No active extension No adduction across midline No external rotation No hip flexion >90 degrees No internal rotation - Diet - Liquid Texture Continue Regular - Tube Feed Continue N/A - Diet Type Continue Regular - Posterior Hip Precaution No adduction across midline No external rotation No hip flexion >90 degrees No internal rotation No wheel chair propulsion - Weight Bearing Precaution WBAT left LE - Skin care per protocol - Diet - Solid Texture Continue Regular - Shower allowing shower FUNCTIONAL STATUS: UPDATED AT WEEKLY TEAM CONFERENCE - Bladder Same accident frequency: 7-Ind - No accidents in the past 7 days - Bowel Same accident frequency: 7-Ind - No accidents in the past 7 days - Walking Same score based on distance walked: 0(N/A) Same score based on distance walked: 1(<=50ft) - Wheelchair Same score based on distance traveled: 0(N/A) FUNCTIONAL STATUS: - Self-Care A. Eating Pinky B. Grooming Kamryn C. Bathing modA D. Dressing - Upper [place] E. Dressing - Lower modA F. Toileting modA - Sphincter Control G. Bladder control sup H. Bowel control sup - Transfers Control I. Bed/Chair/Wheelchair modA J. Toilet modA K. Tub/Shower modA - Locomotion L. Walk/Wheelchair (B) modA M. Stairs ADNO - Communication N. Comprehension (B) modA O. Expression (B) modA - Social Cognition P. Social Interaction [place]ryn Q. Problem Solving modA R. Memory modA - Endurance Fair - Balance Fair - Safety Awareness Poor QI SCORES: - Self-Care A. Eating 05-Setup or clean-up assistance B. Oral hygiene 05-Setup or clean-up assistance C. Toileting hygiene 03-Partial/moderate assistance E. Shower/bathe self 03-Partial/moderate assistance F. Upper body dressing 03-Partial/moderate assistance G. Lower body dressing 02-Substantial/maximal assistance H. Putting on/taking off footwear 02-Substantial/maximal assistance - Mobility A. Roll left and right 03-Partial/moderate assistance B. Sit to lying 02-Substantial/maximal assistance C. Lying to sitting on side of bed 03-Partial/moderate assistance D. Sit to stand 03-Partial/moderate assistance E. Chair/[id number] transfer 03-Partial/moderate assistance F. Toilet transfer 03-Partial/moderate assistance G. Car transfer 88-Not attempted due to medical condition or safety concerns I. Walk 10 feet 02-Substantial/maximal assistance J. Walk 50 feet with two turns 88-Not attempted due to medical condition or safety concerns K. Walk 150 feet 88-Not attempted due to medical condition or safety concerns L. Walking 10 feet on uneven surfaces 88-Not attempted due to medical condition or safety concerns M. 1 step (curb) 88-Not attempted due to medical condition or safety concerns N. 4 steps 88-Not attempted due to medical condition or safety concerns O. 12 steps 88-Not attempted due to medical condition or safety concerns P. Picking up object 88-Not attempted due to medical condition or safety concerns R. Wheel 50 feet with two turns 88-Not attempted due to medical condition or safety concerns S. Wheel 150 feet 88-Not attempted due to medical condition or safety concerns - Bladder and Bowel Bladder continence 0-Always continent Bowel continence 0-Always continent - Endurance Fair - Balance Fair - Safety Awareness Fair CURRENT FUNC. 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
[2019-04-24] MEDS: MIRTAZAPINE 15 MG TAB PO SCH (20:06)
[2019-04-24] MEDS: HYDROCODONE/APAP 5/325 MG TAB PO SCH (20:06)
[2019-04-24] MEDS: TRAZODONE 50 MG TABLET PO SCH (20:07)
[2019-04-24] MEDS: ATORVASTATIN 40 MG TAB PO SCH (20:07)
[2019-04-24] MEDS: RIVASTIGMINE 9.5 MG/24 HR PATCH TD SCH (20:07)
[2019-04-24] MEDS: levoFLOXacin 250 MG TAB PO SCH (20:10)
[2019-04-24] MEDS: clonazePAM 0.5 MG TAB PO PRN (22:12)
[2019-04-24] MEDS: hydrOXYzine HCL 25 MG TAB PO PRN (23:39)
[2019-04-25] MEDS: ACETAMINOPHEN 500 MG TAB PO PRN (03:37)
[2019-04-25] MEDS: ALPRAZOLAM 0.25 MG TABLET PO PRN ×2 (03:37→18:36)
[2019-04-25] MEDS: PANTOPRAZOLE 40MG TABLET PO SCH (06:19)
[2019-04-25 06:45] LABS: RBC Red Blood Cell Count 4.02 M/uL (4.33-5.43)
[2019-04-25 06:46] LABS: Absolute Lymphocytes (CBC) 1.3 K/uL (0.7-4.9); Basophils % 2.5 % (0-1.3); Hematocrit 31.5 % (39.6-49.0); Lymphocytes % 6.1 % (15.3-44.8); MPV 9.1 fL (7.6-11.3)
[2019-04-25 06:50] LABS: Albumin 2.7 g/dL (3.4-5.0); Magnesium 2.5 mg/dL (1.8-2.4); Potassium 4.4 mmol/L (3.5-5.1); Prealbumin 10.4 mg/dL (20-40)
[2019-04-25] MEDS: POTASSIUM CL SA 10 MEQ TAB PO SCH (08:32)
[2019-04-25] MEDS: TAMSULOSIN 0.4 MG SR CAP PO SCH ×2 (08:32→20:41)
[2019-04-25] MEDS: allopurinoL 100 MG TAB PO SCH (08:33)
[2019-04-25] MEDS: FERROUS SULFATE 325 MG TAB PO SCH (08:33)
[2019-04-25] MEDS: VITAMIN D 5,000 UNIT CAP PO SCH (08:33)
[2019-04-25] MEDS: APIXABAN 2.5 MG TABLET PO SCH ×2 (08:33→20:42)
[2019-04-25] MEDS: CRANBERRY FRUIT EXTRACT 200 MG CAP PO SCH (08:33)
[2019-04-25] MEDS: CLOPIDOGREL 75 MG TABLET PO SCH (08:34)
[2019-04-25] MEDS: NYSTATIN 500,000 UNIT/5 ML UDC PO SCH ×4 (08:34→20:41)
[2019-04-25] MEDS: FE SULF/FA/VIT B COMP & C TAB PO SCH (08:34)
[2019-04-25] MEDS: CALCITROL 0.25 MCG CAP PO SCH (08:34)
[2019-04-25] MEDS: AMILORIDE HCL 5 MG TABLET PO SCH (08:35)
[2019-04-25] MEDS: HYDROCODONE/APAP 5/325 MG TAB PO PRN ×3 (08:35→16:07)
[2019-04-25] MEDS: PROMOD 30 ML DOSE PO SCH ×2 (08:42→20:42)
[2019-04-25 09:32] LABS: Anisocytosis 1+; Blood Morphology Comment NOTED (NOT SEEN); Platelet Estimate ADEQ
--- NOTE | 2019-04-25 15:45 | FAST ---
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 Jhon Maier M.D. ADMISSION DIAGNOSIS: - Orthopaedic Disorders 08 - Unilateral Hip Fracture (08.11) Left Hip Displaced Femoral Neck Fracture. EATING: EATING - STEP 1: Does the patient complete the activity by him/herself with no assistance (physical, verbal/nonverbal cueing, setup/clean-up)? No. EATING - STEP 2: Does the patient need only setup/clean-up assistance from one helper? No. EATING - STEP 3: Does the patient need only verbal/nonverbal cueing or touching/steadying/contact guard assistance fro m one helper? Yes. 1. [id number] ADMISSION PERFORMANCE: Supervision or touching assistance CODE: 04 ORAL HYGIENE: ORAL HYGIENE - STEP 1: Does the patient complete the activity by him/herself with no assistance (physical, verbal/nonverbal cueing, setup/clean-up)? No. ORAL HYGIENE - STEP 2: Does the patient need only setup/clean-up assistance from one helper? No. ORAL HYGIENE - STEP 3: Does the patient need only verbal/nonverbal cueing or touching/steadying/contact guard assistance fro m one helper? Yes. 1. [id number] ADMISSION PERFORMANCE: Supervision or touching assistance CODE: 04 TOILETING HYGIENE: TOILETING HYGIENE - STEP 1: Does the patient complete the activity by him/herself with no assistance (physical, verbal/nonverbal cueing, setup/clean-up)? No. TOILETING HYGIENE - STEP 2: Does the patient need only setup/clean-up assistance from one helper? No. TOILETING HYGIENE - STEP 3: Does the patient need only verbal/nonverbal cueing or touching/steadying/contact guard assistance fro m one helper? No. TOILETING HYGIENE - STEP 4: Does the patient need physical assistance - for example lifting or trunk support from one helper - wi th the helper providing less than half of the effort? No. TOILETING HYGIENE - STEP 5: Does the patient need physical assistance - for example lifting or trunk support from one helper - wi th the helper providing more than half of the effort? Yes. 1. [id number] ADMISSION PERFORMANCE: Substantial/maximal assistance CODE: 02 BATHING: Not assessed/no information CODE: - DRESSING - UPPER BODY: DRESSING - UPPER BODY - STEP 1: Does the patient complete the activity by him/herself with no assistance (physical, verbal/nonverbal cueing, setup/clean-up)? No. DRESSING - UPPER BODY - STEP 2: Does the patient need only setup/clean-up assistance from one helper? No. DRESSING - UPPER BODY - STEP 3: Does the patient need only verbal/nonverbal cueing or touching/steadying/contact guard assistance fro m one helper? No. DRESSING - UPPER BODY - STEP 4: Does the patient need physical assistance - for example lifting or trunk support from one helper - wi th the helper providing less than half of the effort? Yes. 1. [id number] ADMISSION PERFORMANCE: Partial/moderate assistance CODE: 03 DRESSING - LOWER BODY: DRESSING - LOWER BODY - STEP 1: Does the patient complete the activity by him/herself with no assistance (physical, verbal/nonverbal cueing, setup/clean-up)? No. DRESSING - LOWER BODY - STEP 2: Does the patient need only setup/clean-up assistance from one helper? No. DRESSING - LOWER BODY - STEP 3: Does the patient need only verbal/nonverbal cueing or touching/steadying/contact guard assistance fro m one helper? No. DRESSING - LOWER BODY - STEP 4: Does the patient need physical assistance - for example lifting or trunk support from one helper - wi th the helper providing less than half of the effort? Yes. 1. [id number] ADMISSION PERFORMANCE: Partial/moderate assistance CODE: 03 PUTTING ON/TAKING OFF FOOTWEAR: FOOTWEAR - STEP 1: Does the patient complete the activity by him/herself with no assistance (physical, verbal/nonverbal cueing, setup/clean-up)? No. FOOTWEAR - STEP 2: Does the patient need only setup/clean-up assistance from one helper? No. FOOTWEAR - STEP 3: Does the patient need only verbal/nonverbal cueing or touching/steadying/contact guard assistance fro m one helper? No. FOOTWEAR - STEP 4: Does the patient need physical assistance - for example lifting or trunk support from one helper - wi th the helper providing less than half of the effort? No. FOOTWEAR - STEP 5: Does the patient need physical assistance - for example lifting or trunk support from one helper - wi th the helper providing more than half of the effort? Yes. 1. [id number] ADMISSION PERFORMANCE: Substantial/maximal assistance CODE: 02 ROLL LEFT AND RIGHT: ROLL LEFT AND RIGHT - STEP 1: Does the patient complete the activity by him/herself with no assistance (physical, verbal/nonverbal cueing, setup/clean-up)? No. ROLL LEFT AND RIGHT - STEP 2: Does the patient need only setup/clean-up assistance from one helper? No. ROLL LEFT AND RIGHT - STEP 3: Does the patient need only verbal/nonverbal cueing or touching/steadying/contact guard assistance fro m one helper? No. ROLL LEFT AND RIGHT - STEP 4: Does the patient need physical assistance - for example lifting or trunk support from one helper - wi th the helper providing less than half of the effort? No. ROLL LEFT AND RIGHT - STEP 5: Does the patient need physical assistance - for example lifting or trunk support from one helper - wi th the helper providing more than half of the effort? Yes. 1. [id number] ADMISSION PERFORMANCE: Substantial/maximal assistance CODE: 02 SIT TO LYING: SIT TO LYING - STEP 1: Does the patient complete the activity by him/herself with no assistance (physical, verbal/nonverbal cueing, setup/clean-up)? No. SIT TO LYING - STEP 2: Does the patient need only setup/clean-up assistance from one helper? No. SIT TO LYING - STEP 3: Does the patient need only verbal/nonverbal cueing or touching/steadying/contact guard assistance fro m one helper? No. SIT TO LYING - STEP 4: Does the patient need physical assistance - for example lifting or trunk support from one helper - wi th the helper providing less than half of the effort? Yes. 1. [id number] ADMISSION PERFORMANCE: Partial/moderate assistance CODE: 03 LYING TO SITTING: LYING TO SITTING ON SIDE OF BED - STEP 1: Does the patient complete the activity by him/herself with no assistance (physical, verbal/nonverbal cueing, setup/clean-up)? No. LYING TO SITTING ON SIDE OF BED - STEP 2: Does the patient need only setup/clean-up assistance from one helper? No. LYING TO SITTING ON SIDE OF BED - STEP 3: Does the patient need only verbal/nonverbal cueing or touching/steadying/contact guard assistance fro m one helper? No. LYING TO SITTING ON SIDE OF BED - STEP 4: Does the patient need physical assistance - for example lifting or trunk support from one helper - wi th the helper providing less than half of the effort? Yes. 1. [id number] ADMISSION PERFORMANCE: Partial/moderate assistance CODE: 03 SIT TO STAND: SIT TO STAND - STEP 1: Does the patient complete the activity by him/herself with no assistance (physical, verbal/nonverbal cueing, setup/clean-up)? No. SIT TO STAND - STEP 2: Does the patient need only setup/clean-up assistance from one helper? No. SIT TO STAND - STEP 3: Does the patient need only verbal/nonverbal cueing or touching/steadying/contact guard assistance fro m one helper? No. SIT TO STAND - STEP 4: Does the patient need physical assistance - for example lifting or trunk support from one helper - wi th the helper providing less than half of the effort? Yes. 1. [id number] ADMISSION PERFORMANCE: Partial/moderate assistance CODE: 03 TRANSFERS: BED, CHAIR: CHAIR/NWK-MA-ROPOX TRANSFER - STEP 1: Does the patient complete the activity by him/herself with no assistance (physical, verbal/nonverbal cueing, setup/clean-up)? No. CHAIR/[id number] TRANSFER - STEP 2: Does the patient need only setup/clean-up assistance from one helper? No. CHAIR/IRO-IC-KBMLE TRANSFER - STEP 3: Does the patient need only verbal/nonverbal cueing or touching/steadying/contact guard assistance fro m one helper? No. CHAIR/HTS-AJ-[id number] TRANSFER - STEP 4: Does the patient need physical assistance - for example lifting or trunk support from one helper - wi th the helper providing less than half of the effort? Yes. 1. [id number] ADMISSION PERFORMANCE: Partial/moderate assistance CODE: 03 TRANSFER TOILET: TOILET TRANSFER - STEP 1: Does the patient complete the activity by him/herself with no assistance (physical, verbal/nonverbal cueing, setup/clean-up)? No. TOILET TRANSFER - STEP 2: Does the patient need only setup/clean-up assistance from one helper? No. TOILET TRANSFER - STEP 3: Does the patient need only verbal/nonverbal cueing or touching/steadying/contact guard assistance fro m one helper? No. TOILET TRANSFER - STEP 4: Does the patient need physical assistance - for example lifting or trunk support from one helper - wi th the helper providing less than half of the effort? Yes. 1. [id number] ADMISSION PERFORMANCE: Partial/moderate assistance CODE: 03 TRANSFERS: CAR: Not assessed/no information CODE: - WALK 10 FEET: Not assessed/no information CODE: - 1 STEP (CURB): Not assessed/no information CODE: - PICKING UP OBJECT: Not assessed/no information CODE: - DOES THE PATIENT USE A WHEELCHAIR/SCOOTER? Q1. DOES THE PATIENT USE A WHEELCHAIR/SCOOTER?: Yes CODE: 1 WHEEL 50 FEET WITH TWO TURNS: WHEEL 50 FEET WITH TWO TURNS - STEP 1: Does the patient complete the activity by him/herself with no assistance (physical, verbal/nonverbal cueing, setup/clean-up)? No. WHEEL 50 FEET WITH TWO TURNS - STEP 2: Does the patient need only setup/clean-up assistance from one helper? No. WHEEL 50 FEET WITH TWO TURNS - STEP 3: Does the patient need only verbal/nonverbal cueing or touching/steadying/contact guard assistance fro m one helper? No. WHEEL 50 FEET WITH TWO TURNS - STEP 4: Does the patient need physical assistance - for example lifting or trunk support from one helper - wi th the helper providing less than half of the effort? No. WHEEL 50 FEET WITH TWO TURNS - STEP 5: Does the patient need physical assistance - for example lifting or trunk support from one helper - wi th the helper providing more than half of the effort? No. WHEEL 50 FEET WITH TWO TURNS - STEP 6: Does the helper provide all of the effort? OR Is the assistance of two or more helpers required to co mplete the activity? Yes. 1. [id number] ADMISSION PERFORMANCE: Dependent CODE: 01 INDICATE THE TYPE OF WHEELCHAIR/SCOOTER USED: RR1. INDICATE THE TYPE OF WHEELCHAIR/SCOOTER USED.: Manual CODE: 1 WHEEL 150 FEET: WHEEL 150 FEET - STEP 1: Does the patient complete the activity by him/herself with no assistance (physical, verbal/nonverbal cueing, setup/clean-up)? No. WHEEL 150 FEET - STEP 2: Does the patient need only setup/clean-up assistance from one helper? No. WHEEL 150 FEET - STEP 3: Does the patient need only verbal/nonverbal cueing or touching/steadying/contact guard assistance fro m one helper? No. WHEEL 150 FEET - STEP 4: Does the patient need physical assistance - for example lifting or trunk support from one helper - wi th the helper providing less than half of the effort? No. WHEEL 150 FEET - STEP 5: Does the patient need physical assistance - for example lifting or trunk support from one helper - wi th the helper providing more than half of the effort? No. WHEEL 150 FEET - STEP 6: Does the helper provide all of the effort? OR Is the assistance of two or more helpers required to co mplete the activity? Yes. 1. [id number] ADMISSION PERFORMANCE: Dependent CODE: 01 INDICATE THE TYPE OF WHEELCHAIR/SCOOTER USED: SS1. INDICATE THE TYPE OF WHEELCHAIR/SCOOTER USED.: Manual CODE: 1 BLADDER AND BOWEL: H350. BLADDER CONTINENCE (3-DAY ASSESSMENT PERIOD): Incontinent less than daily (e.g., once or twice during the 3-day assessment period) CODE: 2 H400. BOWEL CONTINENCE (3-DAY ASSESSMENT PERIOD): Occasionally incontinent (one episode of bowel incontinence) CODE: 1 SIGNATURE PANEL: The following modified sections: 1. [id number] Admission Performance, 1. [id number] Admission Performance, 1. [id number] Admission Performance, 1. [id number] Admission Performance, 1. [id number] Admission Performance, 1. [id number] Admission Performance, 1. DU9570v Admission Performance, 1. NO1523x Admission Performance , 1. UF1912m Admission Performance, 1. [id number] Admission Performance, 1. [id number] Admission Performanc e, 1. [id number] Admission Performance, 1. [id number] Admission Performance, 1. [id number] Admission Performan ce, 1. IK2409N Admission Performance, 1. [id number] Admission Performance, 1. SG1621G Admission Performa nce, 1. [id number] Admission Performance, 1. [id number] Admission Performance, 1. VJ3840N Admission Perform ance, 1. SA9490m Admission Performance, 1. [id number] Admission Performance, Q1. Does the patient use a wheelchair/scooter?, 1. [id number] Admission Performance, RR1. Indicate the type of wheelchair/scooter u sed., 1. [id number] Admission Performance, Code, SS1. Indicate the type of wheelchair/scooter used., H35 0. Bladder Continence (3-day assessment period), H400. Bowel Continence (3-day assessment period) april sevilla [electronically] signed by Cayden CollierNCassie on MonApr 25 2019 15:44:44 GMT-0600 ([place] Time)
--- NOTE | 2019-04-25 18:02 | R.PN ---
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 Pt denied any Shortness of Breath. Ambulated 70' with contact guard assistance using a rolling walker. WBC is elevated to 20.9 due to chronic leukocytosis. Followed by oncology for several years. Hgb is 9.6. Co Teacher improved to 1.55 from 1.75. Prealbumin is 10.4. Left hip x-ray shows no suspicious findings. Chest x-ray 04-20-19 showed right midlung field pneumonia and mild volume overload pattern. Repeat chest x-ray 04-23-19 showed no pneumonia but mild pulmonary ed fer. Propelled wheelchair 250' with standby assistance. VITAL SIGNS Temperature: 97.5 F SBP/DBP: 114/66 Pulse: 88 Resp: 14 MEDICATION ALLERGIES: No Known Drug Allergies (NKDA) ENVIRONMENTAL ALLERGIES: None Known - Substance Allergies None Known - Other Allergies None Known NURSING: - Shower allowing shower - Skin care per protocol PRECAUTIONS: - Posterior Hip Precaution No adduction across midline No external rotation No hip flexion >90 degrees No internal rotation No wheel chair propulsion - Weight Bearing Precaution WBAT left LE ACTIVITIES OOB only with supervision THERAPIES: - Dietary and Nutrition Adequate Nutrition. Nutritional Education. Nutritional Supplements. PHYSICAL EXAM - Gen Alert and awake Lying in bed No apparent distress Oriented to: person, time, and place - Skin No skin breakdown. Atraumatic - Eyes No abnormalities - ENMT No abnormalities - Neck No abnormalities - CVS RRR - Chest No abnormalities - Resp Decreased breath sounds in both lower lobes - Abd +bowel sounds - GI Non distended Deferred - No abnormalities - Ext Mild left lower extremity edema. - MSK 4+/5 weakness in left lower extremity - Neuro 4/5 strength left lower extremities. - Psych No abnormalities ASSESSMENT: Pt. is a 88 yo Right-handed white male.His impairment category is Orthopaedic Disorders 08 - Unilate ral Hip Fracture (11.25).Pre-morbidly, Pt. was independent/mod-I in Locomotion, Safety Awareness, Bal ance, Social Cognition, Transfers Control, Sphincter Control, Self-Care, Communication, and Endurance ; and he had good Locomotion, Safety Awareness, Balance, Social Cognition, Transfers Control, Sphinct er Control, Self-Care, Communication, and Endurance.Currently, he has deficits of Locomotion, Balance , Safety Awareness, Social Cognition, Transfers Control, Self-Care, and Endurance.Pt. is now referred to [facility] for acute in-patient rehabilitation in order to maximize patien t's functional independence in activities of daily living, strength, ROM, and mobility.- Rehab Goal Patient has realistic goal of being discharged at assistance level 6-Pinky to reside at Home with Fam steven/Relatives. MDM/PLAN: - Physical Therapy Decreased range of motion - to improve, our physical therapists will perform initial evaluation of p t's status upon admission and devise an individualized program for increasing patient's Range of Leroy on. Gait dysfunction - to improve, our physical therapists will perform initial evaluation of pt's statu s upon admission and devise an individualized program for Gait Training, and Wheel Chair mobility Inability to transfer - to improve, our physical therapists will perform initial evaluation of pt's status upon admission and devise an individualized program for Bed mobility Need for home safety evaluation - to improve, our physical therapists will perform initial evaluatio n of pt's status upon admission and devise an individualized program for Home Evaluation Need in caregiver upon discharge - to improve, our physical therapists will perform initial evaluati on of pt's status upon admission and devise an individualized program for Caregiver Training Edema - to improve, our physical therapists will perform initial evaluation of pt's status upon admi ssion and devise an individualized program for Elevation Training, and Lymphedema Therapy New precaution - to improve, our physical therapists will perform initial evaluation of pt's status upon admission and devise an individualized program for Patient precaution education Poor balance - to improve, our physical therapists will perform initial evaluation of pt's status up on admission and devise an individualized program for Balance Training Poor endurance - to improve, our physical therapists will perform initial evaluation of pt's status upon admission and devise an individualized program for Endurance Training Weakness - to improve, our physical therapists will perform initial evaluation of pt's status upon a dmission and devise an individualized program for Aquatic Therapy, Neuromuscular Reeducation, and Str engthening Achieving independence - to improve, our physical therapists will perform initial evaluation of pt's status upon admission and devise an individualized program for Community Reintegration Activities - Occupational Therapy ADL deficits - to improve, our occupation therapists will perform initial evaluation of pt's status upon admission and devise an individualized program for Bathing, Bed mobility, Community Reintegratio n, Cooking, Dressing, Eating, Fine Motor Skills, Grooming, Homemaking, Kitchen Mobility, Laundry, Pat ient Education, Safety Awareness, Splinting - Positioning, Transfers(Toilet, Tub, Shower), and Wheel Chair Management Cognitive deficits - to improve, our occupation therapists will perform initial evaluation of pt's s tatus upon admission and devise an individualized program for Cognition - orientation Need for healthcare account manager - to improve, our occupation therapists will perform initial evaluation of pt's status upon admission and devise an individualized program for Caregiver Training Weakness - to improve, our occupation therapists will perform initial evaluation of pt's status upon admission and devise an individualized program for Aquatic Therapy, Balance, Endurance, UE ROM, and UE strengthening - Other See attached MAR (Medication Administration Record) - Anterior Hip Precaution No abduction No active extension No adduction across midline No external rotation No hip flexion >90 degrees No internal rotation - Diet - Liquid Texture Continue Regular - Tube Feed Continue N/A - Diet Type Continue Regular - Posterior Hip Precaution No adduction across midline No external rotation No hip flexion >90 degrees No internal rotation No wheel chair propulsion - Weight Bearing Precaution WBAT left LE - Skin care per protocol - Diet - Solid Texture Continue Regular - Shower allowing shower FUNCTIONAL STATUS: UPDATED AT WEEKLY TEAM CONFERENCE - Bladder Same accident frequency: 7-Ind - No accidents in the past 7 days - Bowel Same accident frequency: 7-Ind - No accidents in the past 7 days - Walking Same score based on distance walked: 0(N/A) Same score based on distance walked: 1(<=50ft) - Wheelchair Same score based on distance traveled: 0(N/A) FUNCTIONAL STATUS: - Self-Care A. Eating Pinky B. Grooming Kamryn C. Bathing modA D. Dressing - Upper Kamryn E. Dressing - Lower modA F. Toileting modA - Sphincter Control G. Bladder control sup H. Bowel control sup - Transfers Control I. Bed/Chair/Wheelchair modA J. Toilet modA K. Tub/Shower modA - Locomotion L. Walk/Wheelchair (B) modA M. Stairs ADNO - Communication N. Comprehension (B) modA O. Expression (B) modA - Social Cognition P. Social Interaction Kamryn Q. Problem Solving modA R. Memory modA - Endurance Fair - Balance Fair - Safety Awareness Poor QI SCORES: - Self-Care A. Eating 05-Setup or clean-up assistance B. Oral hygiene 05-Setup or clean-up assistance C. Toileting hygiene 03-Partial/moderate assistance E. Shower/bathe self 03-Partial/moderate assistance F. Upper body dressing 03-Partial/moderate assistance G. Lower body dressing 02-Substantial/maximal assistance H. Putting on/taking off footwear 02-Substantial/maximal assistance - Mobility A. Roll left and right 03-Partial/moderate assistance B. Sit to lying 02-Substantial/maximal assistance C. Lying to sitting on side of bed 03-Partial/moderate assistance D. Sit to stand 03-Partial/moderate assistance E. Chair/sqe-bu-ripsy transfer 03-Partial/moderate assistance F. Toilet transfer 03-Partial/moderate assistance G. Car transfer 88-Not attempted due to medical condition or safety concerns I. Walk 10 feet 02-Substantial/maximal assistance J. Walk 50 feet with two turns 88-Not attempted due to medical condition or safety concerns K. Walk 150 feet 88-Not attempted due to medical condition or safety concerns L. Walking 10 feet on uneven surfaces 88-Not attempted due to medical condition or safety concerns M. 1 step (curb) 88-Not attempted due to medical condition or safety concerns N. 4 steps 88-Not attempted due to medical condition or safety concerns O. 12 steps 88-Not attempted due to medical condition or safety concerns P. Picking up object 88-Not attempted due to medical condition or safety concerns R. Wheel 50 feet with two turns 88-Not attempted due to medical condition or safety concerns S. Wheel 150 feet 88-Not attempted due to medical condition or safety concerns - Bladder and Bowel Bladder continence 0-Always continent Bowel continence 0-Always continent - Endurance Fair - Balance Fair - Safety Awareness Fair CURRENT FUNC. DEFICITS: Self-Care, Mobility, Endurance, Balance, and Safety Awareness SIGNATURE PANEL: ([facility])
[2019-04-25] MEDS: BUMETANIDE 1 MG TABLET PO SCH (18:16)
--- NOTE | 2019-04-25 20:31 | P.PN ---
Date of Service: 04/25/19 Vital Signs Temp Pulse Resp BP Pulse Ox 97.5 F 88 16 114/66 99 04/25/19 07:05 04/25/19 07:05 04/25/19 17:07 04/25/19 07:05 04/25/19 17:07 Medications Acetaminophen (Tylenol -Extra Strength) 500 mg PO Q6H PRN PRN Reason: Pain scale 2-4 (Mild) Stop: 05/18/19 12:28 Last Admin: 04/25/19 03:37 Dose: 500 mg Hydrocodone Bitart/Acetaminophen ([place] 5/325) 0.5 tab PO Q4H PRN PRN Reason: Pain scale 5-7 (Moderate) Stop: 05/14/19 12:44 Last Admin: 04/25/19 16:07 Dose: 0.5 tab Hydrocodone Bitart/Acetaminophen ([place] 5/325) 1 tab PO BEDTIME [facility] Stop: 05/20/19 21:01 Last Admin: 04/24/19 20:06 Dose: 1 tab Allopurinol (Zyloprim) 100 mg PO DAILY [facility] Stop: 05/15/19 08:01 Last Admin: 04/25/19 08:33 Dose: 100 mg Alprazolam (Xanax) 0.125 mg PO TID PRN PRN Reason: ANXIETY Stop: 05/20/19 14:27 Last Admin: 04/25/19 18:36 Dose: 0.125 mg Amiloride HCl (Midamor) 10 mg PO DAILY [facility] Stop: 05/23/19 08:01 Last Admin: 04/25/19 08:35 Dose: 10 mg Apixaban (Eliquis) 2.5 mg PO BID [facility] Stop: 05/17/19 08:01 Last Admin: 04/25/19 08:33 Dose: 2.5 mg Atorvastatin Calcium (Lipitor) 40 mg PO BEDTIME [facility] Stop: 05/14/19 21:01 Last Admin: 04/24/19 20:07 Dose: 40 mg Bisacodyl (Dulcolax) 10 mg [place] DAILY PRN PRN Reason: CONSTIPATION Stop: 05/15/19 14:28 Last Admin: 04/16/19 11:37 Dose: 10 mg Bumetanide (Bumex) 1 mg PO DAILY [facility] Stop: 05/25/19 17:46 Last Admin: 04/25/19 18:16 Dose: 1 mg Calcitriol (Rocaltrol) 0.5 mcg PO DAILY [facility] Stop: 05/23/19 08:01 Last Admin: 04/25/19 08:34 Dose: 0.5 mcg Cholecalciferol (Vitamin D 5,000 Iu Cap) 5,000 unit PO DAILY [facility] Stop: 05/23/19 08:01 Last Admin: 04/25/19 08:33 Dose: 5,000 unit Clonazepam (Klonopin) 0.5 mg PO BEDTIME PRN PRN Reason: INSOMNIA Stop: 05/22/19 13:17 Last Admin: 04/24/19 22:12 Dose: 0.5 mg Clopidogrel Bisulfate (Plavix) 75 mg PO DAILY [facility] Stop: 05/15/19 08:01 Last Admin: 04/25/19 08:34 Dose: 75 mg Ferrous Sulfate (Feosol) 325 mg PO DAILY [facility] Stop: 05/15/19 08:01 Last Admin: 04/25/19 08:33 Dose: 325 mg Hydroxyzine HCl (Atarax) 12.5 mg PO TID PRN PRN Reason: ITCHING Stop: 05/17/19 14:01 Last Admin: 04/24/19 23:39 Dose: 12.5 mg Lactulose (Cephulac) 20 gm PO DAILY PRN PRN Reason: CONSTIPATION Stop: 05/17/19 09:48 Last Admin: 04/24/19 09:30 Dose: 20 gm Levofloxacin (Levaquin) 250 mg PO DAILY@2100 [facility] Stop: 04/25/19 22:00 Last Admin: 04/24/19 20:10 Dose: 250 mg Mirtazapine (Remeron) 15 mg PO BEDTIME [facility] Stop: 05/20/19 21:01 Last Admin: 04/24/19 20:06 Dose: 15 mg Multivitamins/Iron (Hemocyte Plus) 1 tab PO DAILY WITH BREAKFAST [facility] Stop: 05/15/19 08:01 Last Admin: 04/25/19 08:34 Dose: 1 tab Nutritional Formula (Promod Liquid Protein) 30 ml PO BID [facility] Stop: 05/17/19 20:01 Last Admin: 04/25/19 08:42 Dose: 30 ml Nystatin (Mycostatin Susp) 500,000 unit PO QID [facility] Stop: 05/21/19 17:01 Last Admin: 04/25/19 15:51 Dose: 500,000 unit Pantoprazole Sodium (Protonix Tab) 40 mg PO DAILYAC [facility]; Protocol Stop: 05/15/19 06:31 Last Admin: 04/25/19 06:19 Dose: 40 mg Polyethylene Glycol (Glycolax) 17 gm PO DAILY PRN PRN Reason: CONSTIPATION Stop: 05/14/19 15:04 Last Admin: 04/16/19 12:44 Dose: 17 gm Potassium Chloride (Klor-Con 10 Meq Tab) 30 meq PO DAILY [facility] Stop: 05/15/19 08:01 Last Admin: 04/25/19 08:32 Dose: 30 meq Rivastigmine (Exelon 9.5 Mg Patch) 9.5 mg TD BEDTIME [facility] Stop: 05/14/19 21:01 Last Admin: 04/24/19 20:07 Dose: 9.5 mg Senna/Docusate Sodium (Senokot-S) 2 tab PO BEDTIME PRN PRN Reason: CONSTIPATION Stop: 05/14/19 15:19 Last Admin: 04/20/19 20:05 Dose: 2 tab Sodium Biphosphate/Sodium Phosphate (Fleet Enema Adult) 133 ml [place] DAILY PRN PRN Reason: CONSTIPATION Stop: 05/15/19 14:28 Tamsulosin HCl (Flomax) 0.4 mg PO BID [facility] Stop: 05/22/19 20:01 Last Admin: 04/25/19 08:32 Dose: 0.4 mg Trazodone HCl (Desyrel) 100 mg PO BEDTIME [facility] Stop: 05/23/19 21:01 Last Admin: 04/24/19 20:07 Dose: 100 mg Lab Results (last 24 hrs) 04/25/19 05:54: Sodium 142, Potassium 4.4, Chloride 108 H, Carbon Dioxide 28, BUN 47 H, Creatinine 1.55 H, Estimated GFR 43 L, Glucose 98, Calcium 8.0 L, Magnesium 2.5 H D, Albumin 2.7 L, Prealbumin 10.4 L 04/25/19 05:54: WBC 20.9 H*, RBC 4.02 L, Hgb 9.6 L, Hct 31.5 L, MCV 78.2 L, MCH 23.9 L, MCHC 30.5 L, RDW 19.7 H, Plt Count 172, MPV 9.1, Neutrophils % 62.8, Lymphocytes % 6.1 L, Monocytes % 2.5 L, Eosinophils % 26.1 H, Basophils % 2.5 H , Absolute Neutrophils 13.1 H, Segmented Neutrophils 64, Absolute Lymphocytes 1.3, Lymphocytes 10 L, Monocytes 1, Absolute Monocytes 0.5, Eosinophils 24 H, Absolute Eosinophils 5.4 H, Basophils 1, Absolute Basophils 0.5, Nucleated RBCs 2, Anisocytosis 1+, Morphology Comment Noted Microbiology Results 04/15/19 09:45 Blood - Blood Aerobic Blood Culture - Final No growth in 5 days. 04/15/19 09:45 Blood - Blood Anaerobic Blood Culture - Final No growth in 5 days. 04/15/19 09:32 Blood - Blood Aerobic Blood Culture - Final No growth in 5 days. 04/15/19 09:32 Blood - Blood Anaerobic Blood Culture - Final No growth in 5 days. 04/14/19 11:30 Clean Catch Urine [place] Count - Final 04/14/19 11:30 Clean Catch Urine - Final No growth. Assessment/ Plan: Nephrology CPS stable without CP or SOB. Worsening edema. No acute events overnight. Persistent left hip pain. +Insomnia +Dysuria Vitals, medications, blood work and imaging reviewed in the chart. NAD. MMM. Neck supple. CTA. RRR. Soft Abd. No C/C/E. No rash. AAO. Normal Speech. A/ CKD III. Hypokalemia. Hypocalcemia. Diastolic CHF, chronic. Anemia in chronic illness, microcytic. BPH with LUTS. Moderate malnutrition. P/ Continue current POC and Medications. Start Bumex due to worsening edema. Low sodium diet. AM labs PRN. Daily weight. No NSAIDs. PT as tolerated.
[2019-04-25] MEDS: levoFLOXacin 250 MG TAB PO SCH (20:40)
[2019-04-25] MEDS: ATORVASTATIN 40 MG TAB PO SCH (20:41)
[2019-04-25] MEDS: TRAZODONE 50 MG TABLET PO SCH (20:41)
[2019-04-25] MEDS: HYDROCODONE/APAP 5/325 MG TAB PO SCH (20:41)
[2019-04-25] MEDS: RIVASTIGMINE 9.5 MG/24 HR PATCH TD SCH (20:42)
[2019-04-25] MEDS: MIRTAZAPINE 15 MG TAB PO SCH (20:42)
[2019-04-25] MEDS: clonazePAM 0.5 MG TAB PO PRN (22:52)
[2019-04-26] MEDS: PANTOPRAZOLE 40MG TABLET PO SCH (06:41)
[2019-04-26] MEDS: HYDROCODONE/APAP 5/325 MG TAB PO PRN ×2 (08:10→12:40)
[2019-04-26] MEDS: NYSTATIN 500,000 UNIT/5 ML UDC PO SCH ×4 (08:12→20:56)
[2019-04-26] MEDS: CRANBERRY FRUIT EXTRACT 200 MG CAP PO SCH (08:13)
[2019-04-26] MEDS: POTASSIUM CL SA 10 MEQ TAB PO SCH (08:13)
[2019-04-26] MEDS: CLOPIDOGREL 75 MG TABLET PO SCH (08:14)
[2019-04-26] MEDS: VITAMIN D 5,000 UNIT CAP PO SCH (08:14)
[2019-04-26] MEDS: AMILORIDE HCL 5 MG TABLET PO SCH (08:14)
[2019-04-26] MEDS: TAMSULOSIN 0.4 MG SR CAP PO SCH ×2 (08:14→19:11)
[2019-04-26] MEDS: FE SULF/FA/VIT B COMP & C TAB PO SCH (08:14)
[2019-04-26] MEDS: CALCITROL 0.25 MCG CAP PO SCH (08:14)
[2019-04-26] MEDS: FERROUS SULFATE 325 MG TAB PO SCH (08:14)
[2019-04-26] MEDS: PROMOD 30 ML DOSE PO SCH ×2 (08:15→19:12)
[2019-04-26] MEDS: APIXABAN 2.5 MG TABLET PO SCH ×2 (08:15→19:11)
[2019-04-26] MEDS: allopurinoL 100 MG TAB PO SCH (08:15)
[2019-04-26] MEDS: BUMETANIDE 1 MG TABLET PO SCH (08:15)
--- NOTE | 2019-04-26 09:50 | P.RH.PN ---
Estimated Length of Stay: 17 Expected Discharge Date: 04/30/19 Vital Signs: Last Vital Signs Temp 98.8 F 04/26/19 08:00 Pulse 60 04/26/19 09:24 Resp 17 04/26/19 08:57 BP 122/65 04/26/19 09:24 Pulse Ox 93 04/26/19 08:57 Laboratory: Laboratory Last Values WBC 20.9 K/uL (4.3-10.9) H* 04/25/19 05:54 RBC 4.02 M/uL (4.33-5.43) L 04/25/19 05:54 Hgb 9.6 g/dL (13.6-17.9) L 04/25/19 05:54 Hct 31.5 % (39.6-49.0) L 04/25/19 05:54 MCV 78.2 fL (80-100) L 04/25/19 05:54 MCH 23.9 pg (27.0-35.0) L 04/25/19 05:54 MCHC 30.5 g/dL (32.0-36.0) L 04/25/19 05:54 RDW 19.7 % (12.1-15.2) H 04/25/19 05:54 Plt Count 172 K/uL (152-406) 04/25/19 05:54 MPV 9.1 fL (7.6-11.3) 04/25/19 05:54 Neutrophils % 62.8 % (41.7-73.7) 04/25/19 05:54 Lymphocytes % 6.1 % (15.3-44.8) L 04/25/19 05:54 Monocytes % 2.5 % (3.3-12.3) L 04/25/19 05:54 Eosinophils % 26.1 % (0-4.4) H 04/25/19 05:54 Basophils % 2.5 % (0-1.3) H 04/25/19 05:54 Absolute Neutrophils 13.1 K/uL (1.8-8.0) H 04/25/19 05:54 Segmented Neutrophils 64 % (40-80) 04/25/19 05:54 Band Neutrophils 4 % (0-1) H 04/15/19 06:09 Absolute Lymphocytes 1.3 K/uL (0.7-4.9) 04/25/19 05:54 Lymphocytes 10 % (15-42) L 04/25/19 05:54 Monocytes 1 % (0-10) 04/25/19 05:54 Absolute Monocytes 0.5 K/uL (0.1-1.3) 04/25/19 05:54 Eosinophils 24 % (0-3) H 04/25/19 05:54 Absolute Eosinophils 5.4 K/uL (0-0.5) H 04/25/19 05:54 Basophils 1 % (0-1) 04/25/19 05:54 Absolute Basophils 0.5 K/uL (0-0.5) 04/25/19 05:54 Metamyelocytes 2 % (0-0) H 04/17/19 06:10 Nucleated RBCs 2 /100WBC 04/25/19 05:54 Hypochromasia 1+ 04/17/19 06:10 Anisocytosis 1+ 04/25/19 05:54 Microcytosis 1+ 04/17/19 06:10 Macrocytosis Slight 04/17/19 06:10 Elliptocytes 1+ 04/17/19 06:10 Morphology Comment Noted (NOT SEEN) 04/25/19 05:54 Sodium 142 mmol/L (136-145) 04/25/19 05:54 Potassium 4.4 mmol/L (3.5-5.1) 04/25/19 05:54 Chloride 108 mmol/L (98-107) H 04/25/19 05:54 Carbon Dioxide 28 mmol/L (21-32) 04/25/19 05:54 BUN 47 mg/dL (7-18) H 04/25/19 05:54 Creatinine 1.55 mg/dL (0.55-1.3) H 04/25/19 05:54 Estimated GFR 43 mL/min (=/>90) L 04/25/19 05:54 Glucose 98 mg/dL (74-106) 04/25/19 05:54 Lactic Acid 1.4 mmol/L (0.4-2.0) 04/15/19 08:32 Uric Acid 8.1 mg/dL (3.5-7.2) H 04/24/19 05:57 Calcium 8.0 mg/dL (8.5-10.1) L 04/25/19 05:54 Phosphorus 3.1 mg/dL (2.5-4.9) 04/24/19 05:57 Magnesium 2.5 mg/dL (1.8-2.4) H D 04/25/19 05:54 Iron 21.0 ug/dL (65-175) L 04/24/19 05:57 TIBC 311 ug/dL (250-460) 04/24/19 05:57 Transferrin 222 mg/dL (200-360) 04/24/19 05:57 Transferrin % Sat 6.8 % (20.0-50.0) L 04/24/19 05:57 Albumin 2.7 g/dL (3.4-5.0) L 04/25/19 05:54 Prealbumin 10.4 mg/dL (20-40) L 04/25/19 05:54 Procalcitonin 0.25 ng/mL (<0.50) 04/15/19 09:32 Urine Color Yellow 04/20/19 10:06 Urine Appearance Clear 04/20/19 10:06 Urine pH 5.5 (5.0-7.0) 04/20/19 10:06 Ur Specific [place] 1.015 (1.005-1.030) 04/20/19 10:06 Urine Ketones Negative (NEG) 04/20/19 10:06 Urine Blood Negative (NEG) 04/20/19 10:06 Urine Nitrite Negative (NEG) 04/20/19 10:06 Urine Bilirubin Negative (NEG) 04/20/19 10:06 Urine Urobilinogen 1.0 mg/dL (0.2-1.0) 04/20/19 10:06 Ur Leukocyte Esterase Negative (NEG) 04/20/19 10:06 Urine RBC None seen /HPF (NONE SEEN) 04/20/19 10:06 Urine WBC <5 /HPF (<5) 04/20/19 10:06 Ur Squamous Epith Cells <5 /HPF (NONE SEEN) 04/20/19 10:06 Urine Bacteria <20 /HPF (NONE SEEN) 04/20/19 10:06 Urine Mucus Light /HPF (NONE SEEN) 04/14/19 11:30 Urine Culture Reflexed Not needed 04/20/19 10:06 Urine Glucose Negative (NEG) 04/20/19 10:06 Urine Total Protein Negative (NEG) 04/20/19 10:06 Weight: 190 lb 1.6 oz Wound Present: Yes Closed Surgical Incision Present: Yes Negative Pressure Wound Therapy Present: No Physician Update: Labs reviewed and are stable. His is doing fairly well walking 50' with contact guard. Now more alert and at his baseline cognition somewhat limited by poor vision and shoulder pain. Plans are to discharge home with a family member to help temporaly, if not long term. Medical Issues: Patient is incontinent daily with bladder and always continent with bowel Pain Issues: Patient is taking [place] 5/325mg 0.5 tab Q4H PO PRN and 1 tab at bedtime Functional Improvement: pt has demonstrated progress throughout the week with functional mobility. pt demonstrates good motivation. Skilled PT services continue to be necessary to further enahnce functional mobility and ensure safety upon return home with his elderly . Speech Therapy Update: Patient presents with mild-moderate cognitive linguistic impairments. Since last week patient's ability to remain alert and participate during structured therapy sessions has improved dramatically. Limiting factors that will likely not improve are visual deficits, bilateral should pain and hearing loss. Patient's deficits are characterized by reduced auditory comprehension and reduced STM. Considering patient's educational level he exhibits good problem solving skills. He demonstrates awareness of his deficits and is an excellent verbal communicator. Patient will be d/c to home with caregiver support. Summary: Patient's care plan and penitentiary goals have been reviewed and revised as necessary. Please see the Rehabilitation Signature page for all necessary signatures.
--- NOTE | 2019-04-26 10:06 | P.PN ---
Date of Service: 04/26/19 Vital Signs Temp Pulse Resp BP Pulse Ox 98.8 F 60 17 122/65 93 04/26/19 08:00 04/26/19 09:24 04/26/19 08:57 04/26/19 09:24 04/26/19 08:57 Medications Acetaminophen (Tylenol -Extra Strength) 500 mg PO Q6H PRN PRN Reason: Pain scale 2-4 (Mild) Stop: 05/18/19 12:28 Last Admin: 04/25/19 03:37 Dose: 500 mg Hydrocodone Bitart/Acetaminophen ([place] 5/325) 0.5 tab PO Q4H PRN PRN Reason: Pain scale 5-7 (Moderate) Stop: 05/14/19 12:44 Last Admin: 04/26/19 08:10 Dose: 0.5 tab Hydrocodone Bitart/Acetaminophen ([place] 5/325) 1 tab PO BEDTIME [facility] Stop: 05/20/19 21:01 Last Admin: 04/25/19 20:41 Dose: 1 tab Allopurinol (Zyloprim) 100 mg PO DAILY [facility] Stop: 05/15/19 08:01 Last Admin: 04/26/19 08:15 Dose: 100 mg Alprazolam (Xanax) 0.125 mg PO TID PRN PRN Reason: ANXIETY Stop: 05/20/19 14:27 Last Admin: 04/25/19 18:36 Dose: 0.125 mg Amiloride HCl (Midamor) 10 mg PO DAILY [facility] Stop: 05/23/19 08:01 Last Admin: 04/26/19 08:14 Dose: 10 mg Apixaban (Eliquis) 2.5 mg PO BID [facility] Stop: 05/17/19 08:01 Last Admin: 04/26/19 08:15 Dose: 2.5 mg Atorvastatin Calcium (Lipitor) 40 mg PO BEDTIME [facility] Stop: 05/14/19 21:01 Last Admin: 04/25/19 20:41 Dose: 40 mg Bisacodyl (Dulcolax) 10 mg [place] DAILY PRN PRN Reason: CONSTIPATION Stop: 05/15/19 14:28 Last Admin: 04/16/19 11:37 Dose: 10 mg Bumetanide (Bumex) 1 mg PO DAILY [facility] Stop: 05/25/19 17:46 Last Admin: 04/26/19 08:15 Dose: 1 mg Calcitriol (Rocaltrol) 0.5 mcg PO DAILY [facility] Stop: 05/23/19 08:01 Last Admin: 04/26/19 08:14 Dose: 0.5 mcg Cholecalciferol (Vitamin D 5,000 Iu Cap) 5,000 unit PO DAILY [facility] Stop: 05/23/19 08:01 Last Admin: 04/26/19 08:14 Dose: 5,000 unit Clonazepam (Klonopin) 0.5 mg PO BEDTIME PRN PRN Reason: INSOMNIA Stop: 05/22/19 13:17 Last Admin: 04/25/19 22:52 Dose: 0.5 mg Clopidogrel Bisulfate (Plavix) 75 mg PO DAILY [facility] Stop: 05/15/19 08:01 Last Admin: 04/26/19 08:14 Dose: 75 mg Ferrous Sulfate (Feosol) 325 mg PO DAILY [facility] Stop: 05/15/19 08:01 Last Admin: 04/26/19 08:14 Dose: 325 mg Hydroxyzine HCl (Atarax) 12.5 mg PO TID PRN PRN Reason: ITCHING Stop: 05/17/19 14:01 Last Admin: 04/24/19 23:39 Dose: 12.5 mg Lactulose (Cephulac) 20 gm PO DAILY PRN PRN Reason: CONSTIPATION Stop: 05/17/19 09:48 Last Admin: 04/24/19 09:30 Dose: 20 gm Mirtazapine (Remeron) 15 mg PO BEDTIME [facility] Stop: 05/20/19 21:01 Last Admin: 04/25/19 20:42 Dose: 15 mg Multivitamins/Iron (Hemocyte Plus) 1 tab PO DAILY WITH BREAKFAST [facility] Stop: 05/15/19 08:01 Last Admin: 04/26/19 08:14 Dose: 1 tab Nutritional Formula (Promod Liquid Protein) 30 ml PO BID [facility] Stop: 05/17/19 20:01 Last Admin: 04/26/19 08:15 Dose: 30 ml Nystatin (Mycostatin Susp) 500,000 unit PO QID [facility] Stop: 05/21/19 17:01 Last Admin: 04/26/19 08:12 Dose: 500,000 unit Pantoprazole Sodium (Protonix Tab) 40 mg PO DAILYAC [facility]; Protocol Stop: 05/15/19 06:31 Last Admin: 04/26/19 06:41 Dose: 40 mg Polyethylene Glycol (Glycolax) 17 gm PO DAILY PRN PRN Reason: CONSTIPATION Stop: 05/14/19 15:04 Last Admin: 04/16/19 12:44 Dose: 17 gm Potassium Chloride (Klor-Con 10 Meq Tab) 30 meq PO DAILY [facility] Stop: 05/15/19 08:01 Last Admin: 04/26/19 08:13 Dose: 30 meq Rivastigmine (Exelon 9.5 Mg Patch) 9.5 mg TD BEDTIME [facility] Stop: 05/14/19 21:01 Last Admin: 04/25/19 20:42 Dose: 9.5 mg Senna/Docusate Sodium (Senokot-S) 2 tab PO BEDTIME PRN PRN Reason: CONSTIPATION Stop: 05/14/19 15:19 Last Admin: 04/20/19 20:05 Dose: 2 tab Sodium Biphosphate/Sodium Phosphate (Fleet Enema Adult) 133 ml RI DAILY PRN PRN Reason: CONSTIPATION Stop: 05/15/19 14:28 Tamsulosin HCl (Flomax) 0.4 mg PO BID [facility] Stop: 05/22/19 20:01 Last Admin: 04/26/19 08:14 Dose: 0.4 mg Trazodone HCl (Desyrel) 100 mg PO BEDTIME [facility] Stop: 05/23/19 21:01 Last Admin: 04/25/19 20:41 Dose: 100 mg Microbiology Results 04/15/19 09:45 Blood - Blood Aerobic Blood Culture - Final No growth in 5 days. 04/15/19 09:45 Blood - Blood Anaerobic Blood Culture - Final No growth in 5 days. 04/15/19 09:32 Blood - Blood Aerobic Blood Culture - Final No growth in 5 days. 04/15/19 09:32 Blood - Blood Anaerobic Blood Culture - Final No growth in 5 days. 04/14/19 11:30 Clean Catch Urine [place] Count - Final 04/14/19 11:30 Clean Catch Urine - Final No growth. Assessment/ Plan: Nephrology CPS stable without CP or SOB. Worsening edema. No acute events overnight. Persistent left hip pain. +Insomnia +Dysuria Vitals, medications, blood work and imaging reviewed in the chart. NAD. MMM. Neck supple. CTA. RRR. Soft Abd. No C/C/E. No rash. AAO. Normal Speech. A/ CKD III. Hypokalemia. Hypocalcemia. Diastolic CHF, chronic. 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 Iron Deficiency. BPH with LUTS. Moderate malnutrition. P/ Continue current POC and Medications. Continue Bumex and Amiloride. Low sodium diet. AM labs PRN. Daily weight. No NSAIDs. PT as tolerated.
--- NOTE | 2019-04-26 15:55 | FAST ---
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 Jhon Maier M.D. ADMISSION DIAGNOSIS: - Orthopaedic Disorders 08 - Unilateral Hip Fracture (08.11) Left Hip Displaced Femoral Neck Fracture. EATING: Not assessed/no information CODE: - ORAL HYGIENE: ORAL HYGIENE - STEP 1: Does the patient complete the activity by him/herself with no assistance (physical, verbal/nonverbal cueing, setup/clean-up)? Yes. 1. [id number] ADMISSION PERFORMANCE: Independent CODE: 06 TOILETING HYGIENE: Not assessed/no information CODE: - BATHING: SHOWER/BATHE SELF - STEP 1: Does the patient complete the activity by him/herself with no assistance (physical, verbal/nonverbal cueing, setup/clean-up)? No. SHOWER/BATHE SELF - STEP 2: Does the patient need only setup/clean-up assistance from one helper? No. SHOWER/BATHE SELF - STEP 3: Does the patient need only verbal/nonverbal cueing or touching/steadying/contact guard assistance fro m one helper? Yes. 1. [id number] ADMISSION PERFORMANCE: Supervision or touching assistance CODE: 04 DRESSING - UPPER BODY: DRESSING - UPPER BODY - STEP 1: Does the patient complete the activity by him/herself with no assistance (physical, verbal/nonverbal cueing, setup/clean-up)? No. DRESSING - UPPER BODY - STEP 2: Does the patient need only setup/clean-up assistance from one helper? No. DRESSING - UPPER BODY - STEP 3: Does the patient need only verbal/nonverbal cueing or touching/steadying/contact guard assistance fro m one helper? Yes. 1. [id number] ADMISSION PERFORMANCE: Supervision or touching assistance CODE: 04 DRESSING - LOWER BODY: DRESSING - LOWER BODY - STEP 1: Does the patient complete the activity by him/herself with no assistance (physical, verbal/nonverbal cueing, setup/clean-up)? No. DRESSING - LOWER BODY - STEP 2: Does the patient need only setup/clean-up assistance from one helper? No. DRESSING - LOWER BODY - STEP 3: Does the patient need only verbal/nonverbal cueing or touching/steadying/contact guard assistance fro m one helper? No. DRESSING - LOWER BODY - STEP 4: Does the patient need physical assistance - for example lifting or trunk support from one helper - wi th the helper providing less than half of the effort? Yes. 1. [id number] ADMISSION PERFORMANCE: Partial/moderate assistance CODE: 03 PUTTING ON/TAKING OFF FOOTWEAR: FOOTWEAR - STEP 1: Does the patient complete the activity by him/herself with no assistance (physical, verbal/nonverbal cueing, setup/clean-up)? No. FOOTWEAR - STEP 2: Does the patient need only setup/clean-up assistance from one helper? No. FOOTWEAR - STEP 3: Does the patient need only verbal/nonverbal cueing or touching/steadying/contact guard assistance fro m one helper? No. FOOTWEAR - STEP 4: Does the patient need physical assistance - for example lifting or trunk support from one helper - wi th the helper providing less than half of the effort? No. FOOTWEAR - STEP 5: Does the patient need physical assistance - for example lifting or trunk support from one helper - wi th the helper providing more than half of the effort? Yes. 1. [id number] ADMISSION PERFORMANCE: Substantial/maximal assistance CODE: 02 DOES THE PATIENT USE A WHEELCHAIR/SCOOTER? CODE: EXPR INDICATE THE TYPE OF WHEELCHAIR/SCOOTER USED: CODE: EXPR INDICATE THE TYPE OF WHEELCHAIR/SCOOTER USED: CODE: EXPR BLADDER AND BOWEL: CODE: EXPR CODE: EXPR SIGNATURE PANEL: The following modified sections: 1. [id number] Admission Performance, 1. [id number] Admission Performance, 1. [id number] Admission Performance, 1. [id number] Admission Performance, 1. [id number] Admission Performance, 1. [id number] Admission Performance, 1. [id number] Admission Performance, 1. [id number] Admission Performance were [electronically] signed by ADA Bowers on MonApr 26 2019 15:53:55 GMT-0600 ([place] Standard [place])
[2019-04-26] MEDS: DOCUSATE NA/SENNA CONC 1 TAB PO PRN (19:12)
[2019-04-26] MEDS: TRAZODONE 50 MG TABLET PO SCH (20:53)
[2019-04-26] MEDS: ATORVASTATIN 40 MG TAB PO SCH (20:53)
[2019-04-26] MEDS: HYDROCODONE/APAP 5/325 MG TAB PO SCH (20:54)
[2019-04-26] MEDS: MIRTAZAPINE 15 MG TAB PO SCH (20:55)
[2019-04-26] MEDS: RIVASTIGMINE 9.5 MG/24 HR PATCH TD SCH (20:55)
[2019-04-26] MEDS: ALPRAZOLAM 0.25 MG TABLET PO PRN (21:11)
[2019-04-26] MEDS ORDERED: ALPRAZOLAM 0.25 MG TABLET PO ONE (23:21)
[2019-04-27] MEDS: HYDROCODONE/APAP 5/325 MG TAB PO PRN (01:34)
--- NOTE | 2019-04-27 02:32 | FAST ---
SHIFT START DATE/TIME: 04/26/2019 19:00 (SAP ABAP PROGRAMMER) SHIFT END DATE/TIME: 04/27/2019 07:00 (SAP ABAP PROGRAMMER) NAME CHELA VALIENTE DATE OF : 1930 DATE OF ADMISSION: 04/14/2019 10:59 (SAP ABAP PROGRAMMER) PHONE: AGE: 88 N# [id number] GENDER: Male ENCOUNTER PHYSICIAN: Dr. Jhon Maier M.D. ADMISSION DIAGNOSIS: - Orthopaedic Disorders 08 - Unilateral Hip Fracture (08.11) Left Hip Displaced Femoral Neck Fracture. EATING: Not assessed/no information CODE: - ORAL HYGIENE: Not assessed/no information CODE: - TOILETING HYGIENE: TOILETING HYGIENE - STEP 1: Does the patient complete the activity by him/herself with no assistance (physical, verbal/nonverbal cueing, setup/clean-up)? No. TOILETING HYGIENE - STEP 2: Does the patient need only setup/clean-up assistance from one helper? No. TOILETING HYGIENE - STEP 3: Does the patient need only verbal/nonverbal cueing or touching/steadying/contact guard assistance fro m one helper? No. TOILETING HYGIENE - STEP 4: Does the patient need physical assistance - for example lifting or trunk support from one helper - wi th the helper providing less than half of the effort? No. TOILETING HYGIENE - STEP 5: Does the patient need physical assistance - for example lifting or trunk support from one helper - wi th the helper providing more than half of the effort? Yes. 1. [id number] ADMISSION PERFORMANCE: Substantial/maximal assistance CODE: 02 BATHING: Not assessed/no information CODE: - DRESSING - UPPER BODY: Not assessed/no information CODE: - DRESSING - LOWER BODY: Not assessed/no information CODE: - PUTTING ON/TAKING OFF FOOTWEAR: Not assessed/no information CODE: - ROLL LEFT AND RIGHT: ROLL LEFT AND RIGHT - STEP 1: Does the patient complete the activity by him/herself with no assistance (physical, verbal/nonverbal cueing, setup/clean-up)? No. ROLL LEFT AND RIGHT - STEP 2: Does the patient need only setup/clean-up assistance from one helper? No. ROLL LEFT AND RIGHT - STEP 3: Does the patient need only verbal/nonverbal cueing or touching/steadying/contact guard assistance fro m one helper? No. ROLL LEFT AND RIGHT - STEP 4: Does the patient need physical assistance - for example lifting or trunk support from one helper - wi th the helper providing less than half of the effort? No. ROLL LEFT AND RIGHT - STEP 5: Does the patient need physical assistance - for example lifting or trunk support from one helper - wi th the helper providing more than half of the effort? Yes. 1. [id number] ADMISSION PERFORMANCE: Substantial/maximal assistance CODE: 02 SIT TO LYING: SIT TO LYING - STEP 1: Does the patient complete the activity by him/herself with no assistance (physical, verbal/nonverbal cueing, setup/clean-up)? No. SIT TO LYING - STEP 2: Does the patient need only setup/clean-up assistance from one helper? No. SIT TO LYING - STEP 3: Does the patient need only verbal/nonverbal cueing or touching/steadying/contact guard assistance fro m one helper? No. SIT TO LYING - STEP 4: Does the patient need physical assistance - for example lifting or trunk support from one helper - wi th the helper providing less than half of the effort? No. SIT TO LYING - STEP 5: Does the patient need physical assistance - for example lifting or trunk support from one helper - wi th the helper providing more than half of the effort? Yes. 1. [id number] ADMISSION PERFORMANCE: Substantial/maximal assistance CODE: 02 LYING TO SITTING: LYING TO SITTING ON SIDE OF BED - STEP 1: Does the patient complete the activity by him/herself with no assistance (physical, verbal/nonverbal cueing, setup/clean-up)? No. LYING TO SITTING ON SIDE OF BED - STEP 2: Does the patient need only setup/clean-up assistance from one helper? No. LYING TO SITTING ON SIDE OF BED - STEP 3: Does the patient need only verbal/nonverbal cueing or touching/steadying/contact guard assistance fro m one helper? No. LYING TO SITTING ON SIDE OF BED - STEP 4: Does the patient need physical assistance - for example lifting or trunk support from one helper - wi th the helper providing less than half of the effort? No. LYING TO SITTING ON SIDE OF BED - STEP 5: Does the patient need physical assistance - for example lifting or trunk support from one helper - wi th the helper providing more than half of the effort? Yes. 1. [id number] ADMISSION PERFORMANCE: Substantial/maximal assistance CODE: 02 SIT TO STAND: SIT TO STAND - STEP 1: Does the patient complete the activity by him/herself with no assistance (physical, verbal/nonverbal cueing, setup/clean-up)? No. SIT TO STAND - STEP 2: Does the patient need only setup/clean-up assistance from one helper? No. SIT TO STAND - STEP 3: Does the patient need only verbal/nonverbal cueing or touching/steadying/contact guard assistance fro m one helper? No. SIT TO STAND - STEP 4: Does the patient need physical assistance - for example lifting or trunk support from one helper - wi th the helper providing less than half of the effort? No. SIT TO STAND - STEP 5: Does the patient need physical assistance - for example lifting or trunk support from one helper - wi th the helper providing more than half of the effort? Yes. 1. [id number] ADMISSION PERFORMANCE: Substantial/maximal assistance CODE: 02 TRANSFERS: BED, CHAIR: CHAIR/[id number] TRANSFER - STEP 1: Does the patient complete the activity by him/herself with no assistance (physical, verbal/nonverbal cueing, setup/clean-up)? No. CHAIR/[id number] TRANSFER - STEP 2: Does the patient need only setup/clean-up assistance from one helper? No. CHAIR/[id number] TRANSFER - STEP 3: Does the patient need only verbal/nonverbal cueing or touching/steadying/contact guard assistance fro m one helper? No. CHAIR/[id number] TRANSFER - STEP 4: Does the patient need physical assistance - for example lifting or trunk support from one helper - wi th the helper providing less than half of the effort? No. CHAIR/[id number] TRANSFER - STEP 5: Does the patient need physical assistance - for example lifting or trunk support from one helper - wi th the helper providing more than half of the effort? Yes. 1. [id number] ADMISSION PERFORMANCE: Substantial/maximal assistance CODE: 02 TRANSFER TOILET: TOILET TRANSFER - STEP 1: Does the patient complete the activity by him/herself with no assistance (physical, verbal/nonverbal cueing, setup/clean-up)? No. TOILET TRANSFER - STEP 2: Does the patient need only setup/clean-up assistance from one helper? No. TOILET TRANSFER - STEP 3: Does the patient need only verbal/nonverbal cueing or touching/steadying/contact guard assistance fro m one helper? No. TOILET TRANSFER - STEP 4: Does the patient need physical assistance - for example lifting or trunk support from one helper - wi th the helper providing less than half of the effort? No. TOILET TRANSFER - STEP 5: Does the patient need physical assistance - for example lifting or trunk support from one helper - wi th the helper providing more than half of the effort? Yes. 1. [id number] ADMISSION PERFORMANCE: Substantial/maximal assistance CODE: 02 TRANSFERS: CAR: Not assessed/no information CODE: - WALK 10 FEET: Not assessed/no information CODE: - 4 STEPS: Not assessed/no information CODE: - 12 STEPS: PICKING UP OBJECT: Not assessed/no information CODE: - DOES THE PATIENT USE A WHEELCHAIR/SCOOTER? CODE: EXPR WHEEL 50 FEET WITH TWO TURNS: Not assessed/no information CODE: - INDICATE THE TYPE OF WHEELCHAIR/SCOOTER USED: CODE: EXPR WHEEL 150 FEET: Not assessed/no information CODE: - INDICATE THE TYPE OF WHEELCHAIR/SCOOTER USED: CODE: EXPR BLADDER AND BOWEL: H350. BLADDER CONTINENCE (3-DAY ASSESSMENT PERIOD): Always continent (no documented incontinence) CODE: 0 H400. BOWEL CONTINENCE (3-DAY ASSESSMENT PERIOD): Always continent CODE: 0
[2019-04-27] MEDS: ACETAMINOPHEN 500 MG TAB PO PRN (05:16)
[2019-04-27 05:24] VITALS: BMI 27.6
[2019-04-27 05:50] LABS: Absolute Lymphocytes (CBC) 1.4 K/uL (0.7-4.9); Basophils % 1.5 % (0-1.3); Lymphocytes % 6.2 % (15.3-44.8); MPV 9.1 fL (7.6-11.3); RBC Red Blood Cell Count 4.04 M/uL (4.33-5.43)
[2019-04-27 05:51] LABS: Albumin 2.8 g/dL (3.4-5.0); Bilirubin Total 0.7 mg/dL (0.2-1.0); Magnesium 2.3 mg/dL (1.8-2.4); Phosphorus 3.4 mg/dL (2.5-4.9); Potassium 4.9 mmol/L (3.5-5.1); Uric Acid 6.8 mg/dL (3.5-7.2)
[2019-04-27] MEDS: PANTOPRAZOLE 40MG TABLET PO SCH (06:05)
[2019-04-27] MEDS ORDERED: FORMULATION-R RECTAL 30GM PR PRN (06:48)
[2019-04-27] MEDS: TAMSULOSIN 0.4 MG SR CAP PO SCH (08:00)
[2019-04-27] MEDS: POTASSIUM CL SA 10 MEQ TAB PO SCH (08:00)
[2019-04-27] MEDS: CRANBERRY FRUIT EXTRACT 200 MG CAP PO SCH (08:00)
[2019-04-27] MEDS: CLOPIDOGREL 75 MG TABLET PO SCH (08:00)
[2019-04-27] MEDS: FE SULF/FA/VIT B COMP & C TAB PO SCH (08:00)
[2019-04-27] MEDS: CALCITROL 0.25 MCG CAP PO SCH (08:00)
[2019-04-27] MEDS: allopurinoL 100 MG TAB PO SCH (08:00)
[2019-04-27] MEDS: PROMOD 30 ML DOSE PO SCH (08:00)
[2019-04-27] MEDS: VITAMIN D 5,000 UNIT CAP PO SCH (08:00)
[2019-04-27] MEDS: FERROUS SULFATE 325 MG TAB PO SCH (08:00)
[2019-04-27] MEDS: NYSTATIN 500,000 UNIT/5 ML UDC PO SCH ×2 (09:00→12:06)
[2019-04-27] MEDS: BUMETANIDE 1 MG TABLET PO SCH (09:12)
[2019-04-27] MEDS: AMILORIDE HCL 5 MG TABLET PO SCH (09:13)
[2019-04-27 10:59] LABS: Urine Appearance CLEAR; Urine Bilirubin NEGATIVE (NEG); Urine Blood 2+ (NEG); Urine Color YELLOW; Urine Glucose NEGATIVE (NEG); Urine Protein TRACE (NEG); Urine pH 6.5 (5.0-7.0)
[2019-04-27 11:11] LABS: Urine Bacteria NONE SEEN /HPF (NONE SEEN); Urine Culture Reflex Order NOT NEEDED; Urine RBC <5 /HPF (NONE SEEN)
[2019-04-27 11:24] VITALS: TEMP 97.4
[2019-04-27 12:36] LABS: UR MICROALBUMIN 8.4 mg/dL (< 1.9)
[2019-04-27 14:02] VITALS: BP 91/46
--- NOTE | 2019-04-27 19:23 | CON ---
Date of Consultation: 04/27/2019 Diagnosis: Rectal bleeding. History Of Present Illness: This is a case of an 88-year-old patient, who came to the [facility] for [facility] after a hip surgery. He states he has been having some constipation. He not iced some blood mainly after a bowel movement. Today, it became significant, family got alarmed and a surgical consult is obtained since GI is not available today. The do not recall the last colonosco py on him, they do think that every now and then has constipation, but they have not seen this lady lj kumari. Review of Systems: Ten point system otherwise unremarkable.. Allergies: INCLUDE NAPROXEN AND TRAMADOL. Medications: Reviewed including Xarelto. Past Surgical History: Surgery as above. Family History: Noncontributory at this time. Social History: He does not smoke. He does not drink alcohol. Physical Examination: General: Patient is awake and alert. Not in distress. HEENT: Pupils are equal and reactive, anicteric. Neck: Supple. Chest: Clear. Abdomen: Soft and depressible. Rectal: We see some dark blood around the area of the anus. No active bleeding at this moment. No bright red blood at this moment. There are some melena changes in the area of the anus. Extremities: Good capillary fill. Laboratory Data: Blood work shows hemoglobin of 9.7. Creatinine is 1.66. We do not have INR at thi s moment. Assessment: 88-year-old patient with gastrointestinal bleed, unknown etiology. It does not seem meme ght red blood, I looked at the area. Even though he has hemorrhoid, I do not see any of them bleedin g at this moment, so higher a gastrointestinal bleed cannot be completely ruled out. GI is not avail able at this moment. We have no nuclear scan, no bleeding scan, and no angiography available. Recom mend the service to transfer this patient to a higher level of care where they can provide those serv ices. I am going to be available in case start bleeding profusely. Then, after that, we might have to do some emergent surgical intervention, but at this moment he is hemodynamically stable, so, we ar e going to proceed with recommendation of a transfer. CHIQUITA/CHELSEA Voice ID: [id number] Report ID: [id number]
--- NOTE | 2019-04-27 19:42 | P.PN ---
Date of Service: 04/27/19 Vital Signs Temp Pulse Resp BP Pulse Ox 97.4 F 85 18 91/46 L 98 04/27/19 08:00 04/27/19 13:15 04/27/19 08:00 04/27/19 13:15 04/27/19 08:00 Lab Results (last 24 hrs) 04/27/19 09:10: Urine Color Yellow, Urine Appearance Clear, Urine pH 6.5, Ur Specific [place] 1.020, Urine Ketones Negative, Urine Blood 2+ H, Urine Nitrite Negative, Urine Bilirubin Negative, Urine Urobilinogen 1.0, Ur Leukocyte Esterase Negative, Urine RBC <5, Urine WBC <5, Ur Squamous Epith Cells <5, Urine Bacteria None seen, Urine Culture Reflexed Not needed, Urine Glucose Negative, Urine Total Protein Trace 04/27/19 09:10: Ur Random Microalbumin 8.4 H, Urine Creatinine 85.0, Microalb/ Creat Ratio 98.8 H 04/27/19 05:09: WBC 22.3 H*, RBC 4.04 L, Hgb 9.7 L, Hct 32.0 L, MCV 79.1 L, MCH 24.0 L, MCHC 30.3 L, RDW 19.6 H, Plt Count 152, MPV 9.1, Neutrophils % 65.6, Lymphocytes % 6.2 L, Monocytes % 2.1 L, Eosinophils % 24.6 H, Basophils % 1.5 H , Absolute Neutrophils 14.6 H, Absolute Lymphocytes 1.4, Absolute Monocytes 0.5 , Absolute Eosinophils 5.5 H, Absolute Basophils 0.3 04/27/19 05:09: Sodium 139, Potassium 4.9, Chloride 107, Carbon Dioxide 28, BUN 46 H, Creatinine 1.66 H, Estimated GFR 39 L, Glucose 111 H, Uric Acid 6.8, Calcium 8.3 L, Phosphorus 3.4, Magnesium 2.3, Total Bilirubin 0.7, AST 23, ALT 18, Alkaline Phosphatase 164 H, NT-Pro-B Natriuret Pep 7616 H, Serum Total Protein 6.0 L, Albumin 2.8 L, Globulin 3.2, Albumin/Globulin Ratio 0.9 L 04/27/19 05:00: WBC Cancelled, RBC Cancelled, Hgb Cancelled, Hct Cancelled, MCV Cancelled, MCH Cancelled, MCHC Cancelled, RDW Cancelled, Plt Count Cancelled, MPV Cancelled, Plt Distribution Width Cancelled, Absolute Nucleated RBC Cancelled, Neutrophils % Cancelled, Lymphocytes % Cancelled, Monocytes % Cancelled, Eosinophils % Cancelled, Basophils % Cancelled, Nucleated RBC % Cancelled, Absolute Neutrophils Cancelled, Absolute Lymphocytes Cancelled, Absolute Monocytes Cancelled, Absolute Eosinophils Cancelled, Absolute Basophils Cancelled, Diff Path Review Cancelled Microbiology Results 04/15/19 09:45 Blood - Blood Aerobic Blood Culture - Final No growth in 5 days. 04/15/19 09:45 Blood - Blood Anaerobic Blood Culture - Final No growth in 5 days. 04/15/19 09:32 Blood - Blood Aerobic Blood Culture - Final No growth in 5 days. 04/15/19 09:32 Blood - Blood Anaerobic Blood Culture - Final No growth in 5 days. 04/14/19 11:30 Clean Catch Urine [place] Count - Final 04/14/19 11:30 Clean Catch Urine - Final No growth. Assessment/ Plan: Nephrology CPS stable without CP or SOB. Persistent edema. No acute events overnight. Persistent left hip pain. +Insomnia +Dysuria Vitals, medications, blood work and imaging reviewed in the chart. NAD. MMM. Neck supple. CTA. RRR. Soft Abd. No C/C/E. No rash. AAO. Normal Speech. A/ CKD III. Hypokalemia. Hypocalcemia. Diastolic CHF, chronic. 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 Iron Deficiency. BPH with LUTS. Moderate malnutrition. P/ Continue current POC and Medications. Continue Bumex and Amiloride. Consider lerma placement for BPH/LUTS. Case reviewed with the patient and his daughter. Low sodium diet. AM labs PRN. Daily weight. No NSAIDs. PT as tolerated. Plan for transfer today due to GI bleed.
--- NOTE | 2019-04-29 10:31 | FAST ---
ENCOUNTER DATE AND TIME: 04/24/2019 08:00 (RN [facility]) NAME CHELA VALIENTE DATE OF : 1930 DATE OF ADMISSION: 04/14/2019 10:59 (RN [facility]) PHONE: AGE: 88 N# [id number] GENDER: Male ENCOUNTER PHYSICIAN: Dr. Jhon Maier M.D. ADMISSION DIAGNOSIS: - Orthopaedic Disorders 08 - Unilateral Hip Fracture (08.11) Left Hip Displaced Femoral Neck Fracture. ROLL LEFT AND RIGHT: ROLL LEFT AND RIGHT - STEP 1: Does the patient complete the activity by him/herself with no assistance (physical, verbal/nonverbal cueing, setup/clean-up)? No. ROLL LEFT AND RIGHT - STEP 2: Does the patient need only setup/clean-up assistance from one helper? No. ROLL LEFT AND RIGHT - STEP 3: Does the patient need only verbal/nonverbal cueing or touching/steadying/contact guard assistance fro m one helper? Yes. 1. [id number] ADMISSION PERFORMANCE: Supervision or touching assistance CODE: 04 SIT TO LYING: SIT TO LYING - STEP 1: Does the patient complete the activity by him/herself with no assistance (physical, verbal/nonverbal cueing, setup/clean-up)? No. SIT TO LYING - STEP 2: Does the patient need only setup/clean-up assistance from one helper? No. SIT TO LYING - STEP 3: Does the patient need only verbal/nonverbal cueing or touching/steadying/contact guard assistance fro m one helper? Yes. 1. [id number] ADMISSION PERFORMANCE: Supervision or touching assistance CODE: 04 LYING TO SITTING: LYING TO SITTING ON SIDE OF BED - STEP 1: Does the patient complete the activity by him/herself with no assistance (physical, verbal/nonverbal cueing, setup/clean-up)? No. LYING TO SITTING ON SIDE OF BED - STEP 2: Does the patient need only setup/clean-up assistance from one helper? No. LYING TO SITTING ON SIDE OF BED - STEP 3: Does the patient need only verbal/nonverbal cueing or touching/steadying/contact guard assistance fro m one helper? Yes. 1. [id number] ADMISSION PERFORMANCE: Supervision or touching assistance CODE: 04 SIT TO STAND: SIT TO STAND - STEP 1: Does the patient complete the activity by him/herself with no assistance (physical, verbal/nonverbal cueing, setup/clean-up)? No. SIT TO STAND - STEP 2: Does the patient need only setup/clean-up assistance from one helper? No. SIT TO STAND - STEP 3: Does the patient need only verbal/nonverbal cueing or touching/steadying/contact guard assistance fro m one helper? Yes. 1. [id number] ADMISSION PERFORMANCE: Supervision or touching assistance CODE: 04 TRANSFERS: BED, CHAIR: CHAIR/[id number] TRANSFER - STEP 1: Does the patient complete the activity by him/herself with no assistance (physical, verbal/nonverbal cueing, setup/clean-up)? No. CHAIR/[id number] TRANSFER - STEP 2: Does the patient need only setup/clean-up assistance from one helper? No. CHAIR/[id number] TRANSFER - STEP 3: Does the patient need only verbal/nonverbal cueing or touching/steadying/contact guard assistance fro m one helper? Yes. 1. [id number] ADMISSION PERFORMANCE: Supervision or touching assistance CODE: 04 TRANSFER TOILET: TOILET TRANSFER - STEP 1: Does the patient complete the activity by him/herself with no assistance (physical, verbal/nonverbal cueing, setup/clean-up)? No. TOILET TRANSFER - STEP 2: Does the patient need only setup/clean-up assistance from one helper? No. TOILET TRANSFER - STEP 3: Does the patient need only verbal/nonverbal cueing or touching/steadying/contact guard assistance fro m one helper? Yes. 1. [id number] ADMISSION PERFORMANCE: Supervision or touching assistance CODE: 04 TRANSFERS: CAR: Not attempted due to medical condition or safety concerns CODE: 88 WALK 10 FEET: WALK 10 FEET - STEP 1: Does the patient complete the activity by him/herself with no assistance (physical, verbal/nonverbal cueing, setup/clean-up)? No. WALK 10 FEET - STEP 2: Does the patient need only setup/clean-up assistance from one helper? No. WALK 10 FEET - STEP 3: Does the patient need only verbal/nonverbal cueing or touching/steadying/contact guard assistance fro m one helper? No. WALK 10 FEET - STEP 4: Does the patient need physical assistance - for example lifting or trunk support from one helper - wi th the helper providing less than half of the effort? No. WALK 10 FEET - STEP 5: Does the patient need physical assistance - for example lifting or trunk support from one helper - wi th the helper providing more than half of the effort? Yes. 1. [id number] ADMISSION PERFORMANCE: Substantial/maximal assistance CODE: 02 WALK 50 FEET: WALK 50 FEET - STEP 1: Does the patient complete the activity by him/herself with no assistance (physical, verbal/nonverbal cueing, setup/clean-up)? No. WALK 50 FEET - STEP 2: Does the patient need only setup/clean-up assistance from one helper? No. WALK 50 FEET - STEP 3: Does the patient need only verbal/nonverbal cueing or touching/steadying/contact guard assistance fro m one helper? No. WALK 50 FEET - STEP 4: Does the patient need physical assistance - for example lifting or trunk support from one helper - wi th the helper providing less than half of the effort? No. WALK 50 FEET - STEP 5: Does the patient need physical assistance - for example lifting or trunk support from one helper - wi th the helper providing more than half of the effort? Yes. 1. [id number] ADMISSION PERFORMANCE: Substantial/maximal assistance CODE: 02 WALK 150 FEET: Not attempted due to medical condition or safety concerns CODE: 88 WALK 10 FEET UNEVEN: Not attempted due to medical condition or safety concerns CODE: 88 1 STEP (CURB): Not attempted due to medical condition or safety concerns CODE: 88 PICKING UP OBJECT: Not attempted due to medical condition or safety concerns CODE: 88 DOES THE PATIENT USE A WHEELCHAIR/SCOOTER? Q1. DOES THE PATIENT USE A WHEELCHAIR/SCOOTER?: Yes CODE: 1 WHEEL 50 FEET WITH TWO TURNS: WHEEL 50 FEET WITH TWO TURNS - STEP 1: Does the patient complete the activity by him/herself with no assistance (physical, verbal/nonverbal cueing, setup/clean-up)? No. WHEEL 50 FEET WITH TWO TURNS - STEP 2: Does the patient need only setup/clean-up assistance from one helper? Yes. 1. [id number] ADMISSION PERFORMANCE: Setup or clean-up assistance CODE: 05 INDICATE THE TYPE OF WHEELCHAIR/SCOOTER USED: RR1. INDICATE THE TYPE OF WHEELCHAIR/SCOOTER USED.: Manual CODE: 1 WHEEL 150 FEET: WHEEL 150 FEET - STEP 1: Does the patient complete the activity by him/herself with no assistance (physical, verbal/nonverbal cueing, setup/clean-up)? No. WHEEL 150 FEET - STEP 2: Does the patient need only setup/clean-up assistance from one helper? Yes. 1. [id number] ADMISSION PERFORMANCE: Setup or clean-up assistance CODE: 05 INDICATE THE TYPE OF WHEELCHAIR/SCOOTER USED: SS1. INDICATE THE TYPE OF WHEELCHAIR/SCOOTER USED.: Manual CODE: 1 BLADDER AND BOWEL: CODE: EXPR CODE: EXPR SIGNATURE PANEL: The following modified sections: 1. [id number] Admission Performance, 1. [id number] Admission Performance, 1. [id number] Admission Performance, 1. [id number] Admission Performance, 1. [id number] Admission Performance, 1. [id number] Admission Performance, 1. [id number] Admission Performance, 1. [id number] Admission Performance , Q1. Does the patient use a wheelchair/scooter?, 1. [id number] Admission Performance, RR1. Indicate the type of wheelchair/scooter used., 1. [id number] Admission Performance, Code, SS1. Indicate the type of wheelchair/scooter used. were [electronically] signed by Nikhil Mendez PTA on MonApr 29 2019 10:30:11 GMT-0600 (Central Standard Time)
== END 2019-04-27 15:35 | disposition short-term general hospital (02) | DRG 560 ==
LOC: 5TH 04-14 10:59
PROVIDERS: ADMIT Psychiatry & Neurology Neurology with Special Qualifications in Child Neurology; ATTEND Psychiatry & Neurology Neurology with Special Qualifications in Child Neurology
DX: S72.92XS Unspecified fracture of left femur, sequela (principal); I13.0 Hypertensive heart and chronic kidney disease with heart failure and stage 1 through stage 4 chronic kidney disease, or unspecified chronic kidney disease; I50.32 Chronic diastolic (congestive) heart failure; I48.20 Chronic atrial fibrillation, unspecified; N17.9 Acute kidney failure, unspecified; E44.0 Moderate protein-calorie malnutrition; K62.5 Hemorrhage of anus and rectum; I25.10 Atherosclerotic heart disease of native coronary artery without angina pectoris; N18.3 Chronic kidney disease, stage 3 (moderate); D46.9 Myelodysplastic syndrome, unspecified; G30.9 Alzheimer's disease, unspecified; F02.80 Dementia in other diseases classified elsewhere, unspecified severity, without behavioral disturbance, psychotic disturbance, mood disturbance, and anxiety; K59.00 Constipation, unspecified; E87.6 Hypokalemia; E83.51 Hypocalcemia; N40.1 Benign prostatic hyperplasia with lower urinary tract symptoms; Z68.27 Body mass index [BMI] 27.0-27.9, adult
CPT/HCPCS: 36415; 71045; 74018; 80048; 80053; 81001; 82040; 82043; 82570; 83540; 83605; 83735; 83880; 84100; 84134; 84145; 84466; 84550; 85025; 87040; 87086; 87088; 92507; 92523; 97110; 97116; 97127; 97161; 97530; 97542; J1940